=== PATIENT | female | born 1950 | race Caucasian/White ===

== ENCOUNTER → 2020-10-15 10:18 | Outpatient (BNVA) | payer MEDICARE, SELFPAY | PROVIDERS: PCP Physician Assistant Medical; Visit Provider Hospitalist | DX: Z23 Encounter for immunization (principal); J45.909 Unspecified asthma, uncomplicated; G47.33 Obstructive sleep apnea (adult) (pediatric); R01.1 Cardiac murmur, unspecified; J30.9 Allergic rhinitis, unspecified; Z99.89 Dependence on other enabling machines and devices | CPT/HCPCS: 90471; 90732 ==

== ENCOUNTER → 2022-10-23 13:07 | Outpatient (BNVA) | payer MEDICARE, SELFPAY | PROVIDERS: PCP Physician Assistant Medical; Visit Provider Hospitalist | DX: J45.909 Unspecified asthma, uncomplicated (principal); G47.33 Obstructive sleep apnea (adult) (pediatric); R01.1 Cardiac murmur, unspecified; Z99.89 Dependence on other enabling machines and devices | CPT/HCPCS: 99212 ==

== ENCOUNTER 2023-04-14 09:02 | Outpatient (REF) | payer MEDICARE, SELFPAY ==
--- NOTE | 2023-04-14 09:59 | PFT_ITS ---
INDICATION: Asthma. SPIROMETRY: FEV1 to FVC of 88% with an FEV1 of 1.94 L, which is 160% predicted and an FVC of 2.22 L, which is 90% predicted. No significant response to bronchodilators noted. Maximum voluntary ventilation 78% predicted. LUNG VOLUMES: Total lung capacity 95% predicted. DIFFUSION CAPACITY: DLCO 112% predicted. COMPARISON: None. INTERPRETATION: No restrictive ventilatory defects identified. No significant response to bronchodilator is noted. Does have mild decrease in the maximum voluntary ventilation which could be secondary to deconditioning. Lung volumes are normal except for decrease in the expiratory residual volume secondary to an elevated BMI. Diffusion capacity is within normal limits. If asthma is in the differential, a methacholine challenge may be helpful in assessing for hyperreactive airway disease. Otherwise, clinical correlation is warranted. MD HARVEY Calabrese/MODL / [id number]
== END 2023-04-14 09:03 | disposition home or self-care (01) ==
LOC: HO.RESP 09:02
PROVIDERS: PCP Physician Assistant Medical; Visit Provider Hospitalist
DX: J45.909 Unspecified asthma, uncomplicated (principal)
CPT/HCPCS: 94010; 94727; 94729

== ENCOUNTER → 2023-05-07 13:12 | Outpatient (BNVA) | payer MEDICARE, SELFPAY | PROVIDERS: PCP Physician Assistant Medical; Visit Provider Hospitalist | DX: J45.909 Unspecified asthma, uncomplicated (principal); R01.1 Cardiac murmur, unspecified; J30.9 Allergic rhinitis, unspecified; G47.33 Obstructive sleep apnea (adult) (pediatric); Z99.89 Dependence on other enabling machines and devices | CPT/HCPCS: 99212 ==

== ENCOUNTER 2023-12-20 11:24 | Outpatient (AMB) | payer MEDICARE, SELFPAY ==
--- NOTE | 2023-12-20 11:28 | HO.NEPHOV ---
HPI HPI Comments History of Present Illness Details 73 yr old woman with CKD and CHF Overall doing well PFSH Medical History (Updated 12/20/23 @ 11:52 by Daniele Reddy MD) Chronic allergic rhinitis Murmur LINETTE on CPAP Asthma Family History (Updated 12/20/23 @ 11:35 by Miranda Guzman MA) Mother Heart disease Father Heart disease Other Asthma Social History (Updated 12/20/23 @ 11:34 by Miranda Guzman MA) Alcohol intake: never Patient Tobacco Use Status: Never used Tobacco Vital Signs 12/20/23 11:29 12/20/23 11:42 Height 5 ft Weight 192 lb 6 oz BMI 37.6 BP 140/70 H 140/60 H Blood Pressure Location Lt brachial Rt brachial Position Sitting Sitting Pulse 77 Pulse Source Pulse Oximeter Pulse Oximetry (%) 96 Oxygen Delivery Method Room Air Physical Exam Vital Signs: Last Vital Signs Pulse 77 12/20/23 11:29 BP 140/60 H 12/20/23 11:42 Pulse Ox 96 12/20/23 11:29 Oxygen Delivery Method Room Air 12/20/23 11:29 BMI result Body Mass Index 37.6 Const General: comfortable Nutritional Appearance: well nourished Orientation/consciousness: patient oriented x3 HEENT Head: No normal to inspection Mouth: moist mucous membranes Neck Neck: Yes supple and Yes no JVD Resp Auscultation: clear to auscultation bilaterally, no rales and rub present Cardio Jugular venous distension: no JVD Palpation: no palpable S3 and no palpable S4 Heart sounds: no rubs GI Palpation (GI): Soft to palpation and nontender Percussion: No Fluid wave present General: Yes no CVA tenderness Back/Spine/Pelvis Back: no CVA tenderness Skin General skin exam: no rashes or lesions noted Neuro General: patient oriented x3 Extrem General: Yes no pedal edema and No clubbing Assessment & Plan Assessment & Plan (1) CKD (chronic kidney disease): Code(s): N18.9 - Chronic kidney disease, unspecified (2) LINETTE on CPAP: Code(s): G47.33 - Obstructive sleep apnea (adult) (pediatric); Z99.89 - Dependence on other enabling machines and devices (3) HTN (hypertension): Code(s): I10 - Essential (primary) hypertension Plan 73-year-old woman with CKD in a setting of congestive heart failure. Renal function is stable at this time. Goal is to slow the progression of renal disease. Volume status is acceptable. Continue with current diuretic regimen. Continue to stay on low-sodium diet. Avoid nephrotoxic agents including NSAIDs. All questions were answered. No changes were made to medications today. Orders: Orders Blood Urea Nitrogen 4 Months I10 - Essential (primary) hypertension, N18.9 - Chronic kidney disease, unspecified Creatinine 4 Months I10 - Essential (primary) hypertension, N18.9 - Chronic kidney disease, unspecified Calcium 4 Months I10 - Essential (primary) hypertension, N18.9 - Chronic kidney disease, unspecified Complete Blood Count no Diff 4 Months I10 - Essential (primary) hypertension, N18.9 - Chronic kidney disease, unspecified Electrolytes 4 Months I10 - Essential (primary) hypertension, N18.9 - Chronic kidney disease, unspecified Coding Level of Care Code Est Pt Level 4 (99483) Diagnoses CKD (chronic kidney disease) N18.9 LINETTE on CPAP G47.33; Z99.89 HTN (hypertension) I10 Results Reviewed Results Reviewed: 09/2023 Creatinine 1.4 Nephrology Results: No Data to Display
[2023-12-20 11:29] VITALS: BP 140/70; PULSE 77; O2SAT 96; BMI 37.6
[2023-12-20 11:42] VITALS: BP 140/60
== END 2023-12-20 11:45 | disposition home or self-care (01) ==
LOC: HO.HKAS 11:24
PROVIDERS: PCP Physician Assistant Medical; Visit Provider Internal Medicine Hypertension Specialist
DX: I13.0 Hypertensive heart and chronic kidney disease with heart failure and stage 1 through stage 4 chronic kidney disease, or unspecified chronic kidney disease (principal); N18.9 Chronic kidney disease, unspecified; I50.9 Heart failure, unspecified; G47.33 Obstructive sleep apnea (adult) (pediatric); Z99.89 Dependence on other enabling machines and devices
CPT/HCPCS: 99214

== ENCOUNTER → 2023-12-20 11:24 | Outpatient (BNVA) | payer MEDICARE, SELFPAY | PROVIDERS: PCP Physician Assistant Medical; Visit Provider Internal Medicine Hypertension Specialist | DX: I12.9 Hypertensive chronic kidney disease with stage 1 through stage 4 chronic kidney disease, or unspecified chronic kidney disease (principal); N18.9 Chronic kidney disease, unspecified; G47.33 Obstructive sleep apnea (adult) (pediatric); Z99.89 Dependence on other enabling machines and devices | CPT/HCPCS: 99212 ==

== ENCOUNTER 2024-02-15 10:22 | Outpatient (AMB) | payer MEDICARE, SELFPAY ==
[2024-02-15 10:31] VITALS: PULSE 84; O2SAT 95; BMI 35.9
--- NOTE | 2024-02-15 10:31 | A.OFFVIS_ITS ---
Intake Vital Signs 02/15/24 10:31 Height 5 ft Weight 184 lb BMI 35.9 Pulse 84 Pulse Source Pulse Oximeter Pulse Oximetry (%) 95 Oxygen Delivery Method Room Air Intake Visit Reasons: copd Transplanter Required: No Allergies bee pollen Allergy (Severe, Verified 02/15/24 10:32) Hives/Rash lisinopril Adverse Reaction (Severe, Verified 02/15/24 10:32) Cough Kvng Inibitors Allergy (Severe, Uncoded 02/15/24 10:32) Cough Penicillins Allergy (Severe, Uncoded 02/15/24 10:32) Rash Sulfa Drugs Allergy (Severe, Uncoded 02/15/24 10:32) Rash HPI HPI Comments History of Present Illness Details Patient is a 74-year-old woman with a known history of asthma in addition to obstructive sleep apnea on CPAP. Her asthma has been well controlled on her current respiratory medication. Back in the springtime she did have an exacerbation in did require prednisone. However since then she has been doing well. She does not use her rescue inhaler more than twice a week. She continues use her Advair regularly. She also uses her nasal sprays for her chronic rhinitis. In addition to that she has been using her CPAP. The CPAP therapy has been affecting beneficial. I did download the APAP machine which appears to be completely optimized. Her AHI is below 1. She uses it 100% of the time. Her average pressure very between 10-12 cm of water. No changes were made. She does have an issue with current mask. I did have a spare N 20 mask that fit her well. Therefore may be a good mask for to consider using moving for period she will try it for some time and that is now so we can order a mask for her. Otherwise patient is without any other complaints. She is due for a pneumonia shot today. She will call if any issues developed. 10/23/2022 the patient is here for a pulmonary follow-up visit. She is doing well with her CPAP. The CPAP therapy continues to be affecting beneficial. She does use it for more than 4 hours a night. She has been getting supplies regularly. Her major issues her breathing. She has been noticing increasing shortness of breath and chest tightness. Moderate severity. She has been on the Advair with only partial resolution of her symptoms. She has been using her rescue inhaler on a regular basis. She also has allergy medications including Singulair and has been using Nasonex for her nose. Will go ahead and optimize her therapy by adding a long-acting muscarinic antagonist. I did give her coupon of Trelegy. She is going to try that. If the medication is effective and financially reasonable she is going to continue it. Otherwise she will call the office if she is no better. We can consider also performing blood work and allergy testing and also should undergo pulmonary function studies in the future. 05/07/2023 the patient is here for pulmonary follow-up visit. The patient is doing very well. She has had significant weight loss. This has been intentional for her. The patient continues use her CPAP every night. The CPAP therapy continues to be affecting beneficial. She does use it more than 4 hours a night. The patient has been getting supplies readily from her [employer] company and she does like her mask. The patient also has been now in good response with the Trelegy inhaler. Although, very expensive. I will send her instead AirDuo to the pharmacy and she can use it good Rx card that we provided. Hopefully this will make it more reasonable for her. She did undergo pulmonary function studies and we did review them demonstrating normal lung mechanics. 02/15/2024 the patient is here for a pulmo nary follow-up visit. Overall she is doing fairly well. She is dealing with a new diagnosis of congestive heart failure. She did develop some cardiorenal syndrome. She is followed closely by Nephrology. In the meantime she continues uses CPAP. The CPAP therapy continues to be affecting beneficial. She does use the wisp mask which she likes a lot. The patient has been tolerating therapy for many years. And she will continue therapy at this time. As far as inhaler she had been on Trelegy. But was expensive. I did talk to her about AirDuo through a [employer] card. But it appears that Darianaxela will be covered nicely through her insurance will go ahead and prescribe her that and send her the medication to her pharmacy. She continues on her cardiac medications. The patient does have a murmur. 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 [facility] Medical History (Updated 12/20/23 @ 11:52 by Daniele Reddy MD) Chronic allergic rhinitis Murmur LINETTE on CPAP Asthma Family History (Updated 12/20/23 @ 11:35 by Miranda Guzman MA) Mother Heart disease Father Heart disease Other Asthma Social History (Updated 12/20/23 @ 11:34 by Miranda Guzman MA) Alcohol intake: never Patient Tobacco Use Status: Never used Tobacco Review of Systems Const Denies night sweats ENT Denies change in voice, Denies lip swelling, Denies mouth pain, Reports nasal congestion, Reports nasal discharge and Denies tongue swelling Card Denies chest pain and Reports dyspnea on exertion Resp Reports cough and Reports dyspnea on exertion GI Denies abdominal pain Musc Denies no additional complaints Neuro Denies Neuro-related abnormal movements Psych Denies no additional complaints Alhaji/Lymph Denies easy bleeding and Denies lymphadenopathy Aller/Immun Denies lip swelling and Denies tongue swelling Physical Exam Vital Signs: Last Vital Signs Pulse 84 02/15/24 10:31 Pulse Ox 95 02/15/24 10:31 Oxygen Delivery Method Room Air 02/15/24 10:31 BMI result Body Mass Index 35.9 Const General: alert HEENT General nose exam: Abnormal external nose present and Nasal discharge present Eyes Pupils: Equal, round and reactive pupils present Neck Neck: Yes normal visual inspection, Yes full ROM and Yes no lymphadenopathy Chest Chest palpation & inspection: normal inspection of the chest Resp Auscultation: diminished lung sounds Cardio Rate: regular rate Rhythm: regular rhythm Heart sounds: S1 normal heart sound present, S2 normal heart sound present and Murmur heart sound present systolic III/ and with radiation to the carotids GI Palpation (GI): Soft to palpation and nontender Auscultation: normal bowel sounds General: Yes no CVA tenderness Back/Spine/Pelvis Back: no CVA tenderness Skin General skin exam: rashes and/or lesions noted Neuro Cranial nerves: Yes Equal, round and reactive pupils present Assessment & Plan Assessment & Plan (1) Asthma: Code(s): J45.909 - Unspecified asthma, uncomplicated Qualifiers: Asthma complication type: uncomplicated Asthma persistence: unspecified Asthma severity: moderate Qualified Code(s): J45.909 - Unspecified asthma, uncomplicated Plan: Will try to decrease Advair to daily (2) LINETTE on CPAP: Code(s): G47.33 - Obstructive sleep apnea (adult) (pediatric); Z99.89 - Dependence on other enabling machines and devices Plan: Continue APAP therapy (3) Murmur: Code(s): R01.1 - Cardiac murmur, unspecified Plan: Follow up with PCP (4) Chronic allergic rhinitis: Code(s): J30.9 - Allergic rhinitis, unspecified Plan Start Wixela short-acting beta agonist as needed continue singular continue PAP therapy, WISP Requesting previous ECHO diuresis as tolerated F/U 1 year Medications: New fluticasone propion-salmeterol 250-50 mcg/dose (Wixela Inhub) 1 inh inhalation Q12H 90 days 3 ea 3RF Coding Level of Care Code Est Pt Level 4 (32086) Diagnoses Moderate asthma without complication, unspecified whether persistent J45.909 Asthma complication type: uncomplicated Asthma persistence: unspecified Asthma severity: moderate LINETTE on CPAP G47.33; Z99.89 Murmur R01.1 Chronic allergic rhinitis J30.9 Time Spent (min) 17
== END 2024-02-15 10:53 | disposition home or self-care (01) ==
PROVIDERS: PCP Physician Assistant Medical; Visit Provider Hospitalist
DX: J45.909 Unspecified asthma, uncomplicated (principal); G47.33 Obstructive sleep apnea (adult) (pediatric); Z99.89 Dependence on other enabling machines and devices; R01.1 Cardiac murmur, unspecified; J30.9 Allergic rhinitis, unspecified
CPT/HCPCS: 99214

== ENCOUNTER → 2024-02-15 10:22 | Outpatient (BNVA) | payer MEDICARE, SELFPAY | PROVIDERS: PCP Physician Assistant Medical; Visit Provider Hospitalist | DX: J45.909 Unspecified asthma, uncomplicated (principal); R01.1 Cardiac murmur, unspecified; G47.33 Obstructive sleep apnea (adult) (pediatric); Z99.89 Dependence on other enabling machines and devices | CPT/HCPCS: 99212 ==

== ENCOUNTER 2024-05-15 10:45 | Outpatient (AMB) | payer MEDICARE, SELFPAY ==
--- NOTE | 2024-05-15 10:45 | HO.NEPHOV_ITS ---
Vital Signs 05/15/24 10:46 Height 5 ft Weight 189 lb BMI 36.9 BP 142/72 H Blood Pressure Location Lt brachial Position Sitting Pulse 91 Pulse Source Pulse Oximeter Pulse Oximetry (%) 96 Oxygen Delivery Method Room Air Intake Visit Reasons: May follow up/ Conf Shredder Picker Required: No Accompanied by: Self / Same As Patient Allergies bee pollen Allergy (Severe, Verified 05/15/24 10:47) Hives/Rash lisinopril Adverse Reaction (Severe, Verified 05/15/24 10:47) Cough Kvng Inibitors Allergy (Severe, Uncoded 02/15/24 10:32) Cough Penicillins Allergy (Severe, Uncoded 02/15/24 10:32) Rash Sulfa Drugs Allergy (Severe, Uncoded 02/15/24 10:32) Rash Medication List - Last Reconciled 05/15/24 by Daniele Reddy MD ascorbic acid (vitamin C) 500 mg PO DAILY atorvastatin 20 mg PO DAILY bumetanide 1 mg PO DAILY diltiazem HCl CD 360 mg PO DAILY duloxetine 60 mg PO DAILY empagliflozin (Jardiance) 10 mg PO DAILY epinephrine IM fluticasone propion-salmeterol 250-50 mcg/dose (Wixela Inhub) 1 inh inhalation Q12H 90 days zdsgronxaug-gheunvcoz-sodjgxyn 100-62.5-25 mcg (Trelegy Ellipta) 1 ea inhalation DAILY levalbuterol tartrate 45 mcg/actuation 2 puffs inhalation Q6H PRN 90 days losartan 50 mg PO DAILY magnesium 200 mg PO DAILY mometasone 50 mcg/actuation (Nasonex) 2 sprays intranasal DAILY 90 days montelukast 10 mg PO DAILY 90 days omeprazole 40 mg PO DAILY semaglutide (Ozempic) mg subcut spironolactone 12.5 mg (1/2 x 25 mg) PO DAILY HPI Comments Details: 73 yr old woman with CKD and CHF and HTN Overall she is doing well. She has been monitoring her weight at home and takes additional dose of Bumex if needed. She is compliant with her medications. She has no specific issues today [facility] Medical History (Updated 12/20/23 @ 11:52 by Daniele Reddy MD) Chronic allergic rhinitis Murmur LINETTE on CPAP Asthma Family History Mother Heart disease Father Heart disease Other Asthma Social History Alcohol intake: never Patient Tobacco Use Status: Never used Tobacco Physical Exam Vital Signs: Last Vital Signs Pulse 91 05/15/24 10:46 BP 142/72 H 05/15/24 10:46 Pulse Ox 96 05/15/24 10:46 Oxygen Delivery Method Room Air 05/15/24 10:46 BMI result Body Mass Index 36.9 Results Reviewed Nephrology Results: No Data to Display Assessment & Plan Assessment & Plan (1) CKD (chronic kidney disease): Code(s): N18.9 - Chronic kidney disease, unspecified Category: Medical (2) LINETTE on CPAP: Code(s): G47.33 - Obstructive sleep apnea (adult) (pediatric); Z99.89 - Dependence on other enabling machines and devices Category: Medical (3) HTN (hypertension): Code(s): I10 - Essential (primary) hypertension Category: Medical Plan 73-year-old woman with CKD in a setting of congestive heart failure. Renal function is stable at this time. Baseline creatinine is around 1.2 mg/dL Goal is to slow the progression of renal disease. Agree with SGLT2 inhibitors for renal protection Volume status is acceptable. Continue with current diuretic regimen. Bumex 1 mg daily. Take additional dose of Bumex as needed based on daily weight Continue to stay on low-sodium diet. Avoid nephrotoxic agents including NSAIDs. All questions were answered. No changes were made to medications today. Orders: Orders Basic Metabolic Panel 5 Months N18.9 - Chronic kidney disease, unspecified Complete Blood Count Auto Diff 5 Months N18.9 - Chronic kidney disease, unspecified Coding Level of Care Code Est Pt Level 4 (17489) Diagnoses CKD (chronic kidney disease) N18.9 LINETTE on CPAP G47.33; Z99.89 HTN (hypertension) I10
[2024-05-15 10:46] VITALS: BP 142/72; PULSE 91; O2SAT 96; BMI 36.9
== END 2024-05-15 11:05 | disposition home or self-care (01) ==
PROVIDERS: PCP Physician Assistant Medical; Visit Provider Internal Medicine Hypertension Specialist
DX: I13.0 Hypertensive heart and chronic kidney disease with heart failure and stage 1 through stage 4 chronic kidney disease, or unspecified chronic kidney disease (principal); I50.9 Heart failure, unspecified; N18.9 Chronic kidney disease, unspecified; G47.33 Obstructive sleep apnea (adult) (pediatric); Z99.89 Dependence on other enabling machines and devices
CPT/HCPCS: 99214

== ENCOUNTER → 2024-05-15 10:45 | Outpatient (BNVA) | payer MEDICARE, SELFPAY | PROVIDERS: PCP Physician Assistant Medical; Visit Provider Internal Medicine Hypertension Specialist | DX: I13.0 Hypertensive heart and chronic kidney disease with heart failure and stage 1 through stage 4 chronic kidney disease, or unspecified chronic kidney disease (principal); I50.9 Heart failure, unspecified; N18.9 Chronic kidney disease, unspecified; G47.33 Obstructive sleep apnea (adult) (pediatric); Z99.89 Dependence on other enabling machines and devices; Z79.899 Other long term (current) drug therapy | CPT/HCPCS: 99212 ==

== ENCOUNTER 2024-09-11 11:41 | Outpatient (AMB) | payer MEDICARE, SELFPAY ==
[2024-09-11 11:43] VITALS: BP 154/78; PULSE 78; O2SAT 96; BMI 36.3
--- NOTE | 2024-09-11 11:43 | HO.NEPHOV_ITS ---
Vital Signs 09/11/24 11:43 09/11/24 11:54 Height 5 ft Weight 186 lb BMI 36.3 BP 154/78 H 140/70 H Blood Pressure Location Lt brachial Lt brachial Position Sitting Sitting Pulse 78 Pulse Source Pulse Oximeter Pulse Oximetry (%) 96 Oxygen Delivery Method Room Air Intake Visit Reasons: 5Month F/U/ conf Breaker Up Required: No Accompanied by: Self / Same As Patient Allergies bee pollen Allergy (Severe, Verified 09/11/24 11:44) Hives/Rash lisinopril Adverse Reaction (Severe, Verified 09/11/24 11:44) Cough Kvng Inibitors Allergy (Severe, Uncoded 02/15/24 10:32) Cough Penicillins Allergy (Severe, Uncoded 02/15/24 10:32) Rash Sulfa Drugs Allergy (Severe, Uncoded 02/15/24 10:32) Rash Medication List - Last Reconciled 09/11/24 by Daniele Reddy MD ascorbic acid (vitamin C) 500 mg PO DAILY atorvastatin 20 mg PO DAILY bumetanide 1 mg PO DAILY diltiazem HCl CD 360 mg PO DAILY duloxetine 60 mg PO DAILY duloxetine 30 mg PO DAILY empagliflozin (Jardiance) 10 mg PO DAILY epinephrine IM fluticasone propion-salmeterol 250-50 mcg/dose (Wixela Inhub) 1 inh inhalation Q12H 90 days cycqjwbcxqz-xtxfzrjih-yrhygnlj 100-62.5-25 mcg (Trelegy Ellipta) 1 ea inhalation DAILY levalbuterol tartrate 45 mcg/actuation 2 puffs inhalation Q6H PRN 90 days losartan 50 mg PO DAILY magnesium 200 mg PO DAILY mometasone 50 mcg/actuation (Nasonex) 2 sprays intranasal DAILY 90 days montelukast 10 mg PO DAILY 90 days omeprazole 40 mg PO DAILY semaglutide (Ozempic) mg subcut spironolactone 12.5 mg (1/2 x 25 mg) PO DAILY HPI Comments Details: 73 yr old woman with CKD and CHF and HTN Overall she is doing well. She has been monitoring her weight at home and takes additional dose of Bumex if needed. She is compliant with her medications. She has no specific issues today 09/11/24 Feels bloated Weight fluctuates [facility] Medical History (Updated 12/20/23 @ 11:52 by Daniele Reddy MD) Chronic allergic rhinitis Murmur LINETTE on CPAP Asthma Family History Mother Heart disease Father Heart disease Other Asthma Social History Alcohol intake: never Patient Tobacco Use Status: Never used Tobacco Physical Exam Vital Signs: Last Vital Signs Pulse 78 09/11/24 11:43 BP 154/78 H 09/11/24 11:43 Pulse Ox 96 09/11/24 11:43 Oxygen Delivery Method Room Air 09/11/24 11:43 BMI result Body Mass Index 36.3 Const General: comfortable; No acute distress Orientation/consciousness: patient oriented x3 Eyes General: appearance normal, both eyes and all related structures Visual Stringer: normal visual stringer by confrontation Neck Neck: Yes supple and Yes no JVD Resp Effort & Inspection: normal respiratory effort and respiratory effort not decreased Auscultation: rhonchi Cardio Palpation: no palpable S3 and no palpable S4 Heart sounds: no rubs GI Inspection: Yes normal to inspection Palpation (GI): Soft to palpation Percussion: Yes normal to percussion Auscultation: normal bowel sounds General: Yes no CVA tenderness Back/Spine/Pelvis Back: no CVA tenderness Skin General skin exam: no petechiae and no purpura Neuro General: patient oriented x3 and no focal motor deficits Extrem General: No clubbing and Yes edema Results Reviewed Results Reviewed: Cr upto 1.5 ( 08/16/24) baseline 1.2 to 1.3 Nephrology Results: No Data to Display Assessment & Plan Assessment & Plan (1) CKD (chronic kidney disease): Code(s): N18.9 - Chronic kidney disease, unspecified Category: Medical (2) LINETTE on CPAP: Code(s): G47.33 - Obstructive sleep apnea (adult) (pediatric); Z99.89 - Dependence on other enabling machines and devices Category: Medical (3) HTN (hypertension): Code(s): I10 - Essential (primary) hypertension Category: Medical Plan 73-year-old woman with CKD in a setting of congestive heart failure. Renal function is stable at this time. Baseline creatinine is around 1.2 mg/dL Mild bump to 1.5 Goal is to slow the progression of renal disease. Agree with SGLT2 inhibitors for renal protection Increase Bumex to 1 mg BID x 1 week and then back to 1 mg QD Check labs in 2 weeks Continue with current diuretic regimen. Needs follow up with cardiology LAst ECHO in January 2023- reportedly normal Continue to stay on low-sodium diet. Avoid nephrotoxic agents including NSAIDs. All questions were answered. No changes were made to medications today. Orders: Orders Basic Metabolic Panel 2 Weeks I10 - Essential (primary) hypertension, N18.9 - Chronic kidney disease, unspecified Basic Metabolic Panel 3 Months N18.9 - Chronic kidney disease, unspecified Coding Level of Care Code Est Pt Level 4 (35334) Diagnoses CKD (chronic kidney disease) N18.9 LINETTE on CPAP G47.33; Z99.89 HTN (hypertension) I10
[2024-09-11 11:54] VITALS: BP 140/70
== END 2024-09-11 12:01 | disposition home or self-care (01) ==
LOC: HO.HKA 11:41
PROVIDERS: PCP Physician Assistant Medical; Visit Provider Internal Medicine Hypertension Specialist
DX: I13.0 Hypertensive heart and chronic kidney disease with heart failure and stage 1 through stage 4 chronic kidney disease, or unspecified chronic kidney disease (principal); N18.9 Chronic kidney disease, unspecified; I50.9 Heart failure, unspecified; G47.33 Obstructive sleep apnea (adult) (pediatric); Z99.89 Dependence on other enabling machines and devices
CPT/HCPCS: 99214

== ENCOUNTER → 2024-09-11 11:41 | Outpatient (BNVA) | payer MEDICARE, SELFPAY | PROVIDERS: PCP Physician Assistant Medical; Visit Provider Internal Medicine Hypertension Specialist | DX: I12.9 Hypertensive chronic kidney disease with stage 1 through stage 4 chronic kidney disease, or unspecified chronic kidney disease (principal); N18.9 Chronic kidney disease, unspecified; G47.33 Obstructive sleep apnea (adult) (pediatric); Z99.89 Dependence on other enabling machines and devices | CPT/HCPCS: 99212 ==

== ENCOUNTER 2024-12-11 11:57 | Outpatient (AMB) | payer MEDICARE, SELFPAY ==
--- NOTE | 2024-12-11 11:58 | HO.NEPHOV ---
Vital Signs 12/11/24 11:59 Height 5 ft Weight 185 lb BMI 36.1 BP 120/70 Blood Pressure Location Lt brachial Position Sitting Pulse 71 Pulse Source Pulse Oximeter Pulse Oximetry (%) 95 Oxygen Delivery Method Room Air Intake Visit Reasons: CKD/ Conf Manufacturing Specialist Required: No Accompanied by: Self / Same As Patient Allergies bee pollen Allergy (Severe, Verified 12/11/24 12:00) Hives/Rash lisinopril Adverse Reaction (Severe, Verified 12/11/24 12:00) Cough Kvng Inibitors Allergy (Severe, Uncoded 02/15/24 10:32) Cough Penicillins Allergy (Severe, Uncoded 02/15/24 10:32) Rash Sulfa Drugs Allergy (Severe, Uncoded 02/15/24 10:32) Rash Medication List - Last Reconciled 12/11/24 by Daniele Reddy MD ascorbic acid (vitamin C) 500 mg PO DAILY aspirin 81 mg PO DAILY atorvastatin 20 mg PO DAILY bumetanide 1 mg PO DAILY carvedilol 6.25 mg PO BID diltiazem HCl CD mg PO DAILY duloxetine 60 mg PO DAILY empagliflozin (Jardiance) 10 mg PO DAILY epinephrine IM fluticasone propion-salmeterol 250-50 mcg/dose (Wixela Inhub) 1 inh inhalation Q12H 90 days ieljkrptbyc-xxxmgfpjx-ykmpbaly 100-62.5-25 mcg (Trelegy Ellipta) 1 ea inhalation DAILY levalbuterol tartrate 45 mcg/actuation 2 puffs inhalation Q6H PRN 90 days losartan 50 mg PO DAILY magnesium 200 mg PO DAILY mometasone 50 mcg/actuation (Nasonex) 2 sprays intranasal DAILY 90 days montelukast 10 mg PO DAILY 90 days omeprazole 40 mg PO DAILY semaglutide (Ozempic) mg subcut QWEEK spironolactone 12.5 mg (1/2 x 25 mg) PO DAILY HPI Comments Details: 73 yr old woman with CKD and CHF and HTN Overall she is doing well. She has been monitoring her weight at home and takes additional dose of Bumex if needed. She is compliant with her medications. She has no specific issues today 09/11/24 Feels bloated; Weight fluctuates 12/11/24 Recently had dizzy spell. Seen by cardiology Had CT scan and reportedly had a TIA? Still finding difficulty to find words Denies focal weakness Currently on Bumex 1 mg daily and occasional 2 mg as needed PFSH Medical History (Updated 12/11/24 @ 12:14 by Daniele Reddy MD) Chronic allergic rhinitis Murmur LINETTE on CPAP Asthma Family History Mother Heart disease Father Heart disease Other Asthma Social History Alcohol intake: never Patient Tobacco Use Status: Never used Tobacco Physical Exam Vital Signs: Last Vital Signs Pulse 71 12/11/24 11:59 BP 120/70 12/11/24 11:59 Pulse Ox 95 12/11/24 11:59 Oxygen Delivery Method Room Air 12/11/24 11:59 BMI result Body Mass Index 36.1 Results Reviewed Results Reviewed: 11/30/2024 Serum creatinine 1.3 Nephrology Results: No Data to Display Assessment & Plan Assessment & Plan (1) CKD (chronic kidney disease): Code(s): N18.9 - Chronic kidney disease, unspecified Category: Medical (2) LINETTE on CPAP: Code(s): G47.33 - Obstructive sleep apnea (adult) (pediatric); Z99.89 - Dependence on other enabling machines and devices Category: Medical (3) HTN (hypertension): Code(s): I10 - Essential (primary) hypertension Category: Medical (4) TIA (transient ischemic attack): Code(s): G45.9 - Transient cerebral ischemic attack, unspecified Category: Medical Plan 73-year-old woman with CKD in a setting of congestive heart failure. Renal function is stable at this time. Baseline creatinine is around 1.3 mg/dL Goal is to slow the progression of renal disease. Agree with SGLT2 inhibitors for renal protection Continue with current diuretic regimen. Needs follow up with cardiology Last ECHO in January 2023- reportedly normal Repeat is pending Continue to stay on low-sodium diet. Avoid nephrotoxic agents including NSAIDs. All questions were answered. Possible TIA Will add ASA REfer to Neurology Orders: Orders Basic Metabolic Panel 4 Months N18.9 - Chronic kidney disease, unspecified Complete Blood Count no Diff Today N18.9 - Chronic kidney disease, unspecified Referrals Neurology Referral G45.9 - Transient cerebral ischemic attack, unspecified Medications: New aspirin 81 mg PO DAILY 100 tabs 1RF Coding Level of Care Code Est Pt Level 4 (82507) Diagnoses CKD (chronic kidney disease) N18.9 LINETTE on CPAP G47.33; Z99.89 HTN (hypertension) I10 TIA (transient ischemic attack) G45.9
[2024-12-11 11:59] VITALS: BP 120/70; PULSE 71; O2SAT 95; BMI 36.1
--- OUTSIDE RECORDS SUMMARY | 2024-12-11 16:55 | XMS_ITS | Encounter Summary ---
Author Organization [facility] Address [address] [place] [address] Phone Care Team Providers Care Senior Policy Associate Name Role Phone Angela Ellington Primary Care Provider + [phone] Encounter Details Date Type Department Care Team (Late st Contact Info) Description 09/24/2022 Telephone [facility] [address] [place] [address] Daniele Reddy MD Social History Tobacco Use Types Packs/Day Years Used Date Smoking Tobacco: Never Smokeless Tobacco: Never Alcohol Use Standard Drinks/Week Comments No 0 (1 standard drink = 0.6 oz pur e alcohol) Comments Unknown Sex and Gender Information Value Date Recorded Sex Assigned at Not on file Legal Sex Female 5:10 PM EST Gender Identity Not on file Sexual Orientation Not on file documented as of this encounter Miscellaneous Notes * Telephone Encounter - Lori Lane - 09/24/2022 11:41 AM EST Please advise * Telephone Encounter - EdwardsCatie - 09/24/2022 11:26 AM EST This message was cortexed to Dr. Maureen Ta 1950 called her legs are very swollen and she gets short of breathe on exertion. She increased her bumex to 2 tabs daily by taking 1 in the morning and 1 midday, that has not helped. She would like to speak with you for guidance. Please call her back at [phone] Thank you documented in this encounter Plan of Treatment Not on file documented as of this encounter Procedures Procedure Name Priority Date/Time Associated Diagnosis Comments CBC AND DIFFERENTIAL Routine 11/25/2022 8:58 AM EST BASIC METABOLIC PANEL Routine 11/25/2022 8:58 AM EST PROTEIN / CREATININE RATIO, URINE Routine 11/25/2022 8:55 AM EST documented in this encounter Results * (ABNORMAL) Basic Metabolic Panel (11/25/2022 8:58 AM EST) Glucose 134(H) (70-99) MG/DL [facility] BUN 27(H) (8-23) MG/DL [facility] Creatinine 1.3(H) (0.5-1.0) MG/DL [facility] Sodium 141 (133-145) MMOL/L [facility] Potassium 4.7 (3.6-5.2) MMOL/L [facility] Chloride 105 (98-107) MMOL/L [facility] Bicarbonate (CO2) 30(H) (22-29) MMOL/L [facility] Anion Gap 6 (4-17) [facility] Calcium 10.7(H) (8.6-10.5) MG/DL [facility] Est GFR Non 43 ML/MIN/1.7 3 M2 [facility] Comment: Creatinine based estimated glomerular filtration (eGFR) in adults is calculated using the [employer] recommended 2020 CKD-EPI equation. Estimates GFR from serum creatinine, age and sex. Testing performed or reported by [facility], a Service of [facility], [address] [place] [id number] Noah Orta MD, Sole Leather Cutting Machine Operator [facility]# [id number] 11/25/2022 8:58 AM EST 11/25/2022 8:59 AM EST us Daniele Reddy MD LAB BLOOD ORDERABLES Final Res ult [facility] * (ABNORMAL) CBC and Differential (11/25/2022 8:58 AM EST) White Blood Cells 10.0 (4.0-11.0) K/MM3 [facility] RBC 4.44 (4.20-5.40 ) M/MM3 [facility] Hgb 12.0 (11.7-15.5 ) GM/DL [facility] Hematocrit 40.0 (35.7-45.8 ) % [facility] MCV 90.1 (80.0-100. 0) FL [facility] MCH 27.0 (27.0-34.0 ) PG [facility] MCHC 30.0(L) (33.0-37.0 ) g/dL [facility] Platelets 328 (150-460) K/MM3 [facility] RDW-SD 49.2(H) (<47.0) FL [facility] MPV 9.3(L) (9.4-12.4) FL [facility] nRBC Count 0.0 #/100 WBC'S [facility] NRBC Absolute 0.0 K/MM3 [facility] Neutrophils Abs Auto 6.6 (1.3-7.0) K/MM3 [facility] Lymphocytes Relative 2.2 (0.8-3.1) K/MM3 [facility] Monocytes 0.8 (0.4-0.9) K/MM3 [facility] Eosinophils Relative 0.3 (0.0-0.4) K/MM3 [facility] Basophil ABS 0.1 (0.0-0.1) K/MM3 [facility] Granulocytes Absolute 0.1 K/MM3 [facility] Neutrophils % Auto 65.5 (44-76) % [facility] Lymphs 21.8 (15-43) % [facility] Monocytes Absolute 8.3 (4.5-10.5) % [facility] Eosinophils 3.3 (0-6) % [facility] Basophils Relative 0.6 (0-2) % [facility] Immature Granulocytes 0.5 % [facility] Comment: Testing performed or reported by [facility], a Service of [facility], [address] [place] [id number] Noah Orta MD, Sole Leather Cutting Machine Operator [facility]# [id number] 11/25/2022 8:58 AM EST 11/25/2022 8:59 AM EST us Daniele Reddy MD LAB BLOOD ORDERABLES Final Res ult [facility] * Protein, Total, Random Urine w/Creatinine (Protein/Creat Ratio) (11/25/2022 8:55 AM EST) Protein/Creatin e Ratio 0.16 (0-0.2) [facility] Protein, Urine 5 MG/DL [facility] Creatinine, Urine 32.2 MG/DL [facility] Comment: Testing performed or reported by [facility], a Service of [facility], [address] [place] [address] Noah Orta MD, Sole Leather Cutting Machine Operator [facility]# [id number] 11/25/2022 8:55 AM EST 11/25/2022 8:58 AM EST Daniele Reddy MD LAB URINE ORDERABLES Final Res ult Performing Organization Address City/[facility] Co de Phone Number [facility] documented in this encounter Visit Diagnoses Not on filedocumented in this encounter Care Teams Senior Policy Associate Relationship Specialty Start Date End Date Angela Ellington [place] [address] PCP - General Physician Spa Director 12/02/22 documented as of this encounter
--- OUTSIDE RECORDS SUMMARY | 2024-12-11 16:55 | XMS_ITS ---
Author Organization [facility] Address [address] [place] [address] Care Team Providers Care Commercial Underwriter Name Role Phone Az Hickman Primary Care Provider [phone] Encounters Encounter Location Date Provider Diagnosis [place] [address] [place] [address] 09/18/2024 Az Hickman Plan Of Treatment No Information Progress Notes * МАРИЯ COLLINSOB:1950 (74 yo F)Acc No.[id number]:09/18/2024 Patient:?MILAGROS COLLINS :1950???Age:74 Y???Sex:Female Address:[address] [place], [address] * true * Date:? Generated for Printi ng/Famellyg/eTransmitting on:?12/11/2024 04:54 PM EST
--- OUTSIDE RECORDS SUMMARY | 2024-12-11 16:55 | XMS_ITS ---
[facility] Address [address] [place] [address] Care Team Providers Care Liberal Arts Dean Name Role Phone Roxanne Ellington PA-C Primary Care Provider UnaKwesi East Unavailable [phone] Allergies Allergen (clinical drug ingredient) Drug/Non Drug Allergy documented on EMR Reaction Allergy Type Onset Date Status Bee Sting Unknown Allergy Active lisinopril Lisinopril cough Drug Allergy Activ e Penicillin rash Drug Allergy Active Substance with sulfonamide structure and antibacterial mechanism of action (substance) Sulfa Antibiotics rash Drug Allergy Active REASON FOR VISIT At Risk Footcare, Skin problem(s) Medications Medication SIG (Take, Route, Frequency, Duration) Notes Start Date End Date Status Xopenex Active Extra Depth Orthopedic Shoes (1 Pair) with Customized Heat Molded Multidensity Innersoles (3 Pair) as directed Dx: NIDDM/Polyneuropathy (E11.42), Hammertoe Foot Deformity (M20.41,M20.42), Preulcerative Skin Lesion(s) (L85.1 01/17/2024 Active Vitamin C Active Vitamin D Active Omeprazole 40 MG 1 capsule 30 minutes before morning meal Orally Once a day for 30 day(s) Active Montelukast Sodium 10 MG 1 tablet Orally Once a day for 30 day(s) Active Nasonex Active Losartan Potassium 25 MG 1 tablet Orally Once a day for 30 day(s) Active Magnesium 400 MG as directed Orally Active DULoxetine HCl 60 MG 1 capsule Orally On ce a day for 30 day(s) Active dilTIAZem HCl ER Beads 360 MG 1 capsule Orally Once a day for 30 day(s) Active Atorvastatin Calcium 20 MG 1 tablet Orally Once a day for 30 day(s) Active Bumetanide 1 MG as directed Orally Active Spironolactone 25 MG 1 tablet Orally for 30 day(s) Active Advair Diskus 250-50 MCG/DOSE 1 puff Inhalation Twice a day Active Ozempic Active Janumet 50-1000 MG 1 tablet with meals Orally Twice a day for 30 day(s) Not-Taking Potassium 1 tab Oral for 14 days Not-Taking metFORMIN HCl Not-Ta janine Trulicity 3 MG/0.5ML as directed Subcutaneous Not-Taking Ammonium Lactate 12 % 1 application Externally to feet except for between the toes Twice a day for 30 days Active Social History Tobacco Use: Social History Observation Description Date Details (start date - stop date) Never Smoker NA - NA Tobacco Use/Smoking Question Answer Notes Are you a: nonsmoker Additional Findings: Tobacco Non-User Aggressive non-smoker Tobacco use other than smoking: Question Answer Notes Are you an other tobacco user? No Vital Signs Height 5ft in 10/19/2024 Weight 185 lbs 10/19/2024 BMI 36.13 kg/m2 10/19/2024 Blood pressure systolic 120 mm Hg 10/19/20 24 Blood pressure diastolic 84 mm Hg 024 Procedures Procedure Date Ordered Date Performed Result Body Sit e 61054-XOTUWLL NAIL, 6 OR MORE 10/19/2024 N/A 05267-HEWO SKIN LESIONS, OVER 4 10/19/2024 N/A Encounters Encounter Location Date Provider Diagnosis [facility] [address] [id number] 10/19/2024 Kwesi Cruz Type 2 diabetes mellitus with diabetic polyneuropathy E11.42 ; Tinea unguium B35.1 and Xerosis of skin L85.3 Assessments Encounter Date Diagnosis (ICD Code) Assessment Notes Treatment Notes Treatment Clinical Notes Section Notes 10/19/2024 Type 2 diabetes mellitus with diabetic polyneuropathy (ICD-10 - E11.42) 10/19/2024 Tinea unguium (ICD-10 - B35.1) 10/19/2024 Xerosis of skin (ICD-10 - L85.3) Plan Of Treatment Pending Test Test Name Order Date 53897-TIHDRNB NAIL, 6 OR MORE 10/19/2024 36282-CDPR SKIN LESIONS, OVER 4 10/19/20 24 Next Appt Details Follow Up: prn, Reason: Provider Name:Kwesi Cruz , 01/18/2025 11:30:00 AM, [address] [facility], [address], [place], [address], Procedure Notes * Category Sub-Category Detail Notes Debride Nail 6-10 Nail debridement Performance o f this nail treatment by a nonprofessional would put this patients foot and overall health at risk. Therefore, debridement to affected nail(s), as described in exam, was performed extensively to reduce/remove overall nail length, girth, thickness, subungual debris, and necrotic tissue, by manual and/or electrical means through the use of a nail nipper and/or dremel-type rubber roller grinder operator, to a more viable healthy nail plate or bed tissue 6-10 nails in total. Silver nitrate was used for any petechial bleeding as necessary. Definitive antifungal treatment options, both pharmaceutical and surgical, have been reviewed and discussed with the patient. The patient solely prefers the use of intermittent/as needed professional debridement services for their nail condition and understands the need for additional periodic treatments to maintain effectiveness in symptomatic relief - 73487 Keratoma Treatment Parring or Cutting o f Benign Hyperkeratotic Lesion(s) (-57) More than 4 Lesions - The Benign hyperkeratotic lesions, ( 7) in total, locations as stated and described in exam, were pared, and/or cut utilizing a sterile 15 blade, tissue nippers, and/or power dremel instrumentation - 97088 Progress Notes * Lorena COLLINSeDOB:1950 (74 yo F)Acc No.[id number]:10/19/2024 Progress Note Patient:?Barbara COLLINS Provider:?Kwesi Cruz DPM :1950???Age:74 Y???Sex:Female D ate:10/19/2024 Address:[address] [place], [place] [id number] Pcp:Roxanne Ellington PA-C Subjective: * Chief Complaints: * ???At Risk FootcareSkin prob mikael(s) * HPI: ???At Risk footcare:?Pt States Last PCP Visit:?Date?10/18/2024 ???Skin problems:?Treatments:?medication ( AM Lactin ), states adherence to recommended treatment application.? * ROS:?General/Constitutional:?Nausea?denies.?Vomiting?denies.?Hunger Thirst?denies.?Loss appetite?denies.?Chills?denies.?Fatigue?denies.?Fever?denies.?Night Sweats?denies.?Unexplained weight loss?denies.?Unexplained weight gain?denies.?HEENTM:?Dentures?denies.?Dizziness?denies.?Glasses/contacts?admits.?Retinopathy?de nies.?Blurred/double vision?denies.?TMJ?denies.?Discharge/drainage?denies.?Implants?denies.?Sore throat?denies.?Dental implants?denies.?Hard of hearing ?denies.?Difficulty chewing/swallowing/speaking?denies.?Nose bleeds?denies.?Sore mouth?denies.?Respiratory:?On Oxygen?denies.?Pneumonia/pleurisy?denies.?Bronchitis?denies.?Emphysema?denies.?C oughing?denies.?Cough blood?denies.?Shortness of breath?admits.?Wheezing?denies.?Cardiovascular:?Pacemaker?denies.?MVP?denies.?WPW?denies.?CHF?denies.?Heart attack?denies.?Septal defect?denies.?Rapid beat?denies.?Chest pain ?denies.?Atrial Fib.?denies.?Murmur/Palpitations?denies.?Gastrointestinal:?Hemorrhoids?denies.?Stomach/Abdominal pain?denies.?Dark blood stool?denies.?Irritable bowel ?denies.?Constipation?denies.?Diarrhea?denies.?Hematology:?Swelling?admits.?Clots?denies.?Varicose Veins?denies.?Bruising?denies.?Bleeding problem?denies.?Genitourinary:?Blood urine?denies.?Frequent/Painfu/urination/bladder control?denies.?Kidney stones?denies.?Infection (UTI)?denies.?Nephropathy?denies.?sex trans dis (STD)?denies.?Prostate?denies.?Musculoskeletal:?Hammertoes?admits.?Bunions?admits.?Back Pain?denies.?Muscle Cramps/ Resting?denies.?Muscle cramps / walking?denies.?Generalized aches and pains?denies.?Weakness?denies.?Integ.:?Lazo?denies.?Scars?denies.?Corns/calluses?admits.?Ingrown nails?admits.?Painful nails?denies.?Open Sores?denies.?Rashes?denies.?Neurologic:?Difficulty sleeping?denies.?Brain disorder?denies.?Numbness?admits.?Balance trouble?denies.?Confusion?denies.?Fainting/blackouts?denies.?Tingling?denies.?Tr emors?denies.? * Medical History:? * Surgical History:?bunion low er back thumb surgery 01/01/23umb surgery arpal tunnel 2023 * Hospitalization/Major Diagno stic Procedure:?[facility]- shoulder replacement left - shoulder replacement left 12/14/21 * Family History:?Mother: dece ased, stroke, diagnosed with Unspecified essential hypertension.?Father: alive, diagnosed with Unspecified essential hypertension.?Siblings: cancer.?Paternal Grand Father: diagnosed with Diabetic - NIDDM.?Paternal uncle: diagnosed with Family history of arthritis.? * Social History:?Tobacco Use:?Tobacco Use/Smoking?Are you a:?nonsmoker ?Additional Findings: Tobacco Non-User?Aggressive non-smoker ?Tobacco use other than smoking?Are you an other tobacco user??No * Medications:?TakingOzempic S pironolactone 25 MG Tablet 1 tablet Orally Advair Diskus 250-50 MCG/DOSE Aerosol Powder Breath Activated 1 puff Inhalation Twice a day Atorvastatin Calcium 20 MG Tablet 1 tablet Orally Once a day Bumetanide 1 MG Tablet as directed Orally dilTIAZem HCl ER Beads 360 MG Capsule Extended Release 24 Hour 1 capsule Orally Once a day DULoxetine HCl 60 MG Capsule Delayed Release Particles 1 capsule Orally Once a day Losartan Potassium 25 MG Tablet 1 tablet Orally Once a day Magnesium 400 MG Capsule as directed Orally Montelukast Sodium 10 MG Tablet 1 tablet Orally Once a day Nasonex Omeprazole 40 MG Capsule Delayed Release 1 capsule 30 minutes before morning meal Orally Once a day Vitamin C Vitamin D Xopenex Extra Depth Orthopedic Shoes (1 Pair) with Customized Heat Molded Multidensity Innersoles (3 Pair) as directed Dx: NIDDM/Polyneuropathy (E11.42), Hammertoe Foot Deformity (M20.41,M20.42), Preulcerative Skin Lesion(s) (L85.1 Ammonium Lactate 12 % Cream 1 application Externally to feet except for between the toes Twice a day Taking Ozempic Taking Spironolactone 25 MG Tablet 1 tablet Orally Taking Advair Diskus 250-50 MCG/DOSE Aerosol Powder Breath Activated 1 puff Inhalation Twice a day Taking Atorvastatin Calcium 20 MG Tablet 1 tablet Orally Once a day Taking Bumetanide 1 MG Tablet as directed Orally Taking dilTIAZem HCl ER Beads 360 MG Capsule Extended Release 24 Hour 1 capsule Orally Once a day Taking DULoxetine HCl 60 MG Capsule Delayed Release Particles 1 capsule Orally Once a day Taking Losartan Potassium 25 MG Tablet 1 tablet Orally Once a day Taking Magnesium 400 MG Capsule as directed Orally Taking Montelukast Sodium 10 MG Tablet 1 tablet Orally Once a day Taking Nasonex Taking Omeprazole 40 MG Capsule Delayed Release 1 capsule 30 minutes before morning meal Orally Once a day Taking Vitamin C Taking Vitamin D Taking Xopenex Taking Extra Depth Orthopedic Shoes (1 Pair) with Customized Heat Molded Multidensity Innersoles (3 Pair) as directed Dx: NIDDM/Polyneuropathy (E11.42), Hammertoe Foot Deformity (M20.41,M20.42), Preulcerative Skin Lesion(s) (L85.1 Taking Ammonium Lactate 12 % Cream 1 application Externally to feet except for between the toes Twice a day Not-Taking/PRNTrulicity 3 MG/0.5ML Solution Pen-injector as directed Subcutaneous Potassium 1 tab Oral metFORMIN HCl Janumet 50-1000 MG Tablet 1 tablet with meals Orally Twice a day Medication List reviewed and reconciled with the patientNot-Taking/PRN Trulicity 3 MG/0.5ML Solution Pen-injector as directed Subcutaneous Not-Taking/PRN Potassium 1 tab Oral Not-Taking/PRN metFORMIN HCl Not-Taking/PRN Janumet 50-1000 MG Tablet 1 tablet with meals Orally Twice a day Medication List reviewed and reconciled with the patient * Allergies:?Penicillin: rashS ulfa Antibiotics: rashLisinopril: coughBee Stingyes[Allergies Verified] Objective: * Vitals:?Ht: 5ft, Wt:185, BMI :36.13, Shoe size: 9, BP:120/84mm Hg, BS: 131, Ht- cm: 152.4 cm, Wt-k.91 kg. * ???Past Orders: ???Lab:HEMOGLOBIN A1C (GLYCO HEMOGLOBIN) (Order Date - 10/18/2024) (Collection Date & Time - 10/18/2024 11:23 AM) ? Value Reference Range ?TOTAL HEMOGLOBIN (HGBA1C) 6.8 * Examination: ???Neurological: ?SENSORY:? Neurological exam demonstrates, reduced light touch sensation, reduced sharp/dull pin prick discrimination , reduced vibration sensation, reduced proprioception sensation, plantar aspects, B/L, 5.07 monofilament test performed at plantar aspects of 5 varied sites per foot shows sensation, absent, B/L.?Nails: ?NAILS are:?Elongated, overgrown, dystrophic, lytic, greater than 3mm thick, discolored and friable with crumbly malodorous subungual debris, 1-5 B/L.?Dermatologic: ?SKIN FINDINGS:?Skin exam reveals Keratotic lesion(s) located at, Medial, IPJ, TA, Plantar, T3, Medial, T5, Plantar, T8, SUB MTH (s), 1, Right , Plantar, Heel(s), B/L , Skin shows approximately 70 percent LESS, sign(s) of, dryness, scaling, in a stocking fashion, no fissure(s) present, B/L.? Assessment: * Assessment: 1.?Type 2 diabetes mellitus with diabetic polyneuropathy - E11.42 (Primary)???2.?Tinea unguium - B35.1???3.?Xerosis of skin - L85.3???Specify :Acute problem, Stable Response to treatment - Improvement??? Plan: * Treatment: * Procedures:?Debride Nail 6-10:?Nail debridement?Performance of this nail treatment by a nonprofessional would put this patients foot and overall health at risk. Therefore, debridement to affected nail(s), as described in exam, was performed extensively to reduce/remove overall nail length, girth, thickness, subungual debris, and necrotic tissue, by manual and/or electrical means through the use of a nail nipper and/or dremel-type rubber roller grinder operator, to a more viable healthy nail plate or bed tissue 6-10 nails in total. Silver nitrate was used for any petechial bleeding as necessary. Definitive antifungal treatment options, both pharmaceutical and surgical, have been reviewed and discussed with the patient. The patient solely prefers the use of intermittent/as needed professional debridement services for their nail condition and understands the need for additional periodic treatments to maintain effectiveness in symptomatic relief - 82181.?Keratoma Treatment:?Parring or Cutting of Benign Hyperkeratotic Lesion(s)?(-57) More than 4 Lesions - The Benign hyperkeratotic lesions, ( 7) in total, locations as stated and described in exam, were pared, and/or cut utilizing a sterile 15 blade, tissue nippers, and/or power dremel instrumentation - 02159.? * Procedure Codes:?74463 DEBRI DE NAIL, 6 OR MORE, Modifiers: XS 42045 TRIM SKIN LESIONS, OVER 4, Modifiers: XS * Preventive Medicine:? ??Counseling:?Discussion:?-12: Office or other outpatient visit for the evaluation and management of an established patient, which required a medically appropriate history and/or examination and STRAIGHTFORWARD level of MEDICAL DECISION MAKING, 1 SELF-LIMITED OR MINOR PROBLEM, MINIMAL- NO AMOUNT/COMPLEXITY OF DATA TO BE REVIEWED/ANALYZED, AND MINIMAL RISK OF COMPLICATION/MORBIDITY. The visit on the day of the encounter encompassed interpreting the data and educating the patient as to the nature of their condition, treatment options available according to their individual PMH, meds, allergies, and overall health/living conditions, as well as any potential risks or complications that may occur from a failure to adhere to, and participate in, the recommended course of therapy. The discussion included a complete verbal, and/or written explanation of the examination results, any x-rays taken, the proposed diagnosis, and outline of the treatment plan. A schedule for future care needs was also explained. The patient verbalized an understanding of the instructions at this time and agreed to be an active participant in their treatment. If the patient should think of any questions or concerns after the visit, I have encouraged the patient to call the office.?Xerosis:?Given recent successful results to treatment, The patient is to cont the rx cream as directed.? * Follow Up:?prn * Images: * Sign off status: Completed true * Provider:?Kwesi Cruz DPM Date:?2023 Generated for Mary Jo quintanilla/Erum/Haley on:?12/11/2024 04:55 PM EST History and Physical Notes * HPI (History of Present Illness) Category Sub-Category Detail Notes Category Not es Skin problems Treatments: medication ( AM Lactin ), states adherence to recommended treatment application At Risk footcare Pt States Last PCP Visit: Date: 10/18/2024 Examination Category Sub-Category Detail Notes Category Not es Neurological SENSORY: Neurological exa m demonstrates, reduced light touch sensation, reduced sharp/dull pin prick discrimination , reduced vibration sensation, reduced proprioception sensation, plantar aspects, B/L, 5.07 monofilament test performed at plantar aspects of 5 varied sites per foot shows sensation, absent, B/L Dermatologic SKIN FINDINGS: Skin exam reveal s Keratotic lesion(s) located at, Medial, IPJ, TA, Plantar, T3, Medial, T5, Plantar, T8, SUB MTH (s), 1, Right , Plantar, Heel(s), B/L , Skin shows approximately 70 percent LESS, sign(s) of, dryness, scaling, in a stocking fashion, no fissure(s) present, B/L Nails NAILS are: Elongated, overg rown, dystrophic, lytic, greater than 3mm thick, discolored and friable with crumbly malodorous subungual debris, 1-5 B/L
--- OUTSIDE RECORDS SUMMARY | 2024-12-11 16:55 | XMS_ITS | Patient Health Record ---
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 Name Role Phone Az Hickman Primary Care Provider [phone] Jaqueline Ferguson Unavailable [phone] Frank Chowdary Unavailable [phone] Ashlee Miller Unavailable [phone] Mercedez Casas Unavailable [phone] Allergies Allergen (clinical drug ingredient) Drug/Non Drug Allergy documented on EMR Reaction Allergy Type Onset Date Status lisinopril Lisinopril Unknown Drug Allergy 03/29/2023 Acti ve angiotensin-converting enzyme inhibitor (FN) RADHA Inhibitors Unknown Drug Allergy 03/29/2023 Acti ve Bee Sting Unknown Allergy 03/29/2023 Active Substance with penicillin structure and antibacterial mechanism of action (substance) Penicillins Unknown Drug Allergy 03/29/2023 Active Substance with sulfonamide structure and antibacterial mechanism of action (substance) Sulfa Antibiotics Unknown Drug Allergy 03/29/2023 Active Results Component Value Reference Range Notes XR Shoulder 2 or more view L T Reviewed date:12/20/2023 03:56:02 PM Interpretation: Performing Lab: Notes/Report: XR Hand, 3 or more view LT Reviewed date:09/18/2024 02:35:42 PM Interpretation: Performing Lab: Notes/Report: XR Finger(s), 2 or more view LT Reviewed date:04/28/2024 08:39:44 AM Interpretation: Performing Lab: Notes/Report: XR Finger(s), 2 or more view LT Reviewed date:01/24/2024 03:00:43 PM Interpretation: Performing Lab: Notes/Report: Reason For Referral Reason RIGHT CARPAL TUNNEL RELEASE Diagnosis 1 Right carpal tunnel syndrome (G56.01) Referral Organization [facility] Referring Provider First Name Az Referring Provider Last Name Lai Referring Provider Speciality Orthopedic Surgery Referred Organization [facility] Referred Address [address] [place] [address] ,[place], [place],[id number] Referred Provider Specialty Orthopedic S urgery Procedure 1 CARPAL TUNNEL SURGER Y (46570) General Notes Mercedez Smyth 05/31/2024 11:45:13 AM >EXTRAS, ANTIBIOTICS Referral Priority Routine Referral Appointment Date 06/14/2024 Medications Medication SIG (Take, Route, Frequency, Duration) Notes Start Date End Date Status Ozempic (0.25 or 0.5 MG/DOSE) 2 MG/3ML Subcutaneous for 84 Days Active Spironolactone 25 MG Oral for 60 Days Active Atorvastatin Calcium 20 MG Oral for 90 Days Active Levalbuterol Tartrate 45 MCG/ACT Inhalation for 90 Days Active Jardiance 10 MG Oral for 90 Days Active HYDROcodone-Acetamino phen 5-325 MG 1 tablet as needed Orally every 4-6 hrs Partial Fill upon Patient Request 06/05/2024 Not-Taking Losartan Potassium 50 MG Oral for 90 Days Active Bumetanide 1 MG Oral for 90 Days Active DULoxetine HCl 30 MG Oral for 90 Days Active Social History Tobacco Use: Social History Observation Description Date Details (start date - stop date) Never Smoker NA - NA Tobacco Use/Smoking Question Answer Notes Tobacco use: nonsmoker Alcohol Screen (Audit-C) Question Answer Notes Did you have a drink containing alcohol in the p ast year? No Points 0 Interpretation Negative Problems Problem Type SNOMED Code ICD Code Onset Dates Problem Status W/U Status Risk Notes Problem Localized, primary osteoarthritis of the hand () Unilateral primary osteoarthritis of first carpometacarpal joint, left hand (M18.12) Active confirmed Problem Localized, primary osteoarthritis of the hand () Primary osteoarthritis, 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 Problem [id number] Right carpal tunnel syndrome (G56.01) Active confirmed Problem 892874613 Hand arthritis (M19.049) Active confirmed Problem Localized, primary osteoarthritis of the hand () Arthritis of carpometacarpal (CMC) joint of left thumb (M18.12) Active confirmed Vital Signs Height-cm 152.40 cm 09/18/2024 0 Weight-kg 84.37 kg 09/18/2024 0 Height 60.00 in 09/18/2024 0 Weight 186 lbs 09/18/2024 0 BMI 36.32 kg/m2 09/18/2024 0 Procedures Procedure Date Ordered Date Performed Result Body Sit e ASPIRATION [place] LARGE [place]- [id number] 12/22/2023 12/31/2023 N/A [id number] 06/05/2024 06/05/2024 N/A Encounters Encounter Location Date Provider Diagnosis [facility] [address] [place] [address] 12/20/2023 [place] [facility] 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 [facility] [address] [place] [address] 01/24/2024 Az Hickman Primary osteoarthrit is, left hand M19.042 and Right carpal tunnel syndrome G56.01 [facility] [address] [place] [address] 02/04/2024 [place] [facility] 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 [facility] [address] [place] [address] 02/18/2024 [place] [facility] 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 [facility] [address] [place] [address] 04/27/2024 Vinc[place] Miccoli Right carpal tunnel syndrome G56.01 and Arthritis of carpometacarpal (CMC) joint of left thumb M18.12 [facility] [address] [place] [address] 06/05/2024 Mercedez Casas Right carpal tunnel syndrome G56.01 [facility] [address] [place] [address] 06/23/2024 Ashlee Miller Right carpal tunnel syndrome G56.01 [facility] [address] [place] [address] 07/24/2024 Az Hickman Right carpal tunnel syndrome G56.01 [facility] [address] [place] [address] 09/18/2024 Az Hickman Unilateral primary osteoarthritis of first carpometacarpal joint, left hand M18.12 and Tenosynovitis M65.90 [facility] [address] [place] [address] 12/16/2023 Az Hickman [facility] [address] [place] [address] 01/18/2024 [place] [facility] [address] [facility] [place] [address] 01/26/2024 [place] [facility] [place] [address] [place] [address] 05/23/2024 Az Hickman [facility] [address] [facility] [place] [address] 09/18/2024 Az Hickman Assessments Encounter Date Diagnosis (ICD Code) Assessment Notes Treatment Notes Treatment Clinical Notes Section Notes 12/20/2023 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 I explained to the patient that an acute change in a well functioning arthroplasty requires evaluation for infection. Once this is ruled out then we can look for other possible sources. I would like to start with blood work and if this is questionable then I would move forward with an aspiration the shoulder and possibly a white blood cell scan. I will follow-up with her once the blood work is received. 01/24/2024 Primary osteoarthritis, left hand (ICD-10 - M19.042) I did review her nerve study showed moderate severe carpal tunnel syndrome. She has had injections in the past but it has been 2 years so I think it is worth trying 1 more injection if she responds well that is therapeutic as well as diagnostic and if it came back I would just do a right carpal tunnel release and she is okay with that she will watch for infection. I told her could take up to weeks to see how the injection works. She will call me if it comes back can potentially set up surgery. Her left thumb is doing excellent. I do not need to see her anymore unless she has a problem her fusion looks excellent. 01/24/2024 Right carpal tunnel syndrome (ICD-10 - G56.01) I did review her nerve study showed moderate severe carpal tunnel syndrome. She has had injections in the past but it has been 2 years so I think it is worth trying 1 more injection if she responds well that is therapeutic as well as diagnostic and if it came back I would just do a right carpal tunnel release and she is okay with that she will watch for infection. I told her could take up to weeks to see how the injection works. She will call me if it comes back can potentially set up surgery. Her left thumb is doing excellent. I do not need to see her anymore unless she has a problem her fusion looks excellent. 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 I call this patient and we discussed her lab results which showed no evidence of obvious infection with her shoulder. We spent time discussing her actual symptoms and it appears based on her symptoms that she may be developing some instability of the shoulder. We talked about having her return to the office so that we could do a physical exam based on this new information to determine whether not this truly is her issue and then whether not she would like to move forward with further treatment options. The patient's questions were all answered and this phone call lasted about 7 minutes. 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 We talked about definitive diagnosis being made by an examination under anesthesia with x-ray. We talked about the only treatment for this problem would be a revision arthroplasty either with a poly exchange or a component exchange to avoid impingement. I think it is unlikely that things will worsen. The concern would be poly wear. Right now she is comfortable with it the way it is and that we will plan to see each other again in 6 months for new x-ray but she will contact me sooner if she is having increasing symptoms of instability. 04/27/2024 Right carpal tunnel syndrome (ICD-10 - G56.01) The patient has recurrent carpal tunnel on the right which is moderate to severe on nerve study. I did recommend at this point a carpal tunnel release and she has had multiple injections now. She would like to see if we can do this under straight local as it will be difficult for her to get a ride from surgery which I will speak with Dr. Hickman. The other issue is with her left thumb of which I do not see any significant change from her previous x-rays. I believe some of the lack of abduction is likely from where the thumb metacarpal is sitting which does not appear to be grossly unchanged from her previous films but may have somewhat subsided. This is something we will keep an eye on. She can resume her activities with this side as she feels comfortable that we did not discuss some activity modification he is and trying to. Not grasp wider items. 04/27/2024 Arthritis of carpometacarpal (CMC) joint of left thumb (ICD-10 - M18.12) 06/05/2024 Right carpal tunnel syndrome (ICD-10 - G56.01) Orthopedic plan The natural history of the problem and treatment options were discussed at length. The potential risks, side effects, and alternatives involving the treatment modalities were discussed and the patient appeared to understand these. The proposed surgical procedure was discussed at length. Including the actual procedure. Expected length of hospital stay and recovery period were also discussed. The patient was given an opportunity to ask questions regarding the procedure, which were answered. The patient has elected to proceed at this time the proposed surgical procedure. Informed consent was obtained. postoperative pain medication will be sent to the patient's pharmacy. The patient was fitted for a sling and was instructed to bring with her on the day of surgery. 06/23/2024 Right carpal tunnel syndrome (ICD-10 - G56.01) PLAN:The patient and I reviewed the operative procedure and the expected recovery course. They understand that nerve healing is unpredictable and can take many months, but it is too soon to say how symptoms will be long-term. Sutures are removed today without issue and steri-strips are placed. Instructions are provided regarding care of the incision and the patient will allow these to fall off naturally with bathing, avoiding submerging the incisions until the incision is well healed. It is important to also avoid repetitive or direct pressure until the incision is completely healed without overlying scab. Range of motion of the hand and fingers was encouraged multiple times a day. The patient declined occupational therapy at this time. Follow-up will be as scheduled at the 6-week post op ashley with Dr. Hickman, but the patient will call with any issues or questions prior. ASSESSMENT: 74-year-old woman status post right carpal tunnel release on 06/14/24; currently doing well. 07/24/2024 Right carpal tunnel syndrome (ICD-10 - G56.01) I am going to get her into some therapy with Mini Miller OT [facility] in [facility] as that is where she lives she will call me if she is not getting better over the next month or so but otherwise no restrictions I told her should get better over time 09/18/2024 Unilateral primary osteoarthritis of first carpometacarpal joint, left hand (ICD-10 - M18.12) I am questioning whether the speed spiral may have broken down she is getting a secondary synovitis. I did see this 1 patient where they had a reaction and developed a synovitis and I did go in and take out the speed spiral and do a different technique. My PA did do an ultrasound today. It does look like that the speed spiral may be subluxing out there could be some weakening of the capsule. The only other option is to go in and if the capsule can just be imbricated I will otherwise I may take the speed spiral out and then do some type of sling mechanism and I would have to immobilize her for probably 3 or 4 weeks. She wants to think about and she is going to call me in a few weeks. She wants to do it after the holidays most likely any ways. 09/18/2024 Tenosynovitis (ICD-10 - M65.90) I am questioning whether the speed spiral may have broken down she is getting a secondary synovitis. I did see this 1 patient where they had a reaction and developed a synovitis and I did go in and take out the speed spiral and do a different technique. My PA did do an ultrasound today. It does look like that the speed spiral may be subluxing out there could be some weakening of the capsule. The only other option is to go in and if the capsule can just be imbricated I will otherwise I may take the speed spiral out and then do some type of sling mechanism and I would have to immobilize her for probably 3 or 4 weeks. She wants to think about and she is going to call me in a few weeks. She wants to do it after the holidays most likely any ways. Plan Of Treatment No Information Insurance Providers Payer Name Payer Address Payer Phone Subscriber Number Group Number Insured Name Patient Relationship to Insured Coverage Start Date Coverage End Date [place] ) [address] [place], [place] [id number] [phone] [id number] MILAGROS COLLINS Self - patient is the insured [place]) [address] [place], [place] [id number] MILAGROS COLLINS Self - patient is the insured NOR[employer]IAN A [address] [place] [address] [id number] MILAGROS COLLINS Self - patient is the insured Medications Administered Medication Instructions Date of Administration Dosage Notes Kenalog-[id number] 01/24/2024 1 mL Medical (General) History Medical History History ICD Code Problems: Degenerative joint disease of hand Osteoarthrosis of the carpometacarpal harjeet int of the thumb hypercholesterolemia hypertension asthma - moderate persistent type II diabetes DVT lower extremity chronic kidney disease, stage 3B left ventricular hypertrophy migraine headaches Surgical History Surgery Date(Month/Year) Carpal tunnel surgery Hand surgery Shoulder replacement Back surgery Ankle/foot surgery Cataract surgery left thumb
--- OUTSIDE RECORDS SUMMARY | 2024-12-11 16:55 | XMS_ITS | Patient Health Record ---
Author Organization [facility] Address [address] [place] [address] Care Team Providers Care Lace Tearing Supervisor Name Role Phone Roxanne Ellington PA-C Primary Care Provider Kwesi Crump Unavailable [phone] Allergies Allergen (clinical drug ingredient) Drug/Non Drug Allergy documented on EMR Reaction Allergy Type Onset Date Status Bee Sting Unknown Allergy Active lisinopril Lisinopril cough Drug Allergy Activ e Penicillin rash Drug Allergy Active Substance with sulfonamide structure and antibacterial mechanism of action (substance) Sulfa Antibiotics rash Drug Allergy Active Results Component Value Reference Range Notes HEMOGLOBIN A1C (GLYCOHEMOGLO BIN) Reviewed date:10/19/2024 11:24:35 AM Interpretation: Performing Lab: Notes/Report: TOTAL HEMOGLOBIN (HGBA1C) 6.8 HEMOGLOBIN A1C (GLYCOHEMOGLO BIN) Reviewed date:01/17/2024 08:37:31 AM Interpretation: Performing Lab: Notes/Report: HEMOGLOBIN A1C % (HH) 6.9 Reason For Referral No Information Medications Medication SIG (Take, Route, Frequency, Duration) Notes Start Date End Date Status Ozempic Active Montelukast Sodium 10 MG 1 tablet Orally Once a day for 30 day(s) Active Janumet 50-1000 MG 1 tablet with meals Orally Twice a day for 30 day(s) Not-Taking Nasonex Active Losartan Potassium 25 MG 1 tablet Orally Once a day for 30 day(s) Active Potassium 1 tab Oral for 14 days Not-Taking Magnesium 400 MG as directed Orally Active metFORMIN HCl Not-Ta janine dilTIAZem HCl ER Beads 360 MG 1 capsule Orally Once a day for 30 day(s) Active Ammonium Lactate 12 % 1 application Externally to feet except for between the toes Twice a day for 30 days Active DULoxetine HCl 60 MG 1 capsule Orally On ce a day for 30 day(s) Active Trulicity 3 MG/0.5ML as directed Subcutaneous Not-Taking Atorvastatin Calcium 20 MG 1 tablet Orally Once a day for 30 day(s) Active Xopenex Active Bumetanide 1 MG as directed Orally Active Extra Depth Orthopedic Shoes (1 Pair) with Customized Heat Molded Multidensity Innersoles (3 Pair) as directed Dx: NIDDM/Polyneuropathy (E11.42), Hammertoe Foot Deformity (M20.41,M20.42), Preulcerative Skin Lesion(s) (L85.1 01/17/2024 Active Spironolactone 25 MG 1 tablet Orally for 30 day(s) Active Vitamin C Active Advair Diskus 250-50 MCG/DOSE 1 puff Inhalation Twice a day Active Vitamin D Active Omeprazole 40 MG 1 capsule 30 minutes before morning meal Orally Once a day for 30 day(s) Active Immunizations Vaccine Route Administration Date Status Comme nts COVID-19 Moderna Vaccine Unknown 12/12/2020 Administere d #2 01/09/21 Influenza Unknown 08/23/2020 Administered Social History Tobacco Use: Social History Observation Description Date Details (start date - stop date) Never Smoker NA - NA Tobacco Use/Smoking Question Answer Notes Are you a: nonsmoker Additional Findings: Tobacco Non-User Aggressive non-smoker Alcohol Screen Question Answer Notes Did you have a drink containing alcohol in the p ast year? No Points 0 Interpretation Negative Tobacco use other than smoking: Question Answer Notes Are you an other tobacco user? No Problems Problem Type SNOMED Code ICD Code Onset Dates Problem Status W/U Status Risk Notes Problem Acquired hammer toe of right foot (8805305314070144 ) Other hammer toe(s) (acquired), right foot (M20.41) Active confirmed Response to treatment, Improvemen t Problem Acquired hammer toe of left foot (4118804283246216 ) Other hammer toe(s) (acquired), left foot (M20.42) Active confirmed Response to treatment, Improvemen t Problem Polyneuropathy due to type 2 diabetes mellitus (340896183) Type 2 diabetes mellitus with diabetic polyneuropathy (E11.42) Active confirmed Vital Signs Blood pressure diastolic 84 mm Hg 10/19/2024 Height 5ft in 10/19/2024 Blood pressure systolic 120 mm Hg 10/19/2024 Weight 185 lbs 10/19/2024 BMI 36.13 kg/m2 10/19/2024 Procedures Procedure Date Ordered Date Performed Result Body Sit e 60912-NMXTYAQ NAIL, 6 OR MORE 01/17/2024 N/A 70251-Ywiwgmqu Plate 01/17/2024 N/A 06485-XUKL SKIN LESIONS, OVER 4 01/17/2024 N/A 61174-NVDZOUP NAIL, 6 OR MORE 04/17/2024 N/A 27644-SPVF SKIN LESIONS, OVER 4 04/17/2024 N/A 72519-VBZLZBE NAIL, 6 OR MORE 07/19/2024 N/A 20916-AKPG SKIN LESIONS, OVER 4 07/19/2024 N/A 71837-KRFDAGZ NAIL, 6 OR MORE 10/19/2024 N/A 54591-ROUH SKIN LESIONS, OVER 4 10/19/2024 N/A Encounters Encounter Location Date Provider Diagnosis [address] [address] 01/17/2024 Kwesi Cruz Type 2 diabetes mellitus with diabetic polyneuropathy E11.42 ; Tinea unguium B35.1 ; Ingrown nail L60.0 ; Other hammer toe(s) (acquired), right foot M20.41 and Other hammer toe(s) (acquired), left foot M20.[address] [address] 04/17/2024 Kwesi Cruz Type 2 diabetes mellitus with diabetic polyneuropathy E11.42 ; Tinea unguium B35.1 ; Other hammer toe(s) (acquired), right foot M20.41 and Other hammer toe(s) (acquired), left foot M20.[address] [address] 07/19/2024 Kwesisamson Cruz Type 2 diabetes mellitus with diabetic polyneuropathy E11.42 ; Tinea unguium B35.1 and Xerosis of skin L85.[address] [address] 10/19/2024 Kwesi Cruz Type 2 diabetes mellitus with diabetic polyneuropathy E11.42 ; Tinea unguium B35.1 and Xerosis of skin L85.3 [facility] [address] [address] 07/24/2024 Kwesi Ortizunier Xerosis of skin L85. 3 Assessments Encounter Date Diagnosis (ICD Code) Assessment Notes Treatment Notes Treatment Clinical Notes Section Notes 01/17/2024 Type 2 diabetes mellitus with diabetic polyneuropathy (ICD-10 - E11.42) 01/17/2024 Tinea unguium (ICD-10 - B35.1) 04/17/2024 Type 2 diabetes mellitus with diabetic polyneuropathy (ICD-10 - E11.42) 04/17/2024 Tinea unguium (ICD-10 - B35.1) 07/19/2024 Type 2 diabetes mellitus with diabetic polyneuropathy (ICD-10 - E11.42) 07/19/2024 Tinea unguium (ICD-10 - B35.1) 07/24/2024 Xerosis of skin (ICD-10 - L85.3) 10/19/2024 Type 2 diabetes mellitus with diabetic polyneuropathy (ICD-10 - E11.42) 10/19/2024 Tinea unguium (ICD-10 - B35.1) 10/19/2024 Xerosis of skin (ICD-10 - L85.3) 01/17/2024 Ingrown nail (ICD-10 - L60.0) 04/17/2024 Other hammer toe(s) (acquired), right foot (ICD-10 - M20.41) Response to treatment,Impro vement 04/17/2024 Other hammer toe(s) (acquired), left foot (ICD-10 - M20.42) Response to treatment,Impro vement 07/19/2024 Xerosis of skin (ICD-10 - L85.3) 01/17/2024 Other hammer toe(s) (acquired), right foot (ICD-10 - M20.41) Patient Educated with: DIABETIC FOOT CARE INSTRUCTIONS. pdf (DIABETIC FOOT CARE INSTRUCTIONS. pdf) 01/17/2024 Other hammer toe(s) (acquired), left foot (ICD-10 - M20.42) Plan Of Treatment Pending Test Test Name Order Date 94269-OVIZTNQ NAIL, 6 OR MORE 10/17/2020 96773-FYFMYML NAIL, 6 OR MORE 02/10/2021 24475-NENVUNK NAIL, 6 OR MORE 05/12/2021 23313-VSMGEIV NAIL, 6 OR MORE 08/11/2021 57384-KMLUTRP NAIL, 6 OR MORE 11/17/2021 38887-ISQHPNX NAIL, 6 OR MORE 02/16/2022 70199-OVURQUA NAIL, 6 OR MORE 05/20/2022 13994-YQMZTQJ NAIL, 6 OR MORE 08/19/2022 75443-PJXTESP NAIL, 6 OR MORE 11/18/2022 49889-FCQBAOX NAIL, 6 OR MORE 02/17/2023 28654-WWYHWYW NAIL, 6 OR MORE 01/17/2024 70855-EBAQYXX NAIL, 6 OR MORE 04/17/2024 82450-ZQGTKHZ NAIL, 6 OR MORE 07/19/2024 90672-QUDRENY NAIL, 6 OR MORE 10/19/2024 70125-Dbowncsb Plate 08/19/2022 31948-Xawrujsp Plate 01/17/2024 50262-XCCQ SKIN LESIONS, OVER 4 01/17/20 24 92661-DTHK SKIN LESIONS, OVER 4 04/17/20 24 39065-VWJU SKIN LESIONS, OVER 4 02/18/20 23 60048-EIVS SKIN LESIONS, OVER 4 11/18/19 23 12970-JIGK SKIN LESIONS, OVER 4 10/19/20 24 66129-TNYA SKIN LESIONS, OVER 4 07/19/20 24 60371-IIMW SKIN LESIONS, OVER 4 08/19/20 22 68063-CMOF SKIN LESIONS, OVER 4 05/20/20 22 56119-UYCY SKIN LESIONS, OVER 4 02/17/20 22 10336-MXVF SKIN LESIONS, OVER 4 11/17/19 22 41774-UICD SKIN LESIONS, OVER 4 08/11/20 21 47442-QOWX SKIN LESIONS, OVER 4 05/12/20 21 27189-APPH SKIN LESIONS, OVER 4 02/11/20 21 79256-LVQD SKIN LESIONS, OVER 4 10/17/20 20 Next Appt Details Provider Name:Kwesi Perfecto Cruz , 01/18/2025 11:30:00 AM, [address] [facility], [address], [place], [address], Insurance Providers Payer Name Payer Address Payer Phone Subscriber Number Group Number Insured Name Patient Relationship to Insured Coverage Start Date Coverage End Date Medicare National [employer] [address] [place] [address] [id number] Barbara Romero Self - patient is the insured [employer] [address] [place] [address] [phone] [id number] Barbara Romero Self - patient is the insured Medical (General) History Medical History History ICD Code asthma Back,Hip,and Knee pain Diabetic High blood pressure Kidney disease Numbness Joint implants/screws Measles Mumps Chicken pox Reflux CAD Surgical History Surgery Date(Month/Year) bunion lower back thumb surgery 01/01/23 thumb surgery 09/2023 carpal tunnel 2023 Hospitalization History Reason Date(Month/Year) [facility]- shoulder replacement left 12/14/21 [facility]- shoulder replacement left 08/2021
--- OUTSIDE RECORDS SUMMARY | 2024-12-11 16:55 | XMS_ITS ---
Author Organization [facility] Address [address] [place] [address] Care Team Providers Care Material Scheduler Name Role Phone Az Hickman Primary Care Provider [phone] Allergies Allergen (clinical drug ingredient) Drug/Non Drug [...] Results Component Value Reference Range Notes XR Hand, 3 or more view LT Reviewed date:09/18/2024 02:35:42 PM Interpretation: Performing Lab: Notes/Report: REASON FOR VISIT f/u left thumb *loss of function Medications Medication SIG (Take, Route, Frequency, Duration) Notes Start Date End Date Status Ozempic (0.25 or 0.5 MG/DOSE) 2 MG/3ML Subcutaneous for 84 Days Active HYDROcodone-Acetamino phen 5-325 MG 1 tablet as needed Orally every 4-6 hrs Partial Fill upon Patient Request 06/05/2024 Not-Taking Losartan Potassium 50 MG Oral for 90 Days Active Bumetanide 1 MG Oral for 90 Days Active DULoxetine HCl 30 MG Oral for 90 Days Active Spironolactone 25 MG Oral for 60 Days Active Atorvastatin Calcium 20 MG Oral for 90 Days Active Levalbuterol Tartrate 45 MCG/ACT Inhalation for 90 Days Active Jardiance 10 MG Oral for 90 Days Active Social History Tobacco Use: Social History Observation Description Date Details (start date - stop date) Never Smoker NA - NA Tobacco Use/Smoking Question Answer Notes Tobacco use: nonsmoker Alcohol Screen (Audit-C) Question Answer Notes Did you have a drink containing alcohol in the p ast year? No Points 0 Interpretation Negative Vital Signs Height 60.00 in 09/18/2024 Weight 186 lbs 09/18/2024 BMI 36.32 kg/m2 09/18/2024 Height-cm 152.40 cm 09/18/2024 Weight-kg 84.37 kg 09/18/2024 0 Encounters Encounter Location Date Provider Diagnosis [place] [address] [address] 09/18/2024 Az Hickman Unilateral primary osteoarthritis of first carpometacarpal joint, left hand M18.12 and Tenosynovitis M65.90 Assessments Encounter Date Diagnosis (ICD Code) Assessment Notes Treatment Notes Treatment Clinical Notes Section Notes 09/18/2024 Unilateral primary osteoarthritis of first carpometacarpal [...] most likely any ways. Plan Of Treatment Next Appt Details Follow Up: the patient will call for follow-up visit., Reason: Progress Notes * JAY COLLINSEDOB:1950 (74 yo F)Acc No.[id number]:09/18/2024 Progress note Patient:?MILAGROS COLLINS Provider:?Az Hickman MD :1950???Age:74 Y???Sex:Female D ate:09/18/2024 Address:[address] [place] [address] , [place], [place]-[phone] Structured Data:Is today's v isit work related? : No Subjective: * Chief Complaints: * ???F/u left thumb *loss of f unction * HPI: ???HPI:?This is a 74 year old female who presents for a follow up for her left thumb. she is doing great but she noticed that she is going to use it as well she did in her hand therapist contacted me because there is a bump that they noticed.? No new trauma.? Note that her right carpal tunnel is doing excellent.? That was done back in . * Medical History:? * Surgical History:?Carpal cassidy asim surgery Hand surgery Shoulder replacement Back surgery Ankle/foot surgery Cataract surgery left thumb * Hospitalization/Major Diagno stic Procedure:?No Hospitalization History. * Family History:?Father: Arth ritis , Disorder of lung , Heart disease .?Mother: Disorder of lung , Heart disease .?Siblings: Sister: Disorder of lung .? * Social History:?Tobacco Use:?Tobacco Use/Smoking?Tobacco use:?nonsmoker ???Migrated Social History:?Migrated Social History: Tobacco Years: Never smoker 03/29/2023,. ???Drug/Alcohol:?Alcohol Screen (Audit-C)?Did you have a drink containing alcohol in the past year??No ?Points?0 ?Interpretation?Negative * Medications:?TakingJardiance 10 MG Tablet Oral Levalbuterol Tartrate 45 MCG/ACT Aerosol Inhalation Atorvastatin Calcium 20 MG Tablet Oral Spironolactone 25 MG Tablet Oral Ozempic (0.25 or 0.5 MG/DOSE) 2 MG/3ML Solution Pen-injector Subcutaneous DULoxetine HCl 30 MG Capsule Delayed Release Particles Oral Bumetanide 1 MG Tablet Oral Losartan Potassium 50 MG Tablet Oral Taking Jardiance 10 MG Tablet Oral Taking Levalbuterol Tartrate 45 MCG/ACT Aerosol Inhalation Taking Atorvastatin Calcium 20 MG Tablet Oral Taking Spironolactone 25 MG Tablet Oral Taking Ozempic (0.25 or 0.5 MG/DOSE) 2 MG/3ML Solution Pen-injector Subcutaneous Taking DULoxetine HCl 30 MG Capsule Delayed Release Particles Oral Taking Bumetanide 1 MG Tablet Oral Taking Losartan Potassium 50 MG Tablet Oral Age-RwkinkRQPOUuuxqzd-Jhicufqiykpkk 5-325 MG Tablet 1 tablet as needed Orally every 4-6 hrs , Notes to Pharmacist: Partial Fill upon Patient RequestMedication List reviewed and reconciled with the patientNot-Taking HYDROcodone-Acetaminophen 5-325 MG Tablet 1 tablet as needed Orally every 4-6 hrs , Notes to Pharmacist: Partial Fill upon Patient RequestMedication List reviewed and reconciled with the patient * Allergies:?Lisinopril: Aller gy - Onset Date 03/29/2023CE Inhibitors: Allergy - Onset Date 03/29/2023ee Sting: Allergy - Onset Date 03/29/2023enicillins: Allergy - Onset Date 03/29/2023Sulfa Antibiotics: Allergy - Onset Date 03/29/2023no[Allergies Verified] Objective: * Vitals:?Pain scale:01-10, Wt :186lbs, Wt-k.37 kg, Ht: 60.00 in, Ht-cm: 152.40 cm, BMI:36.32Index, Body Surface Area: 1.89. 0. * Examination: ???General Examination: ? I obtained an ultrasound today of the patient's left thumb CMC region.? I identified the CMC region.? There did appear to be a hyperechoic signal coming from the region just proximal to the thumb metacarpal likely consistent with the spacer.? It did appeared diminutive.? It looked like it was subluxing upon putting some traction and releasing the traction of the thumb metacarpal.? This appeared to be more so on the dorsal side at times.? I was able to visualize this on the volar side as well by the scaphoid.? The 1st dorsal compartment was visualized without any obvious hypoechoic signal surrounding the tendon and it moved dynamically.? No obvious soft tissue masses, cysts noted just below the level of the skin. ? Frank Chowdary PA-C. * Physical Examination:? Left upper extremity ?pinch 7 lb ?gear shaper 45 lb ?if I stress her CMC joint I could definitely feel some clicking and some irritation hitting her? 2nd?metacarpal region over the trapezoid.? She has some mild pain.? She also has some swelling dorsally over the EPL region and dorsal to the CMC joint.? The MP fusion site is stable without pain. ? Right upper extremity ?pinch 15 lb ?gear shaper 40 lb. Assessment: * Assessment: 1.?Unilateral primary osteoa rthritis of first carpometacarpal joint, left hand - M18.12 (Primary)???2.?Tenosynovitis - M65.90?I am questioning whether th e speed spiral may have broken down she is getting a secondary synovitis. I did see this 1 patient? ? where they had a reaction and developed a synovitis and I did go in and take out the speed spiral and do a different technique.? My PA did do an ultrasound today.? It does look like that the speed spiral may be subluxing out there could be some weakening of the capsule.? The only other option is to go in and if the capsule can just be imbricated I will otherwise I may take the speed spiral out and then do some type of sling mechanism and I would have to immobilize her for probably 3 or 4 weeks.? She wants to think about and she is going to call me in a few weeks.? She wants to do it after the holidays most likely any ways. Plan: * Treatment: * Imaging:? * ?Imaging: XR Hand, 3 or more view LT (Performed Date - 09/18/2024) * * Procedure Codes:?88113 X-RAY EXAM OF HAND * Follow Up:?the patient will call for follow-up visit. * Billing Information: * Visit Code:? 27754 Office Visit, Est Pt., Level 3. * Procedure Codes:? 65044 X-RAY EXAM OF HAND. * Sign off status: Completed true * Provider:?Az Hickman MD Date:?02/2024 Generated for Mary Jo quintanilla/Erum/Haley on:?12/11/2024 04:54 PM EST History and Physical Notes * HPI (History of Present Illness) Category Sub-Category Detail Notes Category Not es HPI This is a 74 ye ar old female who presents for a follow up for her left thumb. she is doing great but she noticed that she is going to use it as well she did in her hand therapist contacted me because there is a bump that they noticed. No new trauma. Note that her right carpal tunnel is doing excellent. That was done back in Ju Physical Examination Category Sub-Category Detail Notes Section Note s Left upper extremity pinch 7 lb gear shaper 45 lb if I stress her CMC joint I could definitely feel some clicking and some irritation hitting her 2nd metacarpal region over the trapezoid. She has some mild pain. She also has some swelling dorsally over the EPL region and dorsal to the CMC joint. The MP fusion site is stable without pain. Right upper extremity pinch 15 lb gear shaper 40 lb Examination Category Sub-Category Detail Notes Category Not es General Examination I obtained an ultrasound today of the patient's left thumb CMC region. I identified the CMC region. There did appear to be a hyperechoic signal coming from the region just proximal to the thumb metacarpal likely consistent with the spacer. It did appeared diminutive. It looked like it was subluxing upon putting some traction and releasing the traction of the thumb metacarpal. This appeared to be more so on the dorsal side at times. I was able to visualize this on the volar side as well by the scaphoid. The 1st dorsal compartment was visualized without any obvious hypoechoic signal surrounding the tendon and it moved dynamically. No obvious soft tissue masses, cysts noted just below the level of the skin. Frank Chowdary PA-C
--- OUTSIDE RECORDS SUMMARY | 2024-12-11 16:56 | XMS_ITS | Encounter Summary ---
Author Organization [facility] Address [address] [place] [address] Care Team Providers Care Manager Database Name Role Phone Roxanne Ellington Primary Care Provider [phone] Reason for Visit * Reason Onset Date Comments fluid retention 11/28/2024 off balance 11/28/2024 Hypertension 11/28/2024 Encounter Details Date Type Department Care Team (Late st Contact Info) Description 11/28/2024 Telephone [facility] [address] [facility] [address] [place] [address] Viviana Srivastava MD [address] [facility] [address] [place] [address] fluid retention; off balance; Hypertension Social History Tobacco Use Types Packs/Day Years Used Date Smoking Tobacco: Never Smokeless Tobacco: Never Alcohol Use Standard Drinks/Week Comments Not Currently 0 (1 standard drink = 0.6 oz pur e alcohol) Sex and Gender Information Value Date Recorded Sex Assigned at Not on file Gender Identity Not on file Sexual Orientation Not on file Job Start Date Occupation Industry Not on file Not on file Not on file documented as of this encounter Progress Notes * Nikita Bauman RN - 11/28/2024 2:59 PM EST Called pt back this PM. Made aware of Veronica Bowie response below. Is aware to f/u with her Certified Nuclear Medicine Technologist regarding fluid volume excess and if any worsening s/s to call 911. Is aware we will keep scheduled OV with Veronica Oates on 12/06/24. * STANISLAW Hills - 11/28/2024 2:37 PM EST Last office visit with Dr. Srivastava was September 2023 , has upcoming OV with LC on 12/06 - hesitant to change her meds suggest she call nephrology since it looks like they decreased her diuretic. For worsening symptoms she should go to ER. * Nikita Bauman RN - 11/28/2024 1:57 PM EST Called pt this PM. States for 4-5 weeks she has been having increasing SRINIVAS, ZHAO, intermittent wet cough, abd distention. Does not weight herself daily - last weight was 189 (3 months ago at Certified Nuclear Medicine Technologist - Dr. Figueroa's office). Denies PND, orthopnea, CP. Additionally 5 days ago she began to feel off - states she has more difficulty remembering thingsand having trouble gathering her thoughts. Denies UTI s/s and stroke s/s. She has been feeling off balance, lightheaded, has indigestion - lower abd area, has elevated BP that she checked this AM 160/84 HR WNL. BS 138 this AM. Denies recent illness, diarrhea, bleeding - including black tarry stools, hematuria, nose bleeds. LBM yesterday, normal. We went through med module and she is taking all meds as prescribed with no missed doses except shehad recently been changed from Trulicity to Ozempic 4-5 months ago. Is taking Bumex 1mg daily and will only take the 2nd dose (1mg) if she is not planning on going out in the PM. She takes Bumex 1mg BID maybe 1-2 times a week. Has no changes in u/o, states her output is good, no concentrated urine.Her next OV with her senior officer is in 2 weeks. Last labs 10/16/24, scanned into [facility] for review. Has been staying hydrated drinking 4 (20oz) containers of water, and 1-2 cups of coffee a day. Is refusing to be evaluated in ER - OK to keep current OV on 12/06/24? Is aware if she has any worsening s/s or any concerning s/s she would have to call 911 in the meantime. * Cecily Ivan - 11/28/2024 1:36 PM EST Patient calling, she states she's been retaining fluid, feeling off balance, has indigestion, with elevated blood pressure. She says this has been happening for about 5 days now. She says its been very consistent through the days. She has office visit on 12/06/24 documented in this encounter Plan of Treatment Upcoming Encounters Date Type Department Care Team (Late st Contact Info) Description 01/23/2025 1:40 PM EDT Office Visit [facility] [address] [facility] [address] [place] [phone] Jeanine Oates NP [address] [place] [address] 02/14/2025 2:30 PM EDT Ancillary Procedure [facility] [address] [place] [address] documented as of this encounter Visit Diagnoses Not on filedocumented in this encounter Care Teams Manager Database Relationship Specialty Start Date End Date Roxanne Ellington PA [address] [facility] [address] [place], [place] PCP - General 12/18/22 documented as of this encounter
--- OUTSIDE RECORDS SUMMARY | 2024-12-11 16:56 | XMS_ITS | Clinical Summary ---
Author Organization [address] [place] [address] [place] [phone] Phone Care Team Providers Care Grader Meat Name Role Phone Roxanne Darden Primary Care Provider [phone] Allergies Active Allergy Reactions Criticality Noted Date Comments Kvng Inhibitors Cough 12/10/2017 Bee Venom Protein (Honey Bee) Anaphylaxis High 01/29 Penicillins 07/30/2009 Sulfa (Sulfonamide Antibiotics) 07/16 Sulfa Drugs Medications Medication Sig Dispensed Refills Start Date End Date Status atorvastatin (LIPITOR) 20 mg tablet Take 20 mg by mouth daily Active bumetanide (BUMEX) 1 mg tablet Take 2 Tablets by mouth daily. Hospital Pharmacy Technician decreased to 1 qd. Active DULoxetine (CYMBALTA) [address] capsule Take 60 mg by mouth daily. Active levalbuterol (XOPENEX HFA) 45 mcg/actuation inhaler Inhale 1-2 Puffs into the lungs every 4 hours as needed for Wheezing or Shortness of Breath 05/02/2019 Active magnesium oxide (MAG-OX) 400 mg magnesium tablet Take 1 tablet by mouth 2 times daily. Active mometasone (NASONEX) 50 mcg/actuation nasal spray 2 Sprays by Each Nare route daily. Active montelukast (SINGULAIR) 10 mg tablet Take 10 mg by mouth at bedtime. Active omeprazole (PriLOSEC) [address] capsule Take 40 mg by mouth daily. Active spironolactone (ALDACTONE) 25 mg tablet Take 1 Tablet by mouth daily. Active VITAMIN C, ASCORBATE CALCIUM, ORAL Take by mouth Active losartan (COZAAR) 50 mg tablet TAKE 1 TABLET DAILY 90 tablet 1 11/07/2024 Active dilTIAZem CD (CARDIZEM CD) 180 mg 24 hr capsule Take 1 capsule (180 mg total) by mouth 1 (one) time each day. 30 each 12/06/2024 6 Active carvediloL (COREG) 6.25 mg tablet Take 1 tablet (6.25 mg total) by mouth 2 (two) times a day with meals. 60 each 2 12/06/2024 6 Active dilTIAZem CD (CARDIZEM CD) 360 mg 24 hr capsule TAKE 1 CAPSULE DAILY 05/31/2024 5 Discontinue d(Formulary change) dulaglutide (TRULICITY) 1.5 mg/0.5 mL pen injector injection Inject 3 mg into the skin once a week. 5 Discontinue d(Prescribe r Discontinue d) fluticasone propion-salmeter oL (ADVAIR HFA) 230-21 mcg/actuation inhaler Inhale 2 Puffs into the lungs 2 times daily. 05/01/2019 5 Discontinue d(Prescribe r Discontinue d) potassium chloride (MICRO-K) 10 mEq CR capsule Take 1 Cap by mouth daily. 01/27/2021 5 Discontinue d(Prescribe r Discontinue d) Active Problems Problem Noted Date Diagnosed Date GERD (gastroesophageal reflux disease) 4 HTN (hypertension) 12/18/2022 Assessment & Plan (12/10/2024 4:03 PM EST): Patient's blood pressure is well-controlled in the office today, but reportedly elevated last week. Her repairing calibrator that just adjusted her diuretic therapy. As above, will begin the transition from calcium channel donald to beta-donald in hopes of controlling both her blood pressure and minimizing her lower extremity edema. She may continue her Bumex as directed by her repairing calibrator that she does not appear to be centrally volume overloaded. Continue her losartan and Aldactone at current doses. Syncope 12/18/2022 Palpitations 05/28/2021 Assessment & Plan (12/10/2024 4:04 PM EST): The patient has brief and sporadic episodes of palpitations. She does not have sustained palpitations. We will transition her diltiazem to Coreg and see if that improves any perception of her palpitations. Allergic rhinitis 12/10/2017 Anxiety 12/10/2017 CAD (coronary artery disease) 12/10/2017 CHF (congestive heart failure) 12/10/2017 Overview (12/10/2024): -Clean coronary arteries in 2012 - Her most recent echocardiogram is from 01/2023 revealing normal LVEF 65 to 70%, no wall motion abnormalities, mild concentric LVH, normal biatrial size, without hemodynamically significant valve disease Assessment & Plan (12/10/2024 4:02 PM EST): The patient has some breathlessness and mild lower extremity edema. She does not appear grossly volume overloaded. Is possible that her lower extremity edema is due at least in part to her calcium channel donald use. As such, we will begin transitioning off of her diltiazem and onto carvedilol. Will start by reducing her diltiazem to 180 mg daily and starting 6.25 mg of Coreg. Despite reported underlying lung disease, she does not wheeze. I instructed her to call me immediately if she has any changes in her breathing and/or if she starts wheezing. The patient understands and agrees with this plan. Will update the patient's echocardiogram as it has been a number of years since her last. Depression 12/10/2017 Diabetes mellitus type 2, uncomplicated 12/10/19 18 DJD (degenerative joint disease) of knee 018 Hyperlipidemia 12/10/2017 Assessment & Plan (12/10/2024 4:05 PM EST): The patient's LDL is somewhat robust given her DM, though she had no CAD on her cath from over a decade ago. Ideally, LDL should be at least less than 100, closer to 70 if possible. If she has a more updated lipid panel from her PCPs office, we would appreciate if a copy could be sent to our office. Asthma 03/15/2017 Obstructive sleep apnea syndrome 03/15/2017 Encounters Date Type Department Care Team Description 12/07/2024 9:33 AM EST - 12/07/2024 11:59 PM EST Hospital Encounter [facility] CT Scan [address] [place] [address] Ataxia; Chronic diastolic congestive heart failure (CMS/HCC) Discharge Disposition: Home or Self Care 12/06/2024 1:10 PM EST Office Visit [facility] Cardiology [facility] - [address] [place] [phone] Jeanine Oates NP Chronic diastolic congestive heart failure (CMS/HCC) (Primary Dx); Palpitations; Ataxia; Primary hypertension; Pure hypercholesterolemia 12/06/2024 Telephone [facility] Cardiology [facility] - [address] [place] [address] Jeanine Oates NP Appointment (CT Head) 11/28/2024 Telephone [facility] - [address] [place] [address] Viviana Srivastava MD fluid retention; off balance; Hypertension from Last 3 Months Immunizations Name Administration Dates Next Due Influenza trivalent, MDCK, 0 .5mL, preservative free (Flucelvax) 6mo and older 09/23/2017 Pneumococcal conjugate 13 va lent (Prevnar 13, PCV13) 2mo and older 02/19/2017 Pneumococcal polysaccharide 23 valent (Pneumovax 23) 2yo and older 11/15/2012 Tdap Tetanus diptheria acell ular pertussis (Boostrix; Adacel) 7yo and older 01/03/2009 Surgical History Surgery Date Site/Laterality Comments CHOLECYSTECTOMY PROCEDURE: HISTORICAL CHOLECYSTECTOMY OOPHORECTOMY PROCEDURE: HISTORICAL OOPHORECTOMY FOOT SURGERY PROCEDURE: HISTORICAL FOOT SURGERY Medical History Medical History Date Comments Asthma 03/15/2017 DX:Asthma Obstructive sleep apnea syndrome 03/15/2017 DX:Obstructive sleep apnea syndrome Depression DX:Depression HTN (hypertension) DX:HTN (hyper tension) Diabetes mellitus type 2, uncomplicated ([facility]) 12/10/2017 DX:Diabetes mellitus type 2, uncomplicated ([facility]) Anxiety 12/10/2017 DX:Anxiety Allergic rhinitis 12/10/2017 DX:Allergic rh initis CAD (coronary artery disease) 12/10/2017 DX :CAD (coronary artery disease) CHF (congestive heart failur e) ([facility]) 12/10/2017 DX:CHF (congestive heart latoya lure) ([facility]) DJD (degenerative joint dise ase) of knee 12/10/2017 DX:DJD (degenerative joint d isease) of knee GERD (gastroesophageal reflux disease) DX:GERD (gastroesophageal reflux disease) Hyperlipidemia 12/10/2017 DX:Hyperlipidemi a Family History Medical History Relation Name Comments Coronary artery disease Father Heart attack Father Coronary artery disease Mother Relation Name Status Comments Father Mother Social History Tobacco Use Types Packs/Day Years [...] file Not on file Not on file Obstetrics History Last Filed Vital Signs Vital Sign Reading Time Taken Comments Blood Pressure 130/70 12/06/2024 1:24 PM EST Pulse 75 12/06/2024 1:24 PM EST Temperature - - Respiratory Rate - - Oxygen Saturation 96% 12/06/2024 1:24 PM EST Inhaled Oxygen Concentration - - Weight 84.8 kg (187 lb) 12/06/2024 1:24 PM EST Height 152.4 cm (5') 12/06/2024 1:24 PM EST Body Mass Index 36.52 12/06/2024 1:24 PM EST Plan of Treatment Upcoming Encounters Date Type Department Care Team (Late st Contact Info) Description 01/23/2025 1:40 PM EDT Office Visit [facility] Cardiology [facility] - [facility] [address] [facility] [address] [place] [address] Jeanine Oates NP 300 [facility] [address] [place] [address] 02/14/2025 2:30 PM EDT Ancillary Procedure [facility] Cardiology [facility] [address] [facility] [address] [place] [address] Health Maintenance Due Date Last Done Comments Diabetes: Annual Foot Exam 1961 Diabetes: Annual Retina Eye Exam 1961 Diabetes: Annual GFR (Glomerular Filtration Rate) 05/22/2006 05/22/2005 RSV Immunization Patients 60+ Years Old (1 - Risk 60-74 years 1-dose series) 2011 Cholesterol Screening (Lipid Panel) 10/24/2022 Depression Screening 10/24/2022 Falls Risk Assessment 10/24/2022 Hepatitis C Screening 10/24/2022 Osteoporosis Screening (Bone Density Screening) 10/24/2022 Social Influencers of Health Screening 10/24/2022 Breast Cancer Screening 12/25/2022 12/25/2020, 06/27 Medicare Annual Wellness Visit 10/06/2023 10/06/2022 COVID-19 Vaccine ( season) 2024 11/05/2022, 10/15/2021, 01/09/2021, Additional history exists Diabetes: Annual Urine Albumin-Creatinine Ratio (uACR) 10/11/2024 05/22/2005 Diabetes: Blood Sugar Control Test (HGBA1C) 10/11/2024 Hypertension/CHF/CAD Annual BMP Blood Test 10/11/2024 05/22/2005 Colorectal Cancer Screening: FIT-DNA (Cologuard) 10/15/2025 10/15/2022, 10/15/2022, 06/22/2018 DTaP,Tdap,and Td Vaccines (3 - Td or Tdap) 07/24/2029 07/24/2019, 01/03/2009 Pneumococcal Vaccine: 65+ Years Completed 10/15/2020, 06/17/2018, 02/19/2017, Additional history exists Zoster Vaccines Completed 03/22/2023, 06/16/2022 Influenza Vaccine Completed 08/15/2024, , 09/03/2022, Additional history exists HIB Vaccines Aged Out No longer eligi ble based on patient's age to complete this topic HPV Vaccines Aged Out No longer eligi ble based on patient's age to complete this topic Hepatitis A Vaccines Aged Out No long er eligible based on patient's age to complete this topic Hepatitis B Vaccines Aged Out No long er eligible based on patient's age to complete this topic IPV Vaccines Aged Out No longer eligi ble based on patient's age to complete this topic MMR Vaccines Aged Out No longer eligi ble based on patient's age to complete this topic Meningococcal ACWY Vaccine Aged Out N o longer eligible based on patient's age to complete this topic RSV Immunization Patients Under 20 months Aged Out No longer eligible based on patient's age to complete this topic Varicella Vaccines Aged Out No longer eligible based on patient's age to complete this topic Procedures Procedure Name Priority Date/Time Associated Diagnosis Comments CT HEAD WO CONTRAST STAT 12/07/2024 9 :46 AM EST Ataxia Chronic diastolic congestive heart failure (CMS/HCC) ECG 12-LEAD Routine 12/06/2024 1:32 PM EST Palpitations WILLIAM SCREENING DIGITAL Routine 12/25/2020 5:12 PM EST Encounter for screening mammogram for malignant neoplasm of breast URINE ALBUMIN CREATININE RATIO Routine 05/22/2005 ANNUAL BMP BLOOD TEST Routine 05/22/2005 from Last 3 Months or Most Recently Relevant to Health Maintenance Results * CT Head wo Contrast (12/07/2024 9:46 AM EST) Anatomical Region Laterality Modality Head and Neck Computed Tomogra phy 12/07/2024 10:1 1 AM EST Impressions 12/07/2024 10:[address] evidence of an acute large vessel infarct. ??No acute intracranial findings. -------- FINAL REPORT -------- Dictated By: Steven Troy Dictated Date: 12/07/2024 10:11 ET Assigned Physician: Steven Troy Reviewed and Electronically Signed By: Steven Troy Signed Date: 12/07/2024 10:18 ET Workstation ID: [id number] Transcribed By: Self Edit Transcribed Date: 12/07/2024 10:11 ET Narrative 12/07/2024 10:18 AM EST PROCEDURE: Noncontrast head CT. HISTORY: Neuro deficit, acute, stroke suspected. COMPARISON: None. TECHNIQUE: Noncontrast head CT with coronal and sagittal reformats. Dose length product: ??1070 mGy-cm. FINDINGS: Brain: No hemorrhage, edema, mass, or extra-axial fluid collection. ??No CT evidence of an acute large vessel infarct. ??Ventricles and sulci are age commensurate. ??Atherosclerotic calcifications of the carotid siphons and vertebral arteries small dystrophic calcifications of the globus pallidus bilaterally. Orbits: Lens implants. Sinuses/mastoids: Partially visible opacification of one of the mid right ethmoid air cells. ??Frontal sinuses are not pneumatized. Calvarium: Normal. Other: The skull base soft tissues are normal. Procedure Note Steven Troy MD - 12/07/2024 PROCEDURE: Noncontrast head CT. HISTORY: Neuro deficit, acute, stroke suspected. COMPARISON: None. TECHNIQUE: Noncontrast head CT with coronal and sagittal reformats. Dose length product: 1070 mGy-cm. FINDINGS: Brain: No hemorrhage, edema, mass, or extra-axial fluid collection. No CTevidence of an acute large vessel infarct. Ventricles and sulci are agecommensurate. Atherosclerotic calcifications of the carotid siphons andvertebral arteries small dystrophic calcifications of the globus pallidusbilaterally. Orbits: Lens implants. Sinuses/mastoids: Partially visible opacification of one of the mid rightethmoid air cells. Frontal sinuses are not pneumatized. Calvarium: Normal. Other: The skull base soft tissues are normal. IMPRESSION: No CT evidence of an acute large vessel infarct. No acute intracranialfindings. -------- FINAL REPORT -------- Dictated By: Steven Troy Dictated Date: 12/07/2024 10:11 ET Assigned Physician: Steven Troy Reviewed and Electronically Signed By: Steven Troy Signed Date: 12/07/2024 10:18 ET Workstation ID: [id number] Transcribed By: Self Edit Transcribed Date: 12/07/2024 10:11 ET Jeanine Oates NP IMG CT PROCEDURES * ECG 12 lead (12/06/2024 1:32 PM EST) Ventricular Rate ECG 75 BPM GEMUSE Atrial Rate 75 BPM GEMUSE P-R Interval 202 ms GEMUSE QRS Duration 90 ms GEMUSE Q-T Interval 392 ms GEMUSE QTc 437 ms GEMUSE P Wave [place] 55 degrees GEMUSE R [place] -20 degrees GEMUSE T [place] 89 degrees GEMUSE ECG Interpretation Normal sinus rhythm Normal ECG unchanged EKG 10/2023 Confirmed by Shante ZAMAN JAY ([id number]) on 12/07/2024 11:23:39 AM GEMUSE 12/06/2024 1:32 PM EST 12/07/2024 11:23 AM EST Jeanine Oates NP ECG ORDERABLES GEMUSE * WILLIAM SCREENING DIGITAL (12/25/2020 5:12 PM EST) Anatomical Region Laterality Modality Mammography 12/25/2020 2:51 PM EST Narrative 12/25/2020 5:12 PM EST [facility] Diagnostic Imaging Department [address] [place] [address] Patient: ??BARBARA ROMERO ?/Age/Sex: 1950 - 70 - F Unit#: ??[id number] ? Location/Status: ??SPDIMAM/REG CLI ? Mnemonic/Ordering Site: ??DIGSC/SPMAM Ordering Physician: ??ROXANNE DARDEN William Screening Digital - [id number] History: Bilateral breast cancer screening. Technique: Bilateral digital mammography. Conventional CC and MLO projections with tomosynthesis MLO views and computer aided detection. Findings: Comparison: [facility] digital mammography 06/27/2018 through 04/11/2004. Breast tissue is mostly fatty replaced (category a density) bilaterally (as calculated by [employer]a software). ??There are benign calcifications bilaterally. ?? There is no suspicious group of microcalcification, no suspicious mass, architectural distortion or suspicious asymmetry. Impression: ??No evidence of malignancy. BIRADS category 2, benign findings, 3342F 66231, [address]22 Note: Patient information entered ??into a reminder system with a target due date for the next mammogram; PQRI II 4856B Dictating Physician: ??TAN COLON MD Electronically Signed by: ??TAN COLON MD Dic Date/Time: ??12/25/201711 Sign date/Time: ??12/25/201711 Procedure Note Tan Colon MD - 11/03/2022 [facility] Diagnostic Imaging Department [address] [place] [address] Patient: BARBARA ROMEROO.B./Age/Sex: 1950 - 70 - F Unit#: [id number] Location/Status: SPDIMAM/REG CLI Mnemonic/Ordering Site: [facility] Ordering Physician: ROXANNE DARDEN William Screening Digital - 02/10/21 - 1537 History: Bilateral breast cancer screening. Technique: Bilateral digital mammography. Conventional CC and MLOprojections with tomosynthesis MLO views and computer aided detection. Findings: Comparison: [facility] digital mammography 06/27/2018 through 04/11/2004. Breast tissue is mostly fatty replaced (category a density) bilaterally(as calculated by [employer] software). There are benigncalcifications bilaterally. There is no suspicious group of microcalcification, nosuspicious mass, architectural distortion or suspicious asymmetry. Impression: No evidence of malignancy. BIRADS category 2, benign findings, 3342F 68531, 00584 Note: Patient information entered into a reminder system with a targetdue date for the next mammogram; PQRI II 7025F Dictating Physician: TAN COLON MD Electronically Signed by: TAN COLON MD Dic Date/Time: 12/25/201711 Sign date/Time: 12/25/201711 Roxanne DOVER IMG BI PROCEDURES * Urine Albumin Creatinine Ratio (05/22/2005) Urine Albumin Creatinine Ratio abstracted Historical Provider MD KRISTOFER Elena * Annual BMP Blood Test (05/22/2005) Pathologist [facility] Annual BMP Blood Test abstracted Historical Provider MD KRISTOFER Elena from Last 3 Months or Most Recently Relevant to Health Maintenance Care Teams Grader Meat Relationship Specialty Start Date End Date Roxanne Darden PA [address] [facility] [address] [place], [place] PCP - General 12/18/22
--- OUTSIDE RECORDS SUMMARY | 2024-12-11 16:56 | XMS_ITS | Encounter Summary ---
Author Organization [facility] Address [address] [place] [address] Care Team Providers Care Assembler Corncob Pipes Name Role Phone Roxanne Ellington Primary Care Provider [phone] Reason for Referral * Imaging (Emergency) - Authorized Specialty Diagnoses / Procedures Referred By Contac t Referred To Contact Radiology Diagnoses Ataxia Chronic diastolic congestive heart failure (CMS/HCC) Procedures CT Head wo Contrast Jeanine Oates NP [address] [address] [facility] Referral ID Status Reason Start Date Expiration Date V isits Requested Visits Authorized [id number] Authorized 12/06/2024 12/06/2025 1 1 Reason for Visit * Imaging (Emergency) - Authorized Specialty Diagnoses / Procedures Referred By Contac t Referred To Contact Radiology Diagnoses Ataxia Chronic diastolic congestive heart failure ([facility]/HCC) Procedures CT Head wo Contrast Jeanine Oates NP [address] [address] [facility] Referral ID Status Reason Start Date Expiration Date V isits Requested Visits Authorized [id number] Authorized 12/06/2024 12/06/2025 1 1 Encounter Details Date Type Department Care Team (Latest Contact Info) Description 12/07/2024 9:33 AM EST - 12/07/2024 11:59 PM EST Hospital Encounter [facility] CT Scan [address] [place] [address] Ataxia; Chronic diastolic congestive heart failure ([facility]) Discharge Disposition: Home or Self Care Social History Tobacco Use Types Packs/Day Years [...] on file documented as of this encounter Medications at Time of Discharge Medication Sig Dispensed Refills Start Date End Date atorvastatin (LIPITOR) 20 mg tablet Take 20 mg by mouth daily bumetanide (BUMEX) 1 mg tablet Take 2 Tablets by mouth daily. Auto Air Conditioning Mechanic decreased to 1 qd. carvediloL (COREG) 6.25 mg tablet Take 1 tablet (6.25 mg total) by mouth 2 (two) times a day with meals. 60 each 2 12/06/2024 12/06/2025 dilTIAZem CD (CARDIZEM CD) 180 mg 24 hr capsule Take 1 capsule (180 mg total) by mouth 1 (one) time each day. 30 each 12/06/2024 12/06/2025 DULoxetine (CYMBALTA) [address] capsule Take 60 mg by mouth daily. levalbuterol (XOPENEX HFA) 45 mcg/actuation inhaler Inhale 1-2 Puffs into the lungs every 4 hours as needed for Wheezing or Shortness of Breath 05/02/2019 losartan (COZAAR) 50 mg tablet TAKE 1 TABLET DAILY 90 tablet 1 11/07/2024 magnesium oxide (MAG-OX) 400 mg magnesium tablet Take 1 tablet by mouth 2 times daily. mometasone (NASONEX) 50 mcg/actuation nasal spray 2 Sprays by Each Nare route daily. montelukast (SINGULAIR) 10 mg tablet Take 10 mg by mouth at bedtime. omeprazole (PriLOSEC) [address] capsule Take 40 mg by mouth daily. spironolactone (ALDACTONE) 25 mg tablet Take 1 Tablet by mouth daily. VITAMIN C, ASCORBATE CALCIUM, ORAL Take by mouth documented as of this encounter Discharge Disposition Disposition Code Departure Means Destination Home or Self Care documented in this encounter Plan of Treatment Upcoming Encounters Date Type Department Care Team (Late st Contact Info) Description 01/23/2025 1:40 PM EDT Office Visit [facility] - [address] [place] [phone] Jeanine Oates NP [address] [place] [address] 02/14/2025 2:30 PM EDT Ancillary Procedure [facility] - [address] [place] [address] documented as of this encounter Procedures Procedure Name Priority Date/Time Associated Diagnosis Comments CT HEAD WO CONTRAST STAT 12/07/2024 9 :46 AM EST Ataxia Chronic diastolic congestive heart failure (CMS/HCC) documented in this encounter Results * CT Head wo Contrast (12/07/2024 [...] Signed Date: 12/07/2024 10:18 ET Workstation ID: [id number] Transcribed By: Self Edit Transcribed Date: 12/07/2024 [...] Signed Date: 12/07/2024 10:18 ET Workstation ID: [id number] Transcribed By: Self Edit Transcribed Date: 12/07/2024 10:11 ET Jeanine Oates NP IMG CT PROCEDURES documented in this encounter Visit Diagnoses Diagnosis Ataxia Lack of coordination Chronic diastolic congestive heart failure (CMS/HCC) documented in this encounter Care Teams Assembler Corncob Pipes Relationship Specialty Start Date End Date Roxanne Ellington PA [address] [facility] [address] [place], [place] PCP - General 12/18/22 documented as of this encounter
--- OUTSIDE RECORDS SUMMARY | 2024-12-11 16:56 | XMS_ITS ---
Author Organization [facility] Address [address] [place] [address] Care Team Providers Care Human Intelligence Name Role Phone Roxanne Ellington PA-C Primary Care Provider Kwesi Crump Unavailable [phone] REASON FOR VISIT RX Medications Medication SIG (Take, Route, Fr equency, Duration) Notes Start Date End Date Status Ammonium Lactate 12 % 1 application Exte rnally to feet except for between the toes Twice a day for 30 days Act samuel Encounters Encounter Location Date Provider Diagnosis [facility] [address] [place] [phone] 07/24/2024 Kwesi Cruz Xerosis of skin L85.3 Assessments Encounter Date Diagnosis (ICD Code) Assessment Notes Treatment Notes Treatment Clinical Notes Section Notes 07/24/2024 Xerosis of skin (ICD-10 - L85.3) Plan Of Treatment Medication Medication Name Sig Start Date Stop Date Notes Ammonium Lactate 12 % 1 application Exte rnally to feet except for between the toes Twice a day for 30 days Next Appt Details Provider Name:Kwesi Cruz , 01/18/2025 11:30:00 AM, [address] [address], [place], [address], Progress Notes * Anahi ROMEROOB:1950 (74 yo F)Acc No.[id number]:07/24/2024 Patient:?NickLorenae :1950???Age:74 Y???Sex:Female Address:[address] [place] [address], [address] * Refills? Refill Ammonium Lactate Cream, 12 %, Externally to feet except for between the toes, 60, 1 application, Twice a day, 30 days, Refills=2 * true * Date:? Generated for Mary Jo quintanilla/Erum/Evgenyitting on:?12/11/2024 04:56 PM EST
--- OUTSIDE RECORDS SUMMARY | 2024-12-11 16:56 | XMS_ITS | Encounter Summary ---
Author Organization [facility] Address [address] [place] [address] Care Team Providers Care Assembler Adjuster Name Role Phone Roxanne Ellington Primary Care Provider [phone] Reason for Referral * Imaging (Emergency) - Authorized Specialty Diagnoses / Procedures Referred By Contac t Referred To Contact Radiology Diagnoses Ataxia Chronic diastolic congestive heart failure (CMS/HCC) Procedures CT Head wo Contrast Jeanine Oates NP [address] [address] [facility] Referral ID Status Reason Start Date Expiration Date V isits Requested Visits Authorized [id number] Authorized 12/06/2024 12/06/2025 1 1 * Imaging (Routine) - Authorized Specialty Diagnoses / Procedures Referred By Contac t Referred To Contact Cardiology Diagnoses Palpitations Ataxia Chronic diastolic congestive heart failure (CMS/HCC) Primary hypertension Pure hypercholesterolemia Procedures Transthoracic echocardiogram (TTE) complete with PRN contrast, bubble, strain, and 3D order panel UT TTE W 2D IMAGE COMPLETE W DOPPLER ECHO & COLOR FLOW DOPPLER ECHO UT WIN 2D COMPLETE W/CONTRAST OR W & WO CONTRAST WITH DOPPLER Jeanine Oates NP [address] [facility] [address] [place] [address] [facility] Referral ID Status Reason Start Date Expiration Date V isits Requested Visits Authorized [id number] Authorized 12/06/2024 12/06/2025 1 1 Reason for Visit * Reason Comments Follow-up Encounter Details Date Type Department Care Team (Latest Contact Info) Description 12/06/2024 1:10 PM EST Office Visit [facility] [address] [facility] [address] [place] [phone] Jeanine Oates NP [address] [place], [place] [id number] Chronic diastolic congestive heart failure (CMS/HCC) (Primary Dx); Palpitations; Ataxia; Primary hypertension; Pure hypercholesterolemia Social History Tobacco Use Types Packs/Day Years [...] on file documented as of this encounter Last Filed Vital Signs Vital Sign Reading [...] Mass Index 36.52 12/06/2024 1:24 PM EST documented in this encounter Ordered Prescriptions Prescription Sig Dispensed Refills Start Date End Da te carvediloL (COREG) 6.25 mg tablet Take 1 tablet (6.25 mg total) by mouth 2 (two) times a day with meals. 60 each 2 12/06/2024 12/06/2025 dilTIAZem CD (CARDIZEM CD) 180 mg 24 hr capsule Take 1 capsule (180 mg total) by mouth 1 (one) time each day. 30 each 12/06/2024 12/06/2025 documented in this encounter Progress Notes * Jeanine Oates NP - 12/10/2024 4:05 PM ESTAssociated Problem(s): Hyperlipidemia The patient's LDL is somewhat robust given her DM, though she had no CAD on her cath from over a decade ago. Ideally, LDL should be at least less than 100, closer to 70 if possible. If she has a moreupdated lipid panel from her PCPs office, we would appreciate if a copy could be sent to our office. * Jeanine Oates NP - 12/10/2024 4:04 PM ESTAssociated Problem(s): Palpitations The patient has brief and sporadic episodes of palpitations. She does not have sustained palpitations. We will transition her diltiazem to Coreg and see if that improves any perception of her palpitations. * Jeanine Oates NP - 12/10/2024 4:03 PM ESTAssociated Problem(s): HTN (hypertension) Patient's blood pressure is well-controlled in the office today, but reportedly elevated last week.Her special projects manager that just adjusted her diuretic therapy. As above, will begin the transition from calcium channel donald to beta-donald in hopes of controlling both her blood pressure and minimizing her lower extremity edema. She may continue her Bumex as directed by her special projects manager that she does not appear to be centrally volume overloaded. Continue her losartan and Aldactone at current doses. * Jeanine Oates NP - 12/10/2024 4:02 PM ESTAssociated Problem(s): CHF (congestive heart failure) ([facility]) The patient has some breathlessness and mild [...] starting 6.25 mg of Coreg. Despite reported un derlying lung disease, she does not wheeze. I instructed her to call me immediately if she has any changes in her breathing and/or if she starts wheezing. The patient understands and agrees with thisplan. Will update the patient's echocardiogram as it has been a number of years since her last. * Jeanine Oates NP - 12/06/2024 1:10 PM EST Please call with questions or concerns. Jeanine Oates DNP, TAX COMPLIANCE MANAGER [phone] Please call or go to the ER with any chest discomfort (pain or pressure), trouble breathing, prolonged palpitations, or any changes in your current condition or concerning symptoms. Follow up in [address] head ordered We are going to wean you off the diltiazem for your gums and your swelling. We will try instead coreg to control your palpitations and blood pressure - take diltiazem CD 180mg daily - start coreg 6.25mg twice a day Call me on Wednesday 12/13 and let me know how you are feeling * Jeanine Oates NP - 12/06/2024 1:10 PM EST Primary Heater Installer Dr. Atif Chilel Nick is a 74 y.o. old female here for cardiac follow up of: 1) HFpEF 2) hypertension 3) hyperlipidemia She had an episode of syncope over 2 years ago, without clear etiology. Medical history also significant for asthma, DM and CKD. She called the office about a week ago planned regarding fluid retention and an off-balance sensation. Her diuretic adjustment adjusted by her special projects manager, and recommendation was made to call nephrology for further advice. Today, however, the pt further clarifies her symptoms prompting call last week. Her BP was elevatedand she was off balance. She had some word finding difficulty, which was not made clear in her telephone message. Though she was advised to call her special projects manager for her BP, she did not. She is vague in her description despite repeat questioning. She says that her breathing is a challenge at times. This has been going on for a couple of months. Her special projects manager recommended increased bumex when she is at home. She is unsure if it helps her symptoms or not. She does have LE edema, especially at the end of the day. Her LE edema improves with elevation overnight. She has rare palpitations, occurring once a month or so, lasting a couple of minutes, and described as a pounding/skipping sensation. She has a recumbent cough that has been more pronounced in the last 3 months. The patient denies chest pain with rest or exertion, syncope/presyncope, and sleeps on 1 pillows a night. Even though she has asthma, she last had wheezing over a year ago. ACTIVE MEDICATIONS: Outpatient Medications Marked as Taking for the 12/06/24 encounter (Office Visit) with Jeanine Oates NP Medication Sig Dispense Refill atorvastatin (LIPITOR) 20 mg tablet Take 20 mg by mouth daily bumetanide (BUMEX) 1 mg tablet Take 2 Tablets by mouth daily. Application Defense Manager decreased to 1 qd. DULoxetine (CYMBALTA) [address] capsule Take 60 mg by mouth daily. levalbuterol (XOPENEX HFA) 45 mcg/actuation inhaler Inhale 1-2 Puffs into the lungs every 4 hours as needed for Wheezing or Shortness of Breath losartan (COZAAR) 50 mg tablet TAKE 1 TABLET DAILY 90 tablet 1 magnesium oxide (MAG-OX) 400 mg magnesium tablet [...] C, ASCORBATE CALCIUM, ORAL Take by mouth [DISCONTINUED] dilTIAZem CD (CARDIZEM CD) 360 mg 24 hr capsule TAKE 1 CAPSULE DAILY PAST MEDICAL HISTORY: Patient Active Problem List Diagnosis Date Noted Date Diagnosed GERD (gastroesophageal reflux disease) 10/10/2024 HTN (hypertension) 12/18/2022 Syncope 12/18/2022 Palpitations 05/28/2021 Allergic rhinitis 12/10/2017 Anxiety 12/10/2017 CAD (coronary artery disease) 12/10/2017 CHF (congestive heart failure) ([facility]) 12/10/2017 -Clean coronary arteries in 2012 - Her most recent echocardiogram is from 01/2023 revealing normal LVEF 65 to 70%, no wall motion abnormalities, mild concentric LVH, normal biatrial size, without hemodynamically significant valve disease Depression 12/10/2017 Diabetes mellitus type 2, uncomplicated ([facility]) 12/10/2017 DJD (degenerative joint disease) of knee 12/10/2017 Hyperlipidemia 12/10/2017 Asthma 03/15/2017 Obstructive sleep apnea syndrome 03/15/2017 Resolved Problems No resolved problems to display. ALLERGIES: Allergies Allergen Reactions Bee Venom Protein (Honey Bee) Anaphylaxis Kvng Inhibitors Cough Penicillins Sulfa (Sulfonamide Antibiotics) Sulfa Drugs SOCIAL HISTORY: Social History Tobacco Use Smoking status: Never Smokeless tobacco: Never Substance Use Topics Alcohol use: Not Currently PHYSICAL EXAM: Vitals: 12/06/24 1324 BP: 130/70 BP Location: Left arm Patient Position: Sitting BP Cuff Size: Adult Pulse: 75 SpO2: 96% Weight: 84.8 kg (187 lb) Height: 1.524 m (60 ) GENERAL: WDWN 74 y.o. female resting comfortably on the exam chair in no acute distress HEENT: NCAT, negative JVD, carotid pulses +2 bilaterally, without bruit RESPIRATORY: Lungs clear, No wheezes/rales/rhonchi CARDIAC: S1S2, RRR no Murmur/heaves/rubs/gallops, no S3S4 EXTREMITIES: +2 bilateral ankle edema PULSES: Radial and Pedal +2 bilaterally NEURO: A&Ox3 MS: Moving all extremities without focal findings. EKG: Encounter Date: 12/06/24 ECG 12 lead Result Value Ventricular Rate ECG 75 Atrial Rate 75 P-R Interval 202 QRS Duration 90 Q-T Interval 392 QTc 437 P Wave [place] 55 R [place] -20 T [place] 89 ECG Interpretation Normal sinus rhythm Normal ECG unchanged EKG 10/2023 Confirmed by Shante ZAMAN, THAO ([id number]) on 12/07/2024 11:23:39 AM *Note: Due to a large number of results and/or encounters for the requested time period, some results have not been displayed. A complete set of results can be found in Results Review. TESTING: Last BMP 10/16/2024 NA 145 K 4.8 CL 105 CO2 23 BUN 24 Creat 1.22 Last CBC 10/16/2024 WBC 10.8 Hgb 12.9 Hct 40.2 Plt 412 Last lipid 10/01/2023 TC 174 TG 82 HDL 50 LDL 108 As per AHA guidelines and previously established plan of care by Dr. Srivastava, we discussed the following today: ASSESSMENT/PLAN: Problem List Items Addressed This Visit CHF (congestive heart failure) ([facility]) - Primary The patient has some breathlessness and mild [...] starting 6.25 mg of Coreg. Despite reported un derlying lung disease, she does not wheeze. I instructed her to call me immediately if she has any changes in her breathing and/or if she starts wheezing. The patient understands and agrees with thisplan. Will update the patient's echocardiogram as it has been a number of years since her last. Relevant Medications dilTIAZem CD (CARDIZEM CD) 180 mg 24 hr capsule carvediloL (COREG) 6.25 mg tablet Other Relevant Orders Transthoracic echocardiogram (TTE) complete with PRN contrast, bubble, strain, and 3D order panel CT Head wo Contrast (Completed) HTN (hypertension) Patient's blood pressure is well-controlled in the office today, but reportedly elevated last week.Her special projects manager that just adjusted her diuretic therapy. As above, will begin the transition from calcium channel donald to beta-donald in hopes of controlling both her blood pressure and minimizing her lower extremity edema. She may continue her Bumex as directed by her special projects manager that she does not appear to be centrally volume overloaded. Continue her losartan and Aldactone at current doses. Relevant Medications dilTIAZem CD (CARDIZEM CD) 180 mg 24 hr capsule carvediloL (COREG) 6.25 mg tablet Other Relevant Orders Transthoracic echocardiogram (TTE) complete with PRN contrast, bubble, strain, and 3D order panel Hyperlipidemia The patient's LDL is somewhat robust given her DM, though she had no CAD on her cath from over a decade ago. Ideally, LDL should be at least less than 100, closer to 70 if possible. If she has a moreupdated lipid panel from her PCPs office, we would appreciate if a copy could be sent to our office. Relevant Orders Transthoracic echocardiogram (TTE) complete with PRN contrast, bubble, strain, and 3D order panel Palpitations The patient has brief and sporadic episodes of palpitations. She does not have sustained palpitations. We will transition her diltiazem to Coreg and see if that improves any perception of her palpitations. Relevant Orders ECG 12 lead (Completed) Transthoracic echocardiogram (TTE) complete with PRN contrast, bubble, strain, and 3D order panel Other Visit Diagnoses Ataxia Today, the patient reports a more concerning symptomatology picture than reported to the nursing team last week. Her ataxia and particularly her word finding issues are concerning through our conversation today. As such, I have ordered a stat head CT. She has no other focal neurologic defects in the office, and she appears to be answering questions in an appropriate and timely fashion. Since the time of our office visit, her CT head returns without any acute findings. PCP to continueworkup if clinically relevant. Relevant Orders Transthoracic echocardiogram (TTE) complete with PRN contrast, bubble, strain, and 3D order panel CT Head wo Contrast (Completed) Orders Placed This Encounter Procedures CT Head wo Contrast ECG 12 lead Transthoracic echocardiogram (TTE) complete with PRN contrast, bubble, strain, and 3D order panel Thank you for allowing us to participate in the care of this patient. The patient will follow up in6 weeks, sooner PRN. This note is completed with voice recognition software. Please pardon any grammatical or syntax errors. I personally spent a total of 30 minutes, including both uvod-zx-juix and leh-dpec-wx-face time on the date of the encounter, addressing the above diagnoses. Activities performed in this time includechart review, obtaining / reviewing history, performing a medically necessary evaluation, documentation and counseling including medical decision making of 1. Chronic diastolic congestive heart failure (CMS/HCC) 2. Palpitations 3. Ataxia 4. Primary hypertension 5. Pure hypercholesterolemia . documented in this encounter Plan of Treatment Upcoming Encounters Date Type Department Care Team (Henrique Contact Info) Description 01/23/2025 1:40 PM EDT Office Visit [facility] [address] [place] [phone] Jeanine Oates NP [address] [place] [address] 02/14/2025 2:30 PM EDT Ancillary Procedure [facility] [address] [place] [address] Scheduled Orders Name Type Priority Associated Diagnoses Orde r Schedule Transthoracic echocardiogram (TTE) complete with PRN contrast, bubble, strain, and 3D order panel Echocardiography Routine Palpitations Ataxia Chronic diastolic congestive heart failure (CMS/HCC) Primary hypertension Pure hypercholesterolemia 1 Occurrences starting 12/06/2024 until 12/06/2025 documented as of this encounter Procedures Procedure Name Priority Date/Time Associated Diagnosis Comments ECG 12-LEAD Routine 12/06/2024 1:32 PM EST Palpitations documented in this encounter Results * CT [...] Signed Date: 12/07/2024 10:18 ET Workstation ID: [id number] Transcribed By: Self Edit Transcribed Date: 12/07/2024 [...] Signed Date: 12/07/2024 10:18 ET Workstation ID: [id number] Transcribed By: Self Edit Transcribed Date: 12/07/2024 10:11 ET Jeanine Oates NP IMG CT PROCEDURES * ECG 12 lead (12/06/2024 1:32 PM EST) Ventricular Rate ECG 75 BPM GEMUSE Atrial Rate 75 BPM GEMUSE P-R Interval 202 ms GEMUSE QRS Duration 90 ms GEMUSE Q-T Interval 392 ms GEMUSE QTc 437 ms GEMUSE P Wave [place] 55 degrees GEMUSE R [place] -20 degrees GEMUSE T [place] 89 degrees GEMUSE ECG Interpretation Normal sinus rhythm Normal ECG unchanged EKG 10/2023 Confirmed by Shante ZAMAN JAY ([id number]) on 12/07/2024 11:23:39 AM GEMUSE 12/06/2024 1:32 PM EST 12/07/2024 11:23 AM EST Jeanine aOtes NP ECG ORDERABLES GEMUSE documented in this encounter Visit Diagnoses Diagnosis Chronic diastolic congestive heart failure (CMS/HCC)- Primary Palpitations Ataxia Lack of coordination Primary hypertension Unspecified essential hypertension Pure hypercholesterolemia Ataxia Lack of coordination Chronic diastolic congestive heart failure (CMS/HCC) documented in this encounter Discontinued Medications Medication Sig Discontinue Reason Start Date End Da te dulaglutide (TRULICITY) 1.5 mg/0.5 mL pen injector injection Inject 3 mg into the skin once a week. Prescriber Discontinued 12/06/2024 fluticasone propion-salmeteroL (ADVAIR HFA) 230-21 mcg/actuation inhaler Inhale 2 Puffs into the lungs 2 times daily. Prescriber Discontinued 05/01/2019 12/06/2024 potassium chloride (MICRO-K) 10 mEq CR capsule Take 1 Cap by mouth daily. Prescriber Discontinued 01/27/2021 12/06/2024 dilTIAZem CD (CARDIZEM CD) 360 mg 24 hr capsule TAKE 1 CAPSULE DAILY Formulary change 05/31/2024 12/06/2024 documented as of this encounter Care Teams Assembler Adjuster Relationship Specialty Start Date End Date Roxanne Ellington PA [address] [facility] [address] [place], [place] PCP - General 12/18/22 documented as of this encounter
--- OUTSIDE RECORDS SUMMARY | 2024-12-11 16:56 | XMS_ITS ---
Author Organization [facility] Address [facility] [address] Care Team Providers Care Data Control Clerk Name Role Phone Az Hickman Primary Care Provider [phone] Allergies Allergen (clinical drug ingredient) Drug/Non Drug [...] Sulfa Antibiotics Unknown Drug Allergy 03/29/2023 Active REASON FOR VISIT 6w p/op - dcw - right carpal tunnel release - [facility] Medications Medication SIG (Take, Route, Frequency, Duration) Notes Start Date End Date Status HYDROcodone-Acetamino phen 5-325 MG 1 tablet as needed Orally every 4-6 hrs Partial Fill upon Patient Request 06/05/2024 Not-Taking Bumetanide 1 MG Oral for 90 Days Active Losartan Potassium 50 MG Oral for 90 Days Active Ozempic (0.25 or 0.5 MG/DOSE) 2 MG/3ML Subcutaneous for 84 Days Active DULoxetine HCl 30 MG Oral for 90 Days Active Atorvastatin Calcium 20 MG Oral for 90 Days Active Spironolactone 25 MG Oral for 60 Days Active Jardiance 10 MG Oral for 90 Days Active Levalbuterol Tartrate 45 MCG/ACT Inhalation for 90 Days Active Vital Signs Height 60.00 in 07/24/2024 Weight 186 lbs 07/24/2024 BMI 36.32 kg/m2 07/24/2024 Height-cm 152.40 cm 07/24/2024 Weight-kg 84.37 kg 07/24/2024 Encounters Encounter Location Date Provider Diagnosis [facility] [place] [address] 07/24/2024 Az Hickman Right carpal tunnel syndrome G56.01 Assessments Encounter Date Diagnosis (ICD Code) Assessment Notes Treatment Notes Treatment Clinical Notes Section Notes 07/24/2024 Right carpal tunnel syndrome (ICD-10 - G56.01) I am going to get her into some therapy with Mini Miller OT CHT in [facility] as that is where she lives she will call me if she is not getting better over the next month or so but otherwise no restrictions I told her should get better over time Plan Of Treatment Next Appt Details Follow Up: prn, Reason: Progress Notes * KARINA GEMINISUSYOB:1950 (74 yo F)Acc No.[id number]:07/24/2024 Patient:?AARONCHARITOGEMINIMILAGROS Provider:?Az Hickman MD :1950???Age:74 Y???Sex:Female D ate:07/24/2024 Address:[address] [place] [address] , [id number] Structured Data:Is today's v isit work related? : No Subjective: * Chief Complaints: * ???6w p/op - dcw - right car pal tunnel release - 06/[address] [facility] * HPI: ???HPI:?74 y/o female presents today for her post-operative visit she is s/p right CTR done 06/14/24.Six weeks from surgery she has no numbness or tingling but she would definitely has pain in the palm.? She has not done any therapy. * Medical History:? * Surgical History:?Carpal cassidy asim surgery Hand surgery Shoulder replacement Back surgery Ankle/foot surgery Cataract surgery left thumb * Hospitalization/Major Diagno stic Procedure:?Denies Past Hospitalization * Family History:?Father: Arth ritis , Disorder of lung , Heart disease .?Mother: Disorder of lung , Heart disease .?Siblings: Sister: Disorder of lung .?Non-Contributory.? * Social History:?Migrated Social History:?Migrated Social History: Tobacco Years: Never smoker 03/29/2023,. * Medications:?TakingJardiance 10 MG Tablet Oral Levalbuterol [...] Taking Losartan Potassium 50 MG Tablet Oral Xvw-ZndwluYZFICwogros-Gejxfkdzboehg 5-325 MG Tablet 1 tablet as needed [...] Onset Date 03/29/2023no[Allergies Verified] Objective: * Vitals:?Pain scale:31-10, Wt :186lbs, Wt-k.37 kg, Ht: 60.00 in, Ht-cm: 152.40 cm, BMI:36.32Index, Body Surface Area: 1.89. * Examination: ???General Examination: ? Right upper extremity ?pinch 15 lb ?building mover 45 lb ?negative Tinel's, Phalen's compression carpal tunnel she has positive pillar pain. ? Left upper extremity ?pinch 10 lb ?building mover 40 lb. Assessment: * Assessment: 1.?Right carpal tunnel syndr ome - G56.01 (Primary)?I am going to get her into some therapy with Mini Miller , OT CHT? in [facility] as that is where she lives she will call me if she is not getting better over the next month or so but otherwise no restrictions I told her should get? better over time Plan: * Treatment: * Procedure Codes:? * Follow Up:?prn * Billing Information: * Visit Code:? 60061 Postop visit. * Procedure Codes:? * Sign off status: Completed true * Provider:?Az Hickman MD Date:?07/2024 Generated for Mary Jo quintanilla/Erum/eTransmitting on:?12/11/2024 04:56 PM EST History and Physical Notes * HPI (History of Present Illness) Category Sub-Category Detail Notes Category Not es HPI 74 y/o female p resents today for her post-operative visit she is s/p right CTR done 06/14/24.Six weeks from surgery she has no numbness or tingling but she would definitely has pain in the palm. She has not done any therapy. Examination Category Sub-Category Detail Notes Category Not es General Examination Right upper extremity pinch 15 lb building mover 45 lb negative Tinel's, Phalen's compression carpal tunnel she has positive pillar pain. Left upper extremity pinch 10 lb building mover 40 lb
--- OUTSIDE RECORDS SUMMARY | 2024-12-11 16:56 | XMS_ITS | Clinical Summary ---
Author Organization [facility] Address [address] [place] [address] Care Team Providers Care Utilization Manager Name Role Phone Unavailable Primary Care Provider Unavailabl e Allergies Active Allergy Reactions Criticality Noted Date Comments Penicillins Urticarial Rash Medium 10/03/2007 Sulfa Antibiotics Urticarial Rash Medium 10/03/2007 Medications COZAAR 50 MG OR TABSIndications :Thumb pain BID Active LASIX 20 MG OR TABSIndications :Thumb pain twice a day Active SIMVASTATIN 10 MG OR TABSIndications :Thumb pain BID Active SINGULAIR 10 MG OR TABSIndications :Thumb pain 1 TABLET EVERY EVENING Active NEXIUM 40 MG OR CPDRIndications :Thumb pain 1 CAPSULE DAILY Active LEXAPRO 20 MG OR TABSIndications :Thumb pain 1 TABLET DAILY Active VICODIN 5-500 MG OR TABS 1 TABLET EVERY 4 TO 6 HOURS NEEDED 28 0 12/09/2007 Active CYMBALTA 30 MG OR CPEP 1 CAPSULE DAILY Active FLOVENT 110 MCG/ACT IN AERO None Entered A ctive ALBUTEROL 90 MCG/ACT IN AERS None Entered A ctive Social History Tobacco Use Types Packs/Day Years Used Date Smoking Tobacco: Never Alcohol Use Standard Drinks/Week Comments Not Asked 0 (1 standard drink = 0.6 oz pur e alcohol) Comments No Sex and Gender Information Value Date Recorded Sex Assigned at Not on file Legal Sex Female 10:32 PM EDT Gender Identity Not on file Sexual Orientation Not on file Last Filed Vital Signs Vital Sign Reading Time Taken Comments Blood Pressure 132/68 07/09/2008 9:58 AM EDT Pulse 66 07/09/2008 9:58 AM EDT Temperature 37.2 ??C (98.9 ??F) 07/09/2008 9:58 AM ED T Respiratory Rate 14 07/09/2008 9:58 AM EDT Oxygen Saturation - - Inhaled Oxygen Concentration - - Weight 89.4 kg (197 lb) 07/09/2008 9:58 AM EDT Height 157.5 cm (5' 2 ) 07/09/2008 9:58 AM EDT Body Mass Index 36.03 07/09/2008 9:58 AM EDT Plan of Treatment Health Maintenance Due Date Last Done Comments Hepatitis C Screening 1950 DTaP/Tdap/Td (1 - Tdap) 1969 Mammogram/Breast Imaging 1991 Pneumococcal 50+ years (1 of 1 - PCV) 2001 Zoster (Shingrix) (1 of 2) 2001 Bone Density 02/03/2016 COVID-19 Vaccine ( - 2023-2 5 season) 2024 Influenza (#1) 2024 RSV (1 - 1-dose 75+ series) 2026 HPV Vaccine Aged Out No longer eligi ble based on patient's age to complete this topic Hep A Aged Out No longer eligi ble based on patient's age to complete this topic Hep B Aged Out No longer eligi ble based on patient's age to complete this topic Hib Aged Out No longer eligi ble based on patient's age to complete this topic Meningococcal ACWY Aged Out No longer eligible based on patient's age to complete this topic Pap Smear Discontinued Zoster (Zostavax) Discontinued Insurance [employer]ENS[employer]
--- OUTSIDE RECORDS SUMMARY | 2024-12-11 16:56 | XMS_ITS ---
Author Organization [facility] Address [address] [place] [address] Care Team Providers Care Route Process Administrator Name Role Phone Roxanne Ellington PA-C Primary Care Provider UnaKwesi East Unavailable [phone] Allergies Allergen (clinical drug ingredient) Drug/Non Drug [...] Duration) Notes Start Date End Date Status metFORMIN HCl Not-Ta janine Potassium 1 tab Oral for 14 days Not-Taking Extra Depth Orthopedic Shoes (1 Pair) with Customized Heat Molded Multidensity Innersoles (3 Pair) as directed Dx: NIDDM/Polyneuropathy (E11.42), Hammertoe Foot Deformity (M20.41,M20.42), Preulcerative Skin Lesion(s) (L85.1 01/17/2024 Active Xopenex Active Janumet 50-1000 MG 1 tablet with meals Orally Twice a day for 30 day(s) Not-Taking Vitamin D Active Vitamin C Active Trulicity 3 MG/0.5ML as directed Subcutaneous Not-Taking Omeprazole 40 MG 1 capsule 30 minutes before morning meal Orally Once a day for 30 day(s) Active Nasonex Active Magnesium 400 MG as directed Orally Active Losartan Potassium 25 MG 1 tablet Orally Once a day for 30 day(s) Active DULoxetine HCl 60 MG 1 capsule [...] Twice a day for 30 days Active Bumetanide 1 MG as directed Orally Active Atorvastatin Calcium 20 MG 1 tablet Orally Once a day for 30 day(s) Active Advair Diskus 250-50 MCG/DOSE 1 puff Inhalation Twice a day Active Spironolactone 25 MG 1 tablet Orally for 30 day(s) Active Ozempic Active Social History Tobacco Use: Social History [...] user? No Vital Signs Height 5ft in 07/19/2024 Weight 183 lbs 07/19/2024 BMI 35.74 kg/m2 07/19/2024 Procedures Procedure Date Ordered Date Performed Result Body Sit e 80880-GVNBVBQ NAIL, 6 OR MORE 07/19/2024 N/A 27460-RFCP SKIN LESIONS, OVER 4 07/19/2024 N/A Encounters Encounter Location Date Provider Diagnosis [facility] [address] [address] 07/19/2024 Kwesi Cruz Type 2 diabetes mellitus with diabetic polyneuropathy E11.42 ; Tinea unguium B35.1 and Xerosis of skin L85.3 Assessments Encounter Date Diagnosis (ICD Code) Assessment Notes Treatment Notes Treatment Clinical Notes Section Notes 07/19/2024 Type 2 diabetes mellitus with diabetic polyneuropathy (ICD-10 - E11.42) 07/19/2024 Tinea unguium (ICD-10 - B35.1) 07/19/2024 Xerosis of skin (ICD-10 - L85.3) Plan Of Treatment Medication Medication Name Sig Start Date Stop Date Notes Ammonium Lactate 12 % 1 application Exte rnally to feet except for between the toes Twice a day for 30 days Pending Test Test Name Order Date [id number]-VGGIRXM NAIL, 6 OR MORE 07/19/2024 [id number]-[id number] SKIN LESIONS, OVER 4 07/19/20 24 Next Appt Details Follow Up: prn, Reason: Provider Name:Kwesi Grove Anthony , 01/18/2025 11:30:00 AM, [address] , [address], [place], [address], Procedure Notes * Category Sub-Category Detail Notes Debride Nail 6-10 Nail debridement Performance o f this nail treatment by a nonprofessional would put this patients foot and overall health at risk. Therefore, nail debridement was performed extensively to reduce/remove overall nail length, girth, thickness, subungual debris, and necrotic tissue, by manual and/or electrical means through the use of a nail nipper and/or dremel-type crankshaft grinder, to a more viable healthy nail plate or bed tissue 6-10. Silver nitrate used for any petechial bleeding as necessary. Definitive antifungal treatment options have been reviewed and discussed with the patient. The patient chooses, no pharmaceutical tx - 05025 Keratoma Treatment Parring or Cutting o f Benign Hyperkeratotic Lesion(s) 20985 ( More than 4 Lesions ) - The Benign hyperkeratotic lesions, as described above were pared, and/or cut utilizing a sterile 15 blade, tissue nippers, and/or dremel Progress Notes * Anahi ROMEROOB:1950 (74 yo F)Acc No.[id number]:07/19/2024 Progress Note Patient:?Barbara Romero Provider:?Kwesi Cruz DPM :1950???Age:74 Y???Sex:Female D ate:07/19/2024 Address:[address] [place], [place] [address] Pcp:Roxanne Ellington PA-C Subjective: * Chief Complaints: * ???At Risk FootcareSkin prob mikael(s) * HPI: ???At Risk footcare:?Pt States Last PCP Visit:?Date?02/18/2024 ???Skin problems:?Nature:?dryness , scaling.?Location:?B/L .?Duration:?several days.?Course:?worse.? * ROS:?General/Constitutional:?Nausea?denies.?Vomiting?denies.?Hunger Thirst?denies.?Loss appetite?denies.?Chills?denies.?Fatigue?denies.?Fever?denies.?Night Sweats?denies.?Unexplained weight loss?denies.?Unexplained [...] arpal tunnel 2023 * Hospitalization/Major Diagno stic Procedure:[place] [place] - shoulder replacement left 12/14/21 * Family History:?Mother: dece ased, stroke, diagnosed with Unspecified essential hypertension.?Father: alive, diagnosed with Unspecified essential hypertension.?Siblings: cancer.?Paternal Grand Father: diagnosed with Diabetic - NIDDM.?Paternal uncle: diagnosed with Family history of arthritis.? * Social History:?Tobacco Use:?Tobacco Use/Smoking?Are you a:?nonsmoker ?Additional Findings: Tobacco Non-User?Aggressive non-smoker ?Tobacco use other than smoking?Are you an other tobacco user??No ???Drugs/Alcohol:?Drugs?Have you used drugs other than those for medical reasons in the past 12 months??No ?Alcohol Screen?Did you have a drink containing alcohol in the past year??No ?Points?0 ?Interpretation?Negative ???Miscellaneous:?Caffeine: yes, frequency:. ?Children: yes, 2. ?Exercise: yes, yard work, housework. ?Marital status: . ?Occupation: Retired. * Medications:?TakingOzempic S pironolactone 25 MG Tablet 1 tablet Orally Advair Diskus 250-50 MCG/DOSE Aerosol Powder Breath Activated 1 puff Inhalation Twice a dayAtorvastatin Calcium 20 MG Tablet 1 tablet Orally Once a dayBumetanide 1 MG Tablet as directed Orally dilTIAZem HCl ER Beads 360 MG Capsule Extended Release 24 Hour 1 capsule Orally Once a dayDULoxetine HCl 60 MG Capsule Delayed Release Particles 1 capsule Orally Once a dayLosartan Potassium 25 MG Tablet 1 tablet Orally Once a dayMagnesium 400 MG Capsule as directed Orally Montelukast Sodium 10 MG Tablet 1 tablet Orally Once a dayNasonex Omeprazole 40 MG Capsule Delayed Release 1 capsule 30 minutes before morning meal Orally Once a dayVitamin C Vitamin D Xopenex Extra Depth Orthopedic Shoes (1 Pair) with Customized Heat Molded Multidensity Innersoles (3 Pair) as directed Dx: NIDDM/Polyneuropathy (E11.42), Hammertoe Foot Deformity (M20.41,M20.42), Preulcerative Skin Lesion(s) (L85.1Taking Ozempic Taking Spironolactone 25 MG Tablet 1 tablet Orally Taking Advair Diskus 250-50 MCG/DOSE Aerosol Powder Breath Activated 1 puff Inhalation Twice a dayTaking Atorvastatin Calcium 20 MG Tablet 1 tablet Orally Once a dayTaking Bumetanide 1 MG Tablet as directed Orally Taking dilTIAZem HCl ER Beads 360 MG Capsule Extended Release 24 Hour 1 capsule Orally Once a dayTaking DULoxetine HCl 60 MG Capsule Delayed Release Particles 1 capsule Orally Once a dayTaking Losartan Potassium 25 MG Tablet 1 tablet Orally Once a dayTaking Magnesium 400 MG Capsule as directed Orally Taking Montelukast Sodium 10 MG Tablet 1 tablet Orally Once a dayTaking Nasonex Taking Omeprazole 40 MG Capsule Delayed Release 1 capsule 30 minutes before morning meal Orally Once a dayTaking Vitamin C Taking Vitamin D Taking Xopenex Taking Extra Depth Orthopedic Shoes (1 Pair) with Customized Heat Molded Multidensity Innersoles (3 Pair) as directed Dx: NIDDM/Polyneuropathy (E11.42), Hammertoe Foot Deformity (M20.41,M20.42), Preulcerative Skin Lesion(s) (L85.1Not-Taking/PRNTrulicity 3 MG/0.5ML Solution Pen-injector as directed Subcutaneous Potassium 1 tab Oral metFORMIN HCl Janumet 50-1000 MG Tablet 1 tablet with meals Orally Twice a dayMedication List reviewed and reconciled with the patientNot-Taking/PRN Trulicity 3 MG/0.5ML Solution Pen-injector as directed Subcutaneous Not-Taking/PRN Potassium 1 tab Oral Not-Taking/PRN metFORMIN HCl Not-Taking/PRN Janumet 50-1000 MG Tablet 1 tablet with meals Orally Twice a dayMedication List reviewed and reconciled with the patient * Allergies:?Penicillin: rashS ulfa Antibiotics: rashLisinopril: coughBee Stingyes[Allergies Verified] Objective: * Vitals:?Ht: 5ft, Wt:183, BMI :35.74, Shoe size: 9, BS: did not test, Ht-cm: 152.4 cm, Wt-k.01 kg. * ???Past Orders: ???Lab:HEMOGLOBIN A1C (GLYCO HEMOGLOBIN) (Order Date - 12/29/2023) (Collection Date - 12/29/2023) ? Value Reference Range ?HEMOGLOBIN A1C % (HH) 6.9 * Examination: ???Neurological: ?SENSORY:? Neurological exam demonstrates, [...] T8, SUB MTH (s), 1, Right , Heel(s), B/L , Skin shows sign(s) of, dryness, scaling, in a stocking fashion, no fissure(s) present, B/L.? Assessment: * Assessment: 1.?Type 2 diabetes mellitus with diabetic polyneuropathy - E11.42 (Primary)?2.?Tinea unguium - B35.1?3.?Xerosis of skin - L85.3, Acute problem, Uncomplicated (3),Rx Management (4)? Plan: * Treatment: 2.?Xerosis of skin? Start Ammonium Lactate Cream, 12 %, 1 application, Externally to feet except for between the toes, Twice a day, 30 days, 60, Refills 2.?? * Procedures:?Debride Nail 6-10:?Nail debridement?Performance of this nail treatment by a nonprofessional would put this patients foot and overall health at risk. Therefore, nail debridement was performed extensively to reduce/remove overall nail length, girth, thickness, subungual debris, and necrotic tissue, by manual and/or electrical means through the use of a nail nipper and/or dremel-type crankshaft grinder, to a more viable healthy nail plate or bed tissue 6-10. Silver nitrate used for any petechial bleeding as necessary. Definitive antifungal treatment options have been reviewed and discussed with the patient. The patient chooses, no pharmaceutical tx - 49776.?Keratoma Treatment:?Parring or Cutting of Benign Hyperkeratotic Lesion(s)?06878 ( More than 4 Lesions ) - The Benign hyperkeratotic lesions, as described above were pared, and/or cut utilizing a sterile 15 blade, tissue nippers, and/or dremel.? * Procedure Codes:?91233 DEBRI DE NAIL, 6 OR MORE, Modifiers: XS 13391 TRIM SKIN LESIONS, OVER 4, Modifiers: XS * Preventive Medicine:? ??Counseling:?Discussion:?-13: Office or other outpatient visit for the evaluation and management of an established patient, which required a medically appropriate history and/or examination and LOW level of DECISION MAKING for: 1 STABLE ACUTE UNCOMPLICATED PROBLEM, 2 OR MORE MINOR PROBLEMS, OR 1 STABLE CHRONIC PROBLEM, THAT POSE(S) A LOW RISK FOR MORBIDITY/MORTALITY. The visit on the day of the [...] have encouraged the patient to call the office.?Xerosis:?The patient was counseled on the diagnosis, potential etiologies, and treatment options for their skin condition. We discussed the risks and benefits of each option from performing no treatment, to utilizing OTC topical skin creams/ointments, to utilizing prescription topical creams/ointments, to utilizing customized compounded topical medications and use of nocturnal occlusion with any/all previously detailed therapies. We discussed the advantages and disadvantages of each possible treatment and importance for adherence to all the recommended therapies for optimum success and avoid potential complications such as open sore/infection/possible hospitalization. We discussed the potential effectiveness of each topical preparation as well as each ones possible side effects and/or patient medication interactions. Patient questions re: use, dosage, successful outcomes, and application consistency were reviewed and the patient verbalized that all answers were clearly understood. The patient has decided to apply Rx skin creams to their feet save the interspaces while paying special attention to the heels. Such was sent to their pharmacy at the time of visit.? * Follow Up:?prn * Images: * Sign off status: Completed true * Provider:?Kwesi Cruz DPM Date:?2023 Generated for Mary Jo quintanilla/Erum/Haley on:?12/11/2024 04:55 PM EST History and Physical Notes * HPI (History of Present Illness) Category Sub-Category Detail Notes Category Not es Skin problems Nature: dryness , scaling Location: B/L Duration: several days Course: worse At Risk footcare Pt States Last PCP Visit: Date: 4 Examination Category Sub-Category Detail Notes Category Not [...] T8, SUB MTH (s), 1, Right , Heel(s), B/L , Skin shows sign(s) of, dryness, scaling, in a stocking fashion, no fissure(s) present, B/L Nails NAILS are: Elongated, overg rown, dystrophic, lytic, greater than 3mm thick, discolored and friable with crumbly malodorous subungual debris, 1-5 B/L
--- OUTSIDE RECORDS SUMMARY | 2024-12-11 16:56 | XMS_ITS | Clinical Summary ---
Author Organization [facility] Address [address] [facility] [address] [place] [address] Phone Care Team Providers Care Taxi Cab Driver Name Role Phone Angela Ellington Primary Care Provider [phone] Allergies Active Allergy Reactions Criticality Noted Date Comments Kvng Inhibitors Other (see comments) 11/15/2011 Honey Bee Venom Anaphylaxis High 01/29/2021 Penicillins 01/29/2021 Sulfa Antibiotics Other (see comments) 01/30/20 21 Medications fluticasone-catrina meterol (ADVAIR DISKUS) 250-50 MCG/DOSE diskus inhaler Advair Diskus 250 mcg-50 mcg/dose powder for inhalation Active atorvastatin (LIPITOR) 20 MG tablet Take 20 mg by mouth 1 (one) time each day Active DULoxetine (CYMBALTA) [address] capsule Take 60 mg by mouth 1 (one) time each day Active omeprazole (PriLOSEC) [address] capsule Take 40 mg by mouth 1 (one) time each day Active albuterol HFA (PROVENTIL HFA;VENTOLIN HFA) 108 (90 Base) MCG/ACT inhaler 2 puffs by Other route every 4 (four) hours Active Dulaglutide (Trulicity) 0.75 MG/0.5ML solution pen-injector Inject 1.5 mg under the skin Active montelukast (SINGULAIR) 10 MG tablet Take 1 tablet by mouth 1 (one) time each day 1 Active Ascorbic Acid (vitamin C) 1000 MG tablet Take 1,000 mg by mouth 1 (one) time each day Active dilTIAZem CD (CARDIZEM CD) 360 MG 24 hr capsule 2 Active losartan (COZAAR) 50 MG tablet 2 Active EPINEPHrine (EPIPEN) 0.3 MG/0.3ML injection syringe 2 Active magnesium oxide (MAG-OX) 400 MG tablet Take 1 tablet by mouth in the morning and 1 tablet in the evening. Active spironolactone (ALDACTONE) 25 MG tablet TAKE 1/2 TABLET ONCE DAILY 45 tablet 3 3 Active bumetanide (BUMEX) 2 MG tablet Take 1 tablet (2 mg total) by mouth 1 (one) time each day 90 tablet 3 3 Active Active Problems Problem Noted Date Diagnosed Date Superficial thrombophlebitis 11/04/2022 Localized swelling of left lower leg 11/04/2022 Deep venous thrombosis of lower extremity 2021 Migraine 10/06/2022 Microalbuminuria 10/06/2022 Headache 07/06/2022 Syncope 05/12/2022 Injury of head 05/12/2022 Severe obesity 05/15/2021 Degenerative joint disease of shoulder region Hypertensive heart disease without heart failure 01/29/2021 Chronic kidney disease stage 3B 12/24/2020 Hypomagnesemia 06/16/2019 Hypertensive renal disease 06/28/2017 Immunizations Name Administration Dates Next Due Influenza (IM) Preservative Free 09/28/2014 Influenza Split High Dose Pr eservative Free IM 08/07/2021,08/20/2016 Influenza TIV (IM) 09/15/2012,11/19/2009, 008 Influenza Vaccine, Quadrival ent, Adjuvanted 09/14/2022 Influenza, Quadrivalent, Pre servative Free 08/20/2015 Influenza, Quadrivalent, Wit h Preservative 09/15/2018,09/23/2017 Influenza, Trivalent, Adjuvanted 08/16/2019,1111/2017 Influenza, Unspecified 09/03/2022,2020,08/16/2020,09/23 Moderna SARS-COV-2 10/15/2021,01/09/2021, 021 Pfizer SARS-COV-2 10/15/2021,12/12/2020 Pneumococcal Conjugate 13-Valent 02/19/2017 Pneumococcal Polysaccharide 10/15/2020, 8,11/15/2012 Shingrix 06/16/2022 Tdap 07/24/2019,01/03/2009 Family History Medical History Relation Comments Heart disease Father Hypertension Father Heart disease Mother Hypertension Mother Hypertension Sibling 1 Kidney disease Sibling 2 Relation Status Comments Father Alive Mother Sibling 1 Sibling 2 Social History Tobacco Use Types Packs/Day Years Used Date Smoking Tobacco: Never Smokeless Tobacco: Never Tobacco Cessation:Counseling Given: Not Answered Alcohol Use Standard Drinks/Week Comments No 0 (1 standard drink = 0.6 oz pur e alcohol) Comments Unknown Sex and Gender Information Value Date Recorded Sex Assigned at Not on file Legal Sex Female 5:10 PM EST Gender Identity Not on file Sexual Orientation Not on file Last Filed Vital Signs Vital Sign Reading Time Taken Comments Blood Pressure 138/65 06/23/2023 4:23 PM EDT Pulse 78 06/23/2023 4:23 PM EDT Temperature - - Respiratory Rate - - Oxygen Saturation 95% 06/23/2023 4:23 PM EDT Inhaled Oxygen Concentration - - Weight 84.6 kg (186 lb 6.4 oz) 06/23/2023 4:23 P M EDT Height 152.4 cm (5') 01/24/2020 12:00 PM EDT Body Mass Index 36.4 01/24/2020 12:00 PM EDT Plan of Treatment Health Maintenance Due Date Last Done Comments Breast Cancer Screening 1950 Colorectal Cancer Screening: Annual FOBT 02/03/2000 Colorectal Cancer Screening: Colonoscopy 02/03/2000 Colorectal Cancer Screening: Sigmoidoscopy 02/03/2000 Diabetes: Hemoglobin A1C 01/29/2021 Diabetes: Ophthalmology Exam 01/29/2021 Diabetes: Pedal Pulse Checked 01/29/2021 Diabetes: Sensory Foot Exam 01/29/2021 Diabetes: Visual Foot Exam 01/29/2021 Influenza Vaccine (#1) 2024 2, 09/03/2022, 08/07/2021, Additional history exists Pneumococcal Vaccine: 65+ Years Completed 10/15/2020, 06/17/2018, 02/19/2017, Additional history exists Hepatitis B Vaccine Aged Out No longe r eligible based on patient's age to complete this topic Insurance [facility] MEDICARE [facility] MEDIC[facility] Care Teams Taxi Cab Driver Relationship Specialty Start Date End Date Angela Ellington PA [address] PCP - General Physician [employer] Consultant 12/02/22
--- OUTSIDE RECORDS SUMMARY | 2024-12-11 16:56 | XMS_ITS | Encounter Summary ---
Author Organization [facility] Address [address] [place] [address] Care Team Providers Care Hat Measurer Name Role Phone Roxanne Ellington Primary Care Provider Reason for Visit * Reason Onset Date Comments Appointment 12/06/2024 CT Head Encounter Details Date Type Department Care Team (Late st Contact Info) Description 12/06/2024 Telephone [facility] [address] [facility] [address] [place] [phone] Jeanine Oates NP [address] [place] [address] Appointment (CT Head) Social History Tobacco Use Types Packs/Day Years [...] as of this encounter Progress Notes * Jeanine Oates NP - 12/06/2024 3:57 PM EST Thank you * Lula Francisco - 12/06/2024 2:50 PM EST Pt returned my call and is able to accept this appointment. * Lula Francisco - 12/06/2024 2:31 PM EST Pt is scheduled for a CT Head scan on 12/07/24, at 9:45am, @ [facility]. Order and ov note faxed. Pt was called and message left with appt info. I have asked that she call me back to let me know if she is able to accept this appointment. documented in this encounter Plan of Treatment Upcoming Encounters Date Type Department Care Team (Late st Contact Info) Description 01/23/2025 1:40 PM EDT Office Visit [facility] [address] [facility] [address] [place] [address] Jeanine Oates NP [address] [place] [address] 02/14/2025 2:30 PM EDT Ancillary Procedure [facility] - [facility] [address] [place] [address] documented as of this encounter Visit Diagnoses Not on filedocumented in this encounter Care Teams Hat Measurer Relationship Specialty Start Date End Date Roxanne Ellington PA [address] [facility] [address] [place], [place] PCP - General 12/18/22 documented as of this encounter
== END 2024-12-11 12:16 | disposition home or self-care (01) ==
PROVIDERS: PCP Physician Assistant Medical; Visit Provider Internal Medicine Hypertension Specialist
DX: I12.9 Hypertensive chronic kidney disease with stage 1 through stage 4 chronic kidney disease, or unspecified chronic kidney disease (principal); N18.9 Chronic kidney disease, unspecified; G47.33 Obstructive sleep apnea (adult) (pediatric); Z99.89 Dependence on other enabling machines and devices; G45.9 Transient cerebral ischemic attack, unspecified
CPT/HCPCS: 99214

== ENCOUNTER → 2024-12-11 11:57 | Outpatient (BNVA) | payer MEDICARE, SELFPAY | PROVIDERS: PCP Physician Assistant Medical; Visit Provider Internal Medicine Hypertension Specialist | DX: I12.9 Hypertensive chronic kidney disease with stage 1 through stage 4 chronic kidney disease, or unspecified chronic kidney disease (principal); N18.9 Chronic kidney disease, unspecified; G45.9 Transient cerebral ischemic attack, unspecified; G47.33 Obstructive sleep apnea (adult) (pediatric); Z99.89 Dependence on other enabling machines and devices | CPT/HCPCS: 99212 ==

== ENCOUNTER 2025-02-16 10:04 | Outpatient (AMB) | payer MEDICARE, SELFPAY ==
[2025-02-16 10:06] VITALS: BP 110/68; PULSE 88; O2SAT 98; BMI 35.9
--- NOTE | 2025-02-16 10:06 | MHC.OFFVIS ---
Vital Signs 02/16/25 10:06 Height 5 ft Weight 184 lb 1.376 oz BMI 35.9 BP 110/68 Blood Pressure Location Rt brachial Position Sitting Pulse 88 Pulse Source Pulse Oximeter Pulse Oximetry (%) 98 Oxygen Delivery Method Room Air Intake Visit Reasons: COPD Allergies bee pollen Allergy (Severe, Verified 02/16/25 10:10) Hives/Rash lisinopril Adverse Reaction (Severe, Verified 02/16/25 10:10) Cough Kvng Inibitors Allergy (Severe, Uncoded 02/16/25 10:10) Cough Penicillins Allergy (Severe, Uncoded 02/16/25 10:10) Rash Sulfa Drugs Allergy (Severe, Uncoded 02/16/25 10:10) Rash HPI Comments Details: Patient is a 75-year-old woman with a known history of asthma in addition to obstructive sleep apnea on CPAP. Her asthma has been well controlled on her current respiratory medication. Back in the springtime she did have an exacerbation in did require prednisone. However since then she has been doing well. She does not use her rescue inhaler more than twice a week. She continues use her Advair regularly. She also uses her nasal sprays for her chronic rhinitis. In addition to that she has been using her CPAP. The CPAP therapy has been affecting beneficial. I did download the APAP machine which appears to be completely optimized. Her AHI is below 1. She uses it 100% of the time. Her average pressure very between 10-12 cm of water. No changes were made. She does have an issue with current mask. I did have a spare N 20 mask that fit her well. Therefore may be a good mask for to consider using moving for period she will try it for some time and that is now so we can order a mask for her. Otherwise patient is without any other complaints. She is due for a pneumonia shot today. She will call if any issues developed. 10/23/2022 the patient is here for a pulmonary follow-up visit. She is doing well with her CPAP. The CPAP therapy continues to be affecting beneficial. She does use it for more than 4 hours a night. She has been getting supplies regularly. Her major issues her breathing. She has been noticing increasing shortness of breath and chest tightness. Moderate severity. She has been on the Advair with only partial resolution of her symptoms. She has been using her rescue inhaler on a regular basis. She also has allergy medications including Singulair and has been using Nasonex for her nose. Will go ahead and optimize her therapy by adding a long-acting muscarinic antagonist. I did give her coupon of Trelegy. She is going to try that. If the medication is effective and financially reasonable she is going to continue it. Otherwise she will call the office if she is no better. We can consider also performing blood work and allergy testing and also should undergo pulmonary function studies in the future. 05/07/2023 the patient is here for pulmonary follow-up visit. The patient is doing very well. She has had significant weight loss. This has been intentional for her. The patient continues use her CPAP every night. The CPAP therapy continues to be affecting beneficial. She does use it more than 4 hours a night. The patient has been getting supplies readily from her [employer] and she does like her mask. The patient also has been now in good response with the Trelegy inhaler. Although, very expensive. I will send her instead AirDuo to the pharmacy and she can use it good Rx card that we provided. Hopefully this will make it more reasonable for her. She did undergo pulmonary function studies and we did review them demonstrating normal lung mechanics. 02/15/2024 the patient is here for a pulmonary follow-up visit. Overall she is doing fairly well. She is dealing with a new diagnosis of congestive heart failure. She did develop some cardiorenal syndrome. She is followed closely by Nephrology. In the meantime she continues uses CPAP. The CPAP therapy continues to be affecting beneficial. She does use the wisp mask which she likes a lot. The patient has been tolerating therapy for many years. And she will continue therapy at this time. As far as inhaler she had been on Trelegy. But was expensive. I did talk to her about AirDuo through a [employer] card. But it appears that Darianaxela will be covered nicely through her insurance will go ahead and prescribe her that and send her the medication to her pharmacy. She continues on her cardiac medications. The patient does have a murmur. 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 02/16/2025 the patient is here for pulmonary follow-up visit. Overall she is doing well from a respiratory status. Has not had any recent imaging studies or laboratory to review. She did have a TIA. She was not seen at the hospital. She did follow-up with Cardiology and she was started on Coreg. Since being on Coreg she has a mild cough. She is going to keep an eye on it. If it worsens she will let me know and will get an x-ray. Her respiratory exam is reassuring. She continues on the Wixela. Since be affecting beneficial. She has not had to use her rescue inhaler. The patient continues use her CPAP. CPAP therapy has been affecting beneficial. She does use a nasal mask. She does use it for more than 4 hours a night. She does use [facility] for supplies. Will send a script for additional supplies this time. She will follow-up in a year's time if she has not issues prior to that she will call for an earlier assessment. [facility] Medical History (Updated 12/11/24 @ 12:14 by Daniele Reddy MD) Chronic allergic rhinitis Murmur LINETTE on CPAP Asthma Family History Mother Heart disease Father Heart disease Other Asthma Social History Alcohol intake: never Patient Tobacco Use Status: Never used Tobacco Review of Systems Const Denies night sweats ENT Denies change in voice, Denies lip swelling, Denies mouth pain, Reports nasal congestion, Reports nasal discharge and Denies tongue swelling Card Denies chest pain and Reports dyspnea on exertion Resp Reports cough and Reports dyspnea on exertion GI Denies abdominal pain Musc Denies no additional complaints Neuro Denies Neuro-related abnormal movements Psych Denies no additional complaints Alhaji/Lymph Denies easy bleeding and Denies lymphadenopathy Aller/Immun Denies lip swelling and Denies tongue swelling Physical Exam Vital Signs: Last Vital Signs Pulse 88 02/16/25 10:06 BP 110/68 02/16/25 10:06 Pulse Ox 98 02/16/25 10:06 Oxygen Delivery Method Room Air 02/16/25 10:06 BMI result Body Mass Index 35.9 Const General: alert HEENT General nose exam: Abnormal external nose present and Nasal discharge present Eyes Pupils: Equal, round and reactive pupils present Neck Neck: Yes normal visual inspection, Yes full ROM and Yes no lymphadenopathy Chest Chest palpation & inspection: normal inspection of the chest Resp Auscultation: diminished lung sounds Cardio Rate: regular rate Rhythm: regular rhythm Heart sounds: S1 normal heart sound present, S2 normal heart sound present and Murmur heart sound present systolic III/ and with radiation to the carotids GI Palpation (GI): Soft to palpation and nontender Auscultation: normal bowel sounds General: Yes no CVA tenderness Back/Spine/Pelvis Back: no CVA tenderness Skin General skin exam: rashes and/or lesions noted Neuro Cranial nerves: Yes Equal, round and reactive pupils present Assessment & Plan Assessment & Plan (1) Asthma: Code(s): J45.909 - Unspecified asthma, uncomplicated Category: Medical Qualifiers: Asthma complication type: uncomplicated Asthma persistence: unspecified Asthma severity: moderate Qualified Code(s): J45.909 - Unspecified asthma, uncomplicated Plan: Will try to decrease Advair to daily (2) LINETTE on CPAP: Code(s): G47.33 - Obstructive sleep apnea (adult) (pediatric); Z99.89 - Dependence on other enabling machines and devices Category: Medical Plan: Continue APAP therapy (3) Chronic allergic rhinitis: Code(s): J30.9 - Allergic rhinitis, unspecified Category: Medical Plan continue Wixela short-acting beta agonist as needed continue singular continue PAP therapy, WISP diuresis as tolerated F/U 1 year Coding Level of Care Code Est Pt Level 4 (66753) Diagnoses Moderate asthma without complication, unspecified whether persistent J45.909 Asthma complication type: uncomplicated Asthma persistence: unspecified Asthma severity: moderate LINETTE on CPAP G47.33; Z99.89 Chronic allergic rhinitis J30.9 Time Spent (min) 16
--- OUTSIDE RECORDS SUMMARY | 2025-02-16 11:24 | XMS_ITS | Patient Health Record ---
Author Organization [facility] Address [address] [place] [address] Care Team Providers Care Strap Buckler Machine Name Role Phone Roxanne Ellington PA-C Primary Care Provider Kwesi Crump Unavailable [phone] Allergies Allergen (clinical drug ingredient) Drug/Non Drug [...] Performing Lab: Notes/Report: TOTAL HEMOGLOBIN (HGBA1C) 6.8 Reason For Referral No Information Medications Medication [...] Problem Acquired hammer toe of right foot (0151294211985895 ) Other hammer toe(s) (acquired), right foot (M20.41) Active confirmed Response to treatment, Improvemen t Problem Acquired hammer toe of left foot (6352622519808811 ) Other hammer toe(s) (acquired), left foot (M20.42) Active confirmed Response to treatment, Improvemen t Problem Polyneuropathy due to type 2 diabetes mellitus (425309710) Type 2 diabetes mellitus with diabetic polyneuropathy (E11.42) Active confirmed Vital Signs Blood pressure diastolic 84 mm Hg 10/19/2024 Height 5ft in 10/19/2024 Blood pressure systolic 120 mm Hg 10/19/2024 Weight 185 lbs 10/19/2024 BMI 36.13 kg/m2 10/19/2024 Procedures Procedure Date Ordered Date Performed Result Body Sit e 49494-OBWJKJK NAIL, 6 OR MORE 04/17/2024 N/A 61514-ZZMS SKIN LESIONS, OVER 4 04/17/2024 N/A 67517-YEKYKNP NAIL, 6 OR MORE 07/19/2024 N/A 56406-AQYN SKIN LESIONS, OVER 4 07/19/2024 N/A 57673-CLJDCHZ NAIL, 6 OR MORE 10/19/2024 N/A 92035-NSQY SKIN LESIONS, OVER 4 10/19/2024 N/A Encounters Encounter Location Date [facility] [address] 04/17/2024 Kwesi Cruz Type 2 diabetes mellitus with diabetic polyneuropathy E11.42 ; Tinea unguium B35.1 ; Other hammer toe(s) (acquired), right foot M20.41 and Other hammer toe(s) (acquired), left foot M20.[address] [address] 07/19/2024 Kwesi Cruz Type 2 diabetes mellitus with diabetic polyneuropathy E11.42 ; Tinea unguium B35.1 and Xerosis of skin L85.[address] [address] 10/19/2024 Kwesi Cruz Type 2 diabetes mellitus with diabetic polyneuropathy E11.42 ; Tinea unguium B35.1 and Xerosis of skin L85.[address] [address] 07/24/2024 Kwesi Cruz Xerosis of skin L85. 3 [facility] [address] [place] [address] 01/18/2025 Kwesi Cruz Assessments Encounter Date Diagnosis (ICD Code) Assessment Notes Treatment Notes Treatment Clinical Notes Section Notes 04/17/2024 Type 2 diabetes mellitus with diabetic [...] 10/19/2024 Xerosis of skin (ICD-10 - L85.3) 04/17/2024 Other hammer toe(s) (acquired), right foot (ICD-10 - M20.41) Response to treatment,Impro vement 04/17/2024 Other hammer toe(s) (acquired), left foot (ICD-10 - M20.42) Response to treatment,Impro vement 07/19/2024 Xerosis of skin (ICD-10 - L85.3) Plan Of Treatment Pending Test Test Name Order Date 90453-NVGEXLJ NAIL, 6 OR MORE 10/17/2020 31223-BFEJKOU NAIL, 6 OR MORE 02/10/2021 09483-FGKFNFJ NAIL, 6 OR MORE 05/12/2021 25539-TVXHEEZ NAIL, 6 OR MORE 08/11/2021 99389-JRBIYRY NAIL, 6 OR MORE 11/17/2021 42905-ZQGXMWF NAIL, 6 OR MORE 02/16/2022 74091-GNXMZBF NAIL, 6 OR MORE 05/20/2022 23639-ITKIQOD NAIL, 6 OR MORE 08/19/2022 75216-KDPGGUN NAIL, 6 OR MORE 11/18/2022 68827-UKJPQBR NAIL, 6 OR MORE 02/17/2023 83512-GMJMMNM NAIL, 6 OR MORE 01/17/2024 75270-LHALEAG NAIL, 6 OR MORE 04/17/2024 38519-MCIWXMQ NAIL, 6 OR MORE 07/19/2024 78087-PFBHTVE NAIL, 6 OR MORE 10/19/2024 52713-Hjxlgqom Plate 08/19/2022 89143-Lwtrsben Plate 01/17/2024 20922-EBUK SKIN LESIONS, OVER 4 01/17/20 24 43525-UXNZ SKIN LESIONS, OVER 4 04/17/20 24 22298-NSKN SKIN LESIONS, OVER 4 02/18/20 23 68668-HJUG SKIN LESIONS, OVER 4 11/18/19 23 57052-TNTX SKIN LESIONS, OVER 4 10/19/20 24 95889-KPUV SKIN LESIONS, OVER 4 07/19/20 24 97229-OSFF SKIN LESIONS, OVER 4 08/19/20 22 41233-HZSQ SKIN LESIONS, OVER 4 05/20/20 22 81226-XIDF SKIN LESIONS, OVER 4 02/17/20 22 41790-XUAF SKIN LESIONS, OVER 4 11/17/19 22 61026-JQBC SKIN LESIONS, OVER 4 08/11/20 21 96892-TZZJ SKIN LESIONS, OVER 4 05/12/20 21 65651-IULO SKIN LESIONS, OVER 4 02/11/20 21 09841-YEOL SKIN LESIONS, OVER 4 10/17/20 Next Appt Details Provider Name:Kwesi Cruz , 04/16/2025 03:45:00 PM, [address] [facility], [facility] [address], [place], [address], Insurance Providers Payer Name Payer Address Payer Phone Subscriber Number Group Number Insured Name Patient Relationship to Insured Coverage Start Date Coverage End Date Medicare National [employer] [address] [place] [address] [id number] Barbara Romero Self - patient is the insured [employer] [facility] [address] [place] [address] [id number] Barbara Romero Self - patient is the [...]
--- OUTSIDE RECORDS SUMMARY | 2025-02-16 11:24 | XMS_ITS | Clinical Summary ---
Author Organization [facility] Address [address] [facility] [address] [place] [address] Phone Care Team Providers Care Bench Shear Operator Name Role Phone Angela Ellington Primary Care Provider Allergies Active Allergy Reactions Criticality Noted Date [...] patient's age to complete this topic Insurance [facility] MEDICARE [facility] MEDICARE Care Teams Bench Shear Operator Relationship Specialty Start Date End Date Angela Ellington PA [address] PCP - General Physician Log Chipper Operator 12/02/22
--- OUTSIDE RECORDS SUMMARY | 2025-02-16 11:24 | XMS_ITS ---
Author Organization [facility] Address [facility] [place] [address] Care Team Providers Care Machine Hoop Maker Helper Name Role Phone Az Hickman Primary Care Provider Allergies Allergen (clinical drug ingredient) Drug/Non Drug [...] - right carpal tunnel release - 06/14 [facility] - Medications Medication SIG (Take, Route, Frequency, [...] 07/24/2024 Encounters Encounter Location Date Provider Diagnosis [facility] [place] [address] 07/24/2024 Az Hickman Right carpal tunnel syndrome G56.01 Assessments Encounter Date Diagnosis (ICD Code) Assessment Notes Treatment Notes Treatment Clinical Notes Section Notes 07/24/2024 Right carpal tunnel syndrome (ICD-10 - G56.01) I am going to get her into some therapy with Mini Miller OT CHT in [facility] as that is where she lives she will call me if she is not getting better over the next month or so but otherwise no restrictions I told her should get better over time Plan Of Treatment Next Appt Details Follow Up: prn, Reason: Progress Notes * KARINA GEMINISUSYOB:1950 (74 yo F)Acc No.[id number]:07/24/2024 Patient:?AARONCHARITOGEMINIMILAGROS Provider:?Az Hickman MD :1950???Age:74 Y???Sex:Female D ate:07/24/2024 Address:[address] [place] [address] , [facility] Structured Data:Is today's v isit work related? : No Subjective: * Chief Complaints: * ???6w p/op - dcw - right car pal tunnel release - 06/14 [facility] * HPI: ???HPI:?74 y/o female presents today [...] Taking Losartan Potassium 50 MG Tablet Oral Qnq-OfuapvRHKMLnkfmlx-Zzldmovoerqhu 5-325 MG Tablet 1 tablet as needed [...] ? Right upper extremity ?pinch 15 lb ?computer help desk representative 45 lb ?negative Tinel's, Phalen's compression carpal tunnel she has positive pillar pain. ? Left upper extremity ?pinch 10 lb ?computer help desk representative 40 lb. Assessment: * Assessment: 1.?Right carpal tunnel syndr ome - G56.01 (Primary)?I am going to get her into some therapy with Mini Miller , OT CHT? in [facility] as that is where she lives she will call me if she is not getting better over the next month or so but otherwise no restrictions I told her should get? better over time Plan: * Treatment: * Procedure Codes:? * Follow Up:?prn * Billing Information: * Visit Code:? 41236 Postop visit. * Procedure Codes:? * Sign off status: Completed true * Provider:?Az Hickman MD Date:?07/2024 Generated for Mary Jo quintanilla/Erum/eTransmitting on:?02/16/2025 11:24 AM EDT History and Physical Notes * HPI (History [...] Examination Right upper extremity pinch 15 lb computer help desk representative 45 lb negative Tinel's, Phalen's compression carpal tunnel she has positive pillar pain. Left upper extremity pinch 10 lb computer help desk representative 40 lb
--- OUTSIDE RECORDS SUMMARY | 2025-02-16 11:24 | XMS_ITS | Clinical Summary ---
Author Organization [facility] Address [address] [place] [address] Care Team Providers Care Print Production Coordinator Name Role Phone Unavailable Primary Care Provider [...]
--- OUTSIDE RECORDS SUMMARY | 2025-02-16 11:24 | XMS_ITS | Patient Health Record ---
Author Organization [facility] [place] [place] Address [address] [place] [address] Care Team Providers Care Blunger Loader Name Role Phone Az Hickman Primary Care Provider Jaqueline Ferguson Unavailable [phone] Frank Chowdary Unavailable [phone] Ashlee Miller Unavailable [phone] Mercedez Casas Unavailable [phone] Allergies Allergen (clinical drug ingredient) Drug/Non Drug [...] date:04/28/2024 08:39:44 AM Interpretation: Performing Lab: Notes/Report: Reason For Referral Reason RIGHT CARPAL TUNNEL RELEASE Diagnosis 1 Right carpal tunnel syndrome (G56.01) Referral Organization [facility] [place] Referring Provider First Name Az Referring Provider Last Name Lai Referring Provider Speciality Orthopedic Surgery Referred Organization [facility] Referred Address [address], [place],[id number] Referred Provider Specialty Orthopedic S urgery Procedure 1 CARPAL TUNNEL SURGER Y (28851) General Notes HajaAnastasiyaMercedez 05/31/2024 11:45:13 AM >EXTRAS, ANTIBIOTICS Referral Priority [...] osteoarthritis, 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 Problem [id number] Right carpal tunnel syndrome (G56.01) Active confirmed Problem 521770468 Hand arthritis (M19.049) Active confirmed Problem Localized, primary osteoarthritis of the hand () Arthritis of carpometacarpal (CMC) joint of left thumb (M18.12) Active confirmed Vital Signs Height-cm 152.40 cm 09/18/2024 0 Weight-kg 84.37 kg 09/18/2024 0 Height 60.00 in 09/18/2024 0 Weight 186 lbs 09/18/2024 0 BMI 36.32 kg/m2 09/18/2024 0 Procedures Procedure Date Ordered Date Performed Result Body Sit e R2523-sjjjp 06/05/2024 06/05/2024 N/A Encounters Encounter Location Date Provider Diagnosis [address] [address] 02/18/2024 Jaqueline Ferguson 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 [address] 04/27/2024 Frank Chowdary Right carpal tunnel syndrome G56.01 and Arthritis of carpometacarpal (CMC) joint of left thumb M18.[address] [address] 06/05/2024 Mercedez Casas Right carpal tunnel syndrome G56.[address] [address] 06/23/2024 Ashlee Miller Right carpal tunnel syndrome G56.[address] [address] 07/24/2024 Az Hickman Right carpal tunnel syndrome G56.[address] [address] 09/18/2024 Az Hickman Unilateral primary osteoarthritis of first carpometacarpal joint, left hand M18.12 and Tenosynovitis M65.[address] [address] 05/23/2024 Az Hickman [address] [address] 09/18/2024 Az Hickman Assessments Encounter Date Diagnosis (ICD Code) Assessment Notes Treatment Notes Treatment Clinical Notes Section Notes 02/18/2024 Status post reverse total replacement of [...] therapy with Mini Miller OT CHT in [facility] as that is where she lives she [...] ) [address] [place], [place] [id number] [id number] MILAGROS COLLINS Self - patient is the insured [employer]Medicare Supplemen t) [address] [place], [place] [id number] MILAGROS COLLINS Self - patient is the insured NOR[employer] A [address] [place] [address] [id number] MILAGROS COLLINS Self - patient is the [...]
--- OUTSIDE RECORDS SUMMARY | 2025-02-16 11:24 | XMS_ITS ---
Author Organization [facility] Address [address] [place] [address] Care Team Providers Care Band Cutting Machine Operator Name Role Phone Az Hickman Primary Care [...] 0 Encounters Encounter Location Date Provider Diagnosis [place] [address] [place] [address] 09/18/2024 Az Hickman Unilateral primary osteoarthritis of [...] Notes * JAY COLLINSEDOB:1950 (74 yo F)Acc No.[id number]:09/18/2024 Progress note Patient:?MILAGROS COLLINS Provider:?Az Hickman MD :1950???Age:74 Y???Sex:Female D ate:09/18/2024 Address:[address] [place] [address] , [facility] Subjective: * Chief Complaints: * ???1. F/u left thumb *loss o f function. * HPI: ???HPI:?This is a 74 year [...] was done back in . * Medical History:?Problems: D egenerative joint disease of hand, Osteoarthrosis of the carpometacarpal joint of the thumb, Hypercholesterolemia, Hypertension, Asthma - moderate persistent, type II diabetes, DVT lower extremity, chronic kidney disease, stage 3B, Left ventricular hypertrophy, Migraine headaches. * Surgical History:?Carpal cassidy asim surgery , Hand surgery , Shoulder replacement , Back surgery , Ankle/foot surgery , Cataract surgery , left thumb . * Family History:?Father: Arth ritis , Disorder of lung , Heart disease .?Mother: Disorder of lung , Heart disease .?Siblings: Sister: Disorder of lung .? * Social History:?Tobacco Use:?Tobacco Use/Smoking?Tobacco use:?nonsmoker ???Migrated Social History:?Migrated Social History: Tobacco Years: Never smoker 03/29/2023,. ???Drug/Alcohol:?Alcohol Screen (Audit-C)?Did you have a drink containing alcohol in the past year??No ?Points?0 ?Interpretation?Negative * Medications:?Taking Jardianc e 10 MG Tablet Oral , Taking Levalbuterol Tartrate 45 MCG/ACT Aerosol Inhalation , Taking Atorvastatin Calcium 20 MG Tablet Oral , Taking Spironolactone 25 MG Tablet Oral , Taking Ozempic (0.25 or 0.5 MG/DOSE) 2 MG/3ML Solution Pen-injector Subcutaneous , Taking DULoxetine HCl 30 MG Capsule Delayed Release Particles Oral , Taking Bumetanide 1 MG Tablet Oral , Taking Losartan Potassium 50 MG Tablet Oral , Not-Taking HYDROcodone-Acetaminophen 5-325 MG Tablet 1 tablet as needed Orally every 4-6 hrs , Notes to Pharmacist: Partial Fill upon Patient Request, Medication List reviewed and reconciled with the patient * Allergies:?Lisinopril: Aller gy - Onset Date 03/29/2023, RADHA Inhibitors: Allergy - Onset Date 03/29/2023, Bee Sting: Allergy - Onset Date 03/29/2023, Penicillins: Allergy - Onset Date 03/29/2023, Sulfa Antibiotics: Allergy - Onset Date 03/29/2023. Objective: * Vitals:?Pain scale:01-10, Wt :186lbs, Wt-k.37 [...] Examination:? Left upper extremity ?pinch 7 lb ?coat repair inspector 45 lb ?if I stress her CMC joint I could definitely feel some clicking and some irritation hitting her? 2nd?metacarpal region over the trapezoid.? She has some mild pain.? She also has some swelling dorsally over the EPL region and dorsal to the CMC joint.? The MP fusion site is stable without pain. ? Right upper extremity ?pinch 15 lb ?coat repair inspector 40 lb. Assessment: * Assessment: 1.?Unilateral primary [...] (Performed Date - 09/18/2024) * * Procedure Codes:?06711 X-RAY EXAM OF HAND * Preventive Medicine:? ??Screenings:?Fall risk screening?Fall Risk Assessment:?No falls in the past year * Follow Up:?the patient will call for follow-up visit. * Billing Information: * Visit Code:? 08940 Office Visit- Est Pt.- Level 3. * Procedure Codes:? 64927 X-RAY EXAM OF HAND. * Sign off status: Completed true * Provider:?Az Hickman MD Date:?02/2024 Generated for Mary Jo quintanilla/Erum/eTransmitting on:?02/16/2025 11:23 AM EDT History and Physical Notes * [...] s Left upper extremity pinch 7 lb coat repair inspector 45 lb if I stress her CMC joint I could definitely feel some clicking and some irritation hitting her 2nd metacarpal region over the trapezoid. She has some mild pain. She also has some swelling dorsally over the EPL region and dorsal to the CMC joint. The MP fusion site is stable without pain. Right upper extremity pinch 15 lb coat repair inspector 40 lb Examination Category Sub-Category Detail Notes [...]
--- OUTSIDE RECORDS SUMMARY | 2025-02-16 11:24 | XMS_ITS | Encounter Summary ---
Author Organization [facility] Address [address] [place] [address] Care Team Providers Care Steel Erecting Pusher Name Role Phone Roxanne Ellington Primary Care Provider Reason for Visit * Imaging (Routine) - Authorized Specialty Diagnoses / Procedures Referred By Contac t Referred To Contact Cardiology Diagnoses Palpitations Ataxia Chronic diastolic congestive heart failure (CMS/HCC) Primary hypertension Pure hypercholesterolemia Procedures Transthoracic echocardiogram (TTE) complete with PRN contrast, bubble, strain, and 3D order panel MA TTE W 2D IMAGE COMPLETE W DOPPLER ECHO & COLOR FLOW DOPPLER ECHO MA WIN 2D COMPLETE W/CONTRAST OR W & WO CONTRAST WITH DOPPLER Jeanine Oates NP [address] [place] [address] Phone: tel: fax: [facility] Referral ID Status Reason Start Date Expiration Date V isits Requested Visits Authorized [id number] Authorized 12/06/2024 12/06/2025 1 1 Encounter Details Date Type Department Care Team (Latest Contact Info) Description 02/14/2025 2:30 PM EDT Ancillary Procedure [facility] [address] [place] [id number] Palpitations; Ataxia; Chronic diastolic congestive heart failure (CMS/HCC); Primary hypertension; Pure hypercholesterolemia Social History Tobacco Use Types Packs/Day Years Used Date Smoking Tobacco: Never Smokeless Tobacco: Never Alcohol Use Standard Drinks/Week Comments Not Currently 0 (1 standard drink = 0.6 oz pur e alcohol) Sex and Gender Information Value Date Recorded Sex Assigned at Male 01/25/2025 12:28 PM EDT Legal Sex Female 9:34 AM EST Gender Identity Male 01/25/2025 12:28 PM EDT Sexual Orientation Choose not to disclose 2024 12:28 PM EDT documented as of this encounter Last Filed Vital Signs Vital Sign Reading Time Taken Comments Blood Pressure 120/60 02/14/2025 3:41 PM EDT Pulse - - Temperature - - Respiratory Rate - - Oxygen Saturation - - Inhaled Oxygen Concentration - - Weight 83.5 kg (184 lb) 02/14/2025 3:41 PM EDT Height 152.4 cm (5') 02/14/2025 3:41 PM EDT Body Mass Index 35.94 02/14/2025 3:41 PM EDT documented in this encounter Plan of Treatment Upcoming Encounters Date Type Department Care Team (Late st Contact Info) Description 04/27/2025 9:10 AM EDT Office Visit [facility] [address] [place] [address] Jeanine Oates NP [address] [place] [address] Pending Results Name Type Priority Associated Diagnoses Date /Time Transthoracic echocardiogram (TTE) complete with PRN contrast, bubble, strain, and 3D order panel Echocardiography Routine Palpitations Ataxia Chronic diastolic congestive heart failure (CMS/HCC) Primary hypertension Pure hypercholesterolemia 02/14/2025 3:25 PM EDT documented as of this encounter Visit Diagnoses Diagnosis Palpitations Ataxia Lack of coordination Chronic diastolic congestive heart failure (CMS/HCC) Primary hypertension Unspecified essential hypertension Pure hypercholesterolemia documented in this encounter Administered Medications Inactive Administered Medications - up to 3 most recent administrations Medication Order MAR Action Action Date Dose Rate Site perflutren lipid microsphere (DEFINITY) 1.3 mL in sodium chloride 0.9% 8.7 mL injection 10 mL, intravenous, Administer over 10 Minutes, Once in imaging, Starting on Wed02/14/25 at 1542, For 1 dose Given 02/14/2025 3:43 PM EDT 2 mL documented in this encounter Orders Medications Ordered That Marcus ht Not Have Been Administered Count Last Ordered Date First Ordered Date perflutren lipid microsphere (DEFINITY) 1.3 mL in sodium chloride 0.9% 8.7 mL injection 1 02/14/2025 documented in this encounter Care Teams Steel Erecting Pusher Relationship Specialty Start Date End Date Roxanne Ellington PA [address] [facility] [place] [address] [place], [place] PCP - General 12/18/22 documented as of this encounter
--- OUTSIDE RECORDS SUMMARY | 2025-02-16 11:24 | XMS_ITS | Encounter Summary ---
Author Organization [facility] Address [address] [place] [address] Phone Care Team Providers Care Triple Air Valve Tester Name Role Phone Angela Ellington Primary Care Provider [phone] Encounter Details Date Type Department Care Team (Late st Contact Info) Description 09/24/2022 Telephone [facility] [address] [place] [address] Daniele Reddy MD Social History [...] for guidance. Please call her back at [phone] Thank you documented in this encounter Plan [...] 8:58 AM EST) Glucose 134(H) (70-99) MG/DL [facility] BUN 27(H) (8-23) MG/DL [facility] Creatinine 1.3(H) (0.5-1.0) MG/DL [facility] Sodium 141 (133-145) MMOL/L [facility] Potassium 4.7 (3.6-5.2) MMOL/L [facility] Chloride 105 (98-107) MMOL/L [facility] Bicarbonate (CO2) 30(H) (22-29) MMOL/L [facility] Anion Gap 6 (4-17) [facility] Calcium 10.7(H) (8.6-10.5) MG/DL [facility] Est GFR Non 43 ML/MIN/1.7 3 M2 [facility] Comment: Creatinine based estimated glomerular filtration (eGFR) in adults is calculated using the National Kidney [employer] recommended 2020 CKD-EPI equation. Estimates GFR from serum creatinine, age and sex. Testing performed or reported by [facility], a Service of [facility], [address] [place] [address] Noah Orta MD, Freelance Displayer [facility]# [id number] 11/25/2022 8:58 AM EST 11/25/2022 8:59 AM EST us Daniele Reddy MD LAB BLOOD ORDERABLES Final Res ult [facility] * (ABNORMAL) CBC and Differential (11/25/2022 8:58 AM EST) White Blood Cells 10.0 (4.0-11.0) K/MM3 [facility] RBC 4.44 (4.20-5.40 ) M/MM3 [facility] Hgb 12.0 (11.7-15.5 ) GM/DL [facility] Hematocrit 40.0 (35.7-45.8 ) % [facility] MCV 90.1 (80.0-100. 0) FL [facility] MCH 27.0 (27.0-34.0 ) PG [facility] MCHC 30.0(L) (33.0-37.0 ) g/dL [facility] Platelets 328 (150-460) K/MM3 [facility] RDW-SD 49.2(H) (<47.0) FL [facility] MPV 9.3(L) (9.4-12.4) FL [facility] nRBC Count 0.0 #/100 WBC'S [facility] NRBC Absolute 0.0 K/MM3 [facility] Neutrophils Abs Auto 6.6 (1.3-7.0) K/MM3 [facility] Lymphocytes Relative 2.2 (0.8-3.1) K/MM3 [facility] Monocytes 0.8 (0.4-0.9) K/MM3 [facility] Eosinophils Relative 0.3 (0.0-0.4) K/MM3 [facility] Basophil ABS 0.1 (0.0-0.1) K/MM3 [facility] Granulocytes Absolute 0.1 K/MM3 [facility] Neutrophils % Auto 65.5 (44-76) % [facility] Lymphs 21.8 (15-43) % [facility] Monocytes Absolute 8.3 (4.5-10.5) % [facility] Eosinophils 3.3 (0-6) % [facility] Basophils Relative 0.6 (0-2) % [facility] Immature Granulocytes 0.5 % [facility] Comment: Testing performed or reported by [facility], a Service of [facility], [address] [place] [address] Noah Orta MD, Freelance Displayer [facility]# [id number] 11/25/2022 8:58 AM EST 11/25/2022 8:59 AM EST us Daniele Reddy MD LAB BLOOD ORDERABLES Final Res ult [facility] * Protein, Total, Random Urine w/Creatinine (Protein/Creat Ratio) (11/25/2022 8:55 AM EST) Protein/Creatin e Ratio 0.16 (0-0.2) [facility] Protein, Urine 5 MG/DL [facility] Creatinine, Urine 32.2 MG/DL [facility] Comment: Testing performed or reported by [facility], a Service of [facility], [address] [place] [address] Noah Orta MD, Freelance Displayer [facility]# [id number] 11/25/2022 8:55 AM EST 11/25/2022 8:58 AM EST Daniele Reddy MD LAB URINE ORDERABLES Final Res ult Performing Organization Address City/[facility] Co de Phone Number [facility] documented in this encounter Visit Diagnoses Not on filedocumented in this encounter Care Teams Triple Air Valve Tester Relationship Specialty Start Date End Date Angela Ellington PA [address] PCP - General Physician Application Designer 12/02/22 documented as of this encounter
--- OUTSIDE RECORDS SUMMARY | 2025-02-16 11:24 | XMS_ITS ---
Author Organization [facility] Address [address] [place] [address] Care Team Providers Care Cq Developer Name Role Phone Roxanne Ellington PA-C Primary Care Provider UnaKwesi [place] Unavailable [phone] Allergies Allergen (clinical drug ingredient) Drug/Non Drug [...] Ordered Date Performed Result Body Sit e 48181-OCSZSMS NAIL, 6 OR MORE 10/19/2024 N/A 56330-ELZT SKIN LESIONS, OVER 4 10/19/2024 N/A Encounters Encounter Location Date Provider Diagnosis [facility] [address] [address] 10/19/2024 Kwesi Cruz Type 2 diabetes mellitus [...] Treatment Pending Test Test Name Order Date 73326-[id number] NAIL, 6 OR MORE 10/19/2024 48958-UZOK SKIN LESIONS, OVER 4 10/19/20 24 Next Appt Details Follow Up: prn, Reason: Provider Name:Kwesi Cruz , 04/16/2025 03:45:00 PM, [address] [facility], [address], [place], [address], Procedure Notes * Category Sub-Category [...] use of a nail nipper and/or dremel-type perlite grinder, to a more viable healthy nail [...] to maintain effectiveness in symptomatic relief - 75562 Keratoma Treatment Parring or Cutting o f Benign Hyperkeratotic Lesion(s) (-57) More than 4 Lesions - The Benign hyperkeratotic lesions, ( 7) in total, locations as stated and described in exam, were pared, and/or cut utilizing a sterile 15 blade, tissue nippers, and/or power dremel instrumentation - 83674 Progress Notes * Lorena COLLINSeDOB:1950 (74 yo F)Acc No.[id number]:10/19/2024 Progress Note Patient:?Barbara COLLINS Provider:?Kwesi Cruz DPM :1950???Age:74 Y???Sex:Female D ate:10/19/2024 Address:[address] [place], [place] [address] Pcp:Roxanne Ellington PA-C Subjective: * Chief Complaints: [...] use of a nail nipper and/or dremel-type perlite grinder, to a more viable healthy nail [...] to maintain effectiveness in symptomatic relief - 68345.?Keratoma Treatment:?Parring or Cutting of Benign Hyperkeratotic Lesion(s)?(-57) More than 4 Lesions - The Benign hyperkeratotic lesions, ( 7) in total, locations as stated and described in exam, were pared, and/or cut utilizing a sterile 15 blade, tissue nippers, and/or power dremel instrumentation - 82808.? * Procedure Codes:?21918 DEBRI DE NAIL, 6 OR MORE, Modifiers: XS 32288 TRIM SKIN LESIONS, OVER 4, Modifiers: XS [...] DPM Date:?2023 Generated for Mary Jo quintanilla/Erum/Haley on:?02/16/2025 11:24 AM EDT History and Physical [...]
--- OUTSIDE RECORDS SUMMARY | 2025-02-16 11:24 | XMS_ITS ---
Author Organization [facility] Address [address] [place] [address] Care Team Providers Care Scrubber Operator Name Role Phone Az Hickman Primary Care Provider Encounters Encounter Location Date Provider Diagnosis [place] [address] [place] [address] 09/18/2024 Az Hickman Plan Of Treatment No Information Progress Notes * МАРИЯ COLLINSOB:1950 (74 yo F)Acc No.[id number]:09/18/2024 Patient:?MILAGROS COLLINS :1950???Age:74 Y???Sex:Female Address:[address] [place], [address] * true * Date:? Generated for Printi ng/Faxing/eTransmitting on:?02/16/2025 11:23 AM EDT
--- OUTSIDE RECORDS SUMMARY | 2025-02-16 11:24 | XMS_ITS ---
Author Organization [facility] Address [address] [place] [address] Care Team Providers Care Client Support Consultant Name Role Phone Chandana AVINA, Roxanne Primary Care Provider Unav ailable Kwesi Cruz Unavailable [phone] Encounters Encounter Location Date Provider Diagnosis [facility] [address] [place] [address] 01/18/2025 Kwesi Cruz Plan Of Treatment Next Appt Details Provider Name:Kwesi Cruz , 04/16/2025 03:45:00 PM, [address] [address], [place], [address], Progress Notes * Lorena ROMEROTinaOB:1950 (75 yo F)Acc No.[id number]:01/18/2025 Progress Note Patient:?Barbara ROMERO Provider:?Kwesi Cruz DPM :1950???Age:74 Y???Sex:Female D ate:01/18/2025 Address:[address] [place], [place] [id number] Pcp:Roxanne Ellington PA-C Subjective: * Chief Complaints: * ??? * Medical History:? Objective: * Vitals:? Assessment: Plan: * Treatment: * Images: * The named appointment provid er may or may not be the originator of this progress note, and it is not deemed complete until electronically signed by the appointment provider. Sign off status: Pending * Provider:?Kwesi Cruz DPM Date:?2024 Generated for Mary Jo quintanilla/Erum/Haley on:?02/16/2025 11:24 AM EDT
--- OUTSIDE RECORDS SUMMARY | 2025-02-16 11:25 | XMS_ITS ---
Author Organization [facility] Address [address] [place] [address] Care Team Providers Care Admission Liaison Name Role Phone Roxanne Ellington PA-C Primary Care Provider Unav ailable Kwesi Cruz Unavailable [phone] REASON FOR VISIT rs from 01/18/25 Encounters Encounter Location Date Provider Diagnosis [facility] [address] [place] [address] 01/18/2025 Kwesi Cruz Plan Of Treatment Next Appt Details Provider Name:Kwesi Cruz , 04/16/2025 03:45:00 PM, [address] [facility], [place] [address], [place], [address], Progress Notes * Lorena ROMEROeDOB:1950 (74 yo F)Acc No.[id number]:01/18/2025 Patient:?Barbara ROMERO :1950???Age:74 Y???Sex:Female Address:[address] [place] [address], [address] * true * Date:? Generated for Printi socorro/Erum/eTransmitting on:?02/16/2025 11:24 AM EDT
--- OUTSIDE RECORDS SUMMARY | 2025-02-16 11:26 | XMS_ITS | Clinical Summary ---
Author Organization [address] [place] [address] [place] [phone] Phone Care Team Providers Care Breastfeeding Educator Name Role Phone Roxanne Darden Primary Care Provider Allergies Active Allergy Reactions Criticality Noted Date Comments Kvng Inhibitors Cough 12/10/2017 Bee Venom Protein (Honey Bee) Anaphylaxis High 01/29 Penicillins 07/30/2009 Sulfa (Sulfonamide Antibiotics) 07/16 Sulfa Drugs Medications atorvastatin (LIPITOR) 20 mg tablet Take 20 mg by mouth daily Active bumetanide (BUMEX) 1 mg tablet Take 2 Tablets by mouth daily. 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 Active DULoxetine (CYMBALTA) [address] capsule Take 60 mg by mouth daily. Active levalbuterol (XOPENEX HFA) 45 mcg/actuation inhaler Inhale 1-2 Puffs into the lungs every 4 hours as needed for Wheezing or Shortness of Breath 9 Active magnesium oxide (MAG-OX) 400 mg magnesium [...] C, ASCORBATE CALCIUM, ORAL Take by mouth Ac tive losartan (COZAAR) 50 mg tablet TAKE 1 TABLET DAILY 90 tablet 1 4 Active dilTIAZem CD (CARDIZEM CD) 180 mg 24 hr capsule Take 1 capsule (180 mg total) by mouth 1 (one) time each day. 30 each 5 12/06/19 Active carvediloL (COREG) 6.25 mg tablet Take 1 tablet (6.25 mg total) by mouth 2 (two) times a day with meals. 60 each 2 5 12/06/19 Active Hospital, Clinic, or Other Facility Administered Medication Ordered Dose Route Frequency Start Date End Date Status perflutren lipid microsphere (DEFINITY) 1.3 mL in sodium chloride 0.9% 8.7 mL injection 10 mL IV Once in imaging 02/14/2025 02/14/2025 End ed Active Problems Problem Noted Date Diagnosed Date GERD (gastroesophageal reflux disease) 4 HTN (hypertension) 12/18/2022 Assessment & Plan (12/10/2024 4:03 PM EST): Patient's blood pressure is well-controlled in the office today, but reportedly elevated last week. Her digital forensic examiner that just adjusted her diuretic therapy. As above, will begin the transition from calcium channel donald to beta-donald in hopes of controlling both her blood pressure and minimizing her lower extremity edema. She may continue her Bumex as directed by her digital forensic examiner that she does not appear to be [...] Encounters Date Type Department Care Team Description 02/14/2025 2:30 PM EDT Ancillary Procedure [facility] - [address] [place] [phone] Palpitations; Ataxia; Chronic diastolic congestive heart failure (CMS/HCC); Primary hypertension; Pure hypercholesterolemia 02/06/2025 10:26 AM EDT - 02/06/2025 11:59 PM EDT Hospital Encounter [facility] Ultrasound [address] [place] [phone] Transient cerebral ischemic attack, unspecified Discharge Disposition: Home or Self Care 12/07/2024 9:33 AM EST - 12/07/2024 11:59 PM EST Hospital Encounter [facility] CT Scan [address] [place] [address] Ataxia; Chronic diastolic congestive heart failure (CMS/HCC) Discharge Disposition: Home or Self Care 12/06/2024 1:10 PM EST Office Visit [facility] - [address] [place] [phone] Jeanine Oates NP Chronic diastolic congestive heart failure (CMS/HCC) (Primary Dx); Palpitations; Ataxia; Primary hypertension; Pure hypercholesterolemia 12/06/2024 Telephone [facility] - [address] [place] [phone] Jeanine Oates NP Appointment (CT Head) 11/28/2024 Telephone [facility] - [address] [facility] [address] [place] [phone] Viviana Srivastava MD fluid retention; off balance; [...] (hyper tension) Diabetes mellitus type 2, uncomplicated 12/10/2017 DX:Diabetes mellitus type 2, uncomplicated (HCC) Anxiety 12/10/2017 DX:Anxiety Allergic rhinitis 12/10/2017 DX:Allergic rh initis CAD (coronary artery disease) 12/10/2017 DX :CAD (coronary artery disease) CHF (congestive heart failur e) ([facility]) 12/10/2017 DX:CHF (congestive heart latoya lure) ([facility]) DJD (degenerative joint dise ase) of knee [...] not to disclose 2024 12:28 PM EDT Obstetrics History Last Filed Vital Signs Vital Sign Reading Time Taken Comments Blood Pressure 120/60 02/14/2025 3:41 PM EDT Pulse 75 12/06/2024 1:24 PM EST Temperature - - Respiratory Rate - - Oxygen Saturation 96% 12/06/2024 1:24 PM EST Inhaled Oxygen Concentration - - Weight 83.5 kg (184 lb) 02/14/2025 3:41 PM EDT Height 152.4 cm (5') 02/14/2025 3:41 PM EDT Body Mass Index 35.94 02/14/2025 3:41 PM EDT Plan of Treatment Upcoming Encounters Date Type Department Care Team (Late st Contact Info) Description 04/27/2025 9:10 AM EDT Office Visit [facility] - [facility] [address] [facility] [address] [place] [phone] Jeanine Oates NP [address] [place] [address] Health Maintenance Due Date Last Done Comments Diabetes: Annual Foot Exam 1961 Diabetes: Annual Retina Eye Exam 1961 Diabetes: Annual GFR (Glomerular Filtration Rate) 05/22/2006 05/22/2005 RSV Immunization Adult Patients (1 - Risk 60-74 years 1-dose series) 2011 Cholesterol Screening (Lipid Panel) 10/24/2022 Depression Screening 10/24/2022 Falls Risk Assessment 10/24/2022 Hepatitis C Screening 10/24/2022 Social Influencers of Health Screening 10/24/2022 Medicare Annual Wellness Visit 10/06/2023 10/06/2022 COVID-19 Vaccine ( season) 2024 11/05/2022, 10/15/2021, 01/09/2021, Additional history exists Diabetes: Annual Urine Albumin-Creatinine Ratio (uACR) 10/11/2024 05/22/2005 Diabetes: Blood Sugar Control Test (HGBA1C) 10/11/2024 Hypertension/CHF/CAD Annual BMP Blood Test 10/11/2024 05/22/2005 Colorectal Cancer Screening: FIT-DNA (Cologuard) 10/15/2025 10/15/2022, 10/15/2022, 06/22/2018 Osteoporosis Screening (Bone Density Screening) 06/15/2028 06/15/2018 DTaP,Tdap,and Td Vaccines (3 - Td or Tdap) 07/24/2029 07/24/2019, 01/03/2009 Pneumococcal Vaccine: 50+ Years Completed 10/15/2020, 06/17/2018, 02/19/2017, Additional history exists Breast Cancer Screening Discontinued 12/25/19, 12/25/2020, 06/27/2018 Zoster Vaccines Completed 03/22/2023, 06/16/2022 Influenza Vaccine [...] patient's age to complete this topic Meningococcal B Vacine Aged Out No lo nger eligible based on patient's age to complete this topic RSV Immunization Patients Under 20 months Aged Out No longer eligible based on patient's age to complete this topic Varicella Vaccines Aged Out No longer eligible based on patient's age to complete this topic Procedures Procedure Name Priority Date/Time Associated Diagnosis Comments VAS US DUPLEX CAROTID BILATERAL Routine 02/06/2025 11:03 AM EDT Transient cerebral ischemic attack, unspecified CT HEAD WO CONTRAST STAT 12/07/2024 9 :46 AM EST Ataxia Chronic diastolic congestive heart failure (CMS/HCC) ECG 12-LEAD Routine 12/06/2024 1:32 PM EST Palpitations [facility] SCREENING DIGITAL Routine 12/25/2020 5:12 PM EST Encounter for screening mammogram for malignant neoplasm of breast URINE ALBUMIN CREATININE RATIO Routine 05/22/2005 ANNUAL BMP BLOOD TEST Routine 05/22/2005 from Last 3 Months or Most Recently Relevant to Health Maintenance Results * Vascular US duplex carotid bilateral (02/06/2025 11:03 AM EDT) Anatomical Region Laterality Modality Vascular, Abdomen Ultrasound 02/10/2025 11:0 7 AM EDT Impressions 02/10/2025 11:08 AM EDT No evidence of hemodynamically significant stenosis. -------- FINAL REPORT -------- Dictated By: Brenda Bradshaw Dictated Date: 02/10/2025 11:07 ET Assigned Physician: Brenda Bradshaw Reviewed and Electronically Signed By: Brenda Bradshaw Signed Date: 02/10/2025 11:08 ET Workstation ID: [id number] Transcribed By: Self Edit Transcribed Date: 02/10/2025 11:07 ET Narrative 02/10/2025 11:08 AM EDT INDICATION: TIA, hypertension, diabetes, heart disease FINDINGS: Duplex and color images are obtained of the extracranial carotid arterial systems bilaterally. No prior studies are available for comparison. No significant atherosclerotic plaque. Normal velocities and waveforms noted bilaterally. There are normal end diastolic velocities bilaterally with antegrade flow in both vertebral arteries. Procedure Note Brenda Bradshaw MD - 02/10/2025 INDICATION: TIA, hypertension, diabetes, heart disease FINDINGS: Duplex and color images are obtained of the extracranial carotidarterial systems bilaterally. No prior studies are available forcomparison. No significant atherosclerotic plaque. Normal velocities and waveformsnoted bilaterally. There are normal end diastolic velocities bilaterally with antegrade flowin both vertebral arteries. IMPRESSION: No evidence of hemodynamically significant stenosis. -------- FINAL REPORT -------- Dictated By: Brenda Bradshaw Dictated Date: 02/10/2025 11:07 ET Assigned Physician: Brenda Bradshaw Reviewed and Electronically Signed By: Brenda Bradshaw Signed Date: 02/10/2025 11:08 ET Workstation ID: [id number] Transcribed By: Self Edit Transcribed Date: 02/10/2025 11:07 ET Roxanne DOVER CV VASCULAR PROCEDURES Final Result * CT Head wo Contrast (12/07/2024 9:46 [...] Signed Date: 12/07/2024 10:18 ET Workstation ID: [id number] Transcribed By: Self Edit Transcribed Date: 12/07/2024 [...] Signed Date: 12/07/2024 10:18 ET Workstation ID: [id number] Transcribed By: Self Edit Transcribed Date: 12/07/2024 10:11 ET Jeanine Oates NP IMG CT PROCEDURES Final Result * ECG 12 lead (12/06/2024 1:32 PM EST) Ventricular Rate ECG 75 BPM GEMUSE Atrial Rate 75 BPM GEMUSE P-R Interval 202 ms GEMUSE QRS Duration 90 ms GEMUSE Q-T Interval 392 ms GEMUSE QTc 437 ms GEMUSE P Wave Dennard 55 degrees GEMUSE R Dennard -20 degrees GEMUSE T Dennard 89 degrees GEMUSE ECG Interpretation Normal sinus rhythm Normal ECG unchanged EKG 10/2023 Confirmed by Shante ZAMAN JAY ([id number]) on 12/07/2024 11:23:39 AM GEMUSE 12/06/2024 1:32 PM EST 12/07/2024 11:23 AM EST us Jeanine Oates NP ECG ORDERABLES Final Result GEMUSE * WILLIAM SCREENING DIGITAL (12/25/2020 5:12 PM EST) Anatomical Region Laterality Modality Mammography 12/25/2020 2:51 PM EST Narrative 12/25/2020 5:12 PM EST [facility] Diagnostic Imaging Department [address] [place], [place] [phone] Patient: ??BARBARA ROMERO ?/Age/Sex: 1950 - 70 - F Unit#: ??[id number] ? Location/Status: ??SPDIMAM/REG CLI ? Mnemonic/Ordering Site: ??DIGSC/SPMAM Ordering Physician: ??ROXANNE DARDEN William Screening Digital - 12/25/201536 History: Bilateral breast cancer screening. Technique: Bilateral digital mammography. Conventional CC and MLO projections with tomosynthesis MLO views and computer aided detection. Findings: Comparison: [facility] digital mammography 06/27/2018 through 04/11/2004. Breast tissue is mostly fatty replaced (category a density) bilaterally (as calculated by [employer] software). ??There are benign calcifications bilaterally. ?? There is no suspicious group of microcalcification, no suspicious mass, architectural distortion or suspicious asymmetry. Impression: ??No evidence of malignancy. BIRADS category 2, benign findings, 3342F [address], [id number] Note: Patient information entered ??into a reminder system with a target due date for the next mammogram; PQRI II 3167N Dictating Physician: ??TAN COLON MD Electronically Signed by: ??TAN COLON MD Dic Date/Time: ??12/25/201711 Sign date/Time: ??12/25/201711 Procedure Note Tan Colon MD - 11/03/2022 [facility] Diagnostic Imaging Department [address] [place] [id number] Patient: AARONCHARITOBARBARA D.O.B./Age/Sex: 1950 - 70 - F Unit#: [id number] Location/Status: SPDIMAM/REG CLI Mnemonic/Ordering Site: [facility] Ordering Physician: ROXANNE DARDEN William Screening Digital - 12/25/20 - 153 History: Bilateral breast cancer screening. Technique: Bilateral digital mammography. Conventional CC and MLOprojections with tomosynthesis MLO views and computer aided detection. Findings: Comparison: [facility] digital mammography 06/27/2018 through 04/11/2004. Breast tissue is mostly fatty replaced (category a density) bilaterally(as calculated by [employer] software). There are benigncalcifications bilaterally. There is no suspicious group of microcalcification, nosuspicious mass, architectural distortion or suspicious asymmetry. Impression: No evidence of malignancy. BIRADS category 2, benign findings, 3342F [address], [id number] Note: Patient information entered into a reminder system with a targetdue date for the next mammogram; PQRI II 7013F Dictating Physician: TAN COLON MD Electronically Signed by: TAN COLON MD Dic Date/Time: 12/25/201711 Sign date/Time: 12/25/201711 Roxanne DOVER IMG BI PROCEDURES Final Resul t * Urine Albumin Creatinine Ratio (05/22/2005) Pathologist Critical [facility] hospital Urine Albumin Creatinine Ratio abstracted Humberto Smith MD HEALTH MAINTENANCE Final Result * Annual BMP Blood Test (05/22/2005) [facility] Annual BMP Blood Test abstracted Historical Luis ELLISON HEALTH MAINTENANCE Final Result from Last 3 Months or Most Recently Relevant to Health [place] [phone] MEDICARE [facility] Care Teams Breastfeeding Educator Relationship Specialty Start Date End Date Roxanne Darden PA [address] [facility] [address] [place], [place] PCP - General 12/18/22
--- OUTSIDE RECORDS SUMMARY | 2025-02-16 11:26 | XMS_ITS | Data Portability ---
Author Organization [facility], Main Office Address [address] [place] [address] Care Team Providers Care Product Test Specialist Name Role Phone AZALIA RIVERA Security Strategist GLORY MELTON Orthopedic Surgeon JOHN HAYWARD Insert Operator SUSI LAND Neurosurgeon STANLEY DE LA GARZA Career Services Coordinator KEVIN DARDEN Primary Care Provider [phone] CHRISTIAN HOLT Orthopedic Surgeon [phone] Assessment Encounter Date Assessment Date Assessment LastModified by Organization Details LastModified Time 02/07/2024 02/07/2024 This service was provided using telemedicine. Patient consented to video & audio visit Patient was located in the [facility]. Provider was located in the office. No other persons participated in the telemedicine visit except for the patient unless otherwise indicated here. {{}} Total time of visit was 24 minutes. Not available 02/07/2024 09:11:25 02/15/2024 02/15/2024 This service was provided using telemedicine. Patient consented to video & audio visit Patient was located in the [facility]. Provider was located in the office. No other persons participated in the telemedicine visit except for the patient unless otherwise indicated here. {{}} Total time of visit was 7 minutes. pmadden Not available 02/15/2024 13:34:51 Plan of Treatment Reminders Order Date Submit Date Provider Last Modified By Organization Details Last Modified Time Details Appointments Follow Up DM 30 2024 10:00A Getachew Darden PA-C Not available Not available Not available Lab hemoglobi n A1C, fingersti ck 2024 025 In-Office Order, Internal Use Only DO Not Attach Compendium DO Not Attach Compendium, Do Not Delete/merge, [id number] 01/24/2025 10:25:21 TSH, ultra-sen sitive, serum 2024 025 [facility] (Centralized Electronic Ordering - All Locations), Patient Can Go To The Location Of Their Choice, 01/24/2025 10:25:21 hemoglobi n A1C, fingersti ck 2023 024 In-Office Order, Internal Use Only DO Not Attach Compendium DO Not Attach Compendium, Do Not Delete/merge, 10/18/2024 11:52:35 magnesium , serum or plasma 2023 024 ANA [facility] (Centralized Electronic Ordering - All Locations), Patient Can Go To The Location Of Their Choice, [id number] 08/17/2024 20:06:47 lipid panel, serum 2023 024 ANA [facility] (Centralized Electronic Ordering - All Locations), Patient Can Go To The Location Of Their Choice, 08/17/2024 20:06:45 HbA1c (hemoglob in A1c), blood 2023 024 ANA [facility] (Centralized Electronic Ordering - All Locations), Patient Can Go To The Location Of Their Choice, [id number] 08/17/2024 20:06:46 CMP, serum or plasma 2023 024 ANA [facility] (Centralized Electronic Ordering - All Locations), Patient Can Go To The Location Of Their Choice, 08/17/2024 20:06:44 albumin/c reatinine , mass ratio, urine 2023 024 ANA [facility] (Centralized Electronic Ordering - All Locations), Patient Can Go To The Location Of Their Choice, [id number] 08/17/2024 20:06:45 CBC w/ auto diff 2023 024 ANA [facility] (Centralized Electronic Ordering - All Locations), Patient Can Go To The Location Of Their Choice, [id number] 08/17/2024 20:06:42 Referral None recorded. Procedures None recorded. Surgeries None recorded. Imaging US, duplex, carotid artery - TIA. 2024 025 [email or web address] [facility] (Ultrasound), [address] [place], [address], 02/13/2025 13:41:34 MAMMO, screening , bilateral 2023 024 [email or web address] [facility] (Ultrasound), [address] [place], [address], 08/30/2024 09:16:28 Medication Orders clobetaso l 0.05 % topical cream 2024 025 [facility], [facility], [place], [address], 01/24/2025 10:25:42 doxycycli ne hyclate 100 mg tablet 2023 024 [facility] #[id number], [address], [place], [address], 08/15/2024 14:39:51 Patient TargetsNo targets recorded. Patient Instructions Encounter Date Encounter Id Patient Instructions Last Modified By Organization Details Last Modified Time 02/07/2024 [id number] depression treatment: care instructions Not available 02/07/2024 09:11:54 02/15/2024 [id number] Acute Sinusitis: Care Instructions pmadden Not available 02/15/2024 13:33:06 saline nasal washes: care instructions pmadden Not available 02/15/2024 13:33:07 eustachian tube problems: care instructions pmadden Not available 02/15/2024 13:33:06 Follow up if no improvement or if symptoms worsen. pmadden Not available 02/15/2024 13:25:44 08/15/2024 [id number] advance care planning: care instructions Not available 08/15/2024 15:17:05 depression treatment: care instructions Not available 08/15/2024 15:17:05 gastroesophageal reflux disease (GERD): care instructions Not available 08/15/2024 15:17:05 high cholesterol : care instructions Not available 08/15/2024 15:17:05 preventing falls : care instructions Not available 08/15/2024 15:17:06 well visit, over 65: care instructions Not available 08/15/2024 15:17:05 albumin-creatini ne ratio: about this test Not available 08/15/2024 15:17:05 learning about breast cancer screening Not available 08/15/2024 15:58:54 10/18/2024 [id number] Medications (OTC , herbal therapies, supplements) reviewed and reconciled with patient and or caregiver, including potential side effects, drug interactions, instructions, and the consequences of not taking medication. Reviewed potential barriers to medication adherence, such as side effects from medication or cost of medication. [email or web address] Not available 10/18/2024 09:00:47 01/24/2025 [id number] transient ischem ic attack: care instructions Not available 01/24/2025 10:25:40 Medications (OTC , herbal therapies, supplements) reviewed and reconciled with patient and or caregiver, including potential side effects, drug interactions, instructions, and the consequences of not taking medication. Reviewed potential barriers to medication adherence, such as side effects from medication or cost of medication. [email or web address] Not available 01/24/2025 09:43:07 Reason for Referral None Reported. Results Created Date Observation Date Name Description Value Unit Range Abnormal Flag Note LastModifiedBy Organization Detail LastModifiedTime 08/16/20 24 08/16/2024 CBC WITH DIFFE RENTI AL/PL ATELE T WBC 12.1 x10e3 /uL 3.4-10 .8 above high normal Not Available [facility] ([facility]) [address], [place], [address], 08/17/2024 20:06:42 08/16/20 24 08/16/2024 CBC WITH DIFFE RENTI AL/PL ATELE T RBC 4.73 x10e6 /uL 3.77-5 .28 normal Not Available [facility] ([facility]) [address] [place], [address], 08/17/2024 20:06:42 08/16/20 24 08/16/2024 CBC WITH DIFFE RENTI AL/PL ATELE T hemoglobin 13.0 g/dL 11.1-1 5.9 normal Not Available [facility] ([facility]) [address] [place], [address], 08/17/2024 20:06:42 08/16/2008/16/2024 CBC WITH DIFFE RENTI AL/PL ATELE T hematocrit 41.3 % 34.0-4 6.6 normal Not Available [facility] ([facility]) [address] [place], [address], 08/17/2024 20:06:42 08/16/20 24 08/16/2024 CBC WITH DIFFE RENTI AL/PL ATELE T MCV 87 fL 79-97 normal Not Available [facility] ([facility]) [address] [place], [address], 08/17/2024 20:06:42 08/16/20 24 08/16/2024 CBC WITH DIFFE RENTI AL/PL ATELE T MCH 27.5 pg 26.6-3 3.0 normal Not Available [facility] ([facility]) [address] [place], [address], 08/17/2024 20:06:42 08/16/20 24 08/16/2024 CBC WITH DIFFE RENTI AL/PL ATELE T MCHC 31.5 g/dL 31.5-3 5.7 normal Not Available [facility] ([facility]) [address] [place], [address], 08/17/2024 20:06:42 08/16/20 24 08/16/2024 CBC WITH DIFFE RENTI AL/PL ATELE T RDW 14.4 % 11.7-1 5.4 Not Available [facility] ([facility]) [address], [place], [address], 08/17/2024 20:06:42 08/16/20 24 08/16/2024 CBC WITH DIFFE RENTI AL/PL ATELE T platelets 376 x10e3 /uL 150-45 0 normal Not Available [facility] ([facility]) [address], [place], [address], 08/17/2024 20:06:42 08/16/20 24 08/16/2024 CBC WITH DIFFE RENTI AL/PL ATELE T neutrophils 66 % not estab. normal Not Available [facility] ([facility]) [address], [place], [address], 08/17/2024 20:06:42 08/16/20 24 08/16/2024 CBC WITH DIFFE RENTI AL/PL ATELE T lymphs 19 % not estab. normal Not Available [facility] ([facility]) [address], [place], [address], 08/17/2024 20:06:42 08/16/20 24 08/16/2024 CBC WITH DIFFE RENTI AL/PL ATELE T monocytes 10 % not estab. normal Not Available [facility] ([facility]) [address], [place], [address], 08/17/2024 20:06:42 08/16/20 24 08/16/2024 CBC WITH DIFFE RENTI AL/PL ATELE T eos 3 % not estab. normal Not Available [facility] ([facility]) [address], [place], [address], 08/17/2024 20:06:42 08/16/20 24 08/16/2024 CBC WITH DIFFE RENTI AL/PL ATELE T basos 1 % not estab. normal Not Available [facility] ([facility]) [address], [place], [address], 08/17/2024 20:06:42 08/16/20 24 08/16/2024 CBC WITH DIFFE RENTI AL/PL ATELE T immature cells INSPECTOR RAW QUARTZ Not Available [facility] ([facility]) [address], [place], [address], 08/17/2024 20:06:42 08/16/20 24 08/16/2024 CBC WITH DIFFE RENTI AL/PL ATELE T neutrophils (absolute) 8.1 x10e3 /uL 1.4-7. 0 above high normal Not Available [facility] ([facility]) [address], [place], [address], 08/17/2024 20:06:42 08/16/20 24 08/16/2024 CBC WITH DIFFE RENTI AL/PL ATELE T lymphs (absolute) 2.3 x10e3 /uL 0.7-3. 1 normal Not Available [facility] ([facility]) [address] [place], [address], 08/17/2024 20:06:42 08/16/20 24 08/16/2024 CBC WITH DIFFE RENTI AL/PL ATELE T monocytes(ab solute) 1.2 x10e3 /uL 0.1-0. 9 above high normal Not Available [facility] ([facility]) [address] [place], [address], 08/17/2024 20:06:42 08/16/20 24 08/16/2024 CBC WITH DIFFE RENTI AL/PL ATELE T eos (absolute) 0.3 x10e3 /uL 0.0-0. 4 normal Not Available [facility] ([facility]) [address], [place], [address], 08/17/2024 20:06:42 08/16/20 24 08/16/2024 CBC WITH DIFFE RENTI AL/PL ATELE T baso (absolute) 0.1 x10e3 /uL 0.0-0. 2 normal Not Available [facility] ([facility]) [address], [place], [address], 08/17/2024 20:06:42 08/16/20 24 08/16/2024 CBC WITH DIFFE RENTI AL/PL ATELE T immature granulocytes 1 % not estab. Not Available [facility] ([facility]) [address], [place], [address], 08/17/2024 20:06:42 08/16/20 24 08/16/2024 CBC WITH DIFFE RENTI AL/PL ATELE T immature grans (abs) 0.1 x10e3 /uL 0.0-0. 1 Not Available [facility] ([facility]) [address], [place], [address], 08/17/2024 20:06:42 08/16/20 24 08/16/2024 CBC WITH DIFFE RENTI AL/PL ATELE T NRBC INSPECTOR RAW QUARTZ Not Available [facility] ([facility]) [address], [place], [address], 08/17/2024 20:06:42 08/16/20 24 08/16/2024 CBC WITH DIFFE RENTI AL/PL ATELE T hematology comments: INSPECTOR RAW QUARTZ Not Available [facility] ([facility]) [address], [place], [address], 08/17/2024 20:06:42 08/16/20 24 08/16/2024 COMP. METAB OLIC PANEL (14) glucose 127 mg/dL 70-99 above high normal Not Available [facility] ([facility]) [address], [place], [address], 08/17/2024 20:06:44 08/16/20 24 08/16/2024 COMP. METAB OLIC PANEL (14) BUN 30 mg/dL 8-27 above high normal Not Available [facility] ([facility]) [address] [place], [address], 08/17/2024 20:06:44 08/16/20 24 08/16/2024 COMP. METAB OLIC PANEL (14) creatinine 1.50 mg/dL 0.57-1 .00 above high normal Not Available [facility] ([facility]) [address] [place], [address], 08/17/2024 20:06:44 08/16/20 24 08/16/2024 COMP. METAB OLIC PANEL (14) eGFR 37 mL/mi n/1.7 3 >59 below low normal Not Available [facility] ([facility]) [address] [place], [address], 08/17/2024 20:06:44 08/16/20 24 08/16/2024 COMP. METAB OLIC PANEL (14) BUN/creatini ne ratio 20 12-28 normal Not Available [facility] ([facility]) [address] [place], [address], 08/17/2024 20:06:44 08/16/20 24 08/16/2024 COMP. METAB OLIC PANEL (14) sodium 139 mmol/ L 134-14 4 normal Not Available [facility] ([facility]) [address] [place], [address], 08/17/2024 20:06:44 08/16/20 24 08/16/2024 COMP. METAB OLIC PANEL (14) potassium 4.5 mmol/ L 3.5-5. 2 normal Not Available [facility] ([facility]) [address] [place], [address], 08/17/2024 20:06:44 08/16/20 24 08/16/2024 COMP. METAB OLIC PANEL (14) chloride 102 mmol/ L 96-106 normal Not Available [facility] ([facility]) [address] [place], [address], 08/17/2024 20:06:44 08/16/20 24 08/16/2024 COMP. METAB OLIC PANEL (14) carbon dioxide, total 22 mmol/ L 20-29 normal Not Available [facility] ([facility]) [address] [place], [address], 08/17/2024 20:06:44 08/16/20 24 08/16/2024 COMP. METAB OLIC PANEL (14) calcium 10.1 mg/dL 8.7-10 .3 normal Not Available [facility] ([facility]) [address] [place], [address], 08/17/2024 20:06:44 08/16/20 24 08/16/2024 COMP. METAB OLIC PANEL (14) protein, total 6.6 g/dL 6.0-8. 5 normal Not Available [facility] ([facility]) [address] [place], [address], 08/17/2024 20:06:44 08/16/20 24 08/16/2024 COMP. METAB OLIC PANEL (14) albumin 4.1 g/dL 3.8-4. 8 normal Not Available [facility] ([facility]) [address] [place], [address], 08/17/2024 20:06:44 08/16/20 24 08/16/2024 COMP. METAB OLIC PANEL (14) globulin, total 2.5 g/dL 1.5-4. 5 Not Available [facility] ([facility] [address] [place], [address], 08/17/2024 20:06:44 08/16/20 24 08/16/2024 COMP. METAB OLIC PANEL (14) bilirubin, total 0.3 mg/dL 0.0-1. 2 normal Not Available [facility] ([facility]) [address] [place], [address], 08/17/2024 20:06:44 08/16/20 24 08/16/2024 COMP. METAB OLIC PANEL (14) alkaline phosphatase 159 IU/L 44-121 above high normal Not Available [facility] ([facility]) [address] [place], [address], 08/17/2024 20:06:44 08/16/20 24 08/16/2024 COMP. METAB OLIC PANEL (14) AST (SGOT) 15 IU/L 0-40 normal Not Available [facility] ([facility]) [address] [place], [address], 08/17/2024 20:06:44 08/16/20 24 08/16/2024 COMP. METAB OLIC PANEL (14) ALT (SGPT) 13 IU/L 0-32 normal Not Available [facility] ([facility]) [address] [place], [address], 08/17/2024 20:06:44 08/16/20 24 08/16/2024 LIPID PANEL cholesterol, total 153 mg/dL 100-19 9 normal Not Available [facility] ([facility]) [address] [place], [address], 08/17/2024 20:06:45 08/16/20 24 08/16/2024 LIPID PANEL triglyceride s 76 mg/dL 0-149 normal Not Available [facility] ([facility]) [address] [place], [address], 08/17/2024 20:06:45 08/16/20 24 08/16/2024 LIPID PANEL HDL cholesterol 56 mg/dL >39 normal Not Available [facility] ([facility]) [address] [place], [address], 08/17/2024 20:06:45 08/16/20 24 08/16/2024 LIPID PANEL VLDL cholesterol alvarado 15 mg/dL 5-40 Not Available [facility] ([facility]) [address], [place], [address], 08/17/2024 20:06:45 08/16/20 24 08/16/2024 LIPID PANEL LDL chol calc ([facility]) 82 mg/dL 0-99 Not Available [facility] [address], [place], [address], 08/17/2024 20:06:45 08/16/20 24 08/16/2024 LIPID PANEL LDL calc comment: INSPECTOR RAW QUARTZ Not Available [facility] ([facility]) [address], [place], [address], 08/17/2024 20:06:45 08/16/20 24 08/17/2024 ALBUM IN/CR EATIN INE RATIO ,URIN E creatinine, urine 56.9 mg/dL not estab. normal Not Available [facility] ([facility]) [address], [place], [address], 08/17/2024 20:06:45 08/16/20 24 08/17/2024 ALBUM IN/CR EATIN INE RATIO ,URIN E albumin, urine 13.1 ug/mL not estab. Not Available [facility] ([facility]) [address], [place], [address], 08/17/2024 20:06:45 08/16/20 24 08/17/2024 ALBUM IN/CR EATIN INE RATIO ,URIN E alb/creat ratio 23 mg/g_ creat 0-29 Kelly l: 0 - 29 Moder ately incre ased: 30 - 300 Sever marvel incre ased: >300 Not Available [facility] ([facility]) [address], [place], [address], 08/17/2024 20:06:45 08/16/20 24 08/17/2024 HEMOG LOBIN A1C hemoglobin A1C 7.0 % 4.8-5. 6 above high normal Predi abete s: 5.7 - 6.4 Diabe chantel: >6.4 Glyce ezra contr ol for adult s with diabe chantel: <7.0 Not Available [facility] ([facility]) [address], [place], [address], 08/17/2024 20:06:46 08/16/20 24 08/17/2024 MAGNE SIUM magnesium 2.2 mg/dL 1.6-2. 3 normal Not Available [facility] ([facility]) [address], [place], [address], 08/17/2024 20:06:46 10/16/20 24 10/16/2024 CBC WITH DIFFE RENTI AL/PL ATELE T WBC 10.8 x10e3 /uL 3.4-10 .8 normal Eff ectiv e Decem haris 2023 [place] [address] 5 WBC will be made* * non-o rdera ble as a stand -javy e order code. Not Available [facility] ([facility]) [address], [place], [address], 10/17/2024 08:08:45 10/16/20 24 10/16/2024 CBC WITH DIFFE RENTI AL/PL ATELE T RBC 4.69 x10e6 /uL 3.77-5 .28 normal Not Available [facility] ([facility]) [address] [place], [address], 10/17/2024 08:08:45 10/16/20 24 10/16/2024 CBC WITH DIFFE RENTI AL/PL ATELE T hemoglobin 12.9 g/dL 11.1-1 5.9 normal Not Available [facility] ([facility]) [address] [place], [address], 10/17/2024 08:08:45 10/16/20 24 10/16/2024 CBC WITH DIFFE RENTI AL/PL ATELE T hematocrit 40.2 % 34.0-4 6.6 normal Not Available [facility] ([facility]) [address], [place], [address], 10/17/2024 08:08:45 10/16/20 24 10/16/2024 CBC WITH DIFFE RENTI AL/PL ATELE T MCV 86 fL 79-97 normal Not Available [facility] ([facility]) [address], [place], [address], 10/17/2024 08:08:45 10/16/20 24 10/16/2024 CBC WITH DIFFE RENTI AL/PL ATELE T MCH 27.5 pg 26.6-3 3.0 normal Not Available [facility] ([facility]) [address], [place], [address], 10/17/2024 08:08:45 10/16/20 24 10/16/2024 CBC WITH DIFFE RENTI AL/PL ATELE T MCHC 32.1 g/dL 31.5-3 5.7 normal Not Available [facility] ([facility]) [address], [place], [address], 10/17/2024 08:08:45 10/16/20 24 10/16/2024 CBC WITH DIFFE RENTI AL/PL ATELE T RDW 13.6 % 11.7-1 5.4 Not Available [facility] ([facility]) [address] [place], [address], 10/17/2024 08:08:45 10/16/20 24 10/16/2024 CBC WITH DIFFE RENTI AL/PL ATELE T platelets 412 x10e3 /uL 150-45 0 normal Not Available [facility] ([facility]) [address] [place], [address], 10/17/2024 08:08:45 10/16/20 24 10/16/2024 CBC WITH DIFFE RENTI AL/PL ATELE T neutrophils 64 % not estab. normal Not Available [facility] ([facility]) [address] [place], [address], 10/17/2024 08:08:45 10/16/20 24 10/16/2024 CBC WITH DIFFE RENTI AL/PL ATELE T lymphs 21 % not estab. normal Not Available [facility] ([facility]) [address] [facility], [place], [address], 10/17/2024 08:08:45 10/16/20 24 10/16/2024 CBC WITH DIFFE RENTI AL/PL ATELE T monocytes 9 % not estab. normal Not Available [facility] ([facility]) [address] [facility], [place], [address], 10/17/2024 08:08:45 10/16/20 24 10/16/2024 CBC WITH DIFFE RENTI AL/PL ATELE T eos 4 % not estab. normal Not Available [facility] ([facility]) [address] [facility], [place], [address], 10/17/2024 08:08:45 10/16/20 24 10/16/2024 CBC WITH DIFFE RENTI AL/PL ATELE T basos 1 % not estab. normal Not Available [facility] ([facility]) [address] [facility], [place], [address], 10/17/2024 08:08:45 10/16/20 24 10/16/2024 CBC WITH DIFFE RENTI AL/PL ATELE T immature cells INSPECTOR RAW QUARTZ Not Available [facility] ([facility]) [address] [facility], [place], [address], 10/17/2024 08:08:45 10/16/20 24 10/16/2024 CBC WITH DIFFE RENTI AL/PL ATELE T neutrophils (absolute) 7.0 x10e3 /uL 1.4-7. 0 normal Not Available [facility] ([facility]) [address] [facility], [place], [address], 10/17/2024 08:08:45 10/16/20 24 10/16/2024 CBC WITH DIFFE RENTI AL/PL ATELE T lymphs (absolute) 2.2 x10e3 /uL 0.7-3. 1 normal Not Available [facility] ([facility]) [address], [place], [address], 10/17/2024 08:08:45 10/16/20 24 10/16/2024 CBC WITH DIFFE RENTI AL/PL ATELE T monocytes(ab solute) 0.9 x10e3 /uL 0.1-0. 9 normal Not Available [facility] ([facility]) [address] [facility], [place], [address], 10/17/2024 08:08:45 10/16/20 24 10/16/2024 CBC WITH DIFFE RENTI AL/PL ATELE T eos (absolute) 0.5 x10e3 /uL 0.0-0. 4 above high normal Not Available [facility] ([facility]) [address] [facility], [place], [address], 10/17/2024 08:08:45 10/16/20 24 10/16/2024 CBC WITH DIFFE RENTI AL/PL ATELE T baso (absolute) 0.1 x10e3 /uL 0.0-0. 2 normal Not Available [facility] ([facility]) [address] [facility], [place], [address], 10/17/2024 08:08:45 10/16/20 24 10/16/2024 CBC WITH DIFFE RENTI AL/PL ATELE T immature granulocytes 1 % not estab. Not Available [facility] ([facility]) [address] [place], [address], 10/17/2024 08:08:45 10/16/20 24 10/16/2024 CBC WITH DIFFE RENTI AL/PL ATELE T immature grans (abs) 0.1 x10e3 /uL 0.0-0. 1 Not Available [facility] ([facility]) [address] [facility], [place], [address], 10/17/2024 08:08:45 10/16/20 24 10/16/2024 CBC WITH DIFFE RENTI AL/PL ATELE T NRBC INSPECTOR RAW QUARTZ Not Available [facility] ([facility]) [address] [facility], [place], [address], 10/17/2024 08:08:45 10/16/20 24 10/16/2024 CBC WITH DIFFE RENTI AL/PL ATELE T hematology comments: INSPECTOR RAW QUARTZ Not Available [facility] ([facility]) [address] [facility], [place], [address], 10/17/2024 08:08:45 10/16/20 24 10/17/2024 IRON AND TIBC iron bind.cap.(TI BC) 367 ug/dL 250-45 0 normal Not Available [facility] ([facility]) [address] [facility], [place], [address], 10/17/2024 08:08:46 10/16/20 24 10/17/2024 IRON AND TIBC UIBC 316 ug/dL 118-36 9 normal Not Available [facility] ([facility]) [address], [place], [place], [address], 10/17/2024 08:08:46 10/16/20 24 10/17/2024 IRON AND TIBC iron 51 ug/dL 27-139 normal Not Available [facility] ([facility]) [address], [place], [address], 10/17/2024 08:08:46 10/16/20 24 10/17/2024 IRON AND TIBC iron saturation 14 % 15-55 below low normal Not Available [facility] ([facility]) [address], [place], [address], 10/17/2024 08:08:46 10/18/20 24 10/18/2024 hemog lobin A1C, finge rstic k A1C 6.8 % 4-6 abnormal Not Available In-Office Order Internal Use Only DO Not Attach Compendium DO Not Attach Compendium, Do Not Delete/merge, [id number] 10/18/2024 09:01:42 01/25/20 25 01/24/2025 hemog lobin A1C, lukas obrien A1C 6.4 % 4-6 abnormal Not Available In-Office Order Internal Use Only DO Not Attach Compendium DO Not Attach Compendium, Do Not Delete/merge, [id number] 01/24/2025 09:43:20 12/07/19 25 12/07/2024 CT, head, w/o contr ast See Note [facility] , a [facility] Name: JAY COLLINS Date of : 1949 Reason for Exam: Neuro defici t, acute, stroke suspec eileen Exam Date: 2024 [id number] EST Report Status : Final Orderi ng Provid er: CK GEORGE PCP: BEVERLEY DARDEN PROCED URE: Noncon trast head CT. HISTOR Y: Neuro defici t, acute, stroke suspec eileen. COMPAR TIAN: None. TECHNI QUE: Noncon trast head CT with ojeda l and sagitt al reform ats. Dose length produc t: 1070 mGy-cm . FINDIN GS: Brain: No hemorr parveen, edema, mass, or extra- axial fluid collec tion. No CT eviden ce of an acute large vessel infarc t. Ventri cles and sulci are age commen surate . Athero sclero tic calcif icatio ns of the caroti d siphon s and verteb ral arteri es small dystro phic calcif icatio ns of the globus pallid us bilate rally. Orbits : Lens implan ts. Sinuse s/mast oids: Partia lly visibl e opacif icatio n of one of the mid right ethmoi d air cells. Fronta l sinuse s are not pneuma tized. Calvar ium: Normal . Other: The skull base soft tissue s are normal . IMPRES DM: No CT eviden ce of an acute large vessel infarc t. No acute intrac ranial findin gs. ------ -- FINAL REPORT ------ -- Dictat ed By: Steven Miller Dictat ed Date: 2024 10:11 ET Assign ed Physic gwyn: Steven Miller Review ed and Electr onical ly Signed By: Steven Miller Signed Date: 2024 10:18 ET Workst ation ID: [id number] Transc ribed By: Self Edit Transc ribed Date: 2024 10:[address], [address], 12/13/2024 10:03:21 12/07/19 25 ECG 12-le ad No observ ation record ed. [address], [address], 12/08/2024 15:47:58 02/11/20 25 02/06/2025 vas US duple x carot id bilat eral See Note [facility] , a member of [employer] Name: JAY COLLINS Date of : 1949 Reason for Exam: TIA Exam Date: 2024 [id number] EST Report Status : Final Orderi ng Provid er: BEVERLEY DARDEN PCP: BEVERLEY DARDEN INDICA TION: TIA, hypert ension , diabet es, heart diseas e FINDIN GS: Duplex and color images are obtain ed of the extrac ranial caroti d arteri al system s bilate rally. No prior studie s are availa ble for compar tian. No signif icant athero sclero tic plaque . Normal veloci ties and wavefo brenda noted bilate rally. There are normal end diasto lic veloci ties bilate rally with antegr lemuel flow in both verteb ral arteri es. IMPRES DM: No eviden ce of hemody namica lly signif icant stenos is. ------ -- FINAL REPORT ------ -- Dictat ed By: Earnestine Bradshaw nt Dictat ed Date: 2024 11:07 ET Assign ed Physic gwyn: Earnestine Bradshaw Review ed and Electr onical ly Signed By: Earnestine Bradshaw Signed Date: 2024 11:08 ET Workst ation ID: [id number] Transc ribed By: Self Edit Transc ribed Date: 2024 11:07 ET [facility]NA [facility] [address] [facility], [place], [address], 02/13/2025 13:44:05 Result Notes None recorded. Problems Name Problem SNOMED Code Status Onset Date Resolution Date Notes Provider Name and Address Organization Details Recorded Time Glucose level outside referenc e range 548948317 Completed 200906/21/2014 RECORDED 02/25/20 10 9:48AM BY JYOTI TRACY ON/DARELL ugalde [facility] 6 09:55:54 Acute bronchit is 58560621 Completed 200906/21/2014 IMPRESSI ON: THICK SPUTUM, PRODUCTI VE COUGH, TREAT WITH LEVAQUIN ; RECORDED 02/25/20 10 9:47AM BY JYOTI TRACY ON/DARELL ugalde [facility] 6 09:55:54 Congesti ve heart failure 33152729 Completed 201206/21/2014 RECORDED 12/27/19 13 1:36PM BY STANLEY DUNLAP MD, MAGDYATI ON/DARELL Darden PA-C [address] [facility] [address], [place], [address] , [facility] 8 15:41:50 Patient status finding 123615925 Completed 201306/21/2014 RECORDED 11/21/19 14 10:37AM BY NIC BIRCH MA, MAGDYATI ON/ADDEN ANYA ugalde [facility] 7 10:10:41 Intrinsi c asthma 095727981 Completed 200906/21/2014 RECORDED 02/25/20 10 9:48AM BY MAGDY TRACYATI ON/ADDEN DUM Stanley HugoAledawn ro null, [facility] 6 09:55:54 Screenin g for malignan t neoplasm of breast Completed 201206/21/2014 RECORDED 11/24/19 13 1:03PM BY NIC BIRCH MA, ANNOTATI ON/ADDEN DUM Stanley HugoAlessand ro null, [facility] 6 09:55:55 Screenin g for malignan t neoplasm of cervix Completed 201106/21/2014 RECORDED 05/26/20 12 2:35PM BY MORELIA TERRY MA, MAGDYATI ON/ADDEN DUM Stanley HugoAlessand ro null, [facility] 6 09:55:55 Depressi ve disorder 22377266 Completed 200906/21/2014 RECORDED 02/25/20 10 9:50AM BY MAGDY TRACYATI ON/ADDEN DUM Stanley Villar'Aletimothyand ro null, [facility] 6 09:55:54 Type 2 diabetes mellitus without complica tion 703860538 Completed 05/23/2018 Kevin Darden PA-C [address] [address], [place], [address] , [facility] 8 15:25:37 Respirat ory finding 186870039 Completed 201206/21/2014 IMPRESSI ON: HER DYSPNEA IS MULTIFAC TORIAL. LIKELY FROM ASTHMA, DIASTOLI C HEART FAILURE, AND DEPRESSI ON/ANXIE TY.; RECORDED 04/27/20 13 10:14AM BY MORELIA TERRY MA, JYOTI ON/ADDEN DUM Stanley Villar'Alessand ro null, [facility] 6 09:55:55 Enthesop athy of hip region 95878163 Completed 200906/21/2014 RECORDED 02/25/20 10 9:50AM BY JYOTI TRACY ON/ADDEN DUM Stanley Villar'Aletimothyand ro null, [facility] 6 09:55:54 Follow-u p encounte r Completed 201206/21/2014 RECORDED 10/27/20 13 9:02AM BY MORELIA TERRY MA, MAGDYATI ON/ADDEN DUM Stanley Villar'Alessand ro null, [facility] 6 09:55:54 Influenz a vaccine needed [id number] 06 Completed 200906/21/2014 RECORDED 11/19/19 10 10:29AM BY GARTH HAGER I, HISTORIC AL SUMMARY Stanley Villar'Anneliese ro null, [facility] 6 09:55:54 Adult health examinat ion Completed 201206/21/2014 RECORDED 10/27/20 13 9:02AM BY MORELIA TERRY MA, MAGDYATI ON/ADDEN DUM Stanley Villar'Alessand ro null, [facility] 6 09:55:54 General examinat ion of patient Completed 200906/21/2014 RECORDED 02/25/20 10 9:49AM BY MAGDY TRACYATI ON/ADDEN DUM Stanley Villar'Alessand ro null, [facility] 6 09:55:55 Spinal stenosis of lumbar region 90321458 Completed 201006/21/2014 DATE: 01/22/20 11; STORY: SPOKE TO PT SHE IS DOING WELL AT HOME, PER PT SHE WAS INSTRUCT ED BY SURGEON TO HOLD HER LASIX AND COZAAR DUE TO HER BLOOD PRESSURE BEING TOO LOW WHILE ON PAIN MEDS. I INSTRUCT ED PT TO MAKE SURE SHE INFORM THIS OFFICE OF ANY FURTHER CHANGES. PT HAS FOLLOW UP WITH SURGEON SCHEDULE D; RECORDED 11/17/19 13 8:52AM BY NIC BIRCH MA, JYOTI ON/ADDEN DUM Stanley Villar'Alessand ro null, [facility] 6 09:55:54 Knee pain Completed 201206/21/2014 RECORDED 10/27/20 13 9:02AM BY MORELIA TERRY MA, ANNOTATI ON/ADDEN DUM Stanley Jian'Alessand ro null, [facility] 6 09:55:54 Lateral epicondy litis 075624799 Completed 200906/21/2014 RECORDED 02/25/20 10 9:50AM BY OMERO NUÑEZ, ANNOTATI ON/ADDEN DUM Stanley Jian'Alessand ro null, [facility] 6 09:55:54 Joint pain in ankle and foot Completed 201106/21/2014 RECORDED 05/26/20 12 2:35PM BY MORELIA TERRY MA, ANNOTATI ON/ADDEN DUM Stanley Villar'Alessand ro null, [facility] 6 09:55:54 Disorder of sacrum 69990568 Completed 201106/21/2014 RECORDED 07/25/20 12 9:41AM BY MALENA ANDREWS, MAGDYATI ON/ADDEN DUM Stanley Villar'Alessand ro null, [facility] 6 09:55:54 Dyspnea 313255811 Completed 201206/21/2014 STORY: ETIOLOGY UNCLEAR. CANNOT WORK AT THIS TIME.; RECORDED 04/27/20 13 10:14AM BY MORELIA TERRY MA, ANNOTATI ON/ADDEN DUM Stanley Villar'Alessand ro null, [facility] 6 09:55:54 Chronic sinusiti s 73963745 Completed 201106/21/2014 RECORDED 05/26/20 12 2:34PM BY MORELIA TERRY MA, ANNOTATI ON/ADDEN DUM Stanley Villar'Alessand ro null, [facility] 6 09:55:54 Acute sinusiti s 48609758 Completed 201106/21/2014 RECORDED 05/26/20 12 2:35PM BY MORELIA TERRY MA, ANNOTATI ON/ADDEN DUM Luly Henley MA null, [facility] 7 10:10:44 Screenin g for malignan t neoplasm of colon Completed 201106/21/2014 RECORDED 05/31/20 12 1:32PM BY RIYA GONZALES, LYNIC AL SUMMARY Stanley taylor null, [facility] 6 09:55:55 Disorder of trunk 022016350 Completed 200906/21/2014 RECORDED 02/25/20 10 9:50AM BY JYOTI TRACY ON/ADDMAGUI taylor null, [facility] 6 09:55:55 Immuniza tion refused Completed 200906/21/2014 IMPRESSI ON: TDAP; RECORDED 02/25/20 10 9:49AM BY JYOTI TRACY ON/ADDMAGUI taylor null, [facility] 6 09:55:54 Function al visual loss 159804097 Active MALENA Nails, [facility] 3 14:27:29 Glucose level outside referenc e range 651884298 Completed 200906/22/2014 RECORDED 02/25/20 10 9:48AM BY JYOTI TRACY ON/DARELL taylor null, [facility] 6 09:55:54 Acute bronchit is 01350079 Completed 200906/22/2014 IMPRESSI ON: THICK SPUTUM, PRODUCTI VE COUGH, TREAT WITH LEVAQUIN ; RECORDED 02/25/20 10 9:47AM BY JYOTI TRACY ON/ADDMAGUI Pearl ro null, [facility] 6 09:55:54 Intrinsi c asthma 655390965 Completed 200906/22/2014 RECORDED 02/25/20 10 9:48AM BY JYOTI TRACY ON/ADDMAGUI Pearl ro null, [facility] 6 09:55:54 Screenin g for malignan t neoplasm of breast Completed 201206/22/2014 RECORDED 11/24/19 13 1:03PM BY NIC BIRCH MA, MAGDYATI ON/ADDEN DUM Stanley Pearl ro null, [facility] 6 09:55:55 Screenin g for malignan t neoplasm of cervix Completed 201106/22/2014 RECORDED 05/26/20 12 2:35PM BY MORELIA TERRY MA, ANNOTATI ON/ADDEN DUM Stanley HugoAledawn ro null, [facility] 6 09:55:55 Depressi ve disorder 24558672 Completed 200906/22/2014 RECORDED 02/25/20 10 9:50AM BY JYOTI TRACY ON/ADDEN DUM Stanley HugoAlessand ro null, [facility] 6 09:55:54 Respirat ory finding 213158420 Completed 201206/22/2014 IMPRESSI ON: HER DYSPNEA IS MULTIFAC TORIAL. LIKELY FROM ASTHMA, DIASTOLI C HEART FAILURE, AND DEPRESSI ON/ANXIE TY.; RECORDED 04/27/20 13 10:14AM BY MORELIA TERRY MA, JYOTI ON/ADDEN DUM Stanley HugoAlesssidra ro null, [facility] 6 09:55:55 Enthesop athy of hip region 10032318 Completed 200906/22/2014 RECORDED 02/25/20 10 9:50AM BY JYOTI TRACY ON/ADDEN DUM Stanley HugoAledawn ro null, [facility] 6 09:55:54 Follow-u p encounte r Completed 201206/22/2014 RECORDED 10/27/20 13 9:02AM BY MORELIA TERRY MA, JYOTI ON/ADDEN DUM Stanley HugoAlessand ro null, [facility] 6 09:55:54 Influenz a vaccine needed 86603286666 06 Completed 200906/22/2014 RECORDED 11/19/19 10 10:29AM BY GARTH HAGER I, HISTORIC AL SUMMARY Stanley Villar'Anneliese ro null, [facility] 6 09:55:54 Adult health examinat ion Completed 201206/22/2014 RECORDED 10/27/20 13 9:02AM BY MORELIA TERRY MA, MAGDYATI ON/ADDEN DUM Stanley HugoAletimothyand ro null, [facility] 6 09:55:54 General examinat ion of patient Completed 200906/22/2014 RECORDED 02/25/20 10 9:49AM BY MAGDY TRACYATI ON/ADDEN DUM Stanley Pearl ro null, [facility] 6 09:55:55 Spinal stenosis of lumbar region 58645431 Completed 201006/22/2014 DATE: 01/22/20 11; STORY: SPOKE TO PT SHE IS DOING WELL AT HOME, PER PT SHE WAS INSTRUCT ED BY SURGEON TO HOLD HER LASIX AND COZAAR DUE TO HER BLOOD PRESSURE BEING TOO LOW WHILE ON PAIN MEDS. I INSTRUCT ED PT TO MAKE SURE SHE INFORM THIS OFFICE OF ANY FURTHER CHANGES. PT HAS FOLLOW UP WITH SURGEON SCHEDULE D; RECORDED 11/17/19 13 8:52AM BY NIC BIRCH MA, MAGDYATI ON/ADDEN DUM Stanley Pearl ro null, [facility] 6 09:55:54 Knee pain Completed 201206/22/2014 RECORDED 10/27/20 13 9:02AM BY MORELIA TERRY MA, MAGDYATI ON/ADDEN DUM Stanley Pearl ro null, [facility] 6 09:55:54 Lateral epicondy litis 956441216 Completed 200906/22/2014 RECORDED 02/25/20 10 9:50AM BY JYOTI TRACY ON/ADDEN DUM Stanley HugoAledawn ro null, [facility] 6 09:55:54 Joint pain in ankle and foot Completed 201106/22/2014 RECORDED 05/26/20 12 2:35PM BY MORELIA TERRY MA, MAGDYATI ON/ADDEN DUM Stanley taylor null, [facility] 6 09:55:54 Disorder of sacrum 47706853 Completed 201106/22/2014 RECORDED 07/25/20 12 9:41AM BY JYOTI PLATT ON/ADDEN DUM Stanley taylor null, [facility] 6 09:55:54 Dyspnea 187147681 Completed 201206/22/2014 STORY: ETIOLOGY UNCLEAR. CANNOT WORK AT THIS TIME.; RECORDED 04/27/20 13 10:14AM BY MORELIA TERRY MA, JYOTI ON/ADDEN DUM Stanley taylor null, [facility] 6 09:55:54 Chronic sinusiti s 07932958 Completed 201106/22/2014 RECORDED 05/26/20 12 2:34PM BY MORELIA TERRY MA, MAGDYATI ON/ADDEN DUM Stanley taylor null, [facility] 6 09:55:54 Acute sinusiti s 89976007 Completed 201106/22/2014 RECORDED 05/26/20 12 2:35PM BY MORELIA TERRY MA, ANNOTATI ON/ADDEN DUM Luly Henley MA null, [facility] 7 10:10:44 Screenin g for malignan t neoplasm of colon Completed 201106/22/2014 RECORDED 05/31/20 12 1:32PM BY RIYA GONZALES, HISTORIC AL SUMMARY Stanley taylor null, [facility] 6 09:55:55 Disorder of trunk 251492010 Completed 200906/22/2014 RECORDED 02/25/20 10 9:50AM BY JYOTI TRACY ON/ADDEN DUM Stanley Pearl ro null, [facility] 6 09:55:55 Immuniza tion refused Completed 200906/22/2014 IMPRESSI ON: TDAP; RECORDED 02/25/20 10 9:49AM BY JYOTI TRACY ON/DARELL ugalde, [facility] 6 09:55:54 Hand pain 15182737 Completed 01/13/2017 Luly ugalde, [facility] 7 10:11:25 Diabetes mellitus 51254535 Completed 02/18/2017 Luly ugalde, [facility] 7 15:17:00 Acute sinusiti s 57311059 Completed 01/13/2017 Lulybrissa ugalde, [facility] 7 10:10:44 Allergic rhinitis 91998857 Completed 01/13/2017 Luly ugalde, [facility] 7 10:11:30 Glucose level outside referenc e range 169910390 Completed 200905/29/2014 RECORDED 02/25/20 10 9:48AM BY JYOTI TRACY ON/DARELL ugalde, [facility] 6 09:55:54 Acute bronchit is 69390617 Completed 200905/29/2014 IMPRESSI ON: THICK SPUTUM, PRODUCTI VE COUGH, TREAT WITH LEVAQUIN ; RECORDED 02/25/20 10 9:47AM BY JYOTI TRACY ON/DARELL taylor null, [facility] 6 09:55:54 Congesti ve heart failure 97532273 Completed 201205/29/2014 RECORDED 12/27/19 13 1:36PM BY STANLEY DUNLAP MD, JYOTI ON/DARELL Darden PA-C [address] [address], [place], [address] , [facility] 8 15:41:50 Anxiety state 753396894 Completed 05/23/2018 Kevin Darden PA-C [address], [place], [address] , [facility] 8 15:24:12 Coronary atherosc lerosis 168010527 Completed 05/23/2018 Kevin Darden PA-C [address], [place], [address] , [facility] 8 15:42:54 Patient status finding [id number] Completed 201305/29/2014 RECORDED 11/21/19 14 10:37AM BY NIC BIRCH MA, MAGDYATI ON/ADDEN ANYA ugalde, [facility] 7 10:10:41 Asthma 326826777 Completed 05/23/2018 Kevin Darden PA-C [address] [facility] [address], [place], [address] , [facility] 8 15:23:37 Intrinsi c asthma 615564968 Completed 200905/29/2014 RECORDED 02/25/20 10 9:48AM BY [facility]Y ON[facility] 6 09:55:54 Asthma 193417327 Completed 201105/29/2014 IMPRESSI ON: STABLE, NEEDS SCRIPT FOR MAIL ORDER; RECORDED 07/25/20 12 9:41AM BY JYOTI PLATT ON/ADDEN ANYA Darden PA-C [address], [place], [address] , [facility] 8 15:23:37 Acute asthma 128831790 Completed 06/28/2017 MALENA Tan, [facility] 7 10:43:19 Screenin g for malignan t neoplasm of breast Completed 201205/29/2014 RECORDED 11/24/19 13 1:03PM BY NIC BIRCH MA, MAGDYATI ON/ADDMAGUI taylor null, [facility] 6 09:55:55 Screenin g for malignan t neoplasm of cervix Completed 201105/29/2014 RECORDED 05/26/20 12 2:35PM BY MORELIA TERRY MA, MAGDYATI ON/ADDMAGUI taylor null, [facility] 6 09:55:55 Congesti ve heart failure 22281548 Completed 05/23/2018 Kevin Darden PA-C [address] [facility] [address], [place], [address] , [facility] 8 15:41:50 Canceled operativ e procedur e 66348948 Completed 01/13/2017 Luly ugalde, [facility] 7 10:10:58 Cough 01989450 Completed 01/13/2017 Luly ugalde, [facility] 7 10:11:16 Cough 97647355 Completed 201205/29/2014 IMPRESSI ON: FINISH 10D COURSE OF LEVAQUIN ; RECORDED 12/13/19 13 9:34AM BY JYOTI THOMPSON ON/ADD ANYA Lulybrissa ugalde, [facility] 7 10:11:16 Depressi ve disorder 60513848 Completed 200905/29/2014 RECORDED 02/25/20 10 9:50AM BY JYOTI TRACY ON/[facility] Stanley ugalde, [facility] 6 09:55:54 Respirat ory finding 761480005 Completed 201205/29/2014 IMPRESSI ON: HER DYSPNEA IS MULTIFAC TORIAL. LIKELY FROM ASTHMA, DIASTOLI C HEART FAILURE, AND DEPRESSI ON/ANXIE TY.; RECORDED 04/27/20 13 10:14AM BY MORELIA TERRY MA, JYOTI ON/ADDMAGUI ugalde, [facility] 6 09:55:55 Enthesop athy of hip region 00645198 Completed 200905/29/2014 RECORDED 02/25/20 10 9:50AM BY JYOTI TRACY ON/ADDEN DUM Stanley ugalde, [facility] 6 09:55:54 Follow-u p encounte r Completed 201205/29/2014 RECORDED 10/27/20 13 9:02AM BY MORELIA TERRY MA, ANNOTATI ON/ADDEN DUM Stanlye taylor null, [facility] 6 09:55:54 Essentia l hyperten dm 16501186 Completed 06/28/2017 Removal Reason: not specific Susi ugalde, [facility] 7 12:47:17 Essentia l hyperten dm 77960355 Completed 201205/29/2014 RECORDED 03/06/20 13 9:22AM BY JYOTI TAN ON/ADDEN DUM Susi Hughes aftab, [facility] 7 12:47:17 Influenz a vaccine needed 94333855635 06 Completed 200905/29/2014 RECORDED 11/19/19 10 10:29AM BY GARTH HAGER I, HISTORIC AL SUMMARY Stanley ugalde, [facility] 6 09:55:54 Gastroes ophageal reflux disease 827459418 Active MALENA Nails, [facility] 3 14:27:29 Adult health examinat ion Completed 201205/29/2014 RECORDED 10/27/20 13 9:02AM BY MORELIA TERRY MA, ANNOTATI ON/ADDMAGUI DUM Stanley ugalde, [facility] 6 09:55:54 General examinat ion of patient Completed 200905/29/2014 RECORDED 02/25/20 10 9:49AM BY JYOTI TRACY ON/ADDEN ANYA ugalde [facility] 6 09:55:54 Chronic diastoli c heart failure 760225074 Active MALENA Nails, [facility] 3 14:27:29 Hyperlip idemia 82726589 Active MALENA Nails, [facility] 3 14:27:29 Impaired fasting glycemia 602046635 Completed 01/13/2017 Luly ugalde, [facility] 7 10:11:09 Spinal stenosis of lumbar region 45425124 Completed 201005/29/2014 DATE: 01/22/20 11; STORY: SPOKE TO PT SHE IS DOING WELL AT HOME, PER PT SHE WAS INSTRUCT ED BY SURGEON TO HOLD HER LASIX AND COZAAR DUE TO HER BLOOD PRESSURE BEING TOO LOW WHILE ON PAIN MEDS. I INSTRUCT ED PT TO MAKE SURE SHE INFORM THIS OFFICE OF ANY FURTHER CHANGES. PT HAS FOLLOW UP WITH SURGEON SCHEDULE D; RECORDED 11/17/19 13 8:52AM BY NIC BIRCH MA, ANNOTATI ON/[facility] Stanley ugalde [facility] 6 09:55:54 Insomnia 443375630 Completed 05/23/2018 Kevin Darden PA-C [address] [address], [place], [address] , [facility] 8 15:23:44 Osteoart hritis of knee 409698532 Active MALENA Nails, [facility] 3 14:27:29 Knee pain Completed 201205/29/2014 RECORDED 10/27/20 13 9:02AM BY MORELIA TERRY MA, JYOTI ON/[facility] Stanley ugalde [facility] 6 09:55:54 Laborato ry procedur e performe d 421960973 Completed 01/13/2017 Luly ugalde, [facility] 7 10:10:49 Laborato ry procedur e performe d 148839403 Completed 201205/29/2014 RECORDED 04/27/20 13 10:14AM BY MORELIA TERRY MA, ANNOTATI ON/ADDEN DUM Luly ugalde, [facility] 7 10:10:49 Lateral epicondy litis 823341784 Completed 200905/29/2014 RECORDED 02/25/20 10 9:50AM BY MAGDY TRACYATI ON/ADDEN DUM Stanley Villar'Alessand ro null, [facility] 6 09:55:54 Patient status finding [id number] Completed 01/13/2017 Luly ugalde, [facility] 7 10:10:41 Joint pain in ankle and foot Completed 201105/29/2014 RECORDED 05/26/20 12 2:35PM BY MORELIA TERRY MA, ANNOTATI ON/ADDEN DUM Stanley Villar'Alessand ro null, [facility] 6 09:55:54 Disorder of sacrum 31521194 Completed 201105/29/2014 RECORDED 07/25/20 12 9:41AM BY MAGDY PLATTATI ON/ADDEN DUM Stanley Villar'Alessand ro null, [facility] 6 09:55:54 Dyspnea 834660779 Completed 201205/29/2014 STORY: ETIOLOGY UNCLEAR. CANNOT WORK AT THIS TIME.; RECORDED 04/27/20 13 10:14AM BY MORELIA TERRY MA, MAGDYATI ON/ADDEN DUM Stanley Villar'Alessand ro null, [facility] 6 09:55:54 Chronic sinusiti s 60274159 Completed 201105/29/2014 RECORDED 05/26/20 12 2:34PM BY MORELIA TERRY MA, MAGDYATI ON/ADDEN DUM Stanley Villar'Alessand ro null, [facility] 6 09:55:54 Acute sinusiti s 60247871 Completed 201105/29/2014 RECORDED 05/26/20 12 2:35PM BY MORELIA TERRY MA, ANNOTATI ON/ADDEN DUM Lulybrissa ugalde [facility] 7 10:10:44 Screenin g for malignan t neoplasm of colon Completed 201105/29/2014 RECORDED 05/31/20 12 1:32PM BY RIYA GONZALES, HISTORIC AL SUMMARY Stanley ugalde, [facility] 6 09:55:55 Disorder of trunk 503380009 Completed 200905/29/2014 RECORDED 02/25/20 10 9:50AM BY JYOTI TRACY ON/ADDEN DUM Stanley ugalde [facility] 6 09:55:55 Immuniza tion refused Completed 200905/29/2014 IMPRESSI ON: TDAP; RECORDED 02/25/20 10 9:49AM BY JYOTI TRACY ON/ADDEN DUM Stanley ugalde [facility] 6 09:55:54 Sinusiti s [id number] Completed 01/13/2017 Luly ugalde [facility] 7 10:11:04 Vaginiti s [id number] Completed 01/13/2017 Luly ugalde [facility] 7 10:11:00 Gastroen teritis [id number] Completed 07/24/2019 Rolanda ugalde [facility] 9 16:18:05 Joint pain [id number] Completed 01/13/2017 Luly ugalde [facility] 7 10:11:22 Low back pain [id number] Completed 01/13/2017 Luly ugalde [facility] 7 10:10:53 Chronic kidney disease stage 1 [id number] Completed 201605/23/2018 Kevin Darden PA-C [address], [place], [address] , [facility] 8 15:42:00 Renal disorder due to type 2 diabetes mellitus [id number] Active 2016 MALENA Nails, [facility] 3 14:27:29 Uncompli cated mild persiste nt asthma [id number] Active 2017 MALENA Nails, [facility] 3 14:27:29 Generali zed anxiety disorder [id number] Active 2017 MALENA Nails, [facility] 3 14:27:29 Uncontro lled type 2 diabetes mellitus [id number] Completed 201705/23/2018 Kevin Darden PA-C [address], [place], [address] , [facility] 8 15:43:36 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 [id number] 1 Completed 201703/17/2019 Kevin Darden PA-C [address], [place], [address] , [facility] 9 10:30:39 Type 2 diabetes mellitus [id number] Completed 201711/22/2019 Kevin Darden PA-C [address], [place], [address] , [facility] 0 10:22:32 Hypokale howard [id number] Completed 201807/24/2019 Rolanda ugalde, [facility] 9 16:17:43 Hyperten sive nephrosc lerosis 165754972 Active 2018 MALENA Nails, [facility] 3 14:27:29 Left ventricu lar hypertro phy [id number] Active 2018 Echo 2018 CristinaMALENA Dubois, [facility] 3 14:27:29 Hypomagn esemia 081324365 Active 2018 Miranda ugalde [facility] 1 15:19:52 Bee sting-in duced anaphyla xis 252905914 Active 2018 CristinaMALENA Dubois, [facility] 3 14:27:29 Osteoart hritis of hip 717975882 Active 2019 Cristina MALNEA Rosado, [facility] 3 14:27:29 Constipa tion [id number] [facility] 2019 [facility] 3 14:27:28 Diabetic peripher al neuropat hy 264644542 Active 2019 CristinaMALENA Dubois, [facility] 3 14:27:29 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 47572091 Active 2020 MALENA Nails, [facility] 3 14:27:29 Chronic kidney disease stage 3B [id number] Active 2020 Miranda ugalde [facility] 1 15:19:52 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 89912087 Active 2020 MALENA Tan, [facility] 2 09:10:44 Severe obesity [id number] 104 Active 2020 MALENA Tan, [facility] 2 09:10:44 Hyperten sive heart disease without congesti ve heart failure [id number] Completed 202001/29/2021 MALENA Nails, [facility] 3 14:27:29 Syncope [id number] Completed 202108/15/2024 Kevin Darden PA-C [address], [place], [address] , [facility] 4 11:30:29 Injury of head 33113886 Active 2021 MALENA Monk, [facility] 2 15:21:56 Microalb uminuria 437840486 Active 2021 Kevin Darden PA-C [address] [facility], [place], [address] , [facility] 2 10:49:53 Migraine [id number] Active 2021 Kevin Darden PA-C [address] [facility], [place], [address] , [facility] 2 10:58:35 Localize d swelling of left lower leg [id number] 377221 Completed 202108/15/2024 Kevin Darden PA-C [address] [facility], [place], [address] , [facility] 4 11:30:37 Superfic ial thrombop hlebitis [id number] Completed 202108/15/2024 Kevin Darden PA-C [address] [facility], [place], [address] , [facility] 4 11:30:19 Hyperten sive renal disease 43189220 Active 2016 MALENA Nails, [facility] 3 14:27:29 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 Procedures Surgical History Date Name Laterality Status Provider Name and Address Organization Details Recorded Time 08/15/20 24 Advanced Care Planning completed Mee Ayers LPN [facility] 08/15/2024 14:32:37 07/11/20 24 diabetic retinopathy screening completed Puja Pedroza [facility] 07/12/2024 09:01:57 12/15/19 22 revision of shoulder arthroplasty completed Alicia Contreras [facility] 12/18/2021 09:37:16 09/10/20 21 Shoulder joint surgery completed Luci Mendoza MA [facility] 09/30/2021 09:38:12 09/10/20 21 Joint Replacement completed Roseanne Hernandez MA [facility] 05/12/2022 13:23:34 12/25/19 21 Most Recent Mammogram completed Miranda Gonzales [facility] 12/26/2020 13:17:43 12/25/19 21 Mammogram screening completed Miranda Gonzales [facility] 12/26/2020 13:17:19 08/23/20 20 Diabetic Foot Exam (Monofilament) completed Kevin COBURNC [address], [place], [address], [facility] 08/23/2020 17:38:23 08/23/20 20 Six-Item Cognitive Test completed Monique Andrews MA [facility] 08/23/2020 14:52:07 07/24/20 19 Mini-Cog Test completed Eri Lal [facility] 07/24/2019 15:48:46 07/24/20 19 Diabetic Foot Exam (Monofilament) completed Eri Lal [facility] 07/24/2019 15:48:08 06/15/20 18 Most Recent Bone Density completed Nic daniel MA [facility] 06/17/2018 15:04:47 06/15/20 18 Dxa bone density edd vrt fx completed Nic daniel MA [facility] 06/17/2018 15:04:42 05/31/20 18 Echo transthoracic completed Eugene Hanson MD [address], [address], [facility] 06/10/2018 08:16:49 05/23/20 18 Mini-Cog Test completed Pilar Burkett [facility] 05/23/2018 14:50:09 05/11/20 18 injection completed Migdalia Brantley [facility] 03/27/2019 12:45:26 07/14/20 17 injection completed Migdalia Brantley [facility] 03/27/2019 12:52:47 01/15/20 17 Corrgabbie charless w/o implt completed Nic daniel MA [facility] 06/17/2018 15:06:50 11/15/19 10 Back Surgery completed Roseanne Hernandez MA [facility] 05/12/2022 13:23:34 Arthroscopic Surgery completed Farhana Zhong [facility] 03/25/2021 09:39:56 Cholecystectomy completed Leticia Leone [facility] 02/05/2015 10:22:39 Hernia Repair completed Leticia Leone [facility] 02/05/2015 10:22:39 Tonsillectomy completed Leticia Leone [facility] 02/05/2015 10:22:39 Colonoscopy completed Nic daniel MA [facility] 06/17/2016 14:22:22 Eye Surgery completed uLci Mendoza MA [facility] 10/06/2022 10:01:24 Imaging Results Imaging Date Name Status LastModified by Organiz ation Details LastModified Time 12/07/2024 CT, head, w/o contrast completed [address], [address], 12/13/2024 10:03:21 12/07/2024 ECG 12-lead completed [address], [address], 12/08/2024 15:47:58 02/06/2025 vas US duplex carotid bilateral completed [facility] [address], [address], 02/13/2025 13:44:05 Procedure Notes None recorded. Medical Equipment None Reported. Allergies Allergen ID Allergen Name Allergen Category Reaction Reaction Severity Criticality Documentation Date Start Date Code Code System Note Provider Name and Address Organization Details Recorded Time 1180 Product containin g angiotens in-conver ting enzyme inhibitor (product) medicatio n cough Not available Not available 05/29/2014 69693 009 SNOMED Nic turcios MA null, [facility] 8 15:10:22 1181 Product containin g penicilli n (product) medicatio n Not available Not available Not available 05/29/2014 57101 8001 SNOMED CHRISTIANE Galeana [address] [facility] [address], [facility] [place], [address], [facility] 5 10:10:32 30427 Substance with sulfonami de structure and antibacte rial mechanism of action (substanc e) medicatio n Not available Not available Not available 12/28/2014 88154 8003 SNOMED CHRISTIANE Galeana [address] [facility] [address], [place], [address], [facility] 5 10:10:32 05806 lisinopri l medicatio n cough Not available Not available 06/17/20182011 66789 RxNorm Nic Yonas turcios MA null, [facility] 8 15:10:31 71920 honey bee venom medicatio n anaphylax is Not available Not available 07/10/2019 35296 7 RxNorm Kevin Darden FABRICE [address] [facility] [address], [place], [address], [facility] 9 11:55:34 Medications Name Sig Start Date Stop Date Status Note LastModified by Organization Details LastModified Time Prescript ion - Clarifica tion 03/25 completed Not Available Not Available Not Available Prescript ion - Prior Authoriza tion Request 06/28 completed Not Available Not Available Not Available OneTouch Ultra Blue Test Strips BID use 05/12 completed Not Available Not Available Not Available losartan 50 mg tablet TAKE 1 TABLET DAILY active Not Available Not Available No t Available cyclobenz aprine 10 mg tablet Take 1 tablet every day by oral route for 6 days. 08/23 completed Not Available Not Available Not Available metformin 500 mg tablet active Not Available Not Available Not Available Qvar 80 mcg/actua tion Metered Aerosol oral inhaler inhale 3 puffs by mouth twice a day 11/16 completed Not Available Not Available Not Available ascorbic acid (vitamin C) 1,000 mg tablet Take 1 tablet every day by oral route. active Not Available Not Available No t Available potassium chloride ER 10 mEq capsule,e xtended release 09/30 completed Not Available Not Available Not Available carvedilo l 6.25 mg tablet TAKE 1 TABLET BY MOUTH TWICE A DAY WITH MEALS active Not Available Not Available No t Available prednison e 10 mg tablet 5 daily for 2 days, then 4 daily for 2 days, then 3 daily for 2 days, the 2 daily for 2 days, the 1 daily for 2 days. 06/19 completed Not Available Not Available Not Available doxycycli ne hyclate 100 mg capsule Take 1 capsule twice a day by oral route for 10 days. active Not Available Not Available No t Available atorvasta tin 20 mg tablet TAKE 1 TABLET EVERY EVENING active Not Available Not Available No t Available ipratropi um 0.5 mg-albute rol 3 mg (2.5 mg base)/3 mL nebulizat ion soln INHALE CONTENTS OF 1 VIAL 4 TIMES A DAY BY NEBULIZA TION ROUTE FOR 30 DAYS 07/24 completed Not Available Not Available Not Available bumetanid e 2 mg tablet Take 1 tablet every day by oral route. 10/18 completed per patient keep both strength s on Not Available Not Available Not Available clindamyc in HCl 300 mg capsule 12/08 completed Not Available Not Available Not Available albuterol sulfate 2.5 mg/3 mL (0.083 %) solution for nebulizat ion Inhale 3 mL every 4 hours by nebuliza tion route as needed for 7 days. 02/12 completed Not Available Not Available Not Available ibuprofen 800 mg tablet 11/16 completed Not Available Not Available Not Available diltiazem CD 180 mg capsule,e xtended release 24 hr TAKE 1 CAPSULE BY MOUTH 1 TIME EACH DAY. 01/24 completed Not Available Not Available Not Available metoprolo l tartrate 100 mg tablet DAILY 2012 active RECORDED 03/12/20 14 8:27AM BY LUCI MENDOZA, OFFICE VISIT;ZH ANG Not Available Not Available Not Available fluconazo le 150 mg tablet TAKE 1 TABLET BY MOUTH EVERY DAY FOR 2 DAYS 07/30 completed Not Available Not Available Not Available clarithro mycin 500 mg tablet BID 10/25 completed RECORDED 11/03/20 11 9:49AM BY STANLEY DUNLAP MD, MEDICATI ON AUTO-CLAUDIA CTIVATIO N; Not Available Not Available Not Available albuterol sulfate 1.25 mg/3 mL solution for nebulizat ion Q 4HRS PRN WHEEZING 02/27 completed RECORDED 02/28/20 13 11:58AM BY MICHELLE STEPHENS RN, TRANSITI ON OF CARE; Not Available Not Available Not Available hydrocodo ne 5 mg-acetam inophen 325 mg tablet TAKE 1 TABLET BY MOUTH EVERY 4 TO 6 HOURS NEEDED 08/15 completed Not Available Not Available Not Available meloxicam 15 mg tablet Take 1 tablet every day by oral route for 30 days. 06/05 completed Not Available Not Available Not Available prednison e 20 mg tablet TAKE 2 TABLETS BY MOUTH DAILY FOR 3 DAYS 07/30 completed Not Available Not Available Not Available metoprolo l succinate ER 100 mg tablet,ex tended release 24 hr 150 mg by oral route. 01/29 completed Not Available Not Available Not Available sertralin e 100 mg tablet QD 03/26 completed RECORDED 03/26/20 08 11:40AM BY STANLEY DUNLAP MD, ANNOTATI ON/ADDEN DUM; Not Available Not Available Not Available clobetaso l 0.05 % topical cream APPLY A THIN LAYER TO THE AFFECTED AREA(S) TOPICALL Y TWO TIMES A DAY active Not Available Not Available No t Available clindamyc in HCl 150 mg capsule TAKE 2 CAPSULES 1 HOUR PRIOR TO DENTAL APPOINTM ENT THEN 1 CAPSULE EVERY 6 HOURS AFTER APPOINTM ENT 08/15 completed Not Available Not Available Not Available Wellbutri n SR 150 mg tablet, 12 hr sustained -release TWO TIMES DAILY 05/31 completed RECORDED 05/31/20 08 10:38AM BY STANLEY DUNLAP MD, ANNOTATI ON/ADDEN DUM; Not Available Not Available Not Available Nexium 40 mg capsule,d elayed release Take 1 capsule every day by oral route for 90 days. 2013 active Not Available Not Available Not Avai lable topiramat e 25 mg tablet Take 1 tablet every day by oral route for 30 days. 08/15 completed Not Available Not Available Not Available diltiazem ER 360 mg capsule,2 4 hr,extend ed release Take 360 mg by oral route. 12/08 completed Not Available Not Available Not Available diltiazem CD 360 mg capsule,e xtended release 24 hr TAKE 1 CAPSULE DAILY 01/24 completed Not Available Not Available Not Available potassium chloride ER 10 mEq tablet,ex tended release Take 1 {tbl} by oral route. 05/12 completed Not Available Not Available Not Available ciproflox acin 500 mg tablet TAKE 1 TAB EVERY 12 HOURS DAY OF INJECTIO N (AM AND PM). 06/25 completed Not Available Not Available Not Available omeprazol e 40 mg capsule,d elayed release TAKE 1 CAPSULE DAILY active Not Available Not Available No t Available aspirin 81 mg tablet,de layed release Take 1 tablet every day by oral route. active Not Available Not Available No t Available tramadol 50 mg tablet 04/15 completed Not Available Not Available Not Available spironola ctone 25 mg tablet TAKE 1/2 TABLET DAILY active Not Available Not Available No t Available butalbita l-acetami nophen-ca ffeine 50 mg-325 mg-40 mg tablet TAKE 1 TABLET EVERY DAY NEEDED FOR HEADACHE *NOT COVERED 12/29 completed Not Available Not Available Not Available simvastat in 40 mg tablet Take by oral route for 90 days. 2013 active Not Available Not Available Not Avai lable ketorolac 0.5 % eye drops 08/20 completed Not Available Not Available Not Available prednison e 10 mg tablets in a dose pack 06/19 completed Not Available Not Available Not Available Xopenex 0.63 mg/3 mL solution for nebulizat ion Inhale 3 mL twice a day by nebuliza tion route as needed. active Not Available Not Available No t Available meloxicam 7.5 mg tablet active Not Available Not Available Not Available oxycodone -acetamin ophen 5 mg-325 mg tablet Take 1 tablet every 4-6 hours by oral route as needed for 5 days. 06/28 completed Not Available Not Available Not Available prednisol one acetate 1 % eye drops,sam pension 11/24 completed Not Available Not Available Not Available magnesium oxide 400 mg (241.3 mg magnesium ) tablet Take 1 tablet every day by oral route for 30 days. active Not Available Not Available No t Available aspirin 325 mg tablet,de layed release 02/19 completed Not Available Not Available Not Available ciproflox acin 0.3 % eye drops INSTILL 1 DROP INTO AFFECTED EYE(S) BY OPHTHALM IC ROUTE EVERY 2 HOURSWHI LE AWAKE FOR 2 DAYS THEN 1 DROP EVERY 4 HRS WHILE AWAKE FOR 5 DAYS 06/19 completed Not Available Not Available Not Available flunisoli de 25 mcg (0.025 %) nasal spray spray into each nare daily 05/12 completed Not Available Not Available Not Available cephalexi n 500 mg capsule TAKE 1 CAPSULE BY MOUTH EVERY 6 HOURS FOR 7 DAYS 03/31 completed Not Available Not Available Not Available simvastat in 20 mg tablet QD 2007 active RECORDED 08/23/20 09 8:21AM BY NIC BIRCH MA, OFFICE VISIT; Not Available Not Available Not Available fluconazo le 50 mg tablet TAKE 3 (150 MG) BY MOUTH EVERY DAY FOR 3 DAYS 06/28 completed Not Available Not Available Not Available metformin 1,000 mg tablet Take 1000 mg by oral route. 12/08 completed Not Available Not Available Not Available losartan 25 mg tablet 25 mg by oral route. active Not Available Not Available No t Available Flovent 110 mcg/actua tion aerosol inhaler TWO TIMES DAILY 02/24 completed RECORDED 02/25/20 10 9:54AM BY OMERO NUÑEZ, ANNOTATI ON/DARELL JOYNER;THIS ORDER DISCONTI NUED PER MEDI-SPA N. Not Available Not Available Not Available Advair Diskus 500 mcg-50 mcg/dose powder for inhalatio n USE TWO TIMES A DAY x 90 days 01/13 completed Not Available Not Available Not Available gabapenti n 300 mg capsule Take 1 capsule as needed by oral route. 06/19 completed Not Available Not Available Not Available bumetanid e 1 mg tablet TAKE 2 TABLETS (2 MG TOTAL) BY MOUTH 1 (ONE) TIME EACH DAY active Not Available Not Available No t Available monteluka st 10 mg tablet TAKE 1 TABLET DAILY active Not Available Not Available No t Available ammonium lactate 12 % topical cream 1 APPLICAT ION EXTERNAL LY TO FEET EXCEPT FOR BETWEEN THE TOES TWICE A DAY 30 DAYS active Not Available Not Available No t Available Cartia XT 240 mg capsule,e xtended release 06/19 completed Not Available Not Available Not Available Nasal Saline 0.65 % spray aerosol [id number] 09/19 completed RECORDED 12/02/19 08 7:17PM BY STANLEY DUNLAP MD, MEDICATI ON AUTO-CLAUDIA CTIVATIO N; Not Available Not Available Not Available furosemid e 20 mg tablet DAILY 03/18 completed RECORDED 03/19/20 14 1:46PM BY ADOLFO TAN ON AUTO-CLAUDIA CTIVATIO N; Not Available Not Available Not Available gabapenti n 100 mg capsule 12/23 completed takes 400 mg daily as per pain manageme nt. Not Available Not Available Not Available irbesarta n 150 mg tablet DAILY 11/16 completed RECORDED 11/16/19 13 9:57AM BY BROCK KELSEY ANNOTYENIFER ON/DARELL JOYNER; Not Available Not Available Not Available lorazepam 1 mg tablet AT BEDTIME 03/08 completed RECORDED 03/08/20 14 11:19AM BY LETICIA LEONE MA, OFFICE VISIT; Not Available Not Available Not Available epinephri ne 0.3 mg/0.3 mL injection , auto-inje ctor INJECT 0.3 MG INTRAMUS CULARLY ONCE NEEDED FOR SEVERE ALLERGIC REACTION DIRECTED active Not Available Not Available No t Available Nasonex 50 mcg/actua tion [place] 1 spray every day by nasal route. 2021 active Not Available Not Available Not Avai lable levofloxa marsha 500 mg tablet Take 1 tablet every 24 hours by oral route as directed for 7 days. 11/23 completed Not Available Not Available Not Available zolpidem 10 mg tablet Take 1 tablet every day by oral route at bedtime for 30 days. active Not Available Not Available No t Available lisinopri l 40 mg tablet DAILY 02/27 completed RECORDED 02/28/20 13 12:02PM BY MICHELLE STEPHENS RN, TRANSITI ON OF CARE; Not Available Not Available Not Available cefdinir 300 mg capsule Take 1 capsule every 12 hours by oral route for 10 days. 09/08 completed Not Available Not Available Not Available albuterol sulfate concentra te 5 mg/mL(0.5 %) solution for nebulizat ion Q 4HRS PRN ASTHMA 02/27 completed RECORDED 02/28/20 13 11:58AM BY MICHELLE STEPHENS RN, TRANSITI ON OF CARE; Not Available Not Available Not Available fluticaso ne propionat e 50 mcg/actua tion nasal spray,sam pension 2 sprays each nares every morning active Not Available Not Available No t Available metformin ER 500 mg tablet,ex tended release 24 hr TAKE 4 TABLETS DAILY 09/19 completed Not Available Not Available Not Available clotrimaz ole 1 % topical cream APPLY TO THE AFFECTED AND SURROUND ING AREAS OF SKIN BY TOPICAL ROUTE 2 TIMES PER DAY IN THE MORNING AND EVENING 11/16 completed Not Available Not Available Not Available doxycycli ne hyclate 100 mg tablet TAKE 1 TABLET BY MOUTH TWICE A DAY FOR 7 DAYS 08/15 completed Not Available Not Available Not Available ipratropi um bromide 21 mcg (0.03 %) nasal spray [place] 1 spray every day by nasal route. 12/08 completed Not Available Not Available Not Available irbesarta n 300 mg tablet 1 daily 2013 active Not Available Not Available Not Avai lable naproxen 500 mg tablet Take 1 tablet every day by oral route for 15 days. 05/12 completed very sparingl y Not Available Not Available Not Available oxycodone 5 mg tablet TAKE 1 TABLET BY MOUTH EVERY 4 HOURS NEEDED FOR PAIN DIRECTED (DO NOT DRIVE WHILE ON THIS MEDICATI ON) 03/31 completed Not Available Not Available Not Available One Touch test strips Take 1 strip twice a day by miscell. route. 05/12 completed Not Available Not Available Not Available albuterol (refill) 90 mcg/actua tion aerosol inhaler FOUR TIMES DAILY, NEEDED 02/27 completed RECORDED 02/28/20 13 11:58AM BY MICHELLE STEPHENS RN, TRANSITI ON OF CARE; Not Available Not Available Not Available nebulizer s kit DAILY 05/05 completed RECORDED 05/26/20 12 9:05AM BY STANLEY DUNLAP MD, MEDICATI ON AUTO-CLAUDIA CTIVATIO N;DIAGNO SIS: ASTHMA Not Available Not Available Not Available escitalop fausto 20 mg tablet QD 03/26 completed RECORDED 03/26/20 08 11:39AM BY STANLEY DUNLAP MD, ANNOTATI ON/ADDEN DUM; Not Available Not Available Not Available Vitamin D3 25 mcg (1,000 unit) capsule Take 1 capsule every day by oral route. 08/15 completed Not Available Not Available Not Available diltiazem ER 240 mg tablet,ex tended release 24 hr Take 1 tablet every day by oral route. 11/22 completed Not Available Not Available Not Available Klor-Con M10 mEq tablet,ex tended release Take 10 milliequ ivalents by oral route. 10/06 completed Not Available Not Available Not Available metformin ER 1,000 mg tablet,ex tended release 24hr (osmotic) 05/23 completed 1 po bid Not Available Not Available Not Available duloxetin e 30 mg capsule,d elayed release TAKE 1 CAPSULE DAILY WITH 60MG FOR A TOTAL DOSE OF 90MG DAILY active Not Available Not Available No t Available duloxetin e 60 mg capsule,d elayed release TAKE 1 CAPSULE DAILY WITH 30MG FOR TOTAL DOSE OF 90MGDAIL Y active Not Available Not Available No t Available gabapenti n 300 mg tablet TWO TIMES DAILY 08/23 completed RECORDED 08/23/20 09 8:21AM BY NIC BIRCH MA, OFFICE VISIT; Not Available Not Available Not Available Albuterol Sulfate HFA 90 mcg/Actua tion aerosol inhaler 01/18 completed Not Available Not Available Not Available eszopiclo ne 2 mg tablet QHS PRN 01/12 completed RECORDED 01/12/20 11 11:18AM BY STANLEY DUNLAP MD, JYOTI ON/ADD DUM; Not Available Not Available Not Available Flovent HFA 220 mcg/actua tion aerosol inhaler Inhale 1 puff twice a day by inhalati on route for 90 days. 06/05 completed Not Available Not Available Not Available levalbute rol HFA 45 mcg/actua tion aerosol inhaler 2 puffs daily active as needed Not Available Not Available Not Available pregabali n 75 mg capsule TWO TIMES DAILY 11/19 completed RECORDED 11/19/19 10 9:58AM BY NIC BIRCH MA, OFFICE VISIT; Not Available Not Available Not Available pregabali n 150 mg capsule TWO TIMES DAILY 01/12 completed RECORDED 01/12/20 11 11:17AM BY STANLEY DUNLAP MD, ANNOTATI ON/ADDEN DUM; Not Available Not Available Not Available chlorhexi dine gluconate 0.12 % mouthwash RINSE MOUTH WITH 15ML (1 CAPFUL) FOR 30 SECONDS IN MORNING AND EVENING AFTER BRUSHING , THEN SPIT 08/15 completed Not Available Not Available Not Available acetamino phen 975 mg , 3 tablet by mouth every 6 hours 05/12 completed Not Available Not Available Not Available potassium chloride 12/08 completed Not Available Not Available Not Available bumetanid e 2mg in PM, 1 mg in AM daily 08/23 completed Not Available Not Available Not Available peak flow meter USE DAILY. DIAGNOSI S: ASTHMA (493.90) 05/25 completed RECORDED 06/18/20 11 4:06PM BY CRISTINA TEE PA-C, MEDICATI ON AUTO-CLAUDIA CTIVATIO N; Not Available Not Available Not Available hydrocodo ne 5 mg-acetam inophen 300 mg tablet active Not Available Not Available Not Available ProAir HFA 90 mcg/actua tion aerosol inhaler Inhale 2 {puff}s by inhalati on route. 05/12 completed Not Available Not Available Not Available metformin ER 500 mg 24 hr tablet,ex tended release (gastric retention ) TAKE 2 TABLET EVERY DAY WITH EVENING MEAL 2013 active Not Available Not Available Not Avai lable Advair HFA 230 mcg-21 mcg/actua tion aerosol inhaler Inhale 1 puff twice a day by inhalati on route. 08/23 completed Not Available Not Available Not Available cholecalc iferol (vitamin D3) 25 mcg (1,000 unit) tablet Take 1 tablet every day by oral route. 07/28 completed Not Available Not Available Not Available Januvia 100 mg tablet Take 1 tablet every day by oral route for 90 days. 09/19 completed Not Available Not Available Not Available Janumet 50 mg-1,000 mg tablet 1 {tbl} by oral route. 01/29 completed Not Available Not Available Not Available oxycodone 10 mg tablet Take 2 tablets every 6 hours by oral route as directed . 05/12 completed Not Available Not Available Not Available naproxen- irritants counter irritants combo #2 500 mg kit 02/25 completed Not Available Not Available Not Available Flovent Diskus 250 mcg/actua tion powder for inhalatio n Inhale 1 puff twice a day by inhalati on route for 90 days. 01/13 completed Not Available Not Available Not Available OneTouch Delica Lancets 33 gauge Take 1 each every day by miscell. route for 90 days. active Not Available Not Available No t Available gatifloxa marsha 0.5 % eye drops 08/20 completed Not Available Not Available Not Available OneTouch Verio test strips USE 1 STRIP EVERY DAY 2022 active Not Available Not Available Not Avai lable Combivent Respimat 20 mcg-100 mcg/actua tion solution for inhalatio n 08/20 completed Not Available Not Available Not Available Jardiance 10 mg tablet TAKE 1 TABLET BY MOUTH EVERY DAY active Not Available Not Available No t Available Trulicity 1.5 mg/0.5 mL subcutane ous pen injector INJECT 0.5ML SUBCUTAN EOUSLY EVERY WEEK 11/26 completed Not Available Not Available Not Available Trulicity 0.75 mg/0.5 mL subcutane ous pen injector 05/12 completed Not Available Not Available Not Available OneTouch Verio Meter active Not Available Not Available Not Available albuterol sulfate 90 mcg/actua tion breath activated powder inhaler Inhale 2 puffs every 4 hours by inhalati on route. 06/24 completed Not Available Not Available Not Available Fluzone High-Dose 9381-1771 (PF) 180 mcg/0.5 mL intramusc ular syringe 11/19 completed Not Available Not Available Not Available Trelegy Ellipta 100 mcg-62.5 mcg-25 mcg powder for inhalatio n Inhale 1 puff every day by inhalati on route for 30 days. 10/18 completed Not Available Not Available Not Available OneTouch Ultra Blue Test Strip USE TWICE A DAY active Not Available Not Available No t Available Fluad 2017- 65yr up(PF)45 mcg(15 mcgx3)/0. 5 mL intramusc ular syringe 11/16 completed Not Available Not Available Not Available Wixela Inhub 250 mcg-50 mcg/dose powder for inhalatio n USE 1 INHALATI ON ORALLY EVERY 12 HOURS active Not Available Not Available No t Available Fluzone High-Dose Quad (PF) 240 mcg/0.7 mL IM syringe PHARMACY ADMINIST EREJian 08/23 completed Not Available Not Available Not Available Trulicity 3 mg/0.5 mL subcutane ous pen injector Inject 3 mg every week by subcutan eous route for 90 days. 03/31 completed Not Available Not Available Not Available BinaxNOW COVID-19 Ag Self Test kit TEST DIRECTED TODAY 03/31 completed Not Available Not Available Not Available Paxlovid 150 mg-100 mg tablets in a dose pack (Renal Dose) TAKE 2 TABLETS BY MOUTH TWICE A DAY FOR 5 DAYS DIRECTED 12/29 completed Not Available Not Available Not Available Ozempic 0.25 mg or 0.5 mg (2 mg/3 mL) subcutane ous pen injector INJECT 0.5MG SUBCUTAN EOUSLYEV TANVIR WEEK active Not Available Not Available No t Available FreeStyle Kevan [address] [place] active Not Available Not Available Not Available Vitals Date Recorded Body height Provider Name an d Address Organization Details Last Updated DateTime 02/07/2024 152.4 cm Luci Mendoza MA [facility] 02/07/2024 08:27:59 Date Recorded Body height Provider Name an d Address Organization Details Last Updated DateTime 02/15/2024 152.4 cm Tamie James MA [facility] 02/15/2024 13:02:22 Date Recorded Body height Body mass index (BMI) Body weight Heart rate Oxygen saturation Oxygen saturation in Arterial blood by Pulse oximetry Body temperature Systolic blood pressure Diastolic blood pressure Provider Name and Address Organization Details Last Updated DateTime 152.4 cm 35.8 kg/m2 50938.1 g 83 /min 97 % 97 % 98.2 [degF] 143 mm[Hg] 72 mm[Hg] Mee Ayers LPN [facility] 14:38:00 Date Recorded Body height Body mass index (BMI) Body weight Heart rate Oxygen saturation Oxygen saturation in Arterial blood by Pulse oximetry Body temperature Systolic blood pressure Diastolic blood pressure Provider Name and Address Organization Details Last Updated DateTime 4 152.4 cm 36.5 kg/m2 35168.7 7 g 81 /min 99 % 99 % 97.8 [degF] 130 mm[Hg] 76 mm[Hg] Cristina Sanchez [facility] 4 11:20:25 Date Recorded Body height Body mass index (BMI) Body weight Heart rate Oxygen saturation Oxygen saturation in Arterial blood by Pulse oximetry Body temperature Systolic blood pressure Diastolic blood pressure Provider Name and Address Organization Details Last Updated DateTime 5 152.4 cm 35.9 kg/m2 21782 g 90 /min 96 % 96 % 97.4 [degF] 123 mm[Hg] 77 mm[Hg] [facility] 5 09:49:40 Social History Question Answer Notes LastModified by Organizat ion Details LastModified Time Tobacco Smoking Status Never Smoker Leticia ugalde [facility] 07/19/2014 09:23:58 Do You Have An Advance Directive? Yes HCP At Hospital [email or web address] Information not available 10/06/2022 What Is Your Level Of Alcohol Consumption? None Information not available 07/16/2015 Is Blood Transfusion Acceptable In An Emergency? Yes Information not available 07/16/2015 What Is Your Level Of Caffeine Consumption? Moderate Coffee And Diet Soda Information not available 07/16/2015 How Much Tobacco Do You Chew? None Information not available 07/16/2015 In The 14 Days Before Symptom Onset, Have You Had Close Contact With A Laboratory-confi rmed COVID-19 While That Case Was Ill? No [email or web address] Information not available 10/06/2022 In The 14 Days Before Symptom Onset, Have You Had Close Contact With A Person Who Is Under Investigation For COVID-19 While That Person Was Ill? No [email or web address] Information not available 10/06/2022 Have You Been To An Area Known To Be High Risk For COVID-19? No [email or web address] Information not available 10/06/2022 Are You Currently Employed? No Retired Information not available 06/17/2018 What Type Of Diet Are You Following? DIABETIC Information not available 07/16/2015 Which Illicit Or Recreational Drugs Have You Used? N/A Information not available 07/16/2015 Do You Or Have You Ever Used E-cigarettes Or Vape? 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 Alone [email or web address] Information not available 10/06/2022 Do You Take Precautions To Prevent Distracted Driving? Yes Information not available 07/16/2015 How Often Do You Need To Have Someone Help You When You Read Instructions, Pamphlets, Or Other Written Material From Your Doctor Or Pharmacy? Never Information not available 05/12/2022 Have You Served In The ? No [email or web address] Information not available 02/19/2017 Have You Or Anyone In Your Household Had Any Of The Following Symptoms In The Last 14 Days: Sore Throat, Cough, Chills, Body Aches For Unknown Reasons, Shortness Of Breath For Unknown Reasons, Loss Of Smell, Loss Of Taste, Fever At Or Greater Than 100 Degrees Fahrenheit? No Information not available 06/05/2020 Are You Or Anyone In Your Household A Health Care Provider Or Emergency Responder? No Information not available 06/05/2020 To The Best Of Your Knowledge Have You Been In Close Proximity To Any Individual Who Tested Positive For COVID-19? No Information not available 06/05/2020 *AWV ONLY* Are You Presently Prescribed Opioid Medication By PCP Or Specialist? If YES -Provider Assess The Benefit For Other, Non-opioid Pain Therapies Instead, Even If The Patient Does Not Have OUD But Is Possibly At Risk. No [email or web address] Information not available 09/30/2021 Have You Recently Traveled To A COVID-19 High Risk Area Or Gathering In The Last 10 Days? No Information not available 12/24/2020 What Was The Date Of Your Most Recent Tobacco Screening? 10/06/2022 [email or web address] Information not available 10/06/2022 How Many Children Do You Have? 2 Augusto [email or web address] Information not available 06/17/2018 Do You Use Your Seat Belt Or Car Seat Routinely? Yes Information not available 05/12/2022 Seat Belts Used Routinely Yes [email or web address] Information not available 10/06/2022 Are You Sexually Active? No Information not available 07/16/2015 Smoke Alarm In Home Yes [email or web address] Information not available 10/06/2022 Do You Have Smoke And Carbon Monoxide Detectors In Your Home? Yes Information not available 05/12/2022 At What Age Did You Start Smoking Tobacco? 1 [email or web address] Information not available 06/25/2021 Are You Passively Exposed To Smoke? No Information not available 07/16/2015 Do You Or Have You Ever Used Smokeless Tobacco? Never Used Smokeless Tobacco Information not available 06/05/2020 How Much Tobacco Do You Smoke? No Information not available 07/16/2015 Do You Use Any Illicit Or Recreational Drugs? No [email or web address] Information not available 10/06/2022 Do You Use Sunscreen Routinely? Yes [email or web address] Information not available 10/06/2022 How Many Years Have You Smoked Tobacco? 0 Information not available 06/25/2021 Do You Or Have You Ever Used Any Other Forms Of Tobacco Or Nicotine? No [email or web address] Information not available 10/06/2022 Sex: Unknown Functional Status Question Answer Note LastModified by Organizat ion Details LastModified Time Are you able to walk? YESWOREST [email or web address] Information not available 10/06/2022 Are you able to care for yourself? Yes Information not available 07/16/2015 What is your exercise level? Occasional walking, gardening Information not available 07/16/2015 Mental Status None recorded. Family History Relationship Description Onset Age of this Age Resolved Age Notes LastModified by Organization Details LastModified Time Mother Heart disease [email or web address] Not available 2015 14:06:48 Mother Essential hypertension [email or web address] Not available 09:59:28 Mother Coronary arterioscler osis 75 [email or web address] Not available 2021 09:59:28 Father Heart disease abolcun Not available 2015 14:06:48 Father Essential hypertension [email or web address] Not available 09:59:28 Brother Neoplasm of brain [email or web address] Not available 2021 09:59:28 Medical History Condition Response Headaches/Migraines Y Obesity Y Head Injury/Concussion Y High Cholesterol Y Kidney Disease Y Diabetes Y Congestive Heart Failure (CHF) Y Allergies Y Asthma Y Reflux/GERD Y Heart Disease Y Hypertension Y Gynecological History Statement/Question Response Date of Last Pap Smear Date of Last Colonoscopy Most Recent Mammogram 12/25/2020 Most Recent Bone Density 06/15/2018 Obstetrics History GPAL:G 0 P 0 0 0 0 Immunizations Vaccine Type Date Status Note Provider Nam e and Address Organization Details Recorded Time pneumococcal polysaccharide PPV23 3 completed MALENA Moseley [facility] 07/30/2023 09:43:09 Influenza, split virus, trivalent, PF 4 completed Miranda ugalde [facility] 09/04/2021 15:19:53 Influenza, split virus, quadrivalent, preservative 8 completed Not Available [facility] 12/29/2023 11:25:32 Influenza, adjuvanted, trivalent, PF 9 completed MALENA Moseley [facility] 07/30/2023 09:43:09 Tdap 9 completed MALENA Moseley [facility] 07/30/2023 09:43:09 Influenza, split virus, trivalent, preservative 8 completed Miranda ugalde [facility] 09/04/2021 15:19:53 Influenza, split virus, trivalent, preservative 0 completed Miranda ugalde [facility] 09/04/2021 15:19:53 Influenza, split virus, trivalent, preservative 2 completed Miranda ugalde [facility] 09/04/2021 15:19:53 Pneumococcal conjugate PCV 13 7 completed MALENA Moseley [facility] 07/30/2023 09:43:09 Influenza, split virus, quadrivalent, PF 5 completed MALENA Moseley, [facility] 07/30/2023 09:43:09 Influenza, high-dose, trivalent, PF 6 completed Austinayla MancillaMALENA, [facility] 07/30/2023 09:43:09 pneumococcal polysaccharide PPV23 8 [facility] 09:43:09 influenza, unspecified formulation 0 completed Not Available [facility] 12/29/2023 11:25:32 Tdap 9 completed [facility]2023 09:43:09 COVID-19, mRNA, LNP-S, PF, 100 mcg/0.5mL dose or 50 mcg/0.25mL dose 1 completed Austinaxelrosie Mancilla [facility] 09:43:09 COVID-19, mRNA, LNP-S, PF, 30 mcg/0.3 mL dose 1 completed [facility]axelrosie [facility]2023 09:43:09 pneumococcal polysaccharide PPV23 0 completed Ar Mancilla [facility]23 09:43:09 Influenza, adjuvanted, trivalent, PF 8 completed Ar Mancilla [facility]/2023 09:43:09 Influenza, high-dose, quadrivalent, PF 0 completed [facility] 03/31/2023 14:27:12 zoster recombinant 2 completed [facility]/31/2023 14:27:12 COVID-19, mRNA, LNP-S, PF, 100 mcg/0.5mL dose or 50 mcg/0.25mL dose 1 completed MALENA Moseley, [facility] 07/30/2023 09:43:09 COVID-19, mRNA, LNP-S, PF, 30 mcg/0.3 mL dose 1 completed [facility] 08/03/2022 15:22:29 Influenza, adjuvanted, quadrivalent, PF 2 completed [facility]23 09:43:09 zoster recombinant 3 completed MALENA Moseley, [facility] 07/30/2023 09:43:09 Influenza, high-dose, quadrivalent, PF 1 completed MALENA Moseley, [facility] 07/30/2023 09:43:09 Influenza, high-dose, quadrivalent, PF 2 completed [facility]23 09:43:09 COVID-19, mRNA, LNP-S, PF, 100 mcg/0.5mL dose or 50 mcg/0.25mL dose 1 completed MALENA Moseley, [facility] 07/30/2023 09:43:09 COVID-19, mRNA, LNP-S, bivalent, PF, 50 mcg/0.5 mL or 25mcg/0.25 mL dose 2 completed MALENA Moseley, [facility] 07/30/2023 09:43:09 Influenza, split virus, trivalent, preservative 7 completed MALENA Moseley, [facility] 07/30/2023 09:43:09 Influenza, high-dose, trivalent, PF 4 completed Kevin Darden PA-C [address], [address], [facility] [place] 08/15/2024 15:58:48 Past Encounters Encounter ID Performer Location Encounter Start Date Encounter Closed Date Diagnosis/Indication Diagnosis SNOMED-CT Code Diagnosis ICD10 Code Diagnosis Note auto[facility]Comm erce [address] [place] [address] 09/09/2007 00:00:00 autoEComm erce [address] [facility] [place] [address] 11/16/2006 00:00:00 [id number] autoEComm erce [address] [facility] [place] [address] 01/13/2008 00:00:00 [id number] autoEComm erce [address] [facility] [place] [address] 01/31/2008 00:00:00 [id number] autoEComm erce [address] [facility] [place] [address] 02/03/2008 00:00:00 [id number] auto[facility]Comm erce [address] [facility] [place] [address] 02/10/2008 00:00:00 [id number] auto[facility]Comm erce [address] [facility] [place] [address] 03/26/2008 00:00:00 [id number] autoEComm erce [address] [facility] [place] [address] 05/31/2008 00:00:00 [id number] autoEComm erce [address] [facility] [place] [address] 06/29/2008 00:00:00 [id number] autoEComm erce [address] [facility] [place] [address] 01/03/2009 00:00:00 [id number] autoEComm erce [address] [facility] [place] [address] 04/18/2009 00:00:00 [id number] [address] [address] [place] [address] 08/23/2009 00:00:00 [id number] autoEComm erce [address] [facility] [address] [place] [address] 11/19/2009 00:00:00 [id number] autoEComm erce [address] [facility] [place] [address] 01/11/2010 00:00:00 [id number] autoEComm erce [address] [place] [address] 02/24/2010 00:00:00 [id number] autoEComm erce [address] [facility] [place] [address] 05/30/2010 00:00:00 [id number] autoEComm erce [address] [facility] [place] [address] 07/01/2010 00:00:00 [id number] autoEComm erce [address] [facility] [place] [address] 10/27/2010 00:00:00 [id number] autoEComm erce [address] [facility] [place] [address] 01/12/2011 00:00:00 [id number] autoEComm erce [address] [facility] [place] [address] 03/20/2011 00:00:00 [id number] autoEComm erce [address] [facility] [place] [address] 10/15/2011 00:00:00 [id number] autoEComm erce [address] [facility] [place] [address] 12/25/2011 00:00:00 [id number] autoEComm erce [address] [facility] [place] [address] 02/16/2012 00:00:00 [id number] autoEComm erce [address] [facility] [place] [address] 05/26/2012 00:00:00 [id number] autoEComm erce [address] [facility] [place] [address] 07/25/2012 00:00:00 [id number] autoEComm erce [address] [facility] [place] [address] 11/17/2012 00:00:00 [id number] autoEComm erce [address] [facility] [place] [address] 11/24/2012 00:00:00 [id number] autoEComm erce [address] [facility] [place] [address] 12/13/2012 00:00:00 [id number] autoEComm erce [address] [facility] [place] [address] 12/27/2012 00:00:00 [id number] autoEComm erce [address] [facility] [place] [address] 03/06/2013 00:00:00 [id number] autoEComm erce [address] [facility] [place] [address] 04/27/2013 00:00:00 [id number] autoEComm erce [address] [facility] [place] [address] 10/27/2013 00:00:00 [id number] autoEComm erce [address] [facility] [place] [address] 03/08/2014 00:00:00 [id number] autoEComm erce [address] [facility] [place] [address] 03/12/2014 00:00:00 [id number] autoEComm erce [address] [facility] [place] [address] 04/06/2014 00:00:[id number] Main Office [address] [place] [address] 07/19/2014 09:05:39 07/19/2014 09:47:29 Hand pain [id number] Diabetes mellitus 24011227 PT tolerating metformin and Hbg A1C down to 7.1 from 9.5. Continue current management . [id number] Luly Henley MA Main Office [address] [address] [place] [address] 08/29/2014 12:59:02 08/29/2014 13:54:06 Acute pharyngitis 199239510 Acute asthma 278627110 s he tends to need high doses prednisone per pt. she states that usually starts with 60-80 mg and tapers. we did discuss this will increase her sugars but that she is already on max dose advair Gastroesop hageal reflux disease 327050538 Acute otitis media [id number] [facility] Main Office [address] [address] [place] [address] 09/12/2014 08:06:18 09/12/2014 08:35:55 Acute sinusitis 44175296 Suspect she has under treated sinus infection, will tx with full course of levaquin Asthma [id number] complet ed prednsone, lungs are clear today [id number] Main Office [address] [address] [place] [address] 10/25/2014 10:10:19 10/25/2014 10:54:51 Type 2 diabetes mellitus without complication 479182107 Hgb A1C 7.4, will increase metformin to 1000mg daily, FU 3 months with labs beforehand [id number] Stanley taylor Main Office [address] [address] [place] [address] 02/05/2015 10:50:31 02/05/2015 11:52:07 Type 2 diabetes mellitus without complication 264370111 Gastroesop hageal reflux disease 162938549 Hyperlipidemia 46816599 Asthma 401461608 Allergic rhinitis [id number] [facility] Main Office [address] [address] [place] [address] 02/14/2015 13:04:31 02/14/2015 13:36:34 Acute sinusitis 17827837 HX asthma, CHF, DM, she is trying to avoid having to use prednisone as her sugars are not well controlled . Levaquin x 10 days, symptomati c treatment- continue nasonex, lots of fluids, rest, tea with honey, OTC cough drops/ cough med as needed, humidifier , nasal sinus rinses. Asthma [id number] request s refill on advair. Congestive heart failure 36348195 Allergic rhinitis 18855850 Diabetes mellitus 79789972 Continue current meds, f/u with labs prior in 3 mos as scheduled. [id number] Leticia Fariast Main Office [address] [address] [place] [address] 04/15/2015 10:53:46 04/15/2015 11:33:01 Acute asthma 061855495 there is no clear trigger to her current exacerbati on but is possibly related to a URI. No role for antibiotic s since only with symptoms for 2 days and probably viral. [id number] Nic valderrama MA Main Office [address] [address] [place] [address] 07/16/2015 09:10:42 07/16/2015 10:06:01 Essential hypertension 72416308 Type 2 carmel betes mellitus without complication 305763618 Adult heal th examination 869302830 Congestive heart failure 47112263 Sinusitis 54261236 Insomnia 710911734 Single amaya or depressive episode 266088380 pt on meds/ stable w/ plan/ I spoke w/ Ina Odell her therapist who feels pt is doing well volodymyr off of etoh [id number] Mihir Lassiter Main Office [address] [address] [place] [address] 08/20/2015 11:09:24 08/20/2015 12:12:48 Asthma 461268647 J45.41 Needs infl uenza immunization 073611539 Z23 [id number] Stanley taylor Main Office [address] [address] [place] [address] 02/13/2016 09:22:24 02/13/2016 10:28:36 Type 2 diabetes mellitus without complication 028717414 E11.9 Chronic di astolic heart failure 118964644 I50.32 Single amaya or depressive episode 060436428 F33.41 pt on meds/ stable w/ plan/ I spoke w/ Ina Odell her therapist who feels pt is doing well volodymyr off of etoh Gastroesop hageal reflux disease 790315416 K21.9 Asthma 095635471 J45.90 9 Allergic rhinitis 960765 04 J30.9 Vaginitis 32026604 N76.0 [id number] Stanley taylor Main Office [address] [address] [place] [address] 03/12/2016 13:54:55 03/12/2016 15:11:25 Gastroenteritis 28288882 K52.9 better, but pt concerned about pinworm/le ech that possibly came out of her Joint pain 70691341 M25. 50 [id number] Stanley taylor Main Office [address] [address] [place] [address] 03/31/2016 12:55:34 03/31/2016 14:44:33 Low back pain 425548704 M54.5 25 minute office visit with greater than 50% of the visit face-to-fa ce with the patient and/or family providing counseling and/or coordinati on of care. [id number] Alexander Conteh MD Main Office [address] [address] [place] [address] 06/10/2016 14:43:34 06/10/2016 16:11:15 Pre-surgery evaluation 031257529 Z01.818 Chronic di astolic heart failure 000116356 I50.32 Asthma 848778115 J45.90 9 Degenerati on of intervertebral disc 47559315 M51.9 Essential hypertension 58485685 I10 Type 2 carmel betes mellitus without complication 875601257 E11.9 [id number] Susi Hughes Main Office [address] [address] [place] [address] 08/20/2016 13:40:21 08/20/2016 14:41:33 Pre-surgery evaluation 985371113 Z01.818 Bunion 952306014 M20.10 Essential hypertension 84149848 I10 Administra tion of pneumococcal vaccine 11688495 Z23 Renal diso rder due to type 2 diabetes mellitus 093583318 E11.22 Influenza vaccine needed 4437236954 106 Z23 [id number] Stanley taylor Main Office [address] [address] [place] [address] 11/24/2016 13:38:23 11/24/2016 14:19:27 Cough 72033990 R05 prob d/t postnasal drip but check cxr to r/o pna - lungs sound okay but recently used nebs Asthma 232203891 J45.31 was on advair up until a few weeks ago - couldn't afford refill - pt stated wasn't covered - looked it up - tier 2 - hopefully be less $ c [facility] since [facility] c - pt cannot go to as per ins. co. Obstructiv e sleep apnea syndrome 48679909 G47.33 see above re: pulm eval Sinusitis 73253917 J32.9 [id number] Alexander Conteh MD Main Office [address] [facility] [address] [place] [address] 01/13/2017 10:06:31 01/13/2017 10:58:52 Pre-surgery evaluation 798666401 Z01.818 no problems c anesthesia for prior procedure 08/30 EKG similar to 08.30 - no sig. change Chronic di astolic heart failure 903586826 I50.32 last seen by card last yr - stable Asthma 820294606 J45.30 pending see pulm. uses proair a few times daily. since cannot afford advair - will give trial of ICS and hopefully not need her proair as often Degenerati on of intervertebral disc 24083998 M51.9 Essential hypertension 76284600 I10 stable, cont meds as dir Type 2 carmel betes mellitus without complication 327164464 E11.9 cont meds as dir Body mass index 30+ - obesity 888193611 Z68.36 [id number] Susi Hughes Main Office [address] [facility] [address] [place] [address] 02/19/2017 09:43:24 02/19/2017 10:29:53 Adult health examination 037438172 Z00.00 Asthma 201409482 J45.90 9 Renal diso rder due to type 2 diabetes mellitus 407302806 E11.22 Diastolic heart failure 529430004 I50.30 pt will continue meds Essential hypertension 25188779 I10 Body mass index 30+ - obesity 007461003 E66.9 Z68.35 Administra tion of pneumococcal vaccine 00198414 Z23 [id number] Susi Hughes Main Office [address] [facility] [address] [place] [address] 06/28/2017 10:39:15 06/28/2017 11:32:02 Congestive heart failure 27264320 I50.9 Hyperlipidemia 52140904 E78.5 Renal diso rder due to type 2 diabetes mellitus 512068129 E11.22 Single amaya or depressive episode 426470011 F33.41 pt on meds/ stable w/ plan/ I spoke w/ Ina Odell her therapist who feels pt is doing well volodymyr off of etoh Chronic ki dney disease stage 1 640466520 N18.1 Hypertensi ve renal disease 73379980 I12.9 [id number] Susi Hughes Main Office [address] [facility] [address] [facility] [place] [address] 11/19/2017 11:17:09 11/19/2017 12:02:55 Type 2 diabetes mellitus without complication 355719356 E11.9 Hyperlipidemia 98512816 E78.5 Hypertensi ve renal disease 58860381 I12.9 Obstructiv e sleep apnea syndrome 52032822 G47.33 Acute vaginitis 03066535 N76.0 Chronic ki dney disease stage 1 991706574 N18.1 [id number] Stanley taylor Main Office [address] [facility] [place] [address] 05/23/2018 14:35:56 05/23/2018 15:58:41 Adult health examination 697516583 Z00.00 Uncomplica eileen mild persistent asthma 320620770 J45.30 Continue current meds and see Dr. Mcguire as scheduled once per year. Pt. will have pulmonary meds prescribed by him. Single amaya or depressive episode 618906502 F32.9 Continue current meds and counseling . Generalize d anxiety disorder 22224384 F41.1 Diastolic heart failure 251992011 I50.[address] as scheduled every 6 m. She will take over cardiology meds( Toprol XL, Bumetanide and Potassium supplement s). Uncontroll ed type 2 diabetes mellitus 086754571 E11.49 E11.65 Continue current meds. Start monitoring glucose daily and return for diabetic review in 4-6 weeks. Hypertensi ve renal disease 32974772 I12.9 repeat testing in 3 m. Consider renal referral. Decrease in height 43066 005 R29.890 Patient en counter status 434199042 Z12.31 Screening for malignant neoplasm of colon 477236910 Z12.11 Z12.12 refuses colonoscop y procedure. Never had one done. Agreed to have stool testing done. Cancer cer vix screening status 429811642 Z12.4 Varicella vaccination 68 633226 Z23 Chronic ki dney disease stage 2 due to type 2 diabetes mellitus 9437162429 01 E11.22 N18.2 Repeat testing in 3 m. Hyperlipidemia 08930287 E78.01 Labs reviewed and stable. Continue current meds. Body mass index 30+ - obesity 541012922 E66.9 Z68.35 Z68.38 Fatigue 38088284 R53.83 Postmenopausal state 764 41536 Z78.0 [id number] Alexander Conteh MD Main Office [address] [place] [address] 06/17/2018 14:46:56 06/17/2018 15:51:07 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 4106508340 E11.22 N18.2 A1c is not at goal with metfromin max dose. Will add Januvia at 100 mg daily . Continue testing daily 1-2 times . Increase exercise activity and lower total calories and carbs. Pt. will be referred to the nutritioni . F/u 3 m. Administra tion of pneumococcal vaccine 00054373 Z23 Screening for malignant neoplasm of breast 599490617 Z12.39 Body mass index 30+ - obesity 119548398 E66.9 Z68.37 [id number] Matty Hewitt MD Main Office [address] [address] 09/19/2018 09:49:02 09/19/2018 11:29:23 Type 2 diabetes mellitus without complication 680875131 E11.9 stable; cont. management regimen and testing. F/u 3 m. Body mass index 30+ - obesity 088562719 E66.9 Z68.35 pt lost weight sine the last visit w/ better diet and new DM regimen, cont. weight loss plan [id number] Eugene Hanson MD Main Office [address] [place] [address] 11/16/2018 11:07:18 11/16/2018 12:13:38 Uncomplicated mild persistent asthma 998216719 J45.30 Continue Advair daily, rescue inhaler and nebulizer as needed. Pneumonitis 834402614 J9 5.967 Patient presents with asthma exacerbati on caused by respirator y infection, with a question of pneumonia. Patient instructed to begin taking levofloxac in as directed below, and also to continue prednisone taper, staying with 40mg QD for the next three days and then tapering down to 30mg QD ONLY if feeling better. She is instructed to present to the ED if she doesn't begin to feel better within the next three days or if she begins to feel worse or becomes short of breath during rest. Orders for CXR have been placed, and the patient states she will go directly from this office and have the CXR done. She is advised to stay home, rest, drink plenty of fluids, and use her nebulizer every 4-6 hrs. She is also advised to avoid visiting her foster child in the NICU until she is recovered. ADvair to use BID and if uses rescue HFA , use through the spacer. F/u otherwise in 5-6 days. Exacerbati on of intermittent asthma 989681530 J45.21 Patient advised to continue taking Advair, and discontinu e flovent. Nebulizer solution replaced with ipratropiu m-albutero l solution, patient advised to use as directed below. Chronic ki dney disease stage 2 due to type 2 diabetes mellitus 0911677343 E11.22 N18.2 Pt. was advised to continue glucose monitoring . Take Janumet on full stomack only. If nausea, hold for few days and continue testing glucose. [id number] Kevin Darden PA-C Main Office [address] [facility] [address] [place] [address] 11/23/2018 11:26:53 11/23/2018 12:10:12 Uncomplicated mild persistent asthma 073739620 J45.30 Continue Advair daily, rescue inhaler and nebulizer as needed. Prednisone was extended by pulmonary by few more days. [id number] Kevin Darden PA-C Main Office [address] [facility] [address] [place] [address] 01/18/2019 09:57:34 01/18/2019 11:03:08 Body mass index 30+ - obesity 303060255 E66.9 Z68.35 continue weight loss program Chronic ki dney disease stage 2 due to type 2 diabetes mellitus 6856738976 E11.22 N18.2 Stable diabetic control . Continue current meds, diabetic diet . Increase exercise activity. Test glucose daily. F/u 3-4 m Repeat labs and microalbum in. Diastolic heart failure 492888900 I50.30 See cardiologi as scheduled Rx will be taken over by cardiology in the future as discussed. [id number] Kevin Darden PA-C Main Office [address] [address] [place] [address] 03/24/2019 14:22:55 03/24/2019 16:05:09 Acute pharyngitis 867996051 J02.9 Continue with plenty of fluids and eat soft foods. Return if symptoms do not improve in 2 - 4 days or symptoms worsen. Impacted cerumen 4495915 6 H61.20 left ear canal was impacted with wax. It was cleared and fluid was visible behind your tympanic membrane. There was no sign of infection at this time. Please return if your symptoms worsen or do not improve in 2 - 4 days.Albino nue Mucinex for decongesti on. Acute conjunctivitis 537 72608 H10.32 Continue with warm compresses to help with drainage. If symptoms do not improve in 2 days you can start prescripti on eye drops. [id number] Matty Hewitt MD Main Office [address] [address] [place] [address] 05/04/2019 11:08:50 05/04/2019 12:04:59 Acute asthma 388235054 J45.901 Probably set off by allergies. No role for antibiotic s at this point but will call next week if her sinus symptoms worsen. [id number] Luly Henley MA Main Office [address] [address] [place] [address] 06/19/2019 08:31:00 06/19/2019 09:47:55 Hearing loss 85610001 H91.92 unilateral hearing loss and dizziness. Refer to ENT for the evaluation and r/o acoustic neuroma. Hypomagnesemia 820091704 E83.42 Renal diso rder due to type 2 diabetes mellitus 300163112 E11.22 Hyperlipidemia 76290629 E78.01 Labs reviewed and stable. Continue current meds. Chronic ki dney disease stage 3 884914918 N18.3 [id number] Kevin Darden PA-C Main Office [address] [facility] [address] [place], [place] [address] 07/24/2019 15:31:28 07/24/2019 16:45:17 Adult health examination 094970276 Z00.00 update Td Hypomagnesemia 404750561 E83.42 Mildly low as of 08/03 - 1.6. On 100mg daily of magnesium -will increase to 200 mg and repeat in 1 month. Hypercalcemia 30221875 E 83.52 Mildly elevated as of 08/03 - 10.8. Repeat labs. Generalize d anxiety disorder 57136399 F41.1 Stable. No recent episodes. Gastroesop hageal reflux disease 352762212 K21.9 Stable. Continue current regimen. Osteoarthr itis of knee 766842544 M17.9 Uses CBD oil BID. Stable. Chronic ki dney disease stage 3 183859376 N18.3 f/u with nephrology as scheduled Renal diso rder due to type 2 diabetes mellitus 731481323 E11.22 Stable diabetes , continue with current medic. followed by nephrology , last seen 06/20/19 - stopped Losartan, now taking Bumex daily. Cr 1.51, GFR 34 as of 07/20/19. f/u with nephrology as scheduled - next appt is in Sep. continue on janumet Hyperlipidemia 11396049 E78.01 Stable as of 08/03. Continue current meds. Diastolic heart failure 327203341 I50.30 Followed by cardiology - next appt is tomorrow 07/25/19. Hearing loss 98335392 H9 1.92 followed by aimee villar ENT, seen 06/19/19. Unilateral (L) hearing loss. ENT rec MRI, patient is going to consider it. Requires a tetanus booster 159527991 Z28.3 last had Tdap 2 Uncomplica eileen mild persistent asthma 172898537 J45.30 Stable. Continue Advair daily, rescue inhaler and nebulizer as needed. Followed by pulmonolog y, f/u as needed. Left ventr icular hypertrophy 92626352 I51.7 Followed by cardiology . Hypertensi ve renal disease 09457757 I12.9 Followed by nephrology . Degenerati on of intervertebral disc 25458139 M51.9 Stable. Occasional flair ups. Taking no medication . Body mass index 30+ - obesity 686638502 E66.9 Z68.35 discussed diet and exercise goals [id number] Main Office [address] [address] [place] [address] 11/22/2019 10:04:09 11/22/2019 10:49:29 Renal disorder due to type 2 diabetes mellitus 221895541 E11.22 WEll controlled diabetes . At this point creatinine is 1.5 . WE will lower renally cleared medication s Janumet to 1 tablet daily. Continue testing. See renal as scheduled. Chronic ki dney disease stage 3 139107190 N18.3 f/u with nephrology as scheduled Hypertensi ve renal disease 95528505 I12.9 Followed by nephrology . Hypercalcemia 57981958 E 83.52 Reer to endo. [id number] Kevin Darden PA-C [facility] [address] [place] [address] 04/05/2020 09:09:03 04/05/2020 12:41:44 Trochanteric bursitis of right hip 2355209459 25786 M70.61 start meloxicam 15 mg daily for 2-3 weeks . Pt. was advised to take Tylenol ES at HS as well and use heating pad at least once daily 15 minutes. If still in pain in 2 weeks, will be referred for cortisone injection. Renal diso rder due to type 2 diabetes mellitus 780428028 E11.22 continue current meds. Repeat labs in 1-2 weeks. Chronic ki dney disease stage 3 825487601 N18.3 f/u with nephrology as scheduled Pure hypercholesterolemia 859687354 E78.00 repeat fasting labs [id number] [facility] [address] [place] [address] 06/05/2020 11:59:06 06/06/2020 15:07:19 Hip pain 80524092 M25.551 M25.552 Bilateral hip pain. R side is worse. ? arthropath y vs bursitis. We will destiny xray first and decide for referral based on that. If xray is normal, we will need cortisone likely for the bursitis. If mild to moderate arthropath y, will refer to rheumatolo gist. [id number] Kevin Darden PA-C [facility] [address] [place] [address] 07/29/2020 08:27:40 07/29/2020 14:52:51 Chronic low back pain 746664515 M54.5 Osteoarthritis of hip 23 1423453 M16.9 consider trial of meloxicam after she is done with Naprosyn. Degenerati on of lumbar intervertebral disc 48317814 M51.36 ? postsurgic al facet arthropath y affecting also R. SI area. Pt. is on NSAIDs and muscle relaxant at this time. WE will obtain LS spine films and refer to physiatry/ PT. [id number] Kevin Darden PA-C Main Office [address] [place] [address] 08/23/2020 14:34:17 08/23/2020 16:03:02 Adult health examination 227174909 Z00.00 Recom to receive shingrix vaccine. Other vaccines are up to date. Hyperlipidemia 64151818 E78.01 Stable control on current meds. Renal diso rder due to type 2 diabetes mellitus 502127467 E11.22 continue current meds.SChed ule f/u with renal. Chronic ki dney disease stage 4 473599251 N18.4 worsened renal function. ? due to NSAIDs taken for low back pain. Pt. is due for renal f/u. PPt. is advised not to take NSAIDs.Inc rease hydration. Screening for malignant neoplasm of breast 791944596 Z12.39 Screening for malignant neoplasm of cervix 519634790 Z12.4 Uncomplica eileen mild persistent asthma 473575570 J45.30 Stable. Continue Advair daily, rescue inhaler and nebulizer as needed. Followed by pulmonolog y, f/u as needed. Diabetic p eripheral neuropathy 072120431 E11.40 refer to the podiatry. Screening for malignant neoplasm of colon 733734393 Z12.11 Z12.12 refuses colonoscop y procedure. Never had one done. Agreed to have stool testing done. Constipation 35360312 K5 9.00 continue Miralax powder and add colace at 100 mg daily. Increase dietary fiber and fluids consider GI work up. WE will try to do cologuard first. Osteoarthr itis of knee 866251808 M17.9 Uses CBD oil BID. Stable. Osteoarthritis of hip 23 9516781 M16.9 consider trial of meloxicam after she is done with Naprosyn. Left ventr icular hypertrophy 66574797 I51.7 Followed by cardiology . Bumetanide is being decreased to 2 mg in the am. Echo is scheduled for next week. Body mass index 30+ - obesity 768357201 E66.9 Z68.36 discussed diet and exercise goals [id number] Susi Hughes Main Office [address] [facility] [address] [facility] [place] [address] 12/24/2020 09:03:54 12/24/2020 10:25:55 Renal disorder due to type 2 diabetes mellitus 023370212 E11.22 Complete Janumet and d/c . Start metformin 1000 mg daily and add Trulicity 0.75 mg weekly. Possible side effects discussed. Retest A1c in 3 m. Hypertensi ve renal disease 24643642 I12.9 Followed by nephrology . Chronic ki dney disease stage 3 879483771 N18.30 F/u with renal as scheduled. Diabetic p eripheral neuropathy 910186343 E11.40 Rx for diabetic foot wear will be forwarded to Dr. Conteh for sig. Uncomplica eileen mild persistent asthma 250173409 J45.30 Stable. Continue Advair daily, rescue inhaler and nebulizer as needed. Followed by pulmonolog y, f/u as needed. 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 Start tramadol 50 mg PRN use at HS only ( pt. has h/o opioid addiction) . [id number] Kevin Darden PA-C Main Office [address] [facility] [address] [facility] [place] [address] 03/25/2021 09:39:09 03/25/2021 11:19:53 Renal disorder due to type 2 diabetes mellitus 641747185 E11.22 A1C has increased due to patient's poor diet and stress levels hypoglycem ia was very occasional Pt understand s how to manage hypoglycem ia episodes adequately Will continue current regimen as directed. F/u 3 m. Degenerati on of intervertebral disc 41444361 M51.9 Constant back pain 6/10 at night, during the day 5/10 Takes tylenol with minimal relief, we will try tramadol at 50-100 mg at least at HS and call [facility] for f/u. Pt. is due for another steroid injection series in April. Takes marijuana gummies more regularly at night. Diabetic p eripheral neuropathy 400347757 E11.40 F/u with the social studies teacher . Chronic ki dney disease stage 3B 141168359 N18.32 F/u with renal Hyperlipidemia 95955116 E78.01 Continue current meds. repeat fasting lipids. Hypertensi ve renal disease 35972467 I12.9 Followed by nephrology . [id number] Kevin Darden PA-C Main Office [address] [facility] [address] [place] [address] 06/25/2021 09:22:27 06/25/2021 10:22:23 Renal disorder due to type 2 diabetes mellitus 915007857 E11.22 Stable type II DM with renal and neurologic manifestat ions. Plan to increase Trulicity to 1.5 mg weekly and discontinu e metformin by next visit. F/u 3 m. Chronic ki dney disease stage 3B 626539356 N18.32 F/u with renal Hypomagnesemia 167385521 E83.42 repeat magnesium level Pure hypercholesterolemia 087724909 E78.00 repeat fasting labs Diabetic p eripheral neuropathy 485998258 E11.40 F/u with the social studies teacher as scheduled. Hypertensi ve renal disease 42151056 I12.9 Followed by nephrology . Hyperlipidemia 55667211 E78.01 Continue current meds. repeat fasting lipids. [id number] Lauren Diego MD Main Office [address] [facility] [address] [place] [address] 08/27/2021 10:33:15 08/27/2021 13:49:07 Diastolic heart failure 524645736 I50.30 Follows cardiology at [facility].To see [facility] cardiology Ralph Archer for cardiac clearance. Chronic ki dney disease stage 3B 714539039 N18.[address] Daniele Reddy Renal diso rder due to type 2 diabetes mellitus 747241083 E11.22 Continue quarterly follow-up of serum creatinine , blood pressure, glycemic control. Referral to renal as indicated. Pre-surger y evaluation 710156907 Z01.818 1. Pre-Surgic al Evaluation /Surgical Clearance left shoulder arthroplas ty scheduled for September 10, 2021 under general anesthesia .-- Clinical cardiac predictor( s): diastolic heart failure with preserved ejection fraction, CKD stage IIIb, hyperlipid emia, hypertensi ve renal disease, type 2 diabetes, and asthma, obesity-- Surgical risk level: Low/Modera te-- Functional Status: Poor-- Revised Cardiac Risk Index (RCRI) for Pre-Operat samuel Risk: 2, 10.1%-- SMITH Score: 0.7 % Risk of myocardial infarction or cardiac arrest, intraopera tively or up to 30 days post-op-- Vitals and previous labs reviewed-- Imaging: Not indicated- - EKG: To be done at cardiology -- Labs preformed by renal reviewed.- - Informed patient NPO at midnight-- Advised to avoid aspirin and NSAIDS-- Medication plan of care discussed with patient.-- Medical clearance: Stable to proceed for procedure once cleared by cardiology and if URI symptoms have completely resolved without any asthma exacerbati on (currently without exacerbati on on exam) with negative covid test. Patient is getting covid tested in a week but given recent symptoms will also test her sooner. Patient is at intermedia te risk for cardiopulm onary complicati ons with planned procedure based on comorbidit ies, poor exertional tolerance and overall procedure risk, she is aware of the intermedia te risk given her chronic health condition. Exposure t o viral disease 8949828782 38241 Z03.818 Hypertensi ve renal disease 02900481 I12.9 BP elevated likely 2/2 to URI sx, notes bp at home within range. MILL DRESSER to f/u home BP readings is elevated would consider increasein g losartan.A symptomati c regarding htn stand point.Adde ndum: 09/04/2021 , recently saw renal 08/27/21 after she saw me, bp was within JNC range (127/72) and she is due to see cardiology 09/05/21.B P can be followed at next office visit given acceptable bp range and nephrology visit. Upper resp iratory infection 63747546 J06.9 Advised symptomati c tx hydration enforced, saline sprays, and rest.No sign of respirator y distress or asthma exacerbati on that would require abx and or steroid.If abx or po steroid needed patient would not be cleared for procedure. Covid testing ordered.Ce ntor score 0Addendum 09/04/2021 , office has been following URI sx: Patient notes daily improvemen t in sx, if covid test prior to surgery is negative and her URI sx is resolved without asthma exacerbati on she can proceed with the risk and parameters discussed above. [id number] Clara Gauthier RN Main Office [address] [place] [address] [place] [address] 09/15/2021 11:59:12 10/13/2021 09:52:46 [id number] Kevin Darden PA-C Main Office [address] [facility] [address] [place] [address] 09/30/2021 09:23:00 09/30/2021 10:21:19 Adult health examination 814878575 Z00.00 Recom to receive shingrix vaccine. Other vaccines are up to date. Diabetic p eripheral neuropathy 459622847 E11.40 F/u with the social studies teacher every 3 m. Renal diso rder due to type 2 diabetes mellitus 817619121 E11.22 stable type II DM with CKD stg 3b followed by renal. Continue all current treatments and f/u with renal as recommende d. Chronic ki dney disease stage 3B 974727577 N18.32 F/u with renal Varicella vaccination 68 118419 Z23 Chronic di astolic heart failure 741813610 I50.32 Stable on bumex and diltiazem. f/u with cardiologi st as scheduled. Degenerati on of intervertebral disc 89243117 M51.9 Pt just had shoulder replacemen t, but will return to pain management for steroid injection. Takes otc pain meds. Gastroesop hageal reflux disease 472591621 K21.9 Stable. Continue current regimen. Generalize d anxiety disorder 54642806 F41.1 Stable. No recent episodes.C ontinue duloxetine . Hyperlipidemia 68017531 E78.01 Continue current meds. repeat fasting lipids. Hypomagnesemia 124263568 E83.42 continue mag oxide. Repeat levels at next visit. Bee sting- induced anaphylaxis 768013739 T63.441A EpiPen. [id number] Pilar Vigil Main Office [address] [facility] [address] [place] [address] 12/08/2021 09:06:23 12/08/2021 09:59:15 Pre-surgery evaluation 188105175 Z01.818 Patient is at low to moderate risk for cardiopulm onary complicati ons with planned procedure based on comorbidit ies, exertional tolerance and overall procedure risk. Patient advised to avoid aspirin and NSAIDS for 7 days prior. Take inhalers, blood pressure meds am of surgery. Smith 0.3% Pt may proceed to surgery, do fasting labs. She states she has been cleared by cardiology separately Chronic ki dney disease stage 3B 137795301 N18.32 check renal function and lytes today, pt followed by renal and had preop eval in Fall 2020 Chronic di astolic heart failure 092186308 I50.32 Followed at [facility], Dr Hayward is cardiologi , had preop clearance recently, no problems with surgery last Fall. Renal diso rder due to type 2 diabetes mellitus 144109893 E11.22 Pt has diabetes, uses trulicity only, please monitor BS perioperat ively. Uncomplica eileen mild persistent asthma 460961362 J45.30 controlled on meds, some SOB with exertion, take baseline inhalers am of surgery [id number] Kevin Darden PA-C Main Office [address] [address] [place] [address] 12/18/2021 09:05:09 12/19/2021 12:38:57 [id number] Kevin Darden PA-C Main Office [address] [place] [address] 05/12/2022 13:09:07 05/12/2022 14:06:59 Renal disorder due to type 2 diabetes mellitus 591627150 E11.22 stable type II DM with CKD stg 3b followed by renal. Continue all current treatments and f/u with renal as recommende d. Chronic ki dney disease stage 3B 440875820 N18.32 F/u with renal Syncope 456766888 R55 unclear if related to CHF , does not look like seizure, labs stable. Injury of head 05619276 S09.90XA daily headache after injuring head 2-[address] is recommende d due to syncope and head injury. postconcus dm is possible [id number] Susinaomi Hughes Main Office [address] [facility] [address] [place] [address] 07/28/2022 07:48:33 07/28/2022 11:57:27 Postconcussion syndrome 60276630 F07.81 Pt. will see neurology for her postconcus dm headaches in 1 week. Continue Tylenol ES for now. Headache 47605338 R51.9 Uncomplica eileen mild persistent asthma 362452274 J45.30 Stable. Continue Advair daily, rescue inhaler and nebulizer as needed. Followed by pulmonolog y, f/u as needed. Bee sting- induced anaphylaxis 604757422 T63.441A EpiPen. [id number] Kevin Darden PA-C Main Office [address] [facility] [address] [place] [address] 10/06/2022 09:59:02 10/06/2022 11:16:22 Adult health examination 537692442 Z00.00 Vaccines are up to date. Recommend new COVID booster. Chronic di astolic heart failure 255858106 I50.32 Pt. is still symptomati c of CHF. Seeing pulmonary in October and cardiologi st in November for f/u. Continue all prescribed meds/diure tics. Chronic ki dney disease stage 3B 742359963 N18.32 F/u with renal . I recommend pt to be started on SGLT-2 Jardiance 10 mg for renal protection , CHF and diabetes. She will run it by Alex Reddy and get back to me. Renal diso rder due to type 2 diabetes mellitus 181778048 E11.22 A1c is above target . Recommend to increase Trulicity to 3 mg dose and add SGLT-2. F/u 3 m or sooner. Goal A1c is under 7%. Hyperlipidemia 76947152 E78.01 Continue current meds. repeat fasting lipids. Diabetic p eripheral neuropathy 183465323 E11.40 F/u with the social studies teacher every 3 m. Gastroesop hageal reflux disease 490267457 K21.9 Stable. Continue current regimen.Co ntinue PPI. Generalize d anxiety disorder 97306350 F41.1 Stable. No recent episodes.C ontinue duloxetine . Screening for malignant neoplasm of cervix 243434752 Z12.4 Screening for malignant neoplasm of breast 437378246 Z12.39 Vitamin D deficiency 347 29511 E55.9 bone density scan normal in 2018. Screening for malignant neoplasm of colon 084403650 Z12.11 Z12.12 refuses colonoscop y procedure. Never had one done. Agreed to have stool testing done. Has constipati on. 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 Bumetanide is being decreased to 2 mg in the am. Echo is scheduled for next week. Uncomplica eileen mild persistent asthma 310623035 J45.30 Stable. Continue Advair daily, rescue inhaler and nebulizer as needed. Followed by pulmonolog y, f/u as needed. Migraine 36439718 G43.90 9 F/u with neurology. PT. was started on Topiramate and given Fioricet as well by Dr. Medellin. Body mass index 30+ - obesity 410567962 E66.9 Z68.35 discussed diet and exercise goals Bee sting- induced anaphylaxis 267712354 T63.441A EpiPen. Diastolic heart failure 858112721 I50.30 Followed by cardiology , f/u in November. Continue current meds. PT. was recommende d to see nutritioni st due to complicate d combined diets , Dash, diabetic diet, GERD and low fat. Referral was provided. Osteoarthritis of hip 23 7796063 M16.9 F/u with ortho Osteoarthr itis of knee 765603221 M17.9 Uses CBD oil BID. Stable. [id number] Kevin Darden PA-C Main Office [address] [facility] [address] [facility] [place] [address] 03/31/2023 13:51:51 03/31/2023 14:49:42 Renal disorder due to type 2 diabetes mellitus 137367355 E11.22 Diabetes well controlled . Lower Trulicity to 1.5 mg weekly. Add Jardiance at 10 mg daily for CHF and CKD stg 3B. Continue seeing nutritioni st and continue diet and activity. F/u 3 m. Chronic ki dney disease stage 3B 964716244 N18.32 F/u with renal . Begin Jardiance at 10 mg daily and repeat bmp in 4 weeks. Hypertensi ve renal disease 82511741 I12.9 Followed by nephrology .repeat magnesium. Candidiasis of vagina 72 480494 B37.31 [id number] Kevin Darden PA-C Main Office [address] [facility] [address] [place] [address] 07/30/2023 09:33:33 07/30/2023 10:06:30 Renal disorder due to type 2 diabetes mellitus 659603352 E11.22 Diabetes well controlled . Repeat A1c and BMP in 4 weeks after start of jardiance 10 mg. Continue trulicity 1.5 mg weekly. Pt. was encouraged to restart her low alvarado diet and exercise. F/u 3 m. Chronic ki dney disease stage 3B 532298244 N18.32 F/u with renal . Begin Jardiance at 10 mg daily and repeat bmp in 4 weeks. Hypertensi ve nephrosclerosis 584876550 N18.32 f/u with renal. Microalbuminuria 2393647 06 R80.9 microalbum in normal in June. [id number] Kevin Darden PA-C Main Office [address] [facility] [address] [place] [address] 10/20/2023 15:33:23 10/20/2023 16:36:12 COVID-19 253303151 U07.1 Begin renally adjusted dose of Paxlovid. Current GFR is 41. Increase hydration as discussed. Mucinex for cough, nasal saline or saline rinse. Pt. has asthma. recommend to use rescue inhaler every 4-6 hrs and continue trelegy Ellipta. Current O2 is 96% at home. Pt. is advised to test O2 every few hrs. If drops to 91% or under and severe respirator y symptoms, we discussed having to go to the ER. Pt. understand s. Renal diso rder due to type 2 diabetes mellitus 453676550 E11.22 Diabetes well controlled . recommend to test glucose several time per day during this illness to make sure medication s do not need to be temporaril y increased. Chronic ki dney disease stage 3B 483430417 N18.32 use renal dose Paxlovid and hydrate. Uncomplica eileen mild persistent asthma 293711473 J45.30 recommend to check in with Dr. Nagel on need to use oral steroids during COVID infection. PT. will place call in to him. [id number] Kevin Darden PA-C Main Office [address] [place] [address] 12/29/2023 11:23:10 12/29/2023 12:14:40 Generalized anxiety disorder 68187626 F41.1 see above. Moderate m ajor depression, single episode 05693097 F32.1 Personal stress worsening depression and anxiety. Recommend weekly therapy for now. Increase duloxetine to 90 mg daily . f/u in 4 weeks. Consider adding bupropion addition as an adjunct therapy. [id number] [facility] [address] [place] [address] 02/07/2024 08:18:34 02/07/2024 09:17:43 Moderate major depression, single episode 80131678 F32.1 Personal stress worsening depression and anxiety. Recommend weekly therapy for now. Continue duloxetine at 90 mg daily . f/u in 8 weeks. [id number] [facility] [address] [address] 02/15/2024 12:44:39 02/15/2024 13:42:31 Acute sinusitis 83046356 J01.90 recommend probiotics while on abx [id number] Kevin Darden PA-C Main Office [address] [place] [address] 08/15/2024 14:25:26 08/15/2024 15:39:16 Adult health examination 166353715 Z00.00 Vaccines are up to date. Recommend new COVID booster. Renal diso rder due to type 2 diabetes mellitus 858343635 E11.22 repeat A1c and all other overdue labs. Pt. is having ? false hypoglycem ia but reports symptoms which is uncommon with Jardiance and Ozempic. For now we will hol ozempic and continue jardiance ? electrolyt e imbalance. Pt. is on bumex. F/u for DM in 6 weeks. Consider CGM use. Chronic ki dney disease stage 3B 960300351 N18.32 use renal dose Paxlovid and hydrate. Chronic di astolic heart failure 552322016 I50.32 Overdue for cardiology . Will set up f/u. Diabetic p eripheral neuropathy 455830707 E11.40 F/u with the social studies teacher every 3 m. Generalize d anxiety disorder 70376017 F41.1 stable. Hyperlipidemia 21569741 E78.01 Continue current meds. repeat fasting lipids. Hypertensi ve renal disease 29028639 I12.9 Followed by nephrology . repeat magnesium. Microalbuminuria 8615477 06 R80.9 repeat microalbum in. Migraine 11017552 G43.90 9 headaches secondary to concussion resolved. Moderate m ajor depression, single episode 77007185 F32.1 stable on duloxetine . Uncomplica eileen mild persistent asthma 291916288 J45.30 F/u with pulmonary. Pt. is currently stable. Gastroesop hageal reflux disease 037634326 K21.9 Stable. Continue PPI. Advance di rective discussed with patient 696150676 Z71.89 discussed. PT. will fill out at home and mail. Influenza vaccine needed 4307220413 106 Z23 65 YEARS AND OLDER Administra tion of pneumococcal vaccine 40482185 Z23 [facility] for [facility] 752773837 Z91.81 Fall risk assessment scale is positive for increased risk for fall PT. has OA and obesity. Not interested in PT referral. Screening for malignant neoplasm of breast 247919214 Z12.39 [id number] Kevin Darden PA-C Main Office [address] [facility] [address] [facility] [place] [address] 10/18/2024 10:58:58 10/18/2024 11:37:40 Renal disorder due to type 2 diabetes mellitus 093157026 E11.22 Stable A1c on Ozempic and jardiance. Continue low calorie diet . F/u in 3 m. Chronic ki dney disease stage 3B 553997733 N18.32 F/u with Dr. Reddy. continue jardiance 10 mg. [id number] Kevin Darden PA-C Main Office [address] [facility] [address] [facility] [place] [place] [address] 01/24/2025 09:31:11 01/24/2025 10:32:07 Hypertensive renal disease 44116111 I12.9 Followed by nephrology every 4 months. Will recheck labs before next annual visit. Renal diso rder due to type 2 diabetes mellitus 388682963 E11.22 Stable A1c at 6.4% on Ozempic and jardiance. Continue low calorie diet. Repeat TSH. F/u in 3 months. Chronic ki dney disease stage 3B 141652635 N18.32 F/u with Dr. Reddy. Continue jardiance 10 mg. Transient cerebral ischemia 809252457 G45.9 Episode back in November. CT head performed without any acute findings. Pt was started on ASA by nephrology . Following up with neurology 05.09. We will plan to do ultrasound of carotids. Eczema 11232051 L30.9 Health Concerns Section Related Observation LastModified by Organization Detai ls LastModified Time None Recorded Concern Status LastModified by Organization Details LastModified Time None Recorded Advance Directives Directive Y: HCP at hospital Payers Encounter Date Sequence Insurance Name Policy Number Policy Paige Covered Member ID Paige Member ID Guarantor Name 02/07/2024 1 [place] Barbara Getachew Nick [id number] Barbara Collins 02/07/2024 2 [place] [id number] Barbara Chilel Nick [id number] Barbara Chilel Nick 02/15/2024 1 [place] [employer] [place] Barbara Getachew Nick [id number] Barbara Collins 02/15/2024 2 [place] [id number] Barbara M Nick [id number] Barbara Chilel Nick 08/15/2024 1 [place] [employer] Barbara Collins [id number] Barbara Collins 08/15/2024 2 [place] [id number] Barbara Collins [id number] Barbara Collins 10/18/2024 1 [place] [employer] Barbara Collins [id number] Barbara Collins 10/18/2024 2 [place] [id number] Barbara Collins [id number] Barbara Collins 01/24/2025 1 [place] [facility] G[facility]MENT SERVICES Barbara Collins [id number] Barbara Collins 01/24/2025 2 [place] [id number] Barbara Collins [id number] Barbara Collins Notes Date Note Type Note Provider Name and Address Organization Details Recorded Time 02/07/2024 text/html 74 year old fema le for f/u on moderate major depression. Pt. is on duloxetine and dose was increased on last visit 6 weeks ago. Pt. is on 90 mg dose. PHQ today is 1, CLARITZA is 3. PT. reports doing much better emotionally and sleeping better. Tolerates medication well. Kevin Darden PA-C [address], [address], [facility] 02/07/2024 09:12:55 02/15/2024 text/html Phone visit-PT i s having daily headaches and facial pain under my eyes. possible sinus infection *see PT case* as per recent portal message:Kevin,? I have been having daily headaches and facial pain under my eyes. I believe I have another sinus infection. Would you please send a script to [facility]. ?Thank youBarbara + facial, jaw, tooth painno pur nasal dc - 'is stuck'+ rare coughno sob, f/c, wheezingno sig help c otc meds Morgan Darden PA-C [address] [address], [place], [address], [facility] 02/15/2024 13:35:21 08/15/2024 text/html Diabetes F/UReported bypatient.Context:n ormal range of home blood sugars (in the low 100s); seeing eye doctor regularly; checking feet regularly; not missing doses of medications; no side effects from medications;not taking aspirin daily Associated Symptoms:no dizziness; no sweats; no headaches; no confusion; no increased thirst; no increased appetite; no increased urination; no blurred vision; no numbness of feet; no calluses on feet;weight loss (24 lbs)Notes:A1c last done in September. Pt. reports she is having hypoglycemia reaction, although only on Jardiance and small dose of Ozempic. Feels shaky, disoriented , weak. NO chest pain reported. Reports glucose meter reads readings in 50s. PT. is overdue for labs.Hypertension F/UReported bypatient.Associate d Symptoms:no dizziness; no lightheadedness; no chest pain; no shortness of breath; no palpitations; no calf pain with exertion;edema Lifestyle:limiting/ avoiding salt;not exercising regularly Medications:taking medications as directed; no side effects from medication; checks blood pressure at home, range:Notes:blood pressure is stable. hypertensive renal disease CKD stg 3B followed by renal every 6 m. Pt. just saw specialist in June and had labs repeated. creat 1.6, GFR 44. Pt. did not start taking Jardiance 10 mg due to cost previously , but is now interested.Medicare Annual Wellness VisitReported bypatient.Diet and Nutrition:healthy diet Fracture Risk:no history of fractures Physical Activity:does not exercise on a regular basis Depression Risk:history of depression Concentration and Memory:forgetting words Speech/Motor difficulties:no speech difficulties Hearing:no loss of hearing Vision:no vision problems Activities of Daily Living:able to bathe with limited or no assistance Instrumental Activities of Daily Living:able to do house work with limited or no assistance; able to manage medications with limited or no assistance; able to manage money with limited or no assistance; able to prepare meals with limited or no assistance Home Safety:use of seatbelts;fire arms 74 year old diabetic female for annual Medicare wellness visit.Vaccines: up to date . Last pneumonia vac 4 years ago , pneumovax 23. No prevnar 13 or 20.Colon screening: last cologuard neg in August of 2022.Mammogram is overdue.Last bone density test was normal in 2018.DM. HGA1c last in September at 6.9%.BMI is 35.8. CKD stg 3B followed by renal. Last renal panel with creat 1.4. Pt. is seeing renal more than once per year.Diastolic heart failure. Last cardiology notes date back to September of last year. Pt. is on bumex 1 mg ,spironolactone and diltiazem. HTN is well controlled.Mild persistent is asthma , on montelukast. Pt. sees pulmonary.OA in the hip and knee are stable lately . Pt. sees orthopedics for shoulder and hands.. Takes tylenol for pain. Goes for cortisone regularly.Migraine are infrequent. It was post concussive and resolved. PT. is off topiramate. Pt. does not see neuro any longer. Kevin Darden PA-C [address] [facility] [address], [place], [address], [facility] 08/15/2024 16:06:28 10/18/2024 text/html Diabetes F/UReported bypatient.Context:n ormal range of home blood sugars (in the low 100s); seeing eye doctor regularly; checking feet regularly; not missing doses of medications; no side effects from medications;not taking aspirin daily Associated Symptoms:no dizziness; no sweats; no headaches; no confusion; no increased thirst; no increased appetite; no increased urination; no blurred vision; no numbness of feet; no calluses on feet;weight loss ( lbs)Notes:A1c is 6.8 % today. Meds: Ozempic 0.5 mg weekly and Jardiance 10 mg. losartan 50 and atorvastatin taken daily.CKD stg 3B followed by renal.Neuropathy is stable. PT. sees social studies teacher regularly.Hypertens ion F/UReported bypatient.Associate d Symptoms:no dizziness; no lightheadedness; no chest pain; no shortness of breath; no palpitations; no calf pain with exertion;edema Lifestyle:limiting/ avoiding salt;not exercising regularly Medications:taking medications as directed; no side effects from medication; checks blood pressure at home, range:Notes:blood pressure is stable. hypertensive renal disease CKD stg 3B followed by renal every 6 m. baseline creat is 1.4-1.6, last eGFR 37 three months ago. Pt. is on Jardiance 10 mg. 7 Kevin Darden PA-C [address] [facility] [address], [place], [address], [facility] 10/18/2024 11:57:10 01/24/2025 text/html Diabetes F/UReported bypatient.Review finger sticks:Feels fatigued, brain fog, and lethargic; happens about once per week and takes sugar tab. She notes that she sometimes has sugars in the 40s. Usually around noon, typically after eating a smaller breakfast. Eating three meals per day, hydrating well. Context:normal range of home blood sugars (in the low 100s); seeing eye doctor regularly; checking feet regularly; taking aspirin daily; not missing doses of medications; no side effects from medications Associated Symptoms:no dizziness; no sweats; no headaches; no increased thirst; no increased appetite; no increased urination; no blurred vision; no numbness of feet; no calluses on feet;weight loss ( lbs);confusion(word finding difficulty); some difficulty with word finding, dizziness upon standing. Neuropathy is stable, followed by podiatry.Notes:12.2 4 - A1c is 6.4% today. Meds: Ozempic 0.5 mg weekly and Jardiance 10 mg. losartan 50 and atorvastatin taken daily. CKD stg 3B followed by renal. She was last seen by nephrology in 12.09, sees every 4 months. Neuropathy is stable. Pt sees social studies teacher regularly. No evidence of diabetic retinopathy. Labs last done in 09.07, will repeat for next annual exam. Nephrology started pt on ASA 81 mg every day.Hypertension F/UReported bypatient.Associate d Symptoms:no dizziness; no lightheadedness; no chest pain; no shortness of breath; no palpitations; no calf pain with exertion;edema; SOB on exertion, hx CHF Lifestyle:limiting/ avoiding salt;not exercising regularly Medications:taking medications as directed; no side effects from medication; checks blood pressure at home, range:Notes:Blood pressure is stable in office. CKD stg 3B followed every 4 month by renal. Usual creat is 1.3-1.4. No microalbuminuria. 74 year old female for f/u.Recent h/o TIA due to blood pressure spike. CT was unremarkable. Pt. did not go to the ER and was seen by her wharf operator. Has pushpa with the neurologist , but not until April. Started on ASA by wharf operator. NO prior carotid duplex ordered. Pt. has echo scheduled. Kevin Darden PA-C [address] [facility] [address] [facility], [place], [address], [facility] 01/24/2025 10:56:57 OBGyn Episode No OBEpisode recorded.
== END 2025-02-16 10:25 | disposition home or self-care (01) ==
LOC: HO.HPS 10:04
PROVIDERS: PCP Physician Assistant Medical; Visit Provider Hospitalist
DX: J45.909 Unspecified asthma, uncomplicated (principal); G47.33 Obstructive sleep apnea (adult) (pediatric); Z99.89 Dependence on other enabling machines and devices; J30.9 Allergic rhinitis, unspecified
CPT/HCPCS: 99214

== ENCOUNTER → 2025-02-16 10:04 | Outpatient (BNVA) | payer MEDICARE, SELFPAY | PROVIDERS: PCP Physician Assistant Medical; Visit Provider Hospitalist | DX: J45.909 Unspecified asthma, uncomplicated (principal); G47.33 Obstructive sleep apnea (adult) (pediatric); Z99.89 Dependence on other enabling machines and devices; Z86.73 Personal history of transient ischemic attack (TIA), and cerebral infarction without residual deficits | CPT/HCPCS: 99212 ==

== ENCOUNTER 2025-03-27 11:34 | Outpatient (AMB) | payer MEDICARE, SELFPAY ==
--- NOTE | 2025-03-27 11:31 | HO.NEPHOV ---
Vital Signs 03/27/25 11:32 Height 5 ft Weight 181 lb BMI 35.3 BP 108/68 Blood Pressure Location Lt brachial Position Sitting Pulse 80 Pulse Source Pulse Oximeter Pulse Oximetry (%) 94 Oxygen Delivery Method Room Air Intake Visit Reasons: 4 Month Follow Up/ Conf Chief Operator Lock Tender Required: No Accompanied by: Self / Same As Patient Allergies bee pollen Allergy (Severe, Verified 03/27/25 11:34) Hives/Rash lisinopril Adverse Reaction (Severe, Verified 03/27/25 11:34) Cough Kvng Inibitors Allergy (Severe, Uncoded 02/16/25 10:10) Cough Penicillins Allergy (Severe, Uncoded 02/16/25 10:10) Rash Sulfa Drugs Allergy (Severe, Uncoded 02/16/25 10:10) Rash Medication List - Last Reconciled 03/27/25 by Daniele Reddy MD ascorbic acid (vitamin C) 500 mg PO DAILY aspirin 81 mg PO DAILY atorvastatin 20 mg PO DAILY bumetanide 1 mg PO DAILY carvedilol 6.25 mg PO BID duloxetine 60 mg PO DAILY empagliflozin (Jardiance) 10 mg PO DAILY epinephrine IM fluticasone propion-salmeterol 250-50 mcg/dose (Wixela Inhub) 1 inh inhalation Q12H 90 days adqiyvlrjur-iufbniygv-xrveqnri 100-62.5-25 mcg (Trelegy Ellipta) 1 ea inhalation DAILY levalbuterol tartrate 45 mcg/actuation 2 puffs inhalation Q6H PRN 90 days losartan 50 mg PO DAILY magnesium 200 mg PO DAILY mometasone 50 mcg/actuation (Nasonex) 2 sprays intranasal DAILY 90 days montelukast 10 mg PO DAILY 90 days omeprazole 40 mg PO DAILY semaglutide (Ozempic) mg subcut spironolactone 12.5 mg (1/2 x 25 mg) PO DAILY HPI Comments Details: 73 yr old woman with CKD and CHF and HTN Overall she is doing well. She has been monitoring her weight at home and takes additional dose of Bumex if needed. She is compliant with her medications. She has no specific issues today 09/11/24 Feels bloated; Weight fluctuates 12/11/24 Recently had dizzy spell. Seen by cardiology Had CT scan and reportedly had a TIA? Still finding difficulty to find words Denies focal weakness Currently on Bumex 1 mg daily and occasional 2 mg as needed 03/27/25 75-year-old female presenting with chronic kidney disease management. Her renal function demonstrates improvement with a creatinine level of 1.27 mg/dL. Her diabetes mellitus is well-managed, with a stable HbA1c level previously recorded at 6. The patient is on a regimen that includes Bumetanide, Losartan, and Empagliflozin, with no recent adjustments. She reports persistent exertional dyspnea related to her history of congestive heart failure but denies any acute exacerbations. Weight management appears stable, supported by a low-sodium diet. Follow-up evaluations with her narcotics detective and continued medication adherence are part of her ongoing management plan. [facility] Medical History (Updated 12/11/24 @ 12:14 by Daniele Reddy MD) Chronic allergic rhinitis Murmur LINETTE on CPAP Asthma Family History Mother Heart disease Father Heart disease Other Asthma Social History Alcohol intake: never Patient Tobacco Use Status: Never used Tobacco Physical Exam Vital Signs: Last Vital Signs Pulse 80 03/27/25 11:32 BP 108/68 03/27/25 11:32 Pulse Ox 94 03/27/25 11:32 Oxygen Delivery Method Room Air 03/27/25 11:32 BMI result Body Mass Index 35.3 Const General: comfortable; No acute distress Orientation/consciousness: patient oriented x3 Eyes General: appearance normal, both eyes and all related structures Visual Stringer: normal visual stringer by confrontation Neck Neck: Yes supple and Yes no JVD Resp Effort & Inspection: normal respiratory effort and respiratory effort not decreased Auscultation: rhonchi Cardio Palpation: no palpable S3 and no palpable S4 Heart sounds: no rubs GI Inspection: Yes normal to inspection Palpation (GI): Soft to palpation Percussion: Yes normal to percussion Auscultation: normal bowel sounds General: Yes no CVA tenderness Back/Spine/Pelvis Back: no CVA tenderness Skin General skin exam: no petechiae and no purpura Neuro General: patient oriented x3 and no focal motor deficits Extrem General: No clubbing and Yes edema Results Reviewed Results Reviewed: 03/23/25 Cr 1.27 Nephrology Results: No Data to Display Assessment & Plan Assessment & Plan (1) CKD (chronic kidney disease): Code(s): N18.9 - Chronic kidney disease, unspecified Category: Medical (2) LINETTE on CPAP: Code(s): G47.33 - Obstructive sleep apnea (adult) (pediatric); Z99.89 - Dependence on other enabling machines and devices Category: Medical (3) HTN (hypertension): Code(s): I10 - Essential (primary) hypertension Category: Medical (4) TIA (transient ischemic attack): Code(s): G45.9 - Transient cerebral ischemic attack, unspecified Category: Medical Plan 75-year-old woman with CKD in a setting of congestive heart failure. Renal function is stable at this time. Baseline creatinine is around 1.3 mg/dL Goal is to slow the progression of renal disease. Agree with SGLT2 inhibitors for renal protection Continue with current diuretic regimen. follow up with cardiology Last ECHO few weeks ago- Continue to stay on low-sodium diet. Avoid nephrotoxic agents including NSAIDs. All questions were answered. Orders: Orders Basic Metabolic Panel 4 Months N18.9 - Chronic kidney disease, unspecified Complete Blood Count no Diff 4 Months N18.9 - Chronic kidney disease, unspecified Coding Level of Care Code Est Pt Level 4 (16658) Diagnoses CKD (chronic kidney disease) N18.9 LINETTE on CPAP G47.33; Z99.89 HTN (hypertension) I10 TIA (transient ischemic attack) G45.9
[2025-03-27 11:32] VITALS: BP 108/68; PULSE 80; O2SAT 94; BMI 35.3
--- OUTSIDE RECORDS SUMMARY | 2025-03-27 13:05 | XMS_ITS | Patient Health Record ---
Author Organization [facility] Address [address] [place] [address] Care Team Providers Care Stna Name Role Phone Az Hickman Primary Care Provider [phone] Frank Chowdary Unavailable [phone] Ashlee Miller Unavailable [phone] Mercedez Casas Unavailable [phone] Allergies Allergen (clinical drug ingredient) Drug/Non Drug [...] Right carpal tunnel syndrome (G56.01) Referral Organization [facility] Referring Provider First Name Az Referring Provider Last Name Lai Referring Provider Speciality Orthopedic Surgery Referred Organization [facility] Referred Address [address] [place] [id number], Referred Provider Specialty Orthopedic S urgery Procedure 1 CARPAL TUNNEL SURGER Y (06270) General Notes Mercedez Smyth 05/31/2024 11:45:13 AM [...] Problem Localized, primary osteoarthritis of the hand (177299645) Primary osteoarthritis, 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 Problem [id number] Right carpal tunnel syndrome (G56.01) Active confirmed Problem 102233244 Hand arthritis (M19.049) Active confirmed Problem Localized, primary osteoarthritis of the hand (479264450) Arthritis of carpometacarpal (CMC) joint of left thumb (M18.12) Active confirmed Vital Signs Height-cm 152.40 cm 09/18/2024 0 Weight-kg 84.37 kg 09/18/2024 0 Height 60.00 in 09/18/2024 0 Weight 186 lbs 09/18/2024 0 BMI 36.32 kg/m2 09/18/2024 0 Procedures Procedure Date Ordered Date Performed Result Body Sit e Y1034-icyuz 06/05/2024 06/05/2024 N/A Encounters Encounter Location Date Provider Diagnosis [address] [place] [address] 04/27/2024 Frank Chowdary Right carpal tunnel syndrome G56.01 and Arthritis of carpometacarpal (CMC) joint of left thumb M18.[address] [place] [address] 06/05/2024 Mercedez Casas Right carpal tunnel syndrome G56.[address] [place] [address] 06/23/2024 Ashlee Miller Right carpal tunnel syndrome G56.[address] [place] [address] 07/24/2024 Az Hickman Right carpal tunnel syndrome G56.[address] [place] [address] 09/18/2024 Az Hickman Unilateral primary osteoarthritis of first carpometacarpal joint, left hand M18.12 and Tenosynovitis M65.[address] [place] [address] 05/23/2024 Az Hickman [address] [place] [address] 09/18/2024 Az Hickman Assessments Encounter Date Diagnosis (ICD Code) Assessment Notes Treatment Notes Treatment Clinical Notes Section Notes 04/27/2024 Right carpal tunnel syndrome (ICD-10 - [...] therapy with Mini Miller OT CHT in [facility] as that is where she lives [...] Date [place]- [place] ) [address] [place] [address] [phone] [id number] MILAGROS COLLINS Self - patient is the insured [place] t) [address] [place], [place] [phone] [id number] MILAGROS COLLINS Self - patient is the insured SWETA Childers [address] [place] [address] [id number] AARONCHARITOGEMINIMILAGROS Self - patient is the insured Medications Administered Medication Instructions Date of Administration Dosage Notes Sarbjitalog-40 01/24/2024 1 mL Medical (General) History Medical [...]
--- OUTSIDE RECORDS SUMMARY | 2025-03-27 13:05 | XMS_ITS | Encounter Summary ---
Author Organization [facility] Address [address] [place] [address] Phone Care Team Providers Care Superintendent General Name Role Phone Angela Ellington Primary Care Provider [phone] Encounter Details Date Type Department Care Team (Late st Contact Info) Description 09/24/2022 Telephone [facility] [address] [place] [address] Daniele Reddy MD Social History [...] for guidance. Please call her back at [phone] Thank you documented in this encounter Plan [...] 8:58 AM EST) Glucose 134(H) (70-99) MG/DL [facility] BUN 27(H) (8-23) MG/DL [facility] Creatinine 1.3(H) (0.5-1.0) MG/DL [facility] Sodium 141 (133-145) MMOL/L [facility] Potassium 4.7 (3.6-5.2) MMOL/L [facility] Chloride 105 (98-107) MMOL/L [facility] Bicarbonate (CO2) 30(H) (22-29) MMOL/L [facility] Anion Gap 6 (4-17) [facility] Calcium 10.7(H) (8.6-10.5) MG/DL [facility] Est GFR Non 43 ML/MIN/1.7 3 M2 [facility] Comment: Creatinine based estimated glomerular filtration (eGFR) in adults is calculated using the National Kidney Foundation recommended 2020 CKD-EPI equation. Estimates GFR from serum creatinine, age and sex. Testing performed or reported by [facility], a Service of [facility], [address] [place] [address] Noah Orta MD, Store Group Manager [facility]# [id number] 11/25/2022 8:58 AM EST 11/25/2022 8:59 AM EST us Daniele Reddy MD LAB BLOOD ORDERABLES Final Res ult [facility] * (ABNORMAL) CBC and Differential (11/25/2022 8:58 AM EST) White Blood Cells 10.0 (4.0-11.0) K/MM3 [facility] RBC 4.44 (4.20-5.40 ) M/MM3 [facility] Hgb 12.0 (11.7-15.5 ) GM/DL [facility] Hematocrit 40.0 (35.7-45.8 ) % [facility] MCV 90.1 (80.0-100. 0) FL [facility] MCH 27.0 (27.0-34.0 ) PG [facility] MCHC 30.0(L) (33.0-37.0 ) g/dL [facility] Platelets 328 (150-460) K/MM3 [facility] RDW-SD 49.2(H) (<47.0) FL [facility] MPV 9.3(L) (9.4-12.4) FL [facility] nRBC Count 0.0 #/100 WBC'S [facility] NRBC Absolute 0.0 K/MM3 [facility] Neutrophils Abs Auto 6.6 (1.3-7.0) K/MM3 [facility] Lymphocytes Relative 2.2 (0.8-3.1) K/MM3 [facility] Monocytes 0.8 (0.4-0.9) K/MM3 [facility] Eosinophils Relative 0.3 (0.0-0.4) K/MM3 [facility] Basophil ABS 0.1 (0.0-0.1) K/MM3 [facility] Granulocytes Absolute 0.1 K/MM3 [facility] Neutrophils % Auto 65.5 (44-76) % [facility] Lymphs 21.8 (15-43) % [facility] Monocytes Absolute 8.3 (4.5-10.5) % [facility] Eosinophils 3.3 (0-6) % [facility] Basophils Relative 0.6 (0-2) % [facility] Immature Granulocytes 0.5 % [facility] Comment: Testing performed or reported by [facility], a Service of [facility], [address] [place] [address] Noah Orta MD, Store Group Manager [facility]# [id number] 11/25/2022 8:58 AM EST 11/25/2022 8:59 AM EST us Daniele Reddy MD LAB BLOOD ORDERABLES Final Res ult [facility] * Protein, Total, Random Urine w/Creatinine (Protein/Creat Ratio) (11/25/2022 8:55 AM EST) Protein/Creatin e Ratio 0.16 (0-0.2) [facility] Protein, Urine 5 MG/DL [facility] Creatinine, Urine 32.2 MG/DL [facility] Comment: Testing performed or reported by [facility], a Service of [facility], [address] [place] [address] Noah Orta MD, Store Group Manager [facility]# [id number] 11/25/2022 8:55 AM EST 11/25/2022 8:58 AM EST Daniele Reddy MD LAB URINE ORDERABLES Final Res ult Performing Organization Address City/[facility] Co de Phone Number [facility] documented in this encounter Visit Diagnoses Not on filedocumented in this encounter Care Teams Superintendent General Relationship Specialty Start Date End Date Angela Ellington PA [address] PCP - General Physician Handkerchief Sample Clerk 12/02/22 documented as of this encounter
--- OUTSIDE RECORDS SUMMARY | 2025-03-27 13:05 | XMS_ITS ---
Author Organization [facility] Address [address] [place] [address] Care Team Providers Care Endoscopic Technician Name Role Phone Az Hickman Primary Care Provider [phone] Encounters Encounter Location Date Provider Diagnosis [place] [address] [place] [address] 09/18/2024 Az Hickman Plan Of Treatment No Information Progress Notes * МАРИЯ COLLINSOB:1950 (74 yo F)Acc No.[id number]:09/18/2024 Patient:?MILAGROS COLLINS :1950???Age:74 Y???Sex:Female Address:[address] [place], [address] * true * Date:? Generated for Printi ng/Faxing/eTransmitting on:?03/27/2025 01:05 PM EDT
--- OUTSIDE RECORDS SUMMARY | 2025-03-27 13:05 | XMS_ITS ---
Author Organization [facility] Address [address] [place] [address] Care Team Providers Care Edge Finisher Name Role Phone Az Hickman Primary Care Provider [phone] Allergies Allergen (clinical drug ingredient) Drug/Non Drug [...] 0 Encounters Encounter Location Date Provider Diagnosis [place] [address] [facility] [place] [address] 09/18/2024 Az Hickman Unilateral primary osteoarthritis of [...] Notes * JAY COLLINSEDOB:1950 (74 yo F)Acc No.[id number]:09/18/2024 Progress note Patient:?MILAGROS COLLINS Provider:?Az Hickman MD :1950???Age:74 Y???Sex:Female D ate:09/18/2024 Address:[address] [place] [address] , [facility] Subjective: * Chief Complaints: * ???1. F/u [...] Examination:? Left upper extremity ?pinch 7 lb ?director of programming 45 lb ?if I stress her CMC joint I could definitely feel some clicking and some irritation hitting her? 2nd?metacarpal region over the trapezoid.? She has some mild pain.? She also has some swelling dorsally over the EPL region and dorsal to the CMC joint.? The MP fusion site is stable without pain. ? Right upper extremity ?pinch 15 lb ?director of programming 40 lb. Assessment: * Assessment: 1.?Unilateral primary [...] (Performed Date - 09/18/2024) * * Procedure Codes:?65410 X-RAY EXAM OF HAND * Preventive Medicine:? ??Screenings:?Fall risk screening?Fall Risk Assessment:?No falls in the past year * Follow Up:?the patient will call for follow-up visit. * Billing Information: * Visit Code:? 44946 Office Visit- Est Pt.- Level 3. * Procedure Codes:? 20690 X-RAY EXAM OF HAND. * Sign off status: Completed true * Provider:?Az Hickman MD Date:?02/2024 Generated for Mary Jo quintanilla/Erum/eTransmitting on:?03/27/2025 01:05 PM EDT History and Physical Notes * HPI [...] s Left upper extremity pinch 7 lb director of programming 45 lb if I stress her CMC joint I could definitely feel some clicking and some irritation hitting her 2nd metacarpal region over the trapezoid. She has some mild pain. She also has some swelling dorsally over the EPL region and dorsal to the CMC joint. The MP fusion site is stable without pain. Right upper extremity pinch 15 lb director of programming 40 lb Examination Category Sub-Category Detail Notes [...]
--- OUTSIDE RECORDS SUMMARY | 2025-03-27 13:06 | XMS_ITS ---
Author Organization [facility] Address [facility] [place] [address] Care Team Providers Care Roll Icer Machine Name Role Phone Az Hickman Primary Care Provider [phone] Allergies Allergen (clinical drug ingredient) Drug/Non Drug [...] - right carpal tunnel release - 06/14 [facility] - Medications Medication SIG (Take, Route, [...] 07/24/2024 Encounters Encounter Location Date Provider Diagnosis [facility] [place] [address] 07/24/2024 Az Hickman Right carpal tunnel syndrome G56.01 Assessments Encounter Date Diagnosis (ICD Code) Assessment Notes Treatment Notes Treatment Clinical Notes Section Notes 07/24/2024 Right carpal tunnel syndrome (ICD-10 - G56.01) I am going to get her into some therapy with Mini Miller OT CHT in [facility] as that is where she lives she will call me if she is not getting better over the next month or so but otherwise no restrictions I told her should get better over time Plan Of Treatment Next Appt Details Follow Up: prn, Reason: Progress Notes * KARINA GEMINISUSYOB:1950 (74 yo F)Acc No.[id number]:07/24/2024 Patient:?AARONCHARITOGEMINIMILAGROS Provider:?Az Hickman MD :1950???Age:74 Y???Sex:Female D ate:07/24/2024 Address:[address] [place] [address] , [facility] Structured Data:Is today's v isit work related? : No Subjective: * Chief Complaints: * ???6w p/op - dcw - right car pal tunnel release - 06/14 [facility] * HPI: ???HPI:?74 y/o female [...] Taking Losartan Potassium 50 MG Tablet Oral Tad-GpadwnHPHUNpxwimd-Nedlrbzbideac 5-325 MG Tablet 1 tablet as needed [...] ? 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 ? Left upper extremity ?pinch 10 lb ?life science technician 40 lb. Assessment: * Assessment: 1.?Right carpal tunnel syndr ome - G56.01 (Primary)?I am going to get her into some therapy with Mini Miller , OT CHT? in [facility] as that is where she lives she will call me if she is not getting better over the next month or so but otherwise no restrictions I told her should get? better over time Plan: * Treatment: * Procedure Codes:? * Follow Up:?prn * Billing Information: * Visit Code:? 89707 Postop visit. * Procedure Codes:? 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 Left upper extremity pinch 10 lb life science technician 40 lb
--- OUTSIDE RECORDS SUMMARY | 2025-03-27 13:06 | XMS_ITS ---
Author Organization [facility] Address [address] [place] [address] Care Team Providers Care Char Puller Name Role Phone Roxanne Ellington PA-C Primary Care Provider Unav ailable Kwesi Cruz Unavailable [phone] REASON FOR VISIT rs from 01/18/25 Encounters Encounter Location Date Provider Diagnosis [facility] [address] [place] [address] 01/18/2025 Kwesi Cruz Plan Of Treatment Next Appt Details Provider Name:Kwesi Cruz , 03/29/2025 03:00:00 PM, [address] [facility], [place] [address], [place], [address], Progress Notes * Lorena ROMEROeDOB:1950 (74 yo F)Acc No.[id number]:01/18/2025 Patient:?Barbara ROMERO :1950???Age:74 Y???Sex:Female Address:[address] [place] [address], [address] * true * Date:? Generated for Printi socorro/Erum/eTransmitting on:?03/27/2025 01:06 PM EDT
--- OUTSIDE RECORDS SUMMARY | 2025-03-27 13:06 | XMS_ITS ---
Author Organization [facility] Address [address] [place] [address] Care Team Providers Care Setter Up Name Role Phone Chandana AVINA, Roxanne Primary Care Provider Unav ailable Kwesi Cruz Unavailable [phone] Encounters Encounter Location Date Provider Diagnosis [facility] [address] [place] [address] 01/18/2025 Kwesi Cruz Plan Of Treatment Next Appt Details Provider Name:Kwesi Cruz , 03/29/2025 03:00:00 PM, [address] [address], [place], [address], Progress Notes * Lorena ROMEROTinaOB:1950 (75 yo F)Acc No.[id number]:01/18/2025 Progress Note Patient:?Barbara ROMERO Provider:?Kwesi Cruz DPM :1950???Age:74 Y???Sex:Female D ate:01/18/2025 Address:[address] [place], [place] [address] Pcp:Roxanne Ellington PA-C Subjective: * Chief Complaints: [...] DPM Date:?2024 Generated for Mary Jo quintanilla/Erum/Haley on:?03/27/2025 01:05 PM EDT
--- OUTSIDE RECORDS SUMMARY | 2025-03-27 13:06 | XMS_ITS | Clinical Summary ---
Author Organization [facility] Address [address] [facility] [address] [place] [address] Phone Care Team Providers Care Aquarist Name Role Phone Angela Ellington Primary Care Provider Allergies Active Allergy Reactions Criticality Noted Date Comments Vkng Inhibitors Other (see comments) 11/15/2011 Honey Bee [...] Hypomagnesemia 06/16/2019 Hypertensive renal disease 06/28/2017 Immunizations Immunization Administration Dates Next Due Influenza (IM) Preservative [...] Diabetes: Visual Foot Exam 01/29/2021 Influenza Vaccine (Season Ended) 2025 09/14/2022, 09/03/2022, 08/07/2021, Additional history exists Pneumococcal Vaccine: 50+ Years Completed 10/15/2020, 06/17/2018, 02/19/2017, Additional history exists Pneumococcal Vaccine: Peds (0 to 5 Years) and At-Risk Patients (6 to 49 Years) Discontinued 10/15/2020, 06/17/2018, 02/19/2017, Additional history exists Hepatitis B Vaccine Aged Out No longe r eligible based on patient's age to complete this topic Insurance [facility] Medicare [facility] Medicare Care Teams Aquarist Relationship Specialty Start Date End Date Angela Ellington PA [address] [facility] [address] [place], [place] PCP - General Physician Merchandise Marker 12/02/22
--- OUTSIDE RECORDS SUMMARY | 2025-03-27 13:06 | XMS_ITS | Clinical Summary ---
Author Organization [facility] Address [address] [place] [address] Care Team Providers Care Athletic Instructor Name Role Phone Unavailable Primary Care Provider [...]
--- OUTSIDE RECORDS SUMMARY | 2025-03-27 13:06 | XMS_ITS | Patient Health Record ---
Author Organization [facility] Address [address] [place] [address] Care Team Providers Care Book Sewing Machine Operator Name Role Phone Roxanne Ellington PA-C Primary Care Provider Kwesi Crump Unavailable [phone] Allergies Allergen (clinical drug ingredient) Drug/Non Drug [...] Problem Acquired hammer toe of right foot (5000214924676086 ) Other hammer toe(s) (acquired), right foot (M20.41) Active confirmed Response to treatment, Improvemen t Problem Acquired hammer toe of left foot (5150489650796033 ) Other hammer toe(s) (acquired), left foot (M20.42) Active confirmed Response to treatment, Improvemen t Problem Polyneuropathy due to type 2 diabetes mellitus (287323791) Type 2 diabetes mellitus with diabetic polyneuropathy (E11.42) Active confirmed Vital Signs Blood pressure diastolic 84 mm Hg 10/19/2024 Height 5ft in 10/19/2024 Blood pressure systolic 120 mm Hg 10/19/2024 Weight 185 lbs 10/19/2024 BMI 36.13 kg/m2 10/19/2024 Procedures Procedure Date Ordered Date Performed Result Body Sit e 10110-PXBNNZB NAIL, 6 OR MORE 04/17/2024 N/A 29379-JTBP SKIN LESIONS, OVER 4 04/17/2024 N/A 01852-SXKKPRY NAIL, 6 OR MORE 07/19/2024 N/A 09203-XRAS SKIN LESIONS, OVER 4 07/19/2024 N/A 85282-MPOODJO NAIL, 6 OR MORE 10/19/2024 N/A 71259-HOLM SKIN LESIONS, OVER 4 10/19/2024 N/A Encounters Encounter Location Date Provider Diagnosis [address] [address] 04/17/2024 Kwesi Cruz Type 2 diabetes mellitus with diabetic polyneuropathy E11.42 ; Tinea unguium B35.1 ; Other hammer toe(s) (acquired), right foot M20.41 and Other hammer toe(s) (acquired), left foot M20.[address] [address] 07/19/2024 Kwesi Cruz Type 2 diabetes mellitus with diabetic polyneuropathy E11.42 ; Tinea unguium B35.1 and Xerosis of skin L85.[address] [address] 10/19/2024 Kwesi Cruz Type 2 diabetes mellitus with diabetic polyneuropathy E11.42 ; Tinea unguium B35.1 and Xerosis of skin L85.[address] [address] 07/24/2024 Kwesi Cruz Xerosis of skin L85. [address] [address] 01/18/2025 Kwesi Cruz [address] [address] 03/13/2025 Kwesi Cruz Assessments Encounter Date Diagnosis (ICD [...] Treatment Pending Test Test Name Order Date 00998-ICAWKEG NAIL, 6 OR MORE 10/17/2020 89789-POOMBNU NAIL, 6 OR MORE 02/10/2021 12002-QWHNRTI NAIL, 6 OR MORE 05/12/2021 53592-HITQDFZ NAIL, 6 OR MORE 08/11/2021 01233-JXXCJOL NAIL, 6 OR MORE 11/17/2021 32418-WNPEOHM NAIL, 6 OR MORE 02/16/2022 57911-JXZBDYH NAIL, 6 OR MORE 05/20/2022 59660-WRYQEPH NAIL, 6 OR MORE 08/19/2022 73427-DLDAFKD NAIL, 6 OR MORE 11/18/2022 77050-DLWRREL NAIL, 6 OR MORE 02/17/2023 18258-XQMOMQO NAIL, 6 OR MORE 01/17/2024 64297-GFZJOSF NAIL, 6 OR MORE 04/17/2024 93413-SRJEQYO NAIL, 6 OR MORE 07/19/2024 71565-DDYUHME NAIL, 6 OR MORE 10/19/2024 80354-Hfyoqjpl Plate 08/19/2022 93684-Ekvgtztb Plate 01/17/2024 55788-DVLR SKIN LESIONS, OVER 4 03/04/20 24 09234-FKEQ SKIN LESIONS, OVER 4 04/17/20 24 47788-CEVC SKIN LESIONS, OVER 4 02/18/20 23 29948-UITG SKIN LESIONS, OVER 4 11/18/19 23 48140-ABGD SKIN LESIONS, OVER 4 10/19/20 24 08951-HMJA SKIN LESIONS, OVER 4 07/19/20 24 48784-EYAB SKIN LESIONS, OVER 4 08/19/20 88507-BYZH SKIN LESIONS, OVER 4 05/20/20 22 24486-XOYO SKIN LESIONS, OVER 4 02/17/20 22 34499-TDJT SKIN LESIONS, OVER 4 11/17/19 40414-TVRN SKIN LESIONS, OVER 4 08/11/20 21 72658-PMFG SKIN LESIONS, OVER 4 05/12/20 21 89551-QABO SKIN LESIONS, OVER 4 02/11/20 21 12313-JCBE SKIN LESIONS, OVER 4 10/17/20 Next Appt Details Provider Name:Kwesi Cruz , 03/29/2025 03:00:00 PM, [facility], [facility] [address], [place], [address], Insurance Providers Payer Name Payer Address Payer Phone Subscriber Number Group Number Insured Name Patient Relationship to Insured Coverage Start Date Coverage End Date Medicare National [employer] [address] [place] [address] [id number] Barbara Romero Self - patient is the insured [employer] [address] [place] [address] [id number] Barbara Romero Self - patient is the [...]
--- OUTSIDE RECORDS SUMMARY | 2025-03-27 13:07 | XMS_ITS ---
Author Organization [facility] Address [address] [place] [address] Care Team Providers Care Size Stamper Name Role Phone Roxanne Ellington PA-C Primary Care Provider Unav ailKwesi Shah Unavailable [phone] REASON FOR VISIT r/s Encounters Encounter Location Date Provider Diagnosis [facility] [address] [place] [address] 03/13/2025 Kwesi Cruz Plan Of Treatment Next Appt Details Provider Name:Kwesi Cruz , 03/29/2025 03:00:00 PM, [address] [facility], [place] [address], [place], [address], Progress Notes * Lorena ROMEROeDOB:1950 (75 yo F)Acc No.[id number]:03/13/2025 Patient:?Barbara ROMERO :1950???Age:75 Y???Sex:Female Address:[address] [place] [address], [address] * true * Date:? Generated for Printi ng/Famellyg/eTransmitting on:?03/27/2025 01:06 PM EDT
--- OUTSIDE RECORDS SUMMARY | 2025-03-27 13:07 | XMS_ITS | Data Portability ---
Author Organization [facility], Main Office Address [address] [facility] [address] [place] [address] Care Team Providers Care Emergency Dept Tech Name Role Phone AZALIA RIVERA Manager Medical GLORY MELTON Orthopedic Surgeon [phone] JOHN HAYWARD Business Services Associate SUSI LAND Neurosurgeon STANLEY DE LA GARZA Innovation Analyst KEVIN DARDEN Primary Care Provider CHRISTIAN HOLT Orthopedic Surgeon [phone] Assessment Encounter Date Assessment Date Assessment LastModified by Organization Details LastModified Time 02/07/2024 02/07/2024 This service was provided using telemedicine. Patient consented to video & audio visit Patient was located in the [facility]. Provider was located in the office. No other persons participated in the telemedicine visit except for the patient unless otherwise indicated here. {{}} Total time of visit was 24 minutes. Not available 02/07/2024 09:11:25 02/15/2024 02/15/2024 This service was provided using telemedicine. Patient consented to video & audio visit Patient was located in the [facility]. Provider was located in the office. No other persons participated in the telemedicine visit except for the patient unless otherwise indicated here. {{}} Total time of visit was 7 minutes. [email or web address] Not available 02/15/2024 13:34:51 Plan of Treatment Reminders Order Date Submit Date Provider Last Modified By Organization Details Last Modified Time Details Appointments Follow Up DM 30 2024 10:00A M Kevin Darden PA-C Not available Not available Not available Lab hemoglobi n A1C, fingersti ck 2024 025 In-Office Order, Internal Use Only DO Not Attach Compendium DO Not Attach Compendium, Do Not Delete/merge, [id number] 01/24/2025 10:25:21 TSH, ultra-sen sitive, serum 2024 025 ANA [facility] (Centralized Electronic Ordering - All Locations), Patient Can Go To The Location Of Their Choice, [id number] 03/24/2025 08:11:52 hemoglobi n A1C, fingersti ck 2023 024 In-Office Order, Internal Use Only DO Not Attach Compendium DO Not Attach Compendium, Do Not Delete/merge, 10/18/2024 11:52:35 magnesium , serum or plasma 2023 024 ANA [facility] (Centralized Electronic Ordering - All Locations), Patient Can Go To The Location Of Their Choice, 08/17/2024 20:06:47 lipid panel, serum 2023 024 ANA [facility] (Centralized Electronic Ordering - All Locations), Patient Can Go To The Location Of Their Choice, 08/17/2024 20:06:45 HbA1c (hemoglob in A1c), blood 2023 024 ANA [facility] (Centralized Electronic Ordering - All Locations), Patient Can Go To The Location Of Their Choice, 08/17/2024 20:06:46 CMP, serum or plasma 2023 024 ANA [facility] (Centralized Electronic Ordering - All Locations), Patient Can Go To The Location Of Their Choice, 08/17/2024 20:06:44 albumin/c reatinine , mass ratio, urine 2023 024 ANA [facility] (Centralized Electronic Ordering - All Locations), Patient Can Go To The Location Of Their Choice, 08/17/2024 20:06:45 CBC w/ auto diff 2023 024 ANA [facility] (Centralized Electronic Ordering - All Locations), Patient Can Go To The Location Of Their Choice, [id number] 08/17/2024 20:06:42 Referral None recorded. Procedures None recorded. Surgeries None recorded. Imaging US, duplex, carotid artery - TIA. 2024 025 [email or web address] [facility] (Ultrasound), [address] [place], [address], 02/13/2025 13:41:34 MAMMO, screening , bilateral 2023 024 [email or web address] [facility] (Ultrasound), [address] [place], [address], 08/30/2024 09:16:28 Medication Orders clobetaso l 0.05 % topical cream 2024 025 [facility], [facility], [place], [address], 01/24/2025 10:25:42 doxycycli ne hyclate 100 mg tablet 2023 024 [facility][id number], [address] [facility], [place], [address], 08/15/2024 14:39:51 Patient TargetsNo targets recorded. Patient Instructions Encounter Date Encounter Id Patient Instructions Last Modified By Organization Details Last Modified Time 02/07/2024 [id number] depression treatment: care instructions Not available 02/07/2024 09:11:54 02/15/2024 [id number] Acute Sinusitis: Care Instructions pmadden Not available 02/15/2024 13:33:06 saline nasal washes: care instructions pmadden Not available 02/15/2024 13:33:07 eustachian tube problems: care instructions pmadden Not available 02/15/2024 13:33:06 Follow up if no improvement or if symptoms worsen. pmadden Not available 02/15/2024 13:25:44 08/15/2024 [id number] advance care planning: care instructions Not available [...] cancer screening Not available 08/15/2024 15:58:54 10/18/2024 [id number] Medications (OTC , herbal therapies, supplements) reviewed and reconciled with patient and or caregiver, including potential side effects, drug interactions, instructions, and the consequences of not taking medication. Reviewed potential barriers to medication adherence, such as side effects from medication or cost of medication. [email or web address] Not available 10/18/2024 09:00:47 01/24/2025 [id number] transient ischem ic attack: care instructions Not [...] .8 above high normal Not Available [facility] ([facility]) [address] [facility], [place], [address], 08/17/2024 20:06:42 08/16/20 24 08/16/2024 CBC WITH DIFFE RENTI AL/PL ATELE T RBC 4.73 x10e6 /uL 3.77-5 .28 normal Not Available [facility] ([facility]) [address] [place], [address], 08/17/2024 20:06:42 08/16/20 24 08/16/2024 CBC WITH DIFFE RENTI AL/PL ATELE T hemoglobin 13.0 g/dL 11.1-1 5.9 normal Not Available [facility] ([facility]) [address] [place], [address], 08/17/2024 20:06:42 08/16/20 24 08/16/2024 CBC WITH DIFFE RENTI AL/PL ATELE T hematocrit 41.3 % 34.0-4 6.6 normal Not Available [facility] ([facility]) [address] [place], [address], 08/17/2024 20:06:42 08/16/20 24 08/16/2024 CBC WITH DIFFE RENTI AL/PL ATELE T MCV 87 fL 79-97 normal Not Available [facility] ([facility]) [address] [place], [address], 08/17/2024 20:06:42 08/16/20 24 08/16/2024 CBC WITH DIFFE RENTI AL/PL ATELE T MCH 27.5 pg 26.6-3 3.0 normal Not Available [facility] ([facility]) [address] [place], [address], 08/17/2024 20:06:42 08/16/20 24 08/16/2024 CBC WITH DIFFE RENTI AL/PL ATELE T MCHC 31.5 g/dL 31.5-3 5.7 normal Not Available [facility] ([facility]) [address] [place], [address], 08/17/2024 20:06:42 08/16/20 24 08/16/2024 CBC WITH DIFFE RENTI AL/PL ATELE T RDW 14.4 % 11.7-1 5.4 Not Available [facility] ([facility]) [address] [facility], [place], [address], 08/17/2024 20:06:42 08/16/20 24 08/16/2024 CBC WITH DIFFE RENTI AL/PL ATELE T platelets 376 x10e3 /uL 150-45 0 normal Not Available [facility] ([facility]) [address] [facility], [place], [address], 08/17/2024 20:06:42 08/16/20 24 08/16/2024 CBC WITH DIFFE RENTI AL/PL ATELE T neutrophils 66 % not estab. normal Not Available [facility] ([facility]) [address] [facility], [place], [address], 08/17/2024 20:06:42 08/16/20 24 08/16/2024 CBC WITH DIFFE RENTI AL/PL ATELE T lymphs 19 % not estab. normal Not Available [facility] ([facility]) [address] [facility], [place], [address], 08/17/2024 20:06:42 08/16/20 24 08/16/2024 CBC WITH DIFFE RENTI AL/PL ATELE T monocytes 10 % not estab. normal Not Available [facility] ([facility]) [address] [facility], [place], [address], 08/17/2024 20:06:42 08/16/20 24 08/16/2024 CBC WITH DIFFE RENTI AL/PL ATELE T eos 3 % not estab. normal Not Available [facility] ([facility]) [address] [facility], [place], [address], 08/17/2024 20:06:42 08/16/20 24 08/16/2024 CBC WITH DIFFE RENTI AL/PL ATELE T basos 1 % not estab. normal Not Available [facility] ([facility]) [address] [facility], [place], [address], 08/17/2024 20:06:42 08/16/20 24 08/16/2024 CBC WITH DIFFE RENTI AL/PL ATELE T immature cells MACHINE TOOL TECHNOLOGY INSTRUCTOR Not Available [facility] ([facility]) [address] [facility], [place], [address], 08/17/2024 20:06:42 08/16/20 24 08/16/2024 CBC WITH DIFFE RENTI AL/PL ATELE T neutrophils (absolute) 8.1 x10e3 /uL 1.4-7. 0 above high normal Not Available [facility] ([facility]) [address] [facility], [place], [address], 08/17/2024 20:06:42 08/16/20 24 08/16/2024 CBC WITH DIFFE RENTI AL/PL ATELE T lymphs (absolute) 2.3 x10e3 /uL 0.7-3. 1 normal Not Available [facility] ([facility]) [address] [facility], [place], [address], 08/17/2024 20:06:42 08/16/20 24 08/16/2024 CBC WITH DIFFE RENTI AL/PL ATELE T monocytes(ab solute) 1.2 x10e3 /uL 0.1-0. 9 above high normal Not Available [facility] ([facility]) [address] [place], [address], 08/17/2024 20:06:42 08/16/20 24 08/16/2024 CBC WITH DIFFE RENTI AL/PL ATELE T eos (absolute) 0.3 x10e3 /uL 0.0-0. 4 normal Not Available [facility] ([facility]) [address] [place], [address], 08/17/2024 20:06:42 08/16/20 24 08/16/2024 CBC WITH DIFFE RENTI AL/PL ATELE T baso (absolute) 0.1 x10e3 /uL 0.0-0. 2 normal Not Available [facility] ([facility]) [address] [facility], [place], [address], 08/17/2024 20:06:42 08/16/20 24 08/16/2024 CBC WITH DIFFE RENTI AL/PL ATELE T immature granulocytes 1 % not estab. Not Available [facility] ([facility]) [address] [facility], [place], [address], 08/17/2024 20:06:42 08/16/20 24 08/16/2024 CBC WITH DIFFE RENTI AL/PL ATELE T immature grans (abs) 0.1 x10e3 /uL 0.0-0. 1 Not Available [facility] ([facility]) [address] [facility], [place], [address], 08/17/2024 20:06:42 08/16/20 24 08/16/2024 CBC WITH DIFFE RENTI AL/PL ATELE T NRBC MACHINE TOOL TECHNOLOGY INSTRUCTOR Not Available [facility] ([facility]) [address] [facility], [place], [address], 08/17/2024 20:06:42 08/16/20 24 08/16/2024 CBC WITH DIFFE RENTI AL/PL ATELE T hematology comments: MACHINE TOOL TECHNOLOGY INSTRUCTOR Not Available [facility] ([facility]) [address] [facility], [place], [address], 08/17/2024 20:06:42 08/16/20 24 08/16/2024 COMP. METAB OLIC PANEL (14) glucose 127 mg/dL 70-99 above high normal Not Available [facility] ([facility]) [address] [facility], [place], [address], 08/17/2024 20:06:44 08/16/20 24 08/16/2024 COMP. METAB OLIC PANEL (14) BUN 30 mg/dL 8-27 above high normal Not Available [facility] ([facility]) [address] [place], [address], 08/17/2024 20:06:44 08/16/20 24 08/16/2024 COMP. METAB OLIC PANEL (14) creatinine 1.50 mg/dL 0.57-1 .00 above high normal Not Available [facility] ([facility]) [address] [place], [address], 08/17/2024 20:06:44 08/16/20 24 08/16/2024 COMP. METAB OLIC PANEL (14) eGFR 37 mL/mi n/1.7 3 >59 below low normal Not Available [facility] ([facility]) [address] [place], [address], 08/17/2024 20:06:44 08/16/20 24 08/16/2024 COMP. METAB OLIC PANEL (14) BUN/creatini ne ratio 20 12-28 normal Not Available [facility] ([facility]) [address] [facility] [place], [address], 08/17/2024 20:06:44 08/16/20 24 08/16/2024 COMP. METAB OLIC PANEL (14) sodium 139 mmol/ L 134-14 4 normal Not Available [facility] ([facility]) [address] [facility] [place], [address], 08/17/2024 20:06:44 08/16/20 24 08/16/2024 COMP. METAB OLIC PANEL (14) potassium 4.5 mmol/ L 3.5-5. 2 normal Not Available [facility] ([facility]) [address] [facility] [place], [address], 08/17/2024 20:06:44 08/16/20 24 08/16/2024 COMP. METAB OLIC PANEL (14) chloride 102 mmol/ L 96-106 normal Not Available [facility] ([facility]) [address] [facility] [place], [address], 08/17/2024 20:06:44 08/16/20 24 08/16/2024 COMP. METAB OLIC PANEL (14) carbon dioxide, total 22 mmol/ L 20-29 normal Not Available [facility] ([facility]) [address] [facility] [place], [address], 08/17/2024 20:06:44 08/16/20 24 08/16/2024 COMP. METAB OLIC PANEL (14) calcium 10.1 mg/dL 8.7-10 .3 normal Not Available [facility] ([facility]) [address] [place], [address], 08/17/2024 20:06:44 08/16/20 24 08/16/2024 COMP. METAB OLIC PANEL (14) protein, total 6.6 g/dL 6.0-8. 5 normal Not Available [facility] ([facility]) [address] [facility] [place], [address], 08/17/2024 20:06:44 08/16/20 24 08/16/2024 COMP. METAB OLIC PANEL (14) albumin 4.1 g/dL 3.8-4. 8 normal Not Available [facility] ([facility]) [address] [facility] [place], [address], 08/17/2024 20:06:44 08/16/20 24 08/16/2024 COMP. METAB OLIC PANEL (14) globulin, total 2.5 g/dL 1.5-4. 5 Not Available [facility] ([facility]) [address] [facility] [place], [address], 08/17/2024 20:06:44 08/16/20 24 08/16/2024 COMP. METAB OLIC PANEL (14) bilirubin, total 0.3 mg/dL 0.0-1. 2 normal Not Available [facility] ([facility]) [address] [facility] [place], [address], 08/17/2024 20:06:44 08/16/20 24 08/16/2024 COMP. METAB OLIC PANEL (14) alkaline phosphatase 159 IU/L 44-121 above high normal Not Available [facility] ([facility]) [address] [place], [address], 08/17/2024 20:06:44 08/16/20 24 08/16/2024 COMP. METAB OLIC PANEL (14) AST (SGOT) 15 IU/L 0-40 normal Not Available [facility] ([facility]) [address] [place], [address], 08/17/2024 20:06:44 08/16/20 24 08/16/2024 COMP. METAB OLIC PANEL (14) ALT (SGPT) 13 IU/L 0-32 normal Not Available [facility] ([facility]) [address] [place], [address], 08/17/2024 20:06:44 08/16/20 24 08/16/2024 LIPID PANEL cholesterol, total 153 mg/dL 100-19 9 normal Not Available [facility] ([facility]) [address] [place], [address], 08/17/2024 20:06:45 08/16/20 24 08/16/2024 LIPID PANEL triglyceride s 76 mg/dL 0-149 normal Not Available [facility] ([facility]) [address] [place], [address], 08/17/2024 20:06:45 08/16/20 24 08/16/2024 LIPID PANEL HDL cholesterol 56 mg/dL >39 normal Not Available [facility] ([facility]) [address] [place], [address], 08/17/2024 20:06:45 08/16/20 24 08/16/2024 LIPID PANEL VLDL cholesterol alvarado 15 mg/dL 5-40 Not Available [facility] ([facility]) [address] [facility], [place], [address], 08/17/2024 20:06:45 08/16/20 24 08/16/2024 LIPID PANEL LDL chol calc ([facility]) 82 mg/dL 0-99 Not Available [facility] ([facility]) [address] [facility], [place], [address], 08/17/2024 20:06:45 08/16/20 24 08/16/2024 LIPID PANEL LDL calc comment: MACHINE TOOL TECHNOLOGY INSTRUCTOR Not Available [facility] ([facility]) [address] [facility], [place], [address], 08/17/2024 20:06:45 08/16/20 24 08/17/2024 ALBUM IN/CR EATIN INE RATIO ,URIN E creatinine, urine 56.9 mg/dL not estab. normal Not Available [facility] ([facility]) [address] [facility], [place], [address], 08/17/2024 20:06:45 08/16/20 24 08/17/2024 ALBUM IN/CR EATIN INE RATIO ,URIN E albumin, urine 13.1 ug/mL not estab. Not Available [facility] ([facility]) [address] [facility], [place], [address], 08/17/2024 20:06:45 08/16/20 24 08/17/2024 ALBUM IN/CR EATIN INE RATIO ,URIN E alb/creat ratio 23 mg/g_ creat 0-29 Kelly l: 0 - 29 Moder ately incre ased: 30 - 300 Sever marvel incre ased: >300 Not Available [facility] ([facility]) [address] [facility], [place], [address], 08/17/2024 20:06:45 08/16/20 24 08/17/2024 HEMOG LOBIN A1C hemoglobin A1C 7.0 % 4.8-5. 6 above high normal Predi abete s: 5.7 - 6.4 Diabe chantel: >6.4 Glyce ezra contr ol for adult s with diabe chantel: <7.0 Not Available [facility] ([facility]) [address] [facility], [place], [address], 08/17/2024 20:06:46 08/16/20 24 08/17/2024 MAGNE SIUM magnesium 2.2 mg/dL 1.6-2. 3 normal Not Available [facility] ([facility]) [address] [facility], [place], [address], 08/17/2024 20:06:46 10/16/20 24 10/16/2024 CBC WITH DIFFE RENTI AL/PL ATELE T WBC 10.8 x10e3 /uL 3.4-10 .8 normal Eff ectiv e Decem haris 2023 profi [place] [id number] 5 WBC will be made* * non-o rdera ble as a stand -javy e order code. Not Available [facility] ([facility]) [address] [facility], [place], [address], 10/17/2024 08:08:45 10/16/20 24 10/16/2024 CBC WITH DIFFE RENTI AL/PL ATELE T RBC 4.69 x10e6 /uL 3.77-5 .28 normal Not Available [facility] ([facility]) [address] [place], [address], 10/17/2024 08:08:45 10/16/20 24 10/16/2024 CBC WITH DIFFE RENTI AL/PL ATELE T hemoglobin 12.9 g/dL 11.1-1 5.9 normal Not Available [facility] ([facility]) [address] [place], [address], 10/17/2024 08:08:45 10/16/20 24 10/16/2024 CBC WITH DIFFE RENTI AL/PL ATELE T hematocrit 40.2 % 34.0-4 6.6 normal Not Available [facility] ([facility]) [address] [facility], [place], [address], 10/17/2024 08:08:45 10/16/20 24 10/16/2024 CBC WITH DIFFE RENTI AL/PL ATELE T MCV 86 fL 79-97 normal Not Available [facility] ([facility]) [address] [facility], [place], [address], 10/17/2024 08:08:45 10/16/20 24 10/16/2024 CBC WITH DIFFE RENTI AL/PL ATELE T MCH 27.5 pg 26.6-3 3.0 normal Not Available [facility] ([facility]) [address] [facility], [place], [address], 10/17/2024 08:08:45 10/16/20 24 10/16/2024 CBC WITH DIFFE RENTI AL/PL ATELE T MCHC 32.1 g/dL 31.5-3 5.7 normal Not Available [facility] ([facility]) [address] [facility], [place], [address], 10/17/2024 08:08:45 10/16/20 24 10/16/2024 CBC WITH DIFFE RENTI AL/PL ATELE T RDW 13.6 % 11.7-1 5.4 Not Available [facility] ([facility]) [address] [place], [address], 10/17/2024 08:08:45 10/16/20 24 10/16/2024 CBC WITH DIFFE RENTI AL/PL ATELE T platelets 412 x10e3 /uL 150-45 0 normal Not Available [facility] ([facility]) [address] [place], [address], 10/17/2024 08:08:45 10/16/20 24 10/16/2024 CBC WITH DIFFE RENTI AL/PL ATELE T neutrophils 64 % not estab. normal Not Available [facility] ([facility]) [address] [place], [address], 10/17/2024 08:08:45 10/16/20 24 10/16/2024 CBC WITH DIFFE RENTI AL/PL ATELE T lymphs 21 % not estab. normal Not Available [facility] ([facility]) [address] [facility], [place], [address], 10/17/2024 08:08:45 10/16/20 24 10/16/2024 CBC WITH DIFFE RENTI AL/PL ATELE T monocytes 9 % not estab. normal Not Available [facility] ([facility]) [address] [facility], [place], [address], 10/17/2024 08:08:45 10/16/20 24 10/16/2024 CBC WITH DIFFE RENTI AL/PL ATELE T eos 4 % not estab. normal Not Available [facility] ([facility]) [address] [facility], [place], [address], 10/17/2024 08:08:45 10/16/20 24 10/16/2024 CBC WITH DIFFE RENTI AL/PL ATELE T basos 1 % not estab. normal Not Available [facility] ([facility]) [address] [facility], [place], [address], 10/17/2024 08:08:45 10/16/20 24 10/16/2024 CBC WITH DIFFE RENTI AL/PL ATELE T immature cells MACHINE TOOL TECHNOLOGY INSTRUCTOR Not Available [facility] ([facility]) [address] [facility], [place], [address], 10/17/2024 08:08:45 10/16/20 24 10/16/2024 CBC WITH DIFFE RENTI AL/PL ATELE T neutrophils (absolute) 7.0 x10e3 /uL 1.4-7. 0 normal Not Available [facility] ([facility]) [address] [facility], [place], [address], 10/17/2024 08:08:45 10/16/20 24 10/16/2024 CBC WITH DIFFE RENTI AL/PL ATELE T lymphs (absolute) 2.2 x10e3 /uL 0.7-3. 1 normal Not Available [facility] ([facility]) [address] [facility], [place], [address], 10/17/2024 08:08:45 10/16/20 24 10/16/2024 CBC WITH DIFFE RENTI AL/PL ATELE T monocytes(ab solute) 0.9 x10e3 /uL 0.1-0. 9 normal Not Available [facility] ([facility]) [address] [place], [address], 10/17/2024 08:08:45 10/16/20 24 10/16/2024 CBC WITH DIFFE RENTI AL/PL ATELE T eos (absolute) 0.5 x10e3 /uL 0.0-0. 4 above high normal Not Available [facility] ([facility]) [address] [facility], [place], [address], 10/17/2024 08:08:45 10/16/20 24 10/16/2024 CBC WITH DIFFE RENTI AL/PL ATELE T baso (absolute) 0.1 x10e3 /uL 0.0-0. 2 normal Not Available [facility] ([facility]) [address] [place], [address], 10/17/2024 08:08:45 10/16/20 24 10/16/2024 CBC WITH DIFFE RENTI AL/PL ATELE T immature granulocytes 1 % not estab. Not Available [facility] ([facility]) [address] [place], [address], 10/17/2024 08:08:45 10/16/20 24 10/16/2024 CBC WITH DIFFE RENTI AL/PL ATELE T immature grans (abs) 0.1 x10e3 /uL 0.0-0. 1 Not Available [facility] ([facility]) [address] [facility], [place], [address], 10/17/2024 08:08:45 10/16/20 24 10/16/2024 CBC WITH DIFFE RENTI AL/PL ATELE T NRBC MACHINE TOOL TECHNOLOGY INSTRUCTOR Not Available [facility] ([facility]) [address] [facility], [place], [address], 10/17/2024 08:08:45 10/16/20 24 10/16/2024 CBC WITH DIFFE RENTI AL/PL ATELE T hematology comments: MACHINE TOOL TECHNOLOGY INSTRUCTOR Not Available [facility] ([facility]) [address] [facility], [place], [address], 10/17/2024 08:08:45 10/16/20 24 10/17/2024 IRON AND TIBC iron bind.cap.(TI BC) 367 ug/dL 250-45 0 normal Not Available [facility] ([facility]) [address] [place], [address], 10/17/2024 08:08:46 10/16/20 24 10/17/2024 IRON AND TIBC UIBC 316 ug/dL 118-36 9 normal Not Available [facility] ([facility]) [address] [facility], [place], [address], 10/17/2024 08:08:46 10/16/20 24 10/17/2024 IRON AND TIBC iron 51 ug/dL 27-139 normal Not Available [facility] ([facility]) [address] [facility], [place], [address], 10/17/2024 08:08:46 10/16/20 24 10/17/2024 IRON AND TIBC iron saturation 14 % 15-55 below low normal Not Available [facility] ([facility]) [address] [facility], [place], [address], 10/17/2024 08:08:46 10/18/20 24 10/18/2024 hemog lobin A1C, finge rstic k A1C 6.8 % 4-6 abnormal Not Available In-Office Order Internal Use Only DO Not Attach Compendium DO Not Attach Compendium, Do Not Delete/merge, [id number] 10/18/2024 09:01:42 01/25/20 25 01/24/2025 hemog lobin A1C, lukas obrien A1C 6.4 % 4-6 abnormal Not Available In-Office Order Internal Use Only DO Not Attach Compendium DO Not Attach Compendium, Do Not Delete/merge, [id number] 01/24/2025 09:43:20 12/07/19 25 12/07/2024 CT, head, w/o contr ast See Note [facility] , a member of [employer] [facility] Name: JAY COLLINS Date of : 1949 Reason for Exam: Neuro defici t, acute, stroke suspec eileen Exam Date: 2024 [id number] EST Report Status : Final Orderi ng [...] Edit Transc ribed Date: 2024 10:[address], [address], 12/13/2024 10:03:21 12/07/19 25 ECG 12-le ad No observ ation record ed. [address], [address], 12/08/2024 15:47:58 02/11/20 25 02/06/2025 vas US duple x carot id bilat eral See Note [facility] , a member of [employer] [facility] Name: JAY COLLINS Date of : 1949 Reason for Exam: TIA Exam Date: 2024 [id number] EST Report Status : Final Orderi ng [...] Electr onical ly Signed By: Earnestine Bradshaw nt Signed Date: 2024 11:08 ET Workst ation ID: [id number] Transc ribed By: Self Edit Transc ribed Date: 2024 11:07 ET ANA [address], [address], 02/13/2025 13:44:05 02/17/20 25 02/14/2025 trans thora cic echoc ardio gram (TTE) compl ete (cont rast/ bubbl e/3D PRN) No observ ation record ed. add[address], [address], 02/16/2025 15:58:10 02/20/20 25 02/14/2025 , echoc ardio gram No observ ation record ed. [address] (Human Resources) [place], [address], 02/19/2025 10:57:43 03/02/20 25 02/14/2025 , echoc ardio gram No observ ation record ed. [address] (Human Resources) [place], [address], 03/02/2025 15:45:27 Result Notes None recorded. Problems Name Problem SNOMED Code Status Onset Date Resolution Date Notes Provider Name and Address Organization Details Recorded Time Glucose level outside referenc e range 060369305 Completed 200906/21/2014 RECORDED 02/25/20 10 9:48AM BY JYOTI TRACY ON/ADDEN DUM [facility] 6 09:55:54 Acute bronchit is 95505570 Completed 200906/21/2014 IMPRESSI ON: THICK SPUTUM, PRODUCTI VE COUGH, TREAT WITH LEVAQUIN ; RECORDED 02/25/20 10 9:47AM BY OMERO NUÑEZ, ANNOTATI ON/ADDEN DUM Stanley Pearl ro null, [facility] 6 09:55:54 Congesti ve heart failure 41455347 Completed 201206/21/2014 RECORDED 12/27/19 13 1:36PM BY STANLEY DUNLAP MD, ANNOTATI ON/ADDEN DUM Kevin Darden PA-C [address], [place], [address] [facility] 8 15:41:50 Patient status finding [id number] Completed 201306/21/2014 RECORDED 11/21/19 14 10:37AM BY NIC BIRCH MA, ANNOTATI ON/ADDEN DUM Luly Henley MA null, [facility] 7 10:10:41 Intrinsi c asthma 647138306 Completed 200906/21/2014 RECORDED 02/25/20 10 9:48AM BY OMERO NUÑEZ, ANNOTATI ON/ADDEN DUM Stanley Villar'Anneliese ro null, [facility] 6 09:55:54 Screenin g for malignan t neoplasm of breast Completed 201206/21/2014 RECORDED 11/24/19 13 1:03PM BY NIC BIRCH MA, ANNOTATI ON/ADDEN DUM Stanley Villar'Alesssidra ro null, [facility] 6 09:55:55 Screenin g for malignan t neoplasm of cervix Completed 201106/21/2014 RECORDED 05/26/20 12 2:35PM BY MORELIA TERRY MA, ANNOTATI ON/ADDEN DUM Stanley Villar'Alesssidra ro null, [facility] 6 09:55:55 Depressi ve disorder 66702215 Completed 200906/21/2014 RECORDED 02/25/20 10 9:50AM BY OMERO NUÑEZ, ANNOTATI ON/ADDEN DUM Stanley Villar'Alessand ro null, [facility] 6 09:55:54 Type 2 diabetes mellitus without complica tion 882385791 Completed 05/23/2018 Kevin Darden PA-C [address], [place], [address] , [facility] 8 15:25:37 Respirat ory finding 309709440 Completed 201206/21/2014 IMPRESSI ON: HER DYSPNEA IS MULTIFAC TORIAL. LIKELY FROM ASTHMA, DIASTOLI C HEART FAILURE, AND DEPRESSI ON/ANXIE TY.; RECORDED 04/27/20 13 10:14AM BY MORELIA TERRY MA, JYOTI ON/ADDEN DUM Stanley taylor null, [facility] 6 09:55:55 Enthesop athy of [facility] 49173087 Completed 200906/21/2014 RECORDED 02/25/20 10 9:50AM BY JYOTI TRACY ON/ADDEN DUM Stanley Pearl ro null, [facility] 6 09:55:54 Follow-u p encounte r Completed 201206/21/2014 RECORDED 10/27/20 13 9:02AM BY MORELIA TERRY MA, JYOTI ON/ADDEN DUM Stanley Pearl ro null, [facility] 6 09:55:54 Influenz a vaccine needed [id number] 06 Completed 200906/21/2014 RECORDED 11/19/19 10 10:29AM BY GARTH HAGER I, HISTORIC AL SUMMARY Stanley Pearl ro null, [facility] 6 09:55:54 Adult health examinat ion Completed 201206/21/2014 RECORDED 10/27/20 13 9:02AM BY MORELIA TERRY MA, JYOTI ON/ADDEN DUM Stanley Pearl ro null, [facility] 6 09:55:54 General examinat ion of patient Completed 200906/21/2014 RECORDED 02/25/20 10 9:49AM BY MAGDY TRACYATI ON/ADDEN DUM Stanley D'Alessand ro null, [facility] 6 09:55:55 Spinal stenosis of lumbar region 49183199 Completed 201006/21/2014 DATE: 01/22/20 11; STORY: SPOKE [...] NIC BIRCH MA, MAGDYATI ON/ADDEN DUM Stanley D'Alessand ro null, [facility] 6 09:55:54 Knee pain Completed 201206/21/2014 RECORDED 10/27/20 13 9:02AM BY MORELIA TERRY MA, JYOTI ON/ADDEN DUM Stanley D'Alessand ro null, [facility] 6 09:55:54 Lateral epicondy litis 478457104 Completed 200906/21/2014 RECORDED 02/25/20 10 9:50AM BY MAGDY TRACYATI ON/ADDEN DUM Stanley D'Alessand ro null, [facility] 6 09:55:54 Joint pain in ankle and foot Completed 201106/21/2014 RECORDED 05/26/20 12 2:35PM BY MORELIA TERRY MA, MAGDYATI ON/ADDEN DUM Stanley D'Alessand ro null, [facility] 6 09:55:54 Disorder of sacrum 57656924 Completed 201106/21/2014 RECORDED 07/25/20 12 9:41AM BY JYOTI PLATT ON/ADDEN DUM Stanley D'Alessand ro null, [facility] 6 09:55:54 Dyspnea 280183892 Completed 201206/21/2014 STORY: ETIOLOGY UNCLEAR. CANNOT WORK AT THIS TIME.; RECORDED 04/27/20 13 10:14AM BY MORELIA TERRY MA, JYOTI ON/ADDEN DUM Stanley taylor null, [facility] 6 09:55:54 Chronic sinusiti s 77073555 Completed 201106/21/2014 RECORDED 05/26/20 12 2:34PM BY MORELIA TERRY MA, JYOTI ON/ADDEN DUM Stanley taylor null, [facility] 6 09:55:54 Acute sinusiti s 21446417 Completed 201106/21/2014 RECORDED 05/26/20 12 2:35PM BY MORELIA TERRY MA, MAGDYATI ON/ADDEN DUM Luly Henley MA null, [facility] 7 10:10:44 Screenin g for malignan t neoplasm of colon Completed 201106/21/2014 RECORDED 05/31/20 12 1:32PM BY RIYA GONZALES, LYNIC AL SUMMARY Stanley ugalde, [facility] 6 09:55:55 Disorder of trunk 821373634 Completed 200906/21/2014 RECORDED 02/25/20 10 9:50AM BY JY[facility]I TRACY ON/[facility], [facility] 6 09:55:55 Immuniza tion refused Completed 200906/21/2014 IMPRESSI ON: TDAP; RECORDED 02/25/20 10 9:49AM BY JYOTI TRACY ON/DARELL ugalde, [facility] 6 09:55:54 Function al visual loss 972610388 Active MALENA Nails, [facility] 3 14:27:29 Glucose level outside referenc e range 971052416 Completed 200906/22/2014 RECORDED 02/25/20 10 9:48AM BY JYOTI TRACY ON/ADDEN DUM Stanley Jian'Alessand ro null, [facility] 6 09:55:54 Acute bronchit is 52645615 Completed 200906/22/2014 IMPRESSI ON: THICK SPUTUM, PRODUCTI VE COUGH, TREAT WITH LEVAQUIN ; RECORDED 02/25/20 10 9:47AM BY JYOTI TRACY ON/ADDEN DUM Stanley Jian'Alessand ro null, [facility] 6 09:55:54 Intrinsi c asthma 685214595 Completed 200906/22/2014 RECORDED 02/25/20 10 9:48AM BY JYOTI TRACY ON/ADDEN DUM Stanley Jian'Alessand ro null, [facility] 6 09:55:54 Screenin g for malignan t neoplasm of breast Completed 201206/22/2014 RECORDED 11/24/19 13 1:03PM BY NIC BIRCH MA, ANNOTATI ON/ADDEN DUM Stanley Jian'Alessand ro null, [facility] 6 09:55:55 Screenin g for malignan t neoplasm of cervix Completed 201106/22/2014 RECORDED 05/26/20 12 2:35PM BY MORELIA TERRY MA, ANNOTATI ON/ADDEN DUM Stanley D'Alessand ro null, [facility] 6 09:55:55 Depressi ve disorder 42540931 Completed 200906/22/2014 RECORDED 02/25/20 10 9:50AM BY JYOTI TRACY ON/ADDEN DUM Stanley Jian'Alessand ro null, [facility] 6 09:55:54 Respirat ory finding 265809114 Completed 201206/22/2014 IMPRESSI ON: HER DYSPNEA IS MULTIFAC TORIAL. LIKELY FROM ASTHMA, DIASTOLI C HEART FAILURE, AND DEPRESSI ON/ANXIE TY.; RECORDED 04/27/20 13 10:14AM BY MORELIA TERRY MA, JYOTI ON/ADDEN DUM Stanley Villar'Alessand ro null, [facility] 6 09:55:55 Enthesop athy of hip region 66458977 Completed 200906/22/2014 RECORDED 02/25/20 10 9:50AM BY JYOTI TRACY ON/ADDEN DUM Stanley HugoAletimothyand ro null, [facility] 6 09:55:54 Follow-u p encounte r Completed 201206/22/2014 RECORDED 10/27/20 13 9:02AM BY MORELIA TERRY MA, JYOTI ON/ADDEN DUM Stanley Villar'Alessand ro null, [facility] 6 09:55:54 Influenz a vaccine needed [id number] 06 Completed 200906/22/2014 RECORDED 11/19/19 10 10:29AM BY GARTH HAGER I, HISTORIC AL SUMMARY Stanley Villar'Alessand ro null, [facility] 6 09:55:54 Adult health examinat ion Completed 201206/22/2014 RECORDED 10/27/20 13 9:02AM BY MORELIA TERRY MA, JYOTI ON/ADDEN DUM Stanley Villar'Alessand ro null, [facility] 6 09:55:54 General examinat ion of patient Completed 200906/22/2014 RECORDED 02/25/20 10 9:49AM BY JYOTI TRACY ON/ADDEN DUM Stanley Villar'Alessand ro null, [facility] 6 09:55:55 Spinal stenosis of lumbar region 93133637 Completed 201006/22/2014 DATE: 01/22/20 11; STORY: SPOKE [...] 13 8:52AM BY NIC BIRCH MA, ANNOTATI ON/ADDEN DUM Stanley D'Alessand ro null, [facility] 6 09:55:54 Knee pain Completed 201206/22/2014 RECORDED 10/27/20 13 9:02AM BY MORELIA TERRY MA, ANNOTATI ON/ADDEN DUM Stanley D'Alessand ro null, [facility] 6 09:55:54 Lateral epicondy litis 439953201 Completed 200906/22/2014 RECORDED 02/25/20 10 9:50AM BY MAGDY TRACYATI ON/ADDEN DUM Stanley D'Alessand ro null, [facility] 6 09:55:54 Joint pain in ankle and foot Completed 201106/22/2014 RECORDED 05/26/20 12 2:35PM BY MORELIA TERRY MA, MAGDYATI ON/ADDEN DUM Stanley D'Alessand ro null, [facility] 6 09:55:54 Disorder of sacrum 84893296 Completed 201106/22/2014 RECORDED 07/25/20 12 9:41AM BY MAGDY PLATTATI ON/ADDEN DUM Stanley D'Alessand ro null, [facility] 6 09:55:54 Dyspnea 091806907 Completed 201206/22/2014 STORY: ETIOLOGY UNCLEAR. CANNOT WORK AT THIS TIME.; RECORDED 04/27/20 13 10:14AM BY MORELIA TERRY MA, JYOTI ON/ADDEN DUM Stanley D'Alessand ro null, [facility] 6 09:55:54 Chronic sinusiti s 35292003 Completed 201106/22/2014 RECORDED 05/26/20 12 2:34PM BY MORELIA TERRY MA, JYOTI ON/ADDEN DUM Stanley D'Alessand ro null, [facility] 6 09:55:54 Acute sinusiti s 98761401 Completed 201106/22/2014 RECORDED 05/26/20 12 2:35PM BY MORELIA TERRY MA, ANNOTATI ON/ADDEN DUM Luly ugalde, [facility] 7 10:10:44 Screenin g for malignan t neoplasm of colon Completed 201106/22/2014 RECORDED 05/31/20 12 1:32PM BY RIYA GONZALES, HISTORIC AL SUMMARY Stanley ugalde, [facility] 6 09:55:55 Disorder of trunk 059043163 Completed 200906/22/2014 RECORDED 02/25/20 10 9:50AM BY JYOTI TRACY ON/ADDEN DUM Stanley ugalde, [facility] 6 09:55:55 Immuniza tion refused Completed 200906/22/2014 IMPRESSI ON: TDAP; RECORDED 02/25/20 10 9:49AM BY JYOTI TRACY ON/ADDEN DUM Stanley ugalde, [facility] 6 09:55:54 Hand pain 69450923 Completed 01/13/2017 Luly ugalde, [facility] 7 10:11:25 Diabetes mellitus 24891921 Completed 02/18/2017 Luly ugalde, [facility] 7 15:17:00 Acute sinusiti s 77572640 Completed 01/13/2017 Luly ugalde, [facility] 7 10:10:44 Allergic rhinitis 44473651 Completed 01/13/2017 Luly ugalde, [facility] 7 10:11:30 Glucose level outside referenc e range 011955588 Completed 200905/29/2014 RECORDED 02/25/20 10 9:48AM BY JYOTI TRACY ON/ADDMAGUI DUM Stanley taylor null, [facility] 6 09:55:54 Acute bronchit is 53791461 Completed 200905/29/2014 IMPRESSI ON: THICK SPUTUM, PRODUCTI VE COUGH, TREAT WITH LEVAQUIN ; RECORDED 02/25/20 10 9:47AM BY JYOTI TRACY ON/ADDEN DUM Stanley taylor null, [facility] 6 09:55:54 Congesti ve heart failure 08116708 Completed 201205/29/2014 RECORDED 12/27/19 13 1:36PM BY STANLEY DUNLAP MD, ANNOTATI ON/ADDEN DUM Kevin Darden PA-C [address], [place], [address] , [facility] 8 15:41:50 Anxiety state 149537841 Completed 05/23/2018 Kevin Darden PA-C [address], [place], [address] , [facility] 8 15:24:12 Coronary atherosc lerosis 558355349 Completed 05/23/2018 Kevin Darden PA-C [address], [place], [address] , [facility] 8 15:42:54 Patient status finding 433155634 Completed 201305/29/2014 RECORDED 11/21/19 14 10:37AM BY NIC BIRCH MA, ANNOTATI ON/ADDEN DUM Luly Henley MA null, [facility] 7 10:10:41 Asthma 741695602 Completed 05/23/2018 Kevin Darden PA-C [address], [place], [address] , [facility] 8 15:23:37 Intrinsi c asthma 105976515 Completed 200905/29/2014 RECORDED 02/25/20 10 9:48AM BY JYOTI TRACY ON/ADDEN DUM Stanley Wilsonand ro null, [facility] 6 09:55:54 Asthma 559173175 Completed 201105/29/2014 IMPRESSI ON: STABLE, NEEDS SCRIPT FOR MAIL ORDER; RECORDED 07/25/20 12 9:41AM BY JYOTI PLATT ON/ADDEN DUM Kevin Darden PA-C [address], [place], [address] , [facility] 8 15:23:37 Acute asthma 368216614 Completed 06/28/2017 Luci Mendoza MA null, [facility] 7 10:43:19 Screenin g for malignan t neoplasm of breast Completed 201205/29/2014 RECORDED 11/24/19 13 1:03PM BY NIC BIRCH MA, MAGDYATI ON/ADDEN [facility] Stanley Pearl ro null, [facility] 6 09:55:55 Screenin g for malignan t neoplasm of cervix Completed 201105/29/2014 RECORDED 05/26/20 12 2:35PM BY MORELIA TERRY MA, ANNOTATI ON/[facility] Stanley Pearl ro null, [facility] 6 09:55:55 Congesti ve heart failure 21776805 Completed 05/23/2018 Kevin Darden PA-C [address], [place], [address] , [facility] 8 15:41:50 Canceled operativ e procedur e 97565073 Completed 01/13/2017 Luly ugalde, [facility] 7 10:10:58 Cough 56283348 Completed 01/13/2017 Luly ugalde, [facility] 7 10:11:16 Cough 60515142 Completed 201205/29/2014 IMPRESSI ON: FINISH 10D COURSE OF LEVAQUIN ; RECORDED 12/13/19 13 9:34AM BY MAGDY THOMPSONATI ON/ADDEN DUM Luly ugalde, [facility] 7 10:11:16 Depressi ve disorder 98293255 Completed 200905/29/2014 RECORDED 02/25/20 10 9:50AM BY JYOTI TRACY ON/ADDEN DUM Stanley taylor null, [facility] 6 09:55:54 Respirat ory finding 870795178 Completed 201205/29/2014 IMPRESSI ON: HER DYSPNEA IS MULTIFAC TORIAL. LIKELY FROM ASTHMA, DIASTOLI C HEART FAILURE, AND DEPRESSI ON/ANXIE TY.; RECORDED 04/27/20 13 10:14AM BY MORELIA TERRY MA, JYOTI ON/ADDEN DUM Stanley ugalde, [facility] 6 09:55:55 Enthesop athy of [facility] 53210411 Completed 200905/29/2014 RECORDED 02/25/20 10 9:50AM BY JYOTI TRACY ON/ADDEN DUM Stanley ugalde, [facility] 6 09:55:54 Follow-u p encounte r Completed 201205/29/2014 RECORDED 10/27/20 13 9:02AM BY MORELIA TERRY MA, ANNOTATI ON/ADDEN DUM Stanley ugalde, [facility] 6 09:55:54 Essentia l hyperten dm 88453511 Completed 06/28/2017 Removal Reason: not specific Susi ugalde, [facility] 7 12:47:17 Essentia l hyperten dm 45419292 Completed 201205/29/2014 RECORDED 03/06/20 13 9:22AM BY JYOTI STAHL ON/ADDEN DUM Susi ugalde [facility] 7 12:47:17 Influenz a vaccine needed 21302843557 06 Completed 200905/29/2014 RECORDED 11/19/19 10 10:29AM BY GARTH HAGER I, HISTORIC AL SUMMARY Stanley ugalde, [facility] 6 09:55:54 Gastroes ophageal reflux disease 049454364 Active MALENA Nails, [facility] 3 14:27:29 Adult health examinat ion Completed 201205/29/2014 RECORDED 10/27/20 13 9:02AM BY MORELIA TERRY MA, ANNOTATI ON/ADDEN [facility] Stanley ugalde [facility] 6 09:55:54 General examinat ion of patient Completed 200905/29/2014 RECORDED 02/25/20 10 9:49AM BY JYOTI TRACY ON/[facility], [facility] 6 09:55:54 Chronic diastoli c heart failure 517775370 Active MALENA Nails, [facility] 3 14:27:29 Hyperlip idemia 59237813 Active MALENA Nails, [facility] 3 14:27:29 Impaired fasting glycemia 565980328 Completed 01/13/2017 Luly ugalde, [facility] 7 10:11:09 Spinal stenosis of lumbar region 35423789 Completed 201005/29/2014 DATE: 01/22/20 11; STORY: SPOKE [...] MAGDYATI ON/ADDEN DUM Stanley Pearl ro null, [facility] 6 09:55:54 Insomnia 938819759 Completed 05/23/2018 Kevin Darden PA-C [address], [facility] [place], [address] , [facility] 8 15:23:44 Osteoart hritis of knee 521808480 Active MALENA Nails, [facility] 3 14:27:29 Knee pain Completed 201205/29/2014 RECORDED 10/27/20 13 9:02AM BY MORELIA TERRY MA, JYOTI ON/ADDEN DUM Stanley taylor null, [facility] 6 09:55:54 Laborato ry procedur e performe d 556192709 Completed 01/13/2017 Luly ugalde, [facility] 7 10:10:49 Laborato ry procedur e performe d 013495944 Completed 201205/29/2014 RECORDED 04/27/20 13 10:14AM BY MORELIA TERRY MA, MAGDYATI ON/ADDEN DUM Luly ugalde, [facility] 7 10:10:49 Lateral epicondy litis 172198978 Completed 200905/29/2014 RECORDED 02/25/20 10 9:50AM BY JYOTI TRACY ON/ADDEN DUM Stanley taylor null, [facility] 6 09:55:54 Patient status finding 129445262 Completed 01/13/2017 Luly ugalde, [facility] 7 10:10:41 Joint pain in ankle and foot Completed 201105/29/2014 RECORDED 05/26/20 12 2:35PM BY MORELIA TERRY MA, MAGDYATI ON/ADDEN ANYA ugalde, [facility] 6 09:55:54 Disorder of sacrum 58544427 Completed 201105/29/2014 RECORDED 07/25/20 12 9:41AM BY JYOTI PLATT ON/ADDMAGUI taylor null, [facility] 6 09:55:54 Dyspnea 637312158 Completed 201205/29/2014 STORY: ETIOLOGY UNCLEAR. CANNOT WORK AT THIS TIME.; RECORDED 04/27/20 13 10:14AM BY MORELIA TERRY MA, JYOTI ON/DARELL taylor null, [facility] 6 09:55:54 Chronic sinusiti s 17049067 Completed 201105/29/2014 RECORDED 05/26/20 12 2:34PM BY MORELIA TERRY MA, JYOTI ON/ADDMAGUI taylor null, [facility] 6 09:55:54 Acute sinusiti s 36916663 Completed 201105/29/2014 RECORDED 05/26/20 12 2:35PM BY MROELIA TERRY MA, JYOTI ON/ADDMAGUI Henley MA null, [facility] 7 10:10:44 Screenin g for malignan t neoplasm of colon Completed 201105/29/2014 RECORDED 05/31/20 12 1:32PM BY RIYA GONZALES, HISTORIC AL SUMMARY Stanley ugalde, [facility] 6 09:55:55 Disorder of trunk 495329981 Completed 200905/29/2014 RECORDED 02/25/20 10 9:50AM BY JYOTI TRACY/DARELL ugalde, [facility] 6 09:55:55 Immuniza tion refused Completed 200905/29/2014 IMPRESSI ON: TDAP; RECORDED 02/25/20 10 9:49AM BY JYOTI TRACY/ADDEN DUM Stanley ugalde [facility] 6 09:55:54 Sinusiti s 08016329 Completed 01/13/2017 Luly ugalde [facility] 7 10:11:04 Vaginiti s 48274379 Completed 01/13/2017 Luly ugalde [facility] 7 10:11:00 Gastroen teritis 30481669 Completed 07/24/2019 Rolanda ugalde [facility] 9 16:18:05 Pain of joint 04689117 Completed 01/13/2017 Luly ugalde [facility] 7 10:11:22 Low back pain 679161335 Completed 01/13/2017 Luly ugalde [facility] 7 10:10:53 Chronic kidney disease stage 1 145680915 Completed 201605/23/2018 Kevin Darden PA-C [address], [place], [address] , [facility] 8 15:42:00 Renal disorder due to type 2 diabetes mellitus 032538496 Active 2016 MALENA Nails [facility] 3 14:27:29 Uncompli cated mild persiste nt asthma 576677548 Active 2017 MALENA Nails [facility] 3 14:27:29 Generali zed anxiety disorder 08573670 Active 2017 MALENA Nails [facility] 3 14:27:29 Uncontro lled type 2 diabetes mellitus 565586669 Completed 201705/23/2018 Kevin Darden PA-C [address], [place], [address] , [facility] 8 15:43:36 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 61768252809 1 Completed 201703/17/2019 Kevin Darden PA-C [address], [place], [address] , [facility] 9 10:30:39 Type 2 diabetes mellitus 20244015 Completed 201711/22/2019 Kevin Darden PA-C [address], [place], [address] , [facility] 0 10:22:32 Hypokale howard 26372489 Completed 201807/24/2019 Rolanda ugalde [facility] 9 16:17:43 Hyperten sive nephrosc lerosis 338475860 Active 2018 MALENA Nails [facility] 3 14:27:29 Left ventricu lar hypertro phy 44074570 Active 2018 Echo 2018 MALENA Nails [facility] 3 14:27:29 Hypomagn esemia 396670896 Active 2018 Mirandaakash ugalde [facility] 1 15:19:52 Bee sting-in duced anaphyla xis 056390431 Active 2018 MALENA Nails [facility] 3 14:27:29 Osteoart hritis of hip 057564033 Active 2019 MALENA Nails [facility] 3 14:27:29 Constipa tion 56279476 Active 2019 MALENA Nails [facility] 3 14:27:28 Diabetic peripher al neuropat hy 825670819 Active 2019 MALENA Nails [facility] 3 14:27:29 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 81431497 Active 2020 Cristina Sanchez MA null, [facility] 3 14:27:29 Chronic kidney disease stage 3B 258818494 Active 2020 Miranda Vaughnilla null, [facility] 1 15:19:52 Osteoart hritis of shoulder region 85444073 Active 2020 Luci Mendoza MA null, [facility] 2 09:10:44 Severe obesity 61094597818 104 Active 2020 Luci Mendoza MA null, [facility] 2 09:10:44 Hyperten sive heart disease without congesti ve heart failure 65243178 Completed 202001/29/2021 Cristina Sanchez MA null, [facility] 3 14:27:29 Syncope 169646470 Completed 202108/15/2024 Kevin Darden PA-C [address], [place], [address] , [facility] 4 11:30:29 Injury of head 54529554 Active 2021 Stanley Bennett MA null, [facility] 2 15:21:56 Microalb uminuria 322178461 Active 2021 Kevin Darden PA-C [address], [place], [address] , [facility] 2 10:49:53 Migraine 55406871 Active 2021 Kevin Darden PA-C [address], [place], [address] , [facility] 2 10:58:35 Localize d swelling of left lower leg 88418945518 190482 Completed 202108/15/2024 Kevin Darden PA-C [address], [place] [place], [address] , [facility] 4 11:30:37 Superfic ial thrombop hlebitis [id number] Completed 202108/15/2024 Kevin Darden PA-C [address], [place], [address] , [facility] 4 11:30:19 Hyperten sive renal disease 97012412 Active 2016 MALENA Nails, [facility] 3 14:27:29 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 Procedures Surgical History Date Name Laterality Status Provider Name and Address Organization Details Recorded Time 08/15/20 24 Advanced Care Planning completed Mee Ayers LPN [facility] 08/15/2024 14:32:37 07/11/20 24 diabetic retinopathy screening completed Puja Pedroza [facility] 07/12/2024 09:01:57 12/15/19 22 revision of shoulder arthroplasty completed Alicia Contreras [facility] 12/18/2021 09:37:16 09/10/20 21 Shoulder joint surgery completed Luci Mendoza MA [facility] 09/30/2021 09:38:12 09/10/20 21 Joint Replacement completed Roseanne Hernandez MA [facility] 05/12/2022 13:23:34 12/25/19 21 Most Recent Mammogram completed Miranda Gonzales [facility] 12/26/2020 13:17:43 12/25/19 21 Mammogram screening completed Miranda Gonzales [facility] 12/26/2020 13:17:19 08/23/20 20 Diabetic Foot Exam (Monofilament) completed Kevin Darden PA-C [address] [address], [place], [address], [facility] 08/23/2020 17:38:23 08/23/20 20 Six-Item Cognitive Test completed Monique Wheat MA [facility] 08/23/2020 14:52:07 07/24/20 19 Mini-Cog Test completed Eri Lal [facility] 07/24/2019 15:48:46 07/24/20 19 Diabetic Foot Exam (Monofilament) completed Eri Lal [facility] 07/24/2019 15:48:08 06/15/20 18 Most Recent Bone Density completed Nic daniel MA [facility] 06/17/2018 15:04:47 06/15/20 18 Dxa bone density edd vrt fx completed Nic daniel MA [facility] 06/17/2018 15:04:42 05/31/20 18 Echo transthoracic completed Eugene Hanson MD [address], [place], [address], [facility] 06/10/2018 08:16:49 05/23/20 18 Mini-Cog Test completed Pilar Burkett [facility] 05/23/2018 14:50:09 05/11/20 18 injection completed Migdalia Brantley [facility] 03/27/2019 12:45:26 07/14/20 17 injection completed Migdalia Brantley [facility] 03/27/2019 12:52:47 01/15/20 17 Corrgabbie arnett rigdus w/o implt completed Nic daniel MA [facility] 06/17/2018 15:06:50 11/15/19 10 Back Surgery completed Roseanne Hernandez MA [facility] 05/12/2022 13:23:34 Arthroscopic Surgery completed Farhana Zhong [facility] 03/25/2021 09:39:56 Cholecystectomy completed Leticia Leone [facility] 02/05/2015 10:22:39 Hernia Repair completed Leticia Vasu [facility] 02/05/2015 10:22:39 Tonsillectomy completed Leticianayely Leone [facility] 02/05/2015 10:22:39 Colonoscopy completed Nic daniel MA [facility] 06/17/2016 14:22:22 Eye Surgery completed Luci Mendoza MA [facility] 10/06/2022 10:01:24 Imaging Results Imaging Date Name Status LastModified by Organization Details LastModified Time 12/07/2024 CT, head, w/o contrast completed [address], [address], 12/13/2024 10:03:21 12/07/2024 ECG 12-lead completed [address], [address], 12/08/2024 15:47:58 02/06/2025 vas US duplex carotid bilateral completed [facility] [address], [address], 02/13/2025 13:44:05 02/14/2025 transthoracic echocardiogram (TTE) complete (contrast/bubble/3 D PRN) completed [facility] [address], [place], [address], 02/16/2025 15:58:10 02/14/2025 US, echocardiogram completed [facility] ([facility]) [address] [place], [address], 02/19/2025 10:57:43 02/14/2025 US, echocardiogram completed [facility] ([facility]) [address], [place], [address], 03/02/2025 15:45:27 Procedure Notes None recorded. Medical Equipment None Reported. Allergies Allergen ID Allergen Name Allergen Category Reaction Reaction Severity Criticality Documentation Date Start Date Code Code System Note Provider Name and Address Organization Details Recorded Time 1180 Product containin g angiotens in-conver ting enzyme inhibitor (product) medicatio n cough Not available Not available 05/29/2014 59393 009 [facility] 15:10:22 1181 Product containin g penicilli n (product) medicatio n Not available Not available Not available 05/29/2014 57303 8001 SNOMED CHRISTIANE Galeana [address], [place], [address], [facility] 5 10:10:32 43061 Substance with sulfonami de structure and antibacte rial mechanism of action (substanc e) medicatio n Not available Not available Not available 12/28/2014 50787 8003 SNOMED CHELA GaleanaUP [address], [place], [address], [facility] 5 10:10:32 89224 lisinopri l medicatio n cough Not available Not available 06/17/20182011 06992 RxNorm MALENA Eaton, [facility] 8 15:10:31 18363 honey bee venom medicatio n anaphylax is Not available Not available 07/10/2019 52990 7 RxNorm Kevin Chandana AVINA [address] [address], [facility] [place], [address], [facility] 9 11:55:34 Medications Name Sig Start Date [...] 03/26/20 08 11:40AM BY STANLEY DUNLAP MD, MAGDYATI ON/ADD DUM; Not Available Not Available Not [...] 05/31/20 08 10:38AM BY STANLEY DUNLAP MD, MAGDYATI ON/ADD DUM; Not Available Not Available Not [...] 02/24 completed RECORDED 02/25/20 10 9:54AM BY JYOTI TRACY ON/DARELL JOYNER;THIS ORDER DISCONTI NUED PER MEDI-SPA [...] Available Nasal Saline 0.65 % spray aerosol [id number] 09/19 completed RECORDED 12/02/19 08 7:17PM BY STANLEY DUNLAP MD, MEDICATI ON AUTO-CLAUDIA CTIVATIO N; Not Available Not Available Not Available furosemid e 20 mg tablet DAILY 03/18 completed RECORDED 03/19/20 14 1:46PM BY ADOLFO STAHL ON AUTO-CLAUDIA CTIVATIO N; Not Available Not Available Not Available gabapenti n 100 mg capsule 12/23 completed takes 400 mg daily as per pain manageme nt. Not Available Not Available Not Available irbesarta n 150 mg tablet DAILY 11/16 completed RECORDED 11/16/19 13 9:57AM BY JYOTI LEWIS ON/DARELL DUM; Not Available Not Available Not Available lorazepam 1 mg tablet AT BEDTIME 03/08 completed RECORDED 03/08/20 14 11:19AM BY LETICIA LEONE MA, OFFICE VISIT; Not Available Not Available Not Available epinephri ne 0.3 mg/0.3 mL injection , auto-inje ctor INJECT 0.3 MG INTRAMUS CULARLY ONCE NEEDED FOR SEVERE ALLERGIC REACTION DIRECTED active Not Available Not Available No t Available Nasonex 50 mcg/actua tion Isabel Isabel 1 spray every day by nasal route. [...] bromide 21 mcg (0.03 %) nasal spray Isabel 1 spray every day by nasal route. [...] 11 11:18AM BY STANLEY DUNLAP MD, JYOTI ON/DARELL DUM; Not Available Not Available Not Available [...] 01/12/20 11 11:17AM BY STANLEY DUNLAP MD, JYOTI ON/ADDEN DUM; Not Available Not Available Not [...] Not Available Not Available Not Available naproxen- irritant counter irritant combo no.2 500 mg kit 02/25 completed Not Available [...] Available Not Available Not Available Fluzone High-Dose (PF) 180 mcg/0.5 mL intramusc ular syringe 11/19 completed Not Available Not Available Not Available Trelegy Ellipta 100 mcg-62.5 mcg-25 mcg powder for inhalatio n Inhale 1 puff every day by inhalati on route for 30 days. 10/18 completed Not Available Not Available Not Available OneTouch Ultra Blue Test Strip USE TWICE A DAY active Not Available Not Available No t Available Fluad 65yr up(PF)45 mcg(15 mcgx3)/0. 5 mL intramusc ular syringe 11/16 completed Not Available Not Available Not Available Wixela Inhub 250 mcg-50 mcg/dose powder for inhalatio n USE 1 INHALATI ON ORALLY EVERY 12 HOURS active Not Available Not Available No t Available Fluzone High-Dose Quad (PF) 240 mcg/0.7 mL IM syringe PHARMACY ADMINIST ERED 08/23 completed Not Available Not Available Not Available Trulicity 3 mg/0.5 mL subcutane ous pen injector Inject 3 mg every week by subcutan eous route for 90 days. 03/31 completed Not Available Not Available Not Available Ozempic 1 mg/dose (4 mg/3 mL) subcutane ous pen injector INJECT 1MG SUBCUTAN EOUSLY EVERY WEEK active Not Available Not Available No t Available BinaxNOW COVID-19 Ag Self Test kit TEST DIRECTED TODAY 03/31 completed Not Available Not Available Not Available Paxlovid 150 mg-100 mg tablets in a dose pack (Moderate Renal Dose) TAKE 2 TABLETS BY MOUTH TWICE A DAY FOR 5 DAYS DIRECTED 12/29 completed Not Available Not Available Not Available Ozempic 0.25 mg or 0.5 mg (2 mg/3 mL) subcutane ous pen injector INJECT 0.5MG SUBCUTAN EOUSLYEV TANVIR WEEK 03/12 completed Not Available Not Available Not Available FreeStyle Kevan 3 [place] active Not Available Not Available Not Available Vitals Date Recorded Body height Provider Name an d Address Organization Details Last Updated DateTime 02/07/2024 152.4 cm Luci Mendoza MA [facility] 02/07/2024 08:27:59 Date Recorded Body height Provider Name an d Address Organization Details Last Updated DateTime 02/15/2024 152.4 cm Tamie James MA [facility] 02/15/2024 13:02:22 Date Recorded Body height Body mass index (BMI) Body weight Heart rate Oxygen saturation Oxygen saturation in Arterial blood by Pulse oximetry Body temperature Systolic blood pressure Diastolic blood pressure Provider Name and Address Organization Details Last Updated DateTime 4 152.4 cm 35.8 kg/m2 47170.1 g 83 /min 97 % 97 % 98.2 [degF] 143 mm[Hg] 72 mm[Hg] Mee Ayers LPN [facility] 4 14:38:00 Date Recorded Body height Body mass index (BMI) Body weight Heart rate Oxygen saturation Oxygen saturation in Arterial blood by Pulse oximetry Body temperature Systolic blood pressure Diastolic blood pressure Provider Name and Address Organization Details Last Updated DateTime 4 152.4 cm 36.5 kg/m2 83077.7 7 g 81 /min 99 % 99 % 97.8 [degF] 130 mm[Hg] 76 mm[Hg] Cristina Sanchez [facility] 4 11:20:25 Date Recorded Body height Body mass index (BMI) Body weight Heart rate Oxygen saturation Oxygen saturation in Arterial blood by Pulse oximetry Body temperature Systolic blood pressure Diastolic blood pressure Provider Name and Address Organization Details Last Updated DateTime 5 152.4 cm 35.9 kg/m2 25140 g 90 /min 96 % 96 % 97.4 [degF] 123 mm[Hg] 77 mm[Hg] Nic turcios [facility] 5 09:49:40 Social History Question Answer Notes LastModified by Organizat ion Details LastModified Time Tobacco Smoking Status Never Smoker Leticia ugalde [facility] 07/19/2014 09:23:58 Do You Have An Advance Directive? Yes HCP At Hospital [email or web address] Information not available 10/06/2022 Is Blood Transfusion Acceptable In An Emergency? Yes Information not available 07/16/2015 What Is Your Level Of Caffeine Consumption? Moderate Coffee And Diet Soda Information not available 07/16/2015 How Much Tobacco Do You Chew? None Information not available 07/16/2015 In The 14 Days Before Symptom Onset, Have You Had Close Contact With A Laboratory-confi rmed COVID-19 While That Case Was Ill? No Information not available 10/06/2022 In The 14 Days Before Symptom Onset, Have You Had Close Contact With A Person Who Is Under Investigation For COVID-19 While That Person Was Ill? No [email or web address] Information not available 10/06/2022 Have You Been To An Area Known To Be High Risk For COVID-19? No [email or web address] Information not available 10/06/2022 What Type Of Diet Are You Following? DIABETIC Information not available 07/16/2015 Which Illicit Or Recreational Drugs Have You Used? N/A Information not available 07/16/2015 Live Alone Or With Others? Alone [email or web address] Information not available 10/06/2022 Do You Take [...] OUD But Is Possibly At Risk. No [email or web address] Information not available 09/30/2021 Have You Recently Traveled To A COVID-19 High Risk Area Or Gathering In The Last 10 Days? No [email or web address] Information not available 12/24/2020 What Was The Date Of Your Most Recent Tobacco Screening? 10/06/2022 [email or web address] Information not available 10/06/2022 How Many Children Do You Have? 2 Augusto Information not available 06/17/2018 Do You Use Your Seat Belt Or Car Seat Routinely? Yes Information not available 05/12/2022 Seat Belts Used Routinely Yes [email or web address] Information not available 10/06/2022 Are You Sexually Active? No Information not available 07/16/2015 Smoke Alarm In Home Yes [email or web address] Information not available 10/06/2022 Do You Have Smoke And Carbon Monoxide Detectors In Your Home? Yes Information not available 05/12/2022 At What Age Did You Start Smoking Tobacco? 0 Information not available 06/25/2021 Are You Passively Exposed To Smoke? No Information not available 07/16/2015 How Much Tobacco Do You Smoke? No Information not available 07/16/2015 Do You Use Sunscreen Routinely? Yes Information not available 10/06/2022 How Many Years Have You Smoked Tobacco? 0 Information not available 06/25/2021 Sex: Unknown Functional Status Question Answer Note LastModified by Organizat ion Details LastModified Time Do you use any illicit or recreational drugs? No Information not available 10/06/2022 Do you or have you ever used any other forms of tobacco or nicotine? No [email or web address] Information not available 10/06/2022 What is your level of alcohol consumption? None Information not available 07/16/2015 Do you or have you ever used smokeless tobacco? Never used smokeless tobacco Information not available 06/05/2020 Are you currently employed? No retired Information not available 06/17/2018 Are you able to walk? YESWOREST [email or web address] Information not available 10/06/2022 Are you able to care for yourself? 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 Never used electronic cigarettes Information not available 10/06/2022 What is your exercise level? Occasional walking, [...] available 2021 09:59:28 Medical History Condition Response Diabetes Y Obesity Y Reflux/GERD Y Head Injury/Concussion Y High Cholesterol Y Congestive Heart Failure (CHF) Y Heart Disease Y Headaches/Migraines Y Hypertension Y Allergies Y Asthma Y Kidney Disease Y Gynecological History Statement/Question Response Date of Last Pap Smear Date of Last Colonoscopy Most Recent Mammogram 12/25/2020 Most Recent Bone Density 06/15/2018 Obstetrics History GPAL:G 0 P 0 0 0 0 Immunizations Vaccine Type Date Status Note Provider Nam e and Address Organization Details Recorded Time pneumococcal polysaccharide PPV23 3 completed MALENA Moseley [facility] 07/30/2023 09:43:09 Influenza, split virus, trivalent, PF 4 completed Miranda ugalde [facility] 09/04/2021 15:19:53 Influenza, split virus, quadrivalent, preservative 8 completed Not Available [facility] 12/29/2023 11:25:32 Influenza, adjuvanted, trivalent, PF 9 completed MALENA Moseley [facility] 07/30/2023 09:43:09 Tdap 9 completed MALENA Moseley [facility] 07/30/2023 09:43:09 Influenza, split virus, trivalent, preservative 8 completed Miranda ugalde [facility] 09/04/2021 15:19:53 Influenza, split virus, trivalent, preservative 0 completed Miranda ugalde [facility] 09/04/2021 15:19:53 Influenza, split virus, trivalent, preservative 2 completed Miranda ugalde [facility] 09/04/2021 15:19:53 Pneumococcal conjugate PCV 13 7 completed MALENA Moseley [facility] 07/30/2023 09:43:09 Influenza, split virus, quadrivalent, PF 5 completed MALENA Moseley [facility] 07/30/2023 09:43:09 Influenza, high-dose, trivalent, PF 6 [facility] 09:43:09 pneumococcal polysaccharide PPV23 8 [facility] 09:43:09 influenza, unspecified formulation 0 completed Not Available [facility] 12/29/2023 11:25:32 Tdap 9 [facility] 09:43:09 COVID-19, mRNA, LNP-S, PF, 100 mcg/0.5mL dose or 50 mcg/0.25mL dose 1 [facility] 09:43:09 COVID-19, mRNA, LNP-S, PF, 30 mcg/0.3 mL dose 1 [facility] 09:43:09 pneumococcal polysaccharide PPV23 0 [facility] 09:43:09 Influenza, adjuvanted, trivalent, PF 8 [facility] 09:43:09 Influenza, high-dose, quadrivalent, PF 0 completed MALENA Nails [facility] 03/31/2023 14:27:12 [facility] recombinant 2 [facility] 14:27:12 COVID-19, mRNA, LNP-S, PF, 100 mcg/0.5mL dose or 50 mcg/0.25mL dose 1 [facility] 09:43:09 COVID-19, mRNA, LNP-S, PF, 30 mcg/0.3 mL dose 1 completed MALENA Monk, [facility] 08/03/2022 15:22:29 Influenza, adjuvanted, quadrivalent, PF 2 completed MALENA Moseley, [facility] 07/30/2023 09:43:09 zoster recombinant 3 completed MALENA Moseley, [facility] 07/30/2023 09:43:09 Influenza, high-dose, quadrivalent, PF 1 completed MALENA Moseley, [facility] 07/30/2023 09:43:09 Influenza, high-dose, quadrivalent, PF 2 completed MALENA Moseley [facility] 07/30/2023 09:43:09 COVID-19, mRNA, LNP-S, PF, 100 mcg/0.5mL dose or 50 mcg/0.25mL dose 1 completed MALENA Moseley, [facility] 07/30/2023 09:43:09 COVID-19, mRNA, LNP-S, bivalent, PF, 50 mcg/0.5 mL or 25mcg/0.25 mL dose 2 completed MALENA Moseley, [facility] 07/30/2023 09:43:09 Influenza, split virus, trivalent, preservative 7 completed MALENA Moseley, [facility] 07/30/2023 09:43:09 Influenza, high-dose, trivalent, PF 4 completed Kevin Darden PA-C [address], [address], [facility] 08/15/2024 15:58:48 Past Encounters Encounter ID Performer Location Encounter Start Date Encounter Closed Date Diagnosis/Indication Diagnosis SNOMED-CT Code Diagnosis ICD10 Code Diagnosis Note [id number] autoEComm erce [address] [place] [address] 09/09/2007 00:00:00 [id number] autoEComm erce [address] [place] [address] 11/16/2006 00:00:00 [id number] autoEComm erce [address] [place] [address] 01/13/2008 00:00:00 [id number] autoEComm erce [address] [facility] [place] [address] 01/31/2008 00:00:00 [id number] autoEComm erce [address] [facility] [place] [address] 02/03/2008 00:00:00 [id number] autoEComm erce [address] [facility] [place] [address] 02/10/2008 00:00:00 [id number] autoEComm erce [address] [facility] [place] [address] 03/26/2008 00:00:00 [id number] autoEComm erce [address] [facility] [place] [address] 05/31/2008 00:00:00 [id number] autoEComm erce [address] [facility] [place] [address] 06/29/2008 00:00:00 [id number] autoEComm erce [address] [facility] [place] [address] 01/03/2009 00:00:00 [id number] autoEComm erce [address] [facility] [place] [address] 04/18/2009 00:00:00 [id number] autoEComm erce [address] [facility] [place] [address] 08/23/2009 00:00:00 [id number] autoEComm erce [address] [facility] [place] [address] 11/19/2009 00:00:00 [id number] autoEComm erce [address] [place] [address] 01/11/2010 00:00:00 [id number] autoEComm erce [address] [place] [address] 02/24/2010 00:00:00 [id number] autoEComm erce [address] [place] [address] 05/30/2010 00:00:00 [id number] autoEComm erce [address] [place] [address] 07/01/2010 00:00:00 [id number] autoEComm erce [address] [place] [address] 10/27/2010 00:00:00 [id number] autoEComm erce [address] [facility],[address] [place] [address] 01/12/2011 00:00:00 [id number] autoEComm erce [address] [facility],[address] [place] [address] 03/20/2011 00:00:00 [id number] autoEComm erce [address] [place] [address] 10/15/2011 00:00:00 [id number] autoEComm erce [address] [facility] [place] [address] 12/25/2011 00:00:00 [id number] autoEComm erce [address] [facility] [place] [address] 02/16/2012 00:00:00 [id number] autoEComm erce [address] [place] [address] 05/26/2012 00:00:00 [id number] autoEComm erce [address] [facility] [place] [address] 07/25/2012 00:00:00 [id number] autoEComm erce [address] [place] [address] 11/17/2012 00:00:00 [id number] autoEComm erce [address] [facility] [place] [address] 11/24/2012 00:00:00 [id number] autoEComm erce [address] [facility] [place] [address] 12/13/2012 00:00:00 [id number] autoEComm erce [address] [facility] [place] [address] 12/27/2012 00:00:00 [id number] autoEComm erce [address] [facility] [place] [address] 03/06/2013 00:00:00 [id number] autoEComm erce [address] [facility] [place] [address] 04/27/2013 00:00:00 [id number] autoEComm erce [address] [facility] [place] [address] 10/27/2013 00:00:00 [id number] autoEComm erce [address] [facility] [place] [address] 03/08/2014 00:00:00 [id number] autoEComm erce [address] [facility] [place] [address] 03/12/2014 00:00:00 [id number] autoEComm erce [address] [facility] [place] [address] 04/06/2014 00:00:00 [id number] CHRISTIANE Mann Main Office [address] [place] [address] 07/19/2014 09:05:39 07/19/2014 09:47:29 Hand pain 91563919 Diabetes mellitus 78343011 PT tolerating metformin and Hbg A1C down to 7.1 from 9.5. Continue current management . [id number] CHRISTIANE Garza Main Office [address] [place] [address] 08/29/2014 12:59:02 08/29/2014 13:54:06 Acute pharyngitis 343978522 Acute asthma 883887220 s he tends to need high doses prednisone per pt. she states that usually starts with 60-80 mg and tapers. we did discuss this will increase her sugars but that she is already on max dose advair Gastroesop hageal reflux disease 816554301 Acute otitis media 3031163 [id number] CHRISTIANE Mann Main Office [address] [address] [place] [address] 09/12/2014 08:06:18 09/12/2014 08:35:55 Acute sinusitis 01072525 Suspect she has under treated sinus infection, will tx with full course of levaquin Asthma 389983990 complet ed prednsone, lungs are clear today [id number] CHRISTIANE Mann Main Office [address] [address] [place] [address] 10/25/2014 10:10:19 10/25/2014 10:54:51 Type 2 diabetes mellitus without complication 191054185 Hgb A1C 7.4, will increase metformin to 1000mg daily, FU 3 months with labs beforehand [id number] Stanley taylor MD Main Office [address] [address] [address] [place] [address] 02/05/2015 10:50:31 02/05/2015 11:52:07 Type 2 diabetes mellitus without complication 994630739 Gastroesop hageal reflux disease 048109161 Hyperlipidemia 43442337 Asthma 091907316 Allergic rhinitis 39446233 [id number] CHRISTIANE Galeana Main Office [address] [address] [place] [address] 02/14/2015 13:04:31 02/14/2015 13:36:34 Acute sinusitis 87443679 HX asthma, CHF, DM, she is trying to avoid having to use prednisone as her sugars are not well controlled . Levaquin x 10 days, symptomati c treatment- continue nasonex, lots of fluids, rest, tea with honey, OTC cough drops/ cough med as needed, humidifier , nasal sinus rinses. Asthma 459840435 request s refill on advair. Congestive heart failure 25226774 Allergic rhinitis 91337190 Diabetes mellitus 25500686 Continue current meds, f/u with labs prior in 3 mos as scheduled. [id number] Matty Hewitt MD Main Office [address] [address] [place] [id number] 04/15/2015 10:53:46 04/15/2015 11:33:01 Acute asthma 853755145 there is no clear trigger to her current exacerbati on but is possibly related to a URI. No role for antibiotic s since only with symptoms for 2 days and probably viral. [id number] Stanley taylor MD Main Office [address] [place] [address] 07/16/2015 09:10:42 07/16/2015 10:06:01 Essential hypertension 56172941 Type 2 carmel betes mellitus without complication 477282901 Adult [facility] th examination 977529176 Congestive heart failure 72382369 Sinusitis 44543631 Insomnia 960926094 Single amaya or depressive episode 325448831 pt on meds/ stable w/ plan/ I spoke w/ Ina Odell her therapist who feels pt is doing well volodymyr off of etoh [id number] Alexander Conteh MD Main Office [address] [place] [address] 08/20/2015 11:09:24 08/20/2015 12:12:48 Asthma 021761813 J45.41 Needs infl uenza immunization 610107739 Z23 [id number] Stanley taylor MD Main Office [address] [place] [address] 02/13/2016 09:22:24 02/13/2016 10:28:36 Type 2 diabetes mellitus without complication 004490063 E11.9 Chronic di astolic heart failure 292643284 I50.32 Single amaya or depressive episode 504085050 F33.41 pt on meds/ stable w/ plan/ I spoke w/ Ina Odell her therapist who feels pt is doing well volodymyr off of etoh Gastroesop hageal reflux disease 525960188 K21.9 Asthma 376793902 J45.90 9 Allergic rhinitis 092887 04 J30.9 Vaginitis 57207590 N76.0 [id number] Morgan Darden PA-C Main Office [address] [place] [address] 03/12/2016 13:54:55 03/12/2016 15:11:25 Gastroenteritis 09452276 K52.9 better, but pt concerned about pinworm/le ech that possibly came out of her Pain of joint 60073920 M 25.50 [id number] Morgan Darden PA-C Main Office [address] [address] [place] [address] 03/31/2016 12:55:34 03/31/2016 14:44:33 Low back pain 687810949 M54.5 25 minute office visit with greater than 50% of the visit face-to-fa ce with the patient and/or family providing counseling and/or coordinati on of care. [id number] Morgan Darden PA-C Main Office [address] [address] [place] [address] 06/10/2016 14:43:34 06/10/2016 16:11:15 Pre-surgery evaluation 017594589 Z01.818 Chronic di astolic heart failure 448991421 I50.32 Asthma 388262195 J45.90 9 Degenerati on of intervertebral disc 36828468 M51.9 Essential hypertension 75122409 I10 Type 2 carmel betes mellitus without complication 752235412 E11.9 [id number] Stanley taylor MD Main Office [address] [address] [place] [address] 08/20/2016 13:40:21 08/20/2016 14:41:33 Pre-surgery evaluation 846114387 Z01.818 Bunion 040835927 M20.10 Essential hypertension 16850623 I10 Administra tion of pneumococcal vaccine 69859976 Z23 Renal diso rder due to type 2 diabetes mellitus 605555386 E11.22 Influenza vaccine needed 9725950409 106 Z23 [id number] Mogran Darden PA-C Main Office [address] [address] [place] [address] 11/24/2016 13:38:23 11/24/2016 14:19:27 Cough 06094253 R05 prob d/t postnasal drip but check cxr to r/o pna - lungs sound okay but recently used nebs Asthma 911354214 J45.31 was on advair up until a few weeks ago - couldn't afford refill - pt stated wasn't covered - looked it up - tier 2 - hopefully be less $ c [facility] since [facility] merged c - pt cannot go to as per ins. co. Obstructiv e sleep apnea syndrome 24489189 G47.33 see above re: pulm eval Sinusitis 63239726 J32.9 [id number] Morgan Darden PA-C Main Office [address] [facility] [address] [place] [address] 01/13/2017 10:06:31 01/13/2017 10:58:52 Pre-surgery evaluation 255578740 Z01.818 no problems c anesthesia for prior procedure 08/30 EKG similar to 08.30 - no sig. change Chronic di astolic heart failure 792743718 I50.32 last seen by card last yr - stable Asthma 956507294 J45.30 pending see pulm. uses proair a few times daily. since cannot afford advair - will give trial of ICS and hopefully not need her proair as often Degenerati on of intervertebral disc 71590143 M51.9 Essential hypertension 94544456 I10 stable, cont meds as dir Type 2 carmel betes mellitus without complication 568047561 E11.9 cont meds as dir Body mass index 30+ - obesity 065138992 Z68.36 [id number] Stanley taylor MD Main Office [address] [facility] [address] [place] [address] 02/19/2017 09:43:24 02/19/2017 10:29:53 Adult health examination 737711027 Z00.00 Asthma 053264267 J45.90 9 Renal diso rder due to type 2 diabetes mellitus 862728203 E11.22 Diastolic heart failure 830669392 I50.30 pt will continue meds Essential hypertension 31009872 I10 Body mass index 30+ - obesity 829750819 E66.9 Z68.35 Administra tion of pneumococcal vaccine 11596046 Z23 [id number] Stanley taylor MD Main Office [address] [facility] [address] [place] [address] 06/28/2017 10:39:15 06/28/2017 11:32:02 Congestive heart failure 81753657 I50.9 Hyperlipidemia 16122601 E78.5 Renal diso rder due to type 2 diabetes mellitus 203378299 E11.22 Single amaya or depressive episode 851011265 F33.41 pt on meds/ stable w/ plan/ I spoke w/ Ina Odell her therapist who feels pt is doing well volodymyr off of etoh Chronic ki dney disease stage 1 782232238 N18.1 Hypertensi ve renal disease 57166862 I12.9 [id number] Stanley taylor MD Main Office [address] [facility] [address] [place] [address] 11/19/2017 11:17:09 11/19/2017 12:02:55 Type 2 diabetes mellitus without complication 749249079 E11.9 Hyperlipidemia 52871208 E78.5 Hypertensi ve renal disease 79087692 I12.9 Obstructiv e sleep apnea syndrome 98234681 G47.33 Acute vaginitis 83391116 N76.0 Chronic ki dney disease stage 1 029684618 N18.1 [id number] Kevin Darden PA-C Main Office [address] [facility] [address] [place] [address] 05/23/2018 14:35:56 05/23/2018 15:58:41 Adult health examination 102127695 Z00.00 Uncomplica eileen mild persistent asthma 158882364 J45.30 Continue current meds and see Dr. Mcguire as scheduled once per year. Pt. will have pulmonary meds prescribed by him. Single amaya or depressive episode 765386970 F32.9 Continue current meds and counseling . Generalize d anxiety disorder 57525601 F41.1 Diastolic heart failure 923911011 I50.[address] as scheduled every 6 m. She will take over cardiology meds( Toprol XL, Bumetanide and Potassium supplement s). Uncontroll ed type 2 diabetes mellitus 855278056 E11.49 E11.65 Continue current meds. Start monitoring glucose daily and return for diabetic review in 4-6 weeks. Hypertensi ve renal disease 36910835 I12.9 repeat testing in 3 m. Consider renal referral. Decrease in height 98646 005 R29.890 Patient en counter status 916431924 Z12.31 Screening for malignant neoplasm of colon 483611491 Z12.11 Z12.12 refuses colonoscop y procedure. Never had one done. Agreed to have stool testing done. Cancer cer vix screening status 498237793 Z12.4 Varicella vaccination 68 328086 Z23 Chronic ki dney disease stage 2 due to type 2 diabetes mellitus 2692600832 01 E11.22 N18.2 Repeat testing in 3 m. Hyperlipidemia 53187958 E78.01 Labs reviewed and stable. Continue current meds. Body mass index 30+ - obesity 547209649 E66.9 Z68.35 Z68.38 Fatigue 29929814 R53.83 Postmenopausal state 764 42495 Z78.0 [id number] Kevin Darden PA-C Main Office [address] 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 Will add Januvia at 100 mg daily . Continue testing daily 1-2 times . Increase exercise activity and lower total calories and carbs. Pt. will be referred to the nutritioni . F/u 3 m. Administra tion of pneumococcal vaccine 25963215 Z23 Screening for malignant neoplasm of breast 560373533 Z12.39 Body mass index 30+ - obesity 138984298 E66.9 Z68.37 [id number] Kevin Darden PA-C Main Office [address] [facility] [address] [place] [address] 09/19/2018 09:49:02 09/19/2018 11:29:23 Type 2 diabetes mellitus without complication 866105570 E11.9 stable; cont. management regimen and testing. F/u 3 m. Body mass index 30+ - obesity 977347479 E66.9 Z68.35 pt lost weight sine the last visit w/ better diet and new DM regimen, cont. weight loss plan [id number] Kevin Darden PA-C Main Office [address] [facility] [address] [place] [address] 11/16/2018 11:07:18 11/16/2018 12:13:38 Uncomplicated mild persistent asthma 068914617 J45.30 Continue Advair daily, rescue inhaler and nebulizer as needed. Pneumonitis 638190380 J9 5.867 Patient presents with asthma exacerbati on caused [...] 5-6 days. Exacerbati on of intermittent asthma 210842211 J45.21 Patient advised to continue taking Advair, and discontinu e flovent. Nebulizer solution replaced with ipratropiu m-albutero l solution, patient advised to use as directed below. Chronic ki dney disease stage 2 due to type 2 diabetes mellitus 9728263242 01 E11.22 N18.2 Pt. was advised to continue glucose monitoring . Take Janumet on full stomack only. If nausea, hold for few days and continue testing glucose. [id number] Kevin Darden PA-C Main Office [address] [facility] [address] [facility] [address] 11/23/2018 11:26:53 11/23/2018 12:10:12 Uncomplicated mild persistent asthma 955661123 J45.30 Continue Advair daily, rescue inhaler and nebulizer as needed. Prednisone was extended by pulmonary by few more days. [id number] Natalie santana MD Main Office [address] 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 Continue current meds, diabetic diet . Increase exercise activity. Test glucose daily. F/u 3-4 m Repeat labs and microalbum in. Diastolic heart failure 827561144 I50.30 See cardiologi as scheduled Rx will be taken over by cardiology in the future as discussed. [id number] Alexander Conteh MD Main Office [address] [place] [address] 03/24/2019 14:22:55 03/24/2019 16:05:09 Acute pharyngitis 802240918 J02.9 Continue with plenty of fluids and eat soft foods. Return if symptoms do not improve in 2 - 4 days or symptoms worsen. Impacted cerumen 0154645 6 H61.20 left ear canal was impacted with wax. It was cleared and fluid was visible behind your tympanic membrane. There was no sign of infection at this time. Please return if your symptoms worsen or do not improve in 2 - 4 days.Albino nue Mucinex for decongesti on. Acute conjunctivitis 937 83256 H10.32 Continue with warm compresses to help with drainage. If symptoms do not improve in 2 days you can start prescripti on eye drops. [id number] Matty Hewitt MD Main Office [address] [address] [place] [address] 05/04/2019 11:08:50 05/04/2019 12:04:59 Acute asthma 096123014 J45.901 Probably set off by allergies. No role for antibiotic s at this point but will call next week if her sinus symptoms worsen. [id number] Alexander Conteh MD Main Office [address] [place] [address] 06/19/2019 08:31:00 06/19/2019 09:47:55 Hearing loss 90236585 H91.92 unilateral hearing loss and dizziness. Refer to ENT for the evaluation and r/o acoustic neuroma. Hypomagnesemia 544169033 E83.42 Renal diso rder due to type 2 diabetes mellitus 867473485 E11.22 Hyperlipidemia 89285373 E78.01 Labs reviewed and stable. Continue current meds. Chronic ki dney disease stage 3 752286664 N18.3 [id number] Alexander Conteh MD Main Office [address] [facility] [address] [place] [address] 07/24/2019 15:31:28 07/24/2019 16:45:17 Adult health examination 955761079 Z00.00 update Td Hypomagnesemia 404513618 E83.42 Mildly low as of 08/03 - 1.6. On 100mg daily of magnesium -will increase to 200 mg and repeat in 1 month. Hypercalcemia 18587561 E 83.52 Mildly elevated as of 08/03 - 10.8. Repeat labs. Generalize d anxiety disorder 67032991 F41.1 Stable. No recent episodes. Gastroesop hageal reflux disease 375888090 K21.9 Stable. Continue current regimen. Osteoarthr itis of knee 193151844 M17.9 Uses CBD oil BID. Stable. Chronic ki dney disease stage 3 041273925 N18.3 f/u with nephrology as scheduled Renal diso rder due to type 2 diabetes mellitus 553793128 E11.22 Stable diabetes , continue with current medic. followed by nephrology , last seen 06/20/19 - stopped Losartan, now taking Bumex daily. Cr 1.51, GFR 34 as of 07/20/19. f/u with nephrology as scheduled - next appt is in Sep. continue on janumet Hyperlipidemia 91866257 E78.01 Stable as of 08/03. Continue current meds. Diastolic heart failure 831766307 I50.30 Followed by cardiology - next appt is tomorrow 07/25/19. Hearing loss 22336106 H9 1.92 followed by aimee villar ENT, seen 06/19/19. Unilateral (L) hearing loss. ENT rec MRI, patient is going to consider it. Requires a tetanus booster 060417321 Z28.3 last had Tdap 12/24 Uncomplica eileen mild persistent asthma 895572304 J45.30 Stable. Continue Advair daily, rescue inhaler and nebulizer as needed. Followed by pulmonolog y, f/u as needed. Left ventr icular hypertrophy 93335445 I51.7 Followed by cardiology . Hypertensi ve renal disease 72381729 I12.9 Followed by nephrology . Degenerati on of intervertebral disc 63975856 M51.9 Stable. Occasional flair ups. Taking no medication . Body mass index 30+ - obesity 160113170 E66.9 Z68.35 discussed diet and exercise goals [id number] Alexander Conteh MD Main Office [address] [facility] [address] [place] [place] [address] 11/22/2019 10:04:09 11/22/2019 10:49:29 Renal disorder due to type 2 diabetes mellitus 633749722 E11.22 WEll controlled diabetes . At this point creatinine is 1.5 . WE will lower renally cleared medication s Janumet to 1 tablet daily. Continue testing. See renal as scheduled. Chronic ki dney disease stage 3 559480302 N18.3 f/u with nephrology as scheduled Hypertensi ve renal disease 20768506 I12.9 Followed by nephrology . Hypercalcemia 34791220 E 83.52 Reer to endo. [id number] Alexander Conteh MD [facility] [address] [address] [place] [address] 04/05/2020 09:09:03 04/05/2020 12:41:44 Trochanteric bursitis of right hip 5353872217 53519 M70.61 start meloxicam 15 mg daily for 2-3 weeks . Pt. was advised to take Tylenol ES at HS as well and use heating pad at least once daily 15 minutes. If still in pain in 2 weeks, will be referred for cortisone injection. Renal diso rder due to type 2 diabetes mellitus 580440915 E11.22 continue current meds. Repeat labs in 1-2 weeks. Chronic ki dney disease stage 3 128235494 N18.3 f/u with nephrology as scheduled Pure hypercholesterolemia 771892770 E78.00 repeat fasting labs [id number] Alexander Conteh MD [facility] [address] [facility] [address] [place] [place] [address] 06/05/2020 11:59:06 06/06/2020 15:07:19 Pain of hip region 15420629 M25.551 M25.552 Bilateral hip pain. R side is worse. ? arthropath y vs bursitis. We will destiny xray first and decide for referral based on that. If xray is normal, we will need cortisone likely for the bursitis. If mild to moderate arthropath y, will refer to rheumatolo gist. [id number] Matty Hewitt MD [facility] [address] [facility] [address] [place] [address] 07/29/2020 08:27:40 07/29/2020 14:52:51 Chronic low back pain 675675908 M54.5 Osteoarthritis of hip 23 2943546 M16.9 consider trial of meloxicam after she is done with Naprosyn. Degenerati on of lumbar intervertebral disc 36698824 M51.36 ? postsurgic al facet arthropath y affecting also R. SI area. Pt. is on NSAIDs and muscle relaxant at this time. WE will obtain LS spine films and refer to physiatry/ PT. [id number] Alexander Conteh MD Main Office [address] [facility] [address] [place] [address] 08/23/2020 14:34:17 08/23/2020 16:03:02 Adult health examination 796903126 Z00.00 Recom to receive shingrix vaccine. Other vaccines are up to date. Hyperlipidemia 68871873 E78.01 Stable control on current meds. Renal diso rder due to type 2 diabetes mellitus 060451991 E11.22 continue current meds.SChed ule f/u with renal. Chronic ki dney disease stage 4 063718846 N18.4 worsened renal function. ? due to NSAIDs taken for low back pain. Pt. is due for renal f/u. PPt. is advised not to take NSAIDs.Inc rease hydration. Screening for malignant neoplasm of breast 462780019 Z12.39 Screening for malignant neoplasm of cervix 459664839 Z12.4 Uncomplica eileen mild persistent asthma 789626537 J45.30 Stable. Continue Advair daily, rescue inhaler and nebulizer as needed. Followed by pulmonolog y, f/u as needed. Diabetic p eripheral neuropathy 014300211 E11.40 refer to the podiatry. Screening for malignant neoplasm of colon 859023458 Z12.11 Z12.12 refuses colonoscop y procedure. Never had one done. Agreed to have stool testing done. Constipation 64787483 K5 9.00 continue Miralax powder and add colace at 100 mg daily. Increase dietary fiber and fluids consider GI work up. WE will try to do cologuard first. Osteoarthr itis of knee 883811634 M17.9 Uses CBD oil BID. Stable. Osteoarthritis of hip 23 0063746 M16.9 consider trial of meloxicam after she is done with Naprosyn. Left ventr icular hypertrophy 12482559 I51.7 Followed by cardiology . Bumetanide is being decreased to 2 mg in the am. Echo is scheduled for next week. Body mass index 30+ - obesity 513943613 E66.9 Z68.36 discussed diet and exercise goals [id number] Kevin Darden PA-C Main Office [address] [facility] [address] [place] [address] 12/24/2020 09:03:54 12/24/2020 10:25:55 Renal disorder due to type 2 diabetes mellitus 136801128 E11.22 Complete Janumet and d/c . Start metformin 1000 mg daily and add Trulicity 0.75 mg weekly. Possible side effects discussed. Retest A1c in 3 m. Hypertensi ve renal disease 86750854 I12.9 Followed by nephrology . Chronic ki dney disease stage 3 005326545 N18.30 F/u with renal as scheduled. Diabetic p eripheral neuropathy 538973455 E11.40 Rx for diabetic foot wear will be forwarded to Dr. Conteh for sig. Uncomplica eileen mild persistent asthma 349712370 J45.30 Stable. Continue Advair daily, rescue inhaler and nebulizer as needed. Followed by pulmonolog y, f/u as needed. 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 Start tramadol 50 mg PRN use at HS only ( pt. has h/o opioid addiction) . [id number] Kevin Darden PA-C Main Office [address] [facility] [address] [facility] [place] [address] 03/25/2021 09:39:09 03/25/2021 11:19:53 Renal disorder due to type 2 diabetes mellitus 092274434 E11.22 A1C has increased due to patient's poor diet and stress levels hypoglycem ia was very occasional Pt understand s how to manage hypoglycem ia episodes adequately Will continue current regimen as directed. F/u 3 m. Degenerati on of intervertebral disc 40159020 M51.9 Constant back pain 6/10 at night, during the day 5/10 Takes tylenol with minimal relief, we will try tramadol at 50-100 mg at least at HS and call [facility] for f/u. Pt. is due for another steroid injection series in April. Takes marijuana gummies more regularly at night. Diabetic p eripheral neuropathy 940211209 E11.40 F/u with the regional construction manager . Chronic ki dney disease stage 3B 596215189 N18.32 F/u with renal Hyperlipidemia 30273232 E78.01 Continue current meds. repeat fasting lipids. Hypertensi ve renal disease 27482729 I12.9 Followed by nephrology . [id number] Kevin Darden PA-C Main Office [address] [facility] [address] [place] [address] 06/25/2021 09:22:27 06/25/2021 10:22:23 Renal disorder due to type 2 diabetes mellitus 856063506 E11.22 Stable type II DM with renal and neurologic manifestat ions. Plan to increase Trulicity to 1.5 mg weekly and discontinu e metformin by next visit. F/u 3 m. Chronic ki dney disease stage 3B 078240050 N18.32 F/u with renal Hypomagnesemia 303585872 E83.42 repeat magnesium level Pure hypercholesterolemia 550648523 E78.00 repeat fasting labs Diabetic p eripheral neuropathy 504056928 E11.40 F/u with the regional construction manager as scheduled. Hypertensi ve renal disease 35487336 I12.9 Followed by nephrology . Hyperlipidemia 24729581 E78.01 Continue current meds. repeat fasting lipids. [id number] Lauren Diego MD Main Office [address] [place] [address] 08/27/2021 10:33:15 08/27/2021 13:49:07 Diastolic heart failure 314583866 I50.[address] [facility].To see [facility] cardiology Ralph Archer for cardiac clearance. Chronic ki dney disease stage 3B 163410321 N18.[address] Daniele Reddy Renal diso rder due to type 2 diabetes mellitus 317893731 E11.22 Continue quarterly follow-up of serum creatinine , blood pressure, glycemic control. Referral to renal as indicated. Pre-surger y evaluation 403756025 Z01.818 1. Pre-Surgic al Evaluation /Surgical Clearance [...] health condition. Exposure t o viral disease 2039440080 38326 Z03.818 Hypertensi ve renal disease 16667657 I12.9 BP elevated likely 2/2 to URI sx, notes bp at home within range. [employer] HELPER to f/u home BP readings is elevated would consider increasein g losartan.A symptomati c regarding htn stand point.Adde ndum: 09/04/2021 , recently saw renal 08/27/21 after she saw me, bp was within JNC range (127/72) and she is due to see cardiology 09/05/21.B P can be followed at next office visit given acceptable bp range and nephrology visit. Upper resp iratory infection 15959988 J06.9 Advised symptomati c tx hydration enforced, [...] with the risk and parameters discussed above. [id number] Natalie santana MD Main Office [address] [facility] [address] [facility] [place] [address] 09/15/2021 11:59:12 10/13/2021 09:52:46 [id number] Natalie santana MD Main Office [address] [facility] [address] [facility] [address] 09/30/2021 09:23:00 09/30/2021 10:21:19 Adult health examination 723205778 Z00.00 Recom to receive shingrix vaccine. Other vaccines are up to date. Diabetic p eripheral neuropathy 759856789 E11.40 F/u with the regional construction manager every 3 m. Renal diso rder due to type 2 diabetes mellitus 668234410 E11.22 stable type II DM with CKD stg 3b followed by renal. Continue all current treatments and f/u with renal as recommende d. Chronic ki dney disease stage 3B 277088920 N18.32 F/u with renal Varicella vaccination 68 196082 Z23 Chronic di astolic heart failure 688976574 I50.32 Stable on bumex and diltiazem. f/u with cardiologi st as scheduled. Degenerati on of intervertebral disc 36740392 M51.9 Pt just had shoulder replacemen t, but will return to pain management for steroid injection. Takes otc pain meds. Gastroesop hageal reflux disease 590180444 K21.9 Stable. Continue current regimen. Generalize d anxiety disorder 18130086 F41.1 Stable. No recent episodes.C ontinue duloxetine . Hyperlipidemia 43611474 E78.01 Continue current meds. repeat fasting lipids. Hypomagnesemia 900956018 E83.42 continue mag oxide. Repeat levels at next visit. Bee sting- induced anaphylaxis 498213978 T63.441A EpiPen. [id number] Natalie santana MD Main Office [address] [place], [place] [address] 12/08/2021 09:06:23 12/08/2021 09:59:15 Pre-surgery evaluation [id number] Z01.818 Patient is at low to moderate [...] separately Chronic ki dney disease stage 3B 832394590 N18.32 check renal function and lytes today, pt followed by renal and had preop eval in Fall 2020 Chronic di astolic heart failure 439113284 I50.[address] [facility], Dr Hayward is cardiologi , had preop clearance recently, no problems with surgery last Fall. Renal diso rder due to type 2 diabetes mellitus 768735144 E11.22 Pt has diabetes, uses trulicity only, please monitor BS perioperat ively. Uncomplica eileen mild persistent asthma 482550758 J45.30 controlled on meds, some SOB with exertion, take baseline inhalers am of surgery [id number] Matty Hewitt MD Main Office [address] [place], [place] [address] 12/18/2021 09:05:09 12/19/2021 12:38:57 [id number] Lauren Diego MD Main Office [address] [place] [address] [place], [place] [address] 05/12/2022 13:09:07 05/12/2022 14:06:59 Renal disorder due to type 2 diabetes mellitus 255519995 E11.22 stable type II DM with CKD stg 3b followed by renal. Continue all current treatments and f/u with renal as recommende d. Chronic ki dney disease stage 3B 536888476 N18.32 F/u with renal Syncope 715519198 R55 unclear if related to CHF , does not look like seizure, labs stable. Injury of head 74229310 S09.90XA daily headache after injuring head 2-[address] is recommende d due to syncope and head injury. postconcus dm is possible [id number] Lauren Diego MD Main Office [address] [facility] [address] [place] [address] 07/28/2022 07:48:33 07/28/2022 11:57:27 Postconcussion syndrome 92174695 F07.81 Pt. will see neurology for her postconcus dm headaches in 1 week. Continue Tylenol ES for now. Headache 53238444 R51.9 Uncomplica eileen mild persistent asthma 862474010 J45.30 Stable. Continue Advair daily, rescue inhaler and nebulizer as needed. Followed by pulmonolog y, f/u as needed. Bee sting- induced anaphylaxis 692565779 T63.441A EpiPen. [id number] Lauren Diego MD Main Office [address] [facility] [address] [place] [address] 10/06/2022 09:59:02 10/06/2022 11:16:22 Adult health examination 082779044 Z00.00 Vaccines are up to date. Recommend new COVID booster. Chronic di astolic heart failure 257554671 I50.32 Pt. is still symptomati c of CHF. Seeing pulmonary in October and cardiologi st in November for f/u. Continue all prescribed meds/diure tics. Chronic ki dney disease stage 3B 954891946 N18.32 F/u with renal . I recommend pt to be started on SGLT-2 Jardiance 10 mg for renal protection , CHF and diabetes. She will run it by Alex Reddy and get back to me. Renal diso rder due to type 2 diabetes mellitus 344661262 E11.22 A1c is above target . Recommend to increase Trulicity to 3 mg dose and add SGLT-2. F/u 3 m or sooner. Goal A1c is under 7%. Hyperlipidemia 69225123 E78.01 Continue current meds. repeat fasting lipids. Diabetic p eripheral neuropathy 702420129 E11.40 F/u with the regional construction manager every 3 m. Gastroesop hageal reflux disease 801445523 K21.9 Stable. Continue current regimen.Co ntinue PPI. Generalize d anxiety disorder 70369798 F41.1 Stable. No recent episodes.C ontinue duloxetine . Screening for malignant neoplasm of cervix 334149777 Z12.4 Screening for malignant neoplasm of breast 526601432 Z12.39 Vitamin D deficiency 347 34897 E55.9 bone density scan normal in 2018. Screening for malignant neoplasm of colon 681425876 Z12.11 Z12.12 refuses colonoscop y procedure. Never had one done. Agreed to have stool testing done. Has constipati on. 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 Bumetanide is being decreased to 2 mg in the am. Echo is scheduled for next week. Uncomplica eileen mild persistent asthma 895815323 J45.30 Stable. Continue Advair daily, rescue inhaler and nebulizer as needed. Followed by pulmonolog y, f/u as needed. Migraine 24087932 G43.90 9 F/u with neurology. PT. was started on Topiramate and given Fioricet as well by Dr. Medellin. Body mass index 30+ - obesity 971799795 E66.9 Z68.35 discussed diet and exercise goals Bee sting- induced anaphylaxis 688151195 T63.441A EpiPen. Diastolic heart failure 351594606 I50.30 Followed by cardiology , f/u in November. Continue current meds. PT. was recommende d to see nutritioni st due to complicate d combined diets , Dash, diabetic diet, GERD and low fat. Referral was provided. Osteoarthritis of hip 23 6416536 M16.9 F/u with ortho Osteoarthr itis of knee 333610176 M17.9 Uses CBD oil BID. Stable. [id number] Lauren Diego MD Main Office [address] [place] [address] [place] [address] 03/31/2023 13:51:51 03/31/2023 14:49:42 Renal disorder due to type 2 diabetes mellitus 426869970 E11.22 Diabetes well controlled . Lower Trulicity to 1.5 mg weekly. Add Jardiance at 10 mg daily for CHF and CKD stg 3B. Continue seeing nutritioni st and continue diet and activity. F/u 3 m. Chronic ki dney disease stage 3B 498246194 N18.32 F/u with renal . Begin Jardiance at 10 mg daily and repeat bmp in 4 weeks. Hypertensi ve renal disease 00728548 I12.9 Followed by nephrology .repeat magnesium. Candidiasis of vagina 72 884176 B37.31 [id number] Kevin Darden PA-C Main Office [address] [facility] [address] [facility] [place] [address] 07/30/2023 09:33:33 07/30/2023 10:06:30 Renal disorder due to type 2 diabetes mellitus 919435484 E11.22 Diabetes well controlled . Repeat A1c and BMP in 4 weeks after start of jardiance 10 mg. Continue trulicity 1.5 mg weekly. Pt. was encouraged to restart her low alvarado diet and exercise. F/u 3 m. Chronic ki dney disease stage 3B 197509517 N18.32 F/u with renal . Begin Jardiance at 10 mg daily and repeat bmp in 4 weeks. Hypertensi ve nephrosclerosis 300737567 N18.32 f/u with renal. Microalbuminuria 8129602 06 R80.9 microalbum in normal in June. [id number] Lauren Diego MD Main Office [address] [facility] [address] [facility] [place] [address] 10/20/2023 15:33:23 10/20/2023 16:36:12 COVID-19 144680758 U07.1 Begin renally adjusted dose of Paxlovid. [...] rder due to type 2 diabetes mellitus 742314172 E11.22 Diabetes well controlled . recommend to test glucose several time per day during this illness to make sure medication s do not need to be temporaril y increased. Chronic ki dney disease stage 3B 413014553 N18.32 use renal dose Paxlovid and hydrate. Uncomplica eileen mild persistent asthma 503496955 J45.30 recommend to check in with Dr. Nagel on need to use oral steroids during COVID infection. PT. will place call in to him. [id number] Lauren Diego MD Main Office [address] [facility] [address] [place] [phone] 12/29/2023 11:23:10 12/29/2023 12:14:40 Generalized anxiety disorder 86908870 F41.1 see above. Moderate m ajor depression, single episode 30596314 F32.1 Personal stress worsening depression and anxiety. Recommend weekly therapy for now. Increase duloxetine to 90 mg daily . f/u in 4 weeks. Consider adding bupropion addition as an adjunct therapy. [id number] ZANDER PARNELL MD [facility] [address] [facility] [address] [place] [address] 02/07/2024 08:18:34 02/07/2024 09:17:43 Moderate major depression, single episode 43747157 F32.1 Personal stress worsening depression and anxiety. Recommend weekly therapy for now. Continue duloxetine at 90 mg daily . f/u in 8 weeks. [id number] Eugene Hanson MD [facility] [address] [facility] [address] [facility] [place] [address] 02/15/2024 12:44:39 02/15/2024 13:42:31 Acute sinusitis 79070754 J01.90 recommend probiotics while on abx [id number] Eugene Hanson MD Main Office [address] [facility] [address] [place] [address] 08/15/2024 14:25:26 08/15/2024 15:39:16 Adult health examination 852415096 Z00.00 Vaccines are up to date. Recommend new COVID booster. Renal diso rder due to type 2 diabetes mellitus 589262710 E11.22 repeat A1c and all other overdue labs. Pt. is having ? false hypoglycem ia but reports symptoms which is uncommon with Jardiance and Ozempic. For now we will hol ozempic and continue jardiance ? electrolyt e imbalance. Pt. is on bumex. F/u for DM in 6 weeks. Consider CGM use. Chronic ki dney disease stage 3B 057309159 N18.32 use renal dose Paxlovid and hydrate. Chronic di astolic heart failure 191728966 I50.32 Overdue for cardiology . Will set up f/u. Diabetic p eripheral neuropathy 570225524 E11.40 F/u with the regional construction manager every 3 m. Generalize d anxiety disorder 56475206 F41.1 stable. Hyperlipidemia 18405846 E78.01 Continue current meds. repeat fasting lipids. Hypertensi ve renal disease 49952651 I12.9 Followed by nephrology . repeat magnesium. Microalbuminuria 3637204 06 R80.9 repeat microalbum in. Migraine 74570775 G43.90 9 headaches secondary to concussion resolved. Moderate m ajor depression, single episode 61676461 F32.1 stable on duloxetine . Uncomplica eileen mild persistent asthma 974840193 J45.30 F/u with pulmonary. Pt. is currently stable. Gastroesop hageal reflux disease 676042985 K21.9 Stable. Continue PPI. Advance di rective discussed with patient 145614419 Z71.89 discussed. PT. will fill out at home and mail. Influenza vaccine needed 2992801894 106 Z23 65 YEARS AND OLDER Administra tion of pneumococcal vaccine 39782945 Z23 At [facility] ed risk for falls 522528154 Z91.81 Fall risk assessment scale is positive for increased risk for fall PT. has OA and obesity. Not interested in PT referral. Screening for malignant neoplasm of breast 084562563 Z12.39 [id number] Eugene Hanson MD Main Office [address] [place] [address] 10/18/2024 10:58:58 10/18/2024 11:37:40 Renal disorder due to type 2 diabetes mellitus 691306277 E11.22 Stable A1c on Ozempic and jardiance. Continue low calorie diet . F/u in 3 m. Chronic ki dney disease stage 3B 749306568 N18.32 F/u with Dr. Reddy. continue jardiance 10 mg. [id number] Matty Hewitt MD Main Office [address] [facility] [address] [facility] [place] [address] 01/24/2025 09:31:11 01/24/2025 10:32:07 Hypertensive renal disease 05869952 I12.9 Followed by nephrology every 4 months. Will recheck labs before next annual visit. Renal diso rder due to type 2 diabetes mellitus 701828061 E11.22 Stable A1c at 6.4% on Ozempic and jardiance. Continue low calorie diet. Repeat TSH. F/u in 3 months. Chronic ki dney disease stage 3B 245962103 N18.32 F/u with Dr. Reddy. Continue jardiance 10 mg. Transient cerebral ischemia 739506366 G45.9 Episode back in November. CT head performed without any acute findings. Pt was started on ASA by nephrology . Following up with neurology 05.09. We will plan to do ultrasound of carotids. Eczema 63515504 L30.9 Health Concerns Section Related Observation LastModified by Organization Detai ls LastModified Time None Recorded Concern Status LastModified by Organization Details LastModified Time None Recorded Advance Directives Directive Y: HCP at hospital Payers Encounter Date Sequence Insurance Name Policy Number Policy Paige Covered Member ID Paige Member ID Guarantor Name 02/07/2024 1 [place] [employer] Barbara M Nick [id number] Barbara Collins 02/07/2024 2 [place] [id number] Barbara Chilel Nick [id number] Barbara Chilel Nick 02/15/2024 1 [place] [place] Barbara M Nick [id number] Barbara Collins 02/15/2024 2 [place] [id number] Barbara Chilel Nick [id number] Barbara Chilel Nick 08/15/2024 1 [place] [employer] Barbara M Nick [id number] Barbara Collins 08/15/2024 2 [place] [id number] Barbara Collins [id number] Barbara Collins 10/18/2024 1 [place] [employer] Barbara Collins [id number] Barbara Collins 10/18/2024 2 [place] [id number] Barbara Collins [id number] Barbara Collins 01/24/2025 1 [place] Barbara Collins [id number] Barbara Collins 01/24/2025 2 [place] [id number] Barbara Collins [id number] Barbara Collins Notes Date Note Type [...] better. Tolerates medication well. Kevin Darden PA-C [address], [address], [facility] 02/07/2024 09:12:55 02/15/2024 text/html Phone visit-PT i s having daily headaches and facial pain under my eyes. possible sinus infection *see PT case* as per recent portal message:Kevin,? I have been having daily headaches and facial pain under my eyes. I believe I have another sinus infection. Would you please send a script to [facility]. ?Thank youBarbara + facial, jaw, tooth painno pur nasal dc - 'is stuck'+ rare coughno sob, f/c, wheezingno sig help c otc meds Morgan Darden PA-C [address] [address], [place], [address], [facility] 02/15/2024 13:35:21 08/15/2024 text/html Diabetes F/UReported bypatient.Context:n [...] overdue.Last bone density test was normal in 2017.DM. HGA1c last in September at 6.9%.BMI is [...] see neuro any longer. Kevin Darden PA-C [address], [address], [facility] 08/15/2024 16:06:28 10/18/2024 text/html Diabetes F/UReported bypatient.Context:n [...] followed by renal.Neuropathy is stable. PT. sees regional construction manager regularly.Hypertens ion F/UReported bypatient.Associate d Symptoms:no dizziness; [...] Jardiance 10 mg. 7 Kevin Darden PA-C [address] [address], [place], [address], [facility] [place] 10/18/2024 11:57:10 01/24/2025 text/html Diabetes F/UReported bypatient.Review [...] 4 months. Neuropathy is stable. Pt sees regional construction manager regularly. No evidence of diabetic retinopathy. Labs [...] the ER and was seen by her nc manager. Has pushpa with the neurologist , but not until April. Started on ASA by nc manager. NO prior carotid duplex ordered. Pt. has echo scheduled. Kevin Darden PA-C [address] [facility] [address] [facility], [place], [address], [facility] 01/24/2025 10:56:57 OBGyn Episode No OBEpisode recorded.
== END 2025-03-27 11:42 | disposition home or self-care (01) ==
LOC: HO.HKA 11:34
PROVIDERS: PCP Physician Assistant Medical; Visit Provider Internal Medicine Hypertension Specialist
DX: I12.9 Hypertensive chronic kidney disease with stage 1 through stage 4 chronic kidney disease, or unspecified chronic kidney disease (principal); N18.9 Chronic kidney disease, unspecified; G47.33 Obstructive sleep apnea (adult) (pediatric); Z99.89 Dependence on other enabling machines and devices; G45.9 Transient cerebral ischemic attack, unspecified
CPT/HCPCS: 99214

== ENCOUNTER → 2025-03-27 11:34 | Outpatient (BNVA) | payer MEDICARE, SELFPAY | PROVIDERS: PCP Physician Assistant Medical; Visit Provider Internal Medicine Hypertension Specialist | DX: I12.9 Hypertensive chronic kidney disease with stage 1 through stage 4 chronic kidney disease, or unspecified chronic kidney disease (principal); N18.9 Chronic kidney disease, unspecified; G47.33 Obstructive sleep apnea (adult) (pediatric); G45.9 Transient cerebral ischemic attack, unspecified; Z99.89 Dependence on other enabling machines and devices | CPT/HCPCS: 99212 ==

== ENCOUNTER 2025-05-10 09:16 | Outpatient (AMB) | payer MEDICARE, SELFPAY ==
[2025-05-10 09:20] VITALS: BP 118/80; PULSE 76; O2SAT 98; BMI 35.5
--- NOTE | 2025-05-10 09:20 | A.OFFVIS_ITS ---
Vital Signs 05/10/25 09:20 Height 5 ft Weight 182 lb BMI 35.5 BP 118/80 Blood Pressure Location Rt brachial Position Sitting Pulse 76 Pulse Source Pulse Oximeter Pulse Oximetry (%) 98 Oxygen Delivery Method Room Air Intake Visit Reasons: INP-TIA Intake Note: Patient referred in-house by Daniele Reddy for TIA Allergies bee pollen Allergy (Severe, Verified 05/10/25 09:23) Hives/Rash lisinopril Adverse Reaction (Severe, Verified 05/10/25 09:23) Cough Kvng Inibitors Allergy (Severe, Uncoded 05/10/25 09:23) Cough Penicillins Allergy (Severe, Uncoded 05/10/25 09:23) Rash Sulfa Drugs Allergy (Severe, Uncoded 05/10/25 09:23) Rash Medication List - Last Reconciled 05/10/25 by Rose Reddy MD ascorbic acid (vitamin C) 500 mg PO DAILY aspirin 81 mg PO DAILY atorvastatin 20 mg PO DAILY bumetanide 1 mg PO DAILY carvedilol 6.25 mg PO BID duloxetine 60 mg PO DAILY empagliflozin (Jardiance) 10 mg PO DAILY epinephrine IM fluticasone propion-salmeterol 250-50 mcg/dose (Wixela Inhub) 1 inh inhalation Q12H 90 days gtxqjlfystb-icsqeizha-qvbbabtg 100-62.5-25 mcg (Trelegy Ellipta) 1 ea inhalation DAILY levalbuterol tartrate 45 mcg/actuation 2 puffs inhalation Q6H PRN 90 days losartan 50 mg PO DAILY magnesium 200 mg PO DAILY mometasone 50 mcg/actuation (Nasonex) 2 sprays intranasal DAILY 90 days montelukast 10 mg PO DAILY 90 days omeprazole 40 mg PO DAILY semaglutide (Ozempic) mg subcut spironolactone 12.5 mg (1/2 x 25 mg) PO DAILY HPI Comments Details: 75y/o female comes for neurological evaluation . ABout 6 mths ago ( Nov 28 2024) she had an episode of slurred speech, word finding difficulty, felt off balance, weak for about 20minutes. she called her personal counselor -was followed up the week after. After the episodes she still had lingering effects - felt foggy , tired for 2 weeks after that . she denies any severe headaches.she was under a lot of stress at that time as she was trying to move her fathe [place]to [place] [facility]. 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 But she had to give that up to take care of her dad. she is on cymbalta 60mg qd and has therapist that she talks to 2 times month she lives along, does not socialize, plays [employer] weekly and goes to [employer] weekly. she had CT brain , carotid ultrasound and was started on aspirin 81mg qd by her [employer] technical lead senior developer. She denies nay new episodes since then Blood pressure is well controlled, diabetes is fairly controlled, Hg A1 C 6.5 she has LINETTE and is on CPAP. [facility] Medical History (Updated 05/10/25 @ 10:01 by Rose Reddy MD) Transient neurologic deficit Diabetes Chronic allergic rhinitis Murmur LINETTE on CPAP Asthma Family History Mother Heart disease Father Heart disease Other Asthma Social History Alcohol intake: never Patient Tobacco Use Status: Never used Tobacco Physical Exam Vital Signs: Last Vital Signs Pulse 76 05/10/25 09:20 BP 118/80 05/10/25 09:20 Pulse Ox 98 05/10/25 09:20 Oxygen Delivery Method Room Air 05/10/25 09:20 BMI result Body Mass Index 35.5 Const General: cooperative, healthy appearing, comfortable and anxious Nutritional Appearance: obese Orientation/consciousness: patient oriented x3 Eyes Pupils: Equal, round and reactive pupils present Neuro General: patient oriented x3, gait normal, tone normal and moves all extremities Cranial nerves: Yes Facial sensation intact/muscles of mastication intact, Yes Equal, round and reactive pupils present, Yes Bilaterally intact EOM present, Yes Nystagmus not present, Yes Normal facial strength present, Yes Midline tongue present, Yes Symmetric palate elevation present and Yes Ability to bilaterally elevate shoulders present Cognition (Neuro): normal cognition Gait exam (Neuro): Normal gait present Deep tendon reflexes (DTR's): Right triceps reflex intensity grade: 2+, Left triceps reflex intensity grade: 2+, Rt Biceps (C5, C6): 2+, Left biceps reflex intensity grade: 2+, Right brachioradialis reflex intensity grade: 2+, Left brachioradialis reflex intensity grade: 2+, Right patellar reflex intensity grade: 2+ and Left patellar reflex intensity grade: 2+ Coordination: [id number] test normal Assessment & Plan Assessment & Plan (1) Transient neurologic deficit: Comment: TIA - poorly controlled mood likely excarcerbated Code(s): R29.818 - Other symptoms and signs involving the nervous system Category: Medical (2) LINETTE on CPAP: Code(s): G47.33 - Obstructive sleep apnea (adult) (pediatric); Z99.89 - Dependence on other enabling machines and devices Category: Medical Plan Continue aspirin 81mg qd MRI CT Carotid doppler results for review CALL 911 for any new neurological symptoms Continue CPAP Counseled on talking to her therapist more frequently and consider additional treatment for mood . Coding Level of Care Code New Pt Level 4 (91895) Complex EM visit Add On G2211 Diagnoses Transient neurologic deficit R29.818 LINETTE on CPAP G47.33; Z99.89
--- OUTSIDE RECORDS SUMMARY | 2025-05-10 10:10 | XMS_ITS | Encounter Summary ---
Author Organization [facility] Address [address] [place] [address] Phone Care Team Providers Care Ophthalmic Technician Apprentice Name Role Phone Angela Ellington Primary Care Provider + [phone] Encounter Details Date Type Department Care Team (Late st Contact Info) Description 09/24/2022 Telephone [facility] [address] [place] [address] Daniele Reddy MD Social History [...] for guidance. Please call her back at [phone] Thank you documented in this encounter Plan [...] 8:58 AM EST) Glucose 134(H) (70-99) MG/DL [facility] BUN 27(H) (8-23) MG/DL [facility] Creatinine 1.3(H) (0.5-1.0) MG/DL [facility] Sodium 141 (133-145) MMOL/L [facility] Potassium 4.7 (3.6-5.2) MMOL/L [facility] Chloride 105 (98-107) MMOL/L [facility] Bicarbonate (CO2) 30(H) (22-29) MMOL/L [facility] Anion Gap 6 (4-17) [facility] Calcium 10.7(H) (8.6-10.5) MG/DL [facility] Est GFR Non 43 ML/MIN/1.7 3 M2 [facility] Comment: Creatinine based estimated glomerular filtration (eGFR) in adults is calculated using the National Kid[employer] recommended 2020 CKD-EPI equation. Estimates GFR from serum creatinine, age and sex. Testing performed or reported by [facility], a Service of [facility], [address] [place] [id number] Noah Orta MD, Ell Teacher [facility]# [id number] 11/25/2022 8:58 AM EST 11/25/2022 8:59 AM EST us Daniele Reddy MD LAB BLOOD ORDERABLES Final Res ult [facility] * (ABNORMAL) CBC and Differential (11/25/2022 8:58 AM EST) White Blood Cells 10.0 (4.0-11.0) K/MM3 [facility] RBC 4.44 (4.20-5.40 ) M/MM3 [facility] Hgb 12.0 (11.7-15.5 ) GM/DL [facility] Hematocrit 40.0 (35.7-45.8 ) % [facility] MCV 90.1 (80.0-100. 0) FL [facility] MCH 27.0 (27.0-34.0 ) PG [facility] MCHC 30.0(L) (33.0-37.0 ) g/dL [facility] Platelets 328 (150-460) K/MM3 [facility] RDW-SD 49.2(H) (<47.0) FL [facility] MPV 9.3(L) (9.4-12.4) FL [facility] nRBC Count 0.0 #/100 WBC'S [facility] NRBC Absolute 0.0 K/MM3 [facility] Neutrophils Abs Auto 6.6 (1.3-7.0) K/MM3 [facility] Lymphocytes Relative 2.2 (0.8-3.1) K/MM3 [facility] Monocytes 0.8 (0.4-0.9) K/MM3 [facility] Eosinophils Relative 0.3 (0.0-0.4) K/MM3 [facility] Basophil ABS 0.1 (0.0-0.1) K/MM3 [facility] Granulocytes Absolute 0.1 K/MM3 [facility] Neutrophils % Auto 65.5 (44-76) % [facility] Lymphs 21.8 (15-43) % [facility] Monocytes Absolute 8.3 (4.5-10.5) % [facility] Eosinophils 3.3 (0-6) % [facility] Basophils Relative 0.6 (0-2) % [facility] Immature Granulocytes 0.5 % [facility] Comment: Testing performed or reported by [facility], a Service of [facility], [address] [place] [id number] Noah Orta MD, Ell Teacher CLIA# [id number] 11/25/2022 8:58 AM EST 11/25/2022 8:59 AM EST us Daniele Reddy MD LAB BLOOD ORDERABLES Final Res ult [facility] * Protein, Total, Random Urine w/Creatinine (Protein/Creat Ratio) (11/25/2022 8:55 AM EST) Protein/Creatin e Ratio 0.16 (0-0.2) [facility] Protein, Urine 5 MG/DL [facility] Creatinine, Urine 32.2 MG/DL [facility] Comment: Testing performed or reported by [facility], a Service of [facility], [address] [place] [address] Noah Orta MD, Ell Teacher [facility]# [id number] 11/25/2022 8:55 AM EST 11/25/2022 8:58 AM EST Daniele Reddy MD LAB URINE ORDERABLES Final Res ult Performing Organization Address City/[facility] Co de Phone Number [facility] documented in this encounter Visit Diagnoses Not on filedocumented in this encounter Care Teams Ophthalmic Technician Apprentice Relationship Specialty Start Date End Date Agnela Ellington PA [address] PCP - General Physician Lead Presser 12/02/22 documented as of this encounter
== END 2025-05-10 09:58 | disposition home or self-care (01) ==
LOC: HO.HSMS 09:17
PROVIDERS: PCP Physician Assistant Medical; Visit Provider Psychiatry & Neurology Neurology
DX: R29.818 Other symptoms and signs involving the nervous system (principal); G47.33 Obstructive sleep apnea (adult) (pediatric); Z99.89 Dependence on other enabling machines and devices
CPT/HCPCS: 99204; G2211

== ENCOUNTER → 2025-05-10 09:16 | Outpatient (BNVA) | payer MEDICARE, SELFPAY | PROVIDERS: PCP Physician Assistant Medical; Visit Provider Psychiatry & Neurology Neurology | DX: R29.818 Other symptoms and signs involving the nervous system (principal); G47.33 Obstructive sleep apnea (adult) (pediatric); Z99.89 Dependence on other enabling machines and devices | CPT/HCPCS: 99202 ==

== ENCOUNTER 2025-07-26 11:23 | Outpatient (AMB) | payer MEDICARE, SELFPAY ==
--- OUTSIDE RECORDS SUMMARY | 2025-01-18 07:30 | XMS_ITS ---
Author Organization [facility] Address [address] [place] [address] Care Team Providers Care Region Manager Name Role Phone Roxanne Ellington PA-C Primary Care Provider Unav Kwesi Rosa Unavailable [phone] Encounters Encounter Location Date Provider Diagnosis [facility] [address] [place] [phone] 01/18/2025 Kwesi Cruz Plan Of Treatment Next Appt Details Provider Name:Kwesi Cruz , 10/15/2025 11:30:00 AM, [address] [address], [place], [phone], Progress Notes * Lorena ROMEROTinaOB:1950 (75 yo F)Acc No.[id number]:01/18/2025 Progress Note Patient: Barbara WATTS Provider: Ulices Cruz DPM :1950 A ge:74 Y S ex:Female Date:01/18/2025 Address:[address] [place], [place] [phone] Pcp:Roxanne Ellington PA-C Subjective: * Chief Complaints: * * Medical History: Objective: * Vitals: Assessment: Plan: * Treatment: * Images: * The named appointment provid er may or may not be the originator of this progress note, and it is not deemed complete until electronically signed by the appointment provider. Sign off status: Pending * Provider: Ulices Cruz DPM Date: 0 01/18/2025 Generated for Mary Jo quintanilla/Erum/Haley on: 0 07/26/2025 03:44 PM EDT
--- OUTSIDE RECORDS SUMMARY | 2025-04-16 11:45 | XMS_ITS ---
Author Organization [facility] Address [address] [place] [address] Care Team Providers Care Search Engine Optimization Analyst Name Role Phone Roxanne Ellington PA-C Primary Care Provider Unav Kwesi Rosa Unavailable [phone] Encounters Encounter Location Date Provider Diagnosis [facility] [address] [place] [address] 04/16/2025 Kwesi Cruz Plan Of Treatment Next Appt Details Provider Name:Kwesi Cruz , 10/15/2025 11:30:00 AM, [address] [address], [place], [address], Progress Notes * Lorena ROMEROTinaOB:1950 (75 yo F)Acc No.[id number]:04/16/2025 Progress Note Patient: Barbara WATTS Provider: U[place] Cruz DPM :1950 A ge:75 Y S ex:Female Date:04/16/2025 Address:[address] [place], [place] [id number] Pcp:Roxanne Ellington PA-C Subjective: * Chief Complaints: * * Medical History: Objective: * Vitals: Assessment: Plan: * Treatment: * Images: * The named appointment provid er may or may not be the originator of this progress note, and it is not deemed complete until electronically signed by the appointment provider. Sign off status: Pending * Provider: [place] Cruz DPM Date: 04/16/2025 Generated for Mary Jo quintanilla/Erum/Haley on: 0 07/26/2025 03:44 PM EDT
--- OUTSIDE RECORDS SUMMARY | 2025-07-25 09:40 | XMS_ITS | Encounter Summary ---
Author Organization [facility] Address [address] [place] [address] Care Team Providers Care Leadership Program Internship Name Role Phone Roxanne Ellington Primary Care Provider [phone] Reason for Visit * Reason Comments Consult Diarrhea Encounter Details Date Type Department Care Team ([facility] st Contact Info) Description 07/25/2025 9:40 AM EDT Consult Gastroenterology - [address] [place] [id number] Nicole Giron PA [address] [place] [phone] Irritable bowel syndrome with both constipation and diarrhea (Primary Dx); Colon cancer screening Social History Tobacco Use Types Packs/Day Years [...] Sign Reading Time Taken Comments Blood Pressure - - Pulse - - Temperature - - Respiratory Rate - - Oxygen Saturation - - Inhaled Oxygen Concentration - - Weight 84.4 kg (186 lb) 07/25/2025 9:32 AM EDT Height 149.9 cm (4' 11 ) 07/25/2025 9:32 AM EDT Body Mass Index 37.57 07/25/2025 9:32 AM EDT documented in this encounter Progress Notes * STANISLAW Candelario - 07/25/2025 9:40 AM EDT CHIEF COMPLAINT: Consult and Diarrhea HPI: Barbara Romero is a 75 y.o. old adult who was originally referred to us by STANISLAW Ramirez now presents to the gastroenterology department today for consultation of diarrhea. Reports in Spring 2024, frequent bouts of diarrhea every 3-4 days. Stool was loose watery with urgency about 3-4x/day. She was using Imodium as needed but with limited improvement. She saw primary care who completed stool samples, which she reports were unremarkable, although no results to review. She started a pre/probiotic about 8 weeks ago, she states with time her symptoms have mostly resolved. Today, BM every 3 days. Stool is formed. This is her baseline. Denies abdominal pain, hematochezia, melena, or significant weight loss. Patient denies colonoscopy favoring Cologuard testing instead. Last Cologuard 2021, negative. ROS: GENERAL: No malaise, significant weight loss or fever HEENT: No changes in hearing or vision, nose bleeds or swallowing problems NECK: No lumps, goiter, pain or significant neck swelling RESPIRATORY: No cough, wheezing or shortness of breath CARDIOVASCULAR: No chest pain, leg swelling or palpitations GI: see above MUSCULOSKELETAL: No joint pain or swelling, back pain, or muscle pain. SKIN: No lesions, rash or itching The remainder of the review of systems is reviewed and negative. PROBLEM LIST: Patient Active Problem List Diagnosis Allergic rhinitis Anxiety Asthma CHF (congestive heart failure) ([facility] V24, [facility] V28) Depression Diabetes mellitus type 2, uncomplicated ([facility] V24, [facility] V28) DJD (degenerative joint disease) of knee GERD (gastroesophageal reflux disease) HTN (hypertension) Hyperlipidemia Obstructive sleep apnea syndrome Palpitations Syncope Abnormal glucose level Arthralgia Bee sting-induced anaphylaxis Chronic diastolic heart failure ([facility] V24, [facility] V28) Constipation Cough Deep vein thrombosis (DVT) of lower extremity ([facility] V24, [facility] V28) Diabetic peripheral neuropathy ([facility] V24, [facility] V28) Disorder of sacrum Dyspnea Enthesopathy of hip region Functional visual loss Gastroenteritis Generalized anxiety disorder Hand pain Hypertensive heart disease without congestive heart failure Hypertensive nephrosclerosis Hypokalemia Impaired fasting glucose Insomnia Intervertebral disc disorder of lumbar region with myelopathy Lateral epicondylitis Left ventricular hypertrophy Leukocytosis Low back pain Mild persistent asthma without complication Moderate major depression, single episode ([facility], [facility] V[facility]) Spinal stenosis of lumbar region Stage 1 chronic kidney disease 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) Depression DX:Depression Diabetes mellitus type 2, uncomplicated ([facility], [facility] V[facility]) 12/10/2017 DX:Diabetes mellitus type 2, uncomplicated ([facility]) DJD (degenerative joint disease) of knee 12/10/2017 DX:DJD (degenerative joint disease) of knee GERD (gastroesophageal reflux disease) DX:GERD (gastroesophageal reflux disease) HTN (hypertension) DX:HTN (hypertension) Hyperlipidemia 12/10/2017 DX:Hyperlipidemia Obstructive sleep apnea syndrome 03/15/2017 DX:Obstructive sleep apnea syndrome PAST SURGICAL HISTORY: Past Surgical History: Procedure Laterality Date CHOLECYSTECTOMY PROCEDURE: HISTORICAL CHOLECYSTECTOMY FOOT SURGERY PROCEDURE: HISTORICAL FOOT SURGERY OOPHORECTOMY PROCEDURE: HISTORICAL OOPHORECTOMY SOCIAL HISTORY: Social History Tobacco Use Smoking status: Never Smokeless tobacco: Never Substance Use Topics Alcohol use: Not Currently FAMILY HISTORY: Family History Problem Relation Name Age of Onset Coronary artery disease Mother Heart attack Father Coronary artery disease Father ACTIVE MEDICATIONS: Current Outpatient Medications Medication Sig Dispense Refill aspirin 81 mg EC tablet Take 1 tablet (81 mg total) by mouth 1 (one) time each day. atorvastatin (LIPITOR) 20 mg tablet Take 20 mg by mouth daily bumetanide (BUMEX) 1 mg tablet Take 2 Tablets by mouth daily. Ad Operations Specialist decreased to 1 qd. carvediloL (COREG) 6.25 mg tablet TAKE 1 TABLET BY MOUTH TWICE A DAY WITH MEALS 60 tablet 5 DULoxetine (CYMBALTA) [address] capsule Take 60 mg by mouth daily. empagliflozin (Jardiance) 10 mg tablet Take 1 tablet (10 mg total) by mouth 1 (one) time each day in the morning. EPINEPHrine (EPIPEN) 0.3 mg/0.3 mL injection INJECT 1 AUTO-INJECTOR DAILY NEEDED levalbuterol (XOPENEX HFA) 45 mcg/actuation inhaler Inhale 1-2 Puffs into the lungs every 4 hours as needed for Wheezing or Shortness of Breath losartan (COZAAR) 50 mg tablet Take 1 tablet (50 mg total) by mouth 1 (one) time each day. 90 tablet 3 magnesium oxide (MAG-OX) 400 mg magnesium tablet Take 1 tablet by mouth 2 times daily. montelukast (SINGULAIR) 10 mg tablet Take 10 mg by mouth at bedtime. Mounjaro 2.5 mg/0.5 mL injection INJECT 2.5 MG SUBCUTANEOUSLY WEEKLY omeprazole (PriLOSEC) [address] capsule Take 40 mg by mouth daily. spironolactone (ALDACTONE) 25 mg tablet Take 1 Tablet by mouth daily. VITAMIN C, ASCORBATE CALCIUM, ORAL Take by mouth fluticasone-salmeterol (ADVAIR DISKUS) 250-50 mcg/dose diskus inhaler Inhale 1 puff by mouth 2 (two) times a day. Rinse mouth with water after use to reduce aftertaste and incidence of candidiasis. Do not swallow. (Patient not taking: Reported on 07/25/2025) mometasone (NASONEX) 50 mcg/actuation nasal spray 2 Sprays by Each Nare route daily. (Patient not taking: Reported on 07/25/2025) semaglutide (Ozempic) 0.25 mg or 0.5 mg(2 mg/1.5 mL) injection pen Inject under the skin every 7 (seven) days. (Patient not taking: Reported on 07/25/2025) traMADoL (ULTRAM) 50 mg tablet TAKE 1 TABLET BY MOUTH EVERY 6 HOURS FOR 7 DAYS PRN (Patient not taking: Reported on 07/25/2025) No current facility-administered medications for this visit. ALLERGIES: Allergies Allergen Reactions Bee Venom Protein (Honey Bee) Anaphylaxis Kvng Inhibitors Cough Penicillins Sulfa (Sulfonamide Antibiotics) Sulfa Drugs PHYSICAL EXAM: Visit Vitals Ht 1.499 m (59 ) Wt 84.4 kg (186 lb) BMI 37.57 kg/m?? Smoking Status Never BSA 1.79 m?? APPEARANCE: Alert and in no acute distress EYES: PERRLA, conjunctiva and sclera normal. EXTREMITIES: Extremities warm and well perfused SKIN: Skin color, texture, turgor normal. NEURO: Awake, alert and oriented, normal ROM Assessment/Plan Assessment & Plan Irritable bowel syndrome with both constipation and diarrhea Suspect symptoms secondary to constipation, with overflow, rather than true diarrhea. Patient's bowel movements are back to baseline-every 3 days, formed stool. This also slightly supports constipation. Recommend patient continue fiber supplement daily. Discussed etiology for constipation and diarrhea in depth today. Okay to transition to normal diet as tolerated. Colon cancer screening Patient declines colonoscopy. Recommend repeating Cologuard as it has been 3 years since her last testing. Patient states she is seeing primary care next month and will request the Cologuard test at that visit. Follow up if symptoms worsen or fail to improve. Gastroenterology and Hepatology Practice [facility] [email or web address] [phone] [place] [address] [address] [place] [address] STANISLAW Candelario documented in this encounter Plan of Treatment Not on file documented as of this encounter Visit Diagnoses Diagnosis Irritable bowel syndrome with both constipation and diarrhea- Primary Colon cancer screening Special screening for malignant neoplasms, colon documented in this encounter Historical Medications * This list may reflect changes made after this encounter. EPINEPHrine (EPIPEN) 0.3 mg/0.3 mL injection INJECT 1 AUTO-INJECTOR DAILY NEEDED 05/21/2025 traMADoL (ULTRAM) 50 mg tablet TAKE 1 TABLET BY MOUTH EVERY 6 HOURS FOR 7 DAYS PRN Mounjaro 2.5 mg/0.5 mL injection INJECT 2.5 MG SUBCUTANEOUSLY WEEKLY added in this encounter Care Teams Leadership Program Internship Relationship Specialty Start Date End Date Roxanne Ellington PA [address] [facility] [address] [place], [place] PCP - General 12/18/22 documented as of this encounter
[2025-07-26 11:27] VITALS: BP 134/80; PULSE 70; O2SAT 96; BMI 36.3
--- NOTE | 2025-07-26 11:27 | HO.NEPHOV ---
Vital Signs 07/26/25 11:27 Height 5 ft Weight 186 lb BMI 36.3 BP 134/80 Blood Pressure Location Rt brachial Position Sitting Pulse 70 Pulse Source Pulse Oximeter Pulse Oximetry (%) 96 Oxygen Delivery Method Room Air Intake Visit Reasons: 4 MO FU Blueprint Clerk Required: No Accompanied by: Self / Same As Patient Allergies bee pollen Allergy (Severe, Verified 07/26/25 11:29) Hives/Rash lisinopril Adverse Reaction (Severe, Verified 07/26/25 11:29) Cough Kvng Inibitors Allergy (Severe, Uncoded 05/10/25 09:23) Cough Penicillins Allergy (Severe, Uncoded 05/10/25 09:23) Rash Sulfa Drugs Allergy (Severe, Uncoded 05/10/25 09:23) Rash Medication List - Last Reconciled 07/26/25 by Daniele Reddy MD ascorbic acid (vitamin C) 500 mg PO DAILY aspirin 81 mg PO DAILY atorvastatin 20 mg PO DAILY azithromycin 250 mg PO DAILY bumetanide 1 mg PO DAILY carvedilol 6.25 mg PO BID duloxetine 60 mg PO DAILY empagliflozin (Jardiance) 10 mg PO DAILY epinephrine IM fluticasone propion-salmeterol 250-50 mcg/dose (Wixela Inhub) 1 inh inhalation Q12H 90 days okadaqqbjhn-abwsjdamh-ejyzujnz 100-62.5-25 mcg (Trelegy Ellipta) 1 ea inhalation DAILY levalbuterol tartrate 45 mcg/actuation 2 puffs inhalation Q6H PRN 90 days losartan 50 mg PO DAILY magnesium 200 mg PO DAILY mometasone 50 mcg/actuation (Nasonex) 2 sprays intranasal DAILY 90 days montelukast 10 mg PO DAILY 90 days omeprazole 40 mg PO DAILY spironolactone 12.5 mg (1/2 x 25 mg) PO DAILY tirzepatide (Mounjaro) 2.5 mg subcut QWEEK HPI Comments Details: 73 yr old woman with CKD and CHF and HTN Overall she is doing well. She has been monitoring her weight at home and takes additional dose of Bumex if needed. She is compliant with her medications. She has no specific issues today 09/11/24 Feels bloated; Weight fluctuates 12/11/24 Recently had dizzy spell. Seen by cardiology Had CT scan and reportedly had a TIA? Still finding difficulty to find words Denies focal weakness Currently on Bumex 1 mg daily and occasional 2 mg as needed 03/27/25 75-year-old female presenting with chronic kidney disease management. Her renal function demonstrates improvement with a creatinine level of 1.27 mg/dL. Her diabetes mellitus is well-managed, with a stable HbA1c level previously recorded at 6. The patient is on a regimen that includes Bumetanide, Losartan, and Empagliflozin, with no recent adjustments. She reports persistent exertional dyspnea related to her history of congestive heart failure but denies any acute exacerbations. Weight management appears stable, supported by a low-sodium diet. Follow-up evaluations with her manager cath lab and continued medication adherence are part of her ongoing management plan. 07/26/25 The patient is a 75-year-old female presenting for a follow-up for chronic disease management. Hypertension is stable with a blood pressure of 134/80 mmHg. Peripheral edema remains unchanged. Diabetes mellitus is controlled with a blood sugar of 89 mg/dL and an A1c of 6.7%. Chronic kidney disease is stable with creatinine at 1.22 mg/dL. Medications: - Bumetanide 1 mg for edema - Jardiance for diabetes mellitus - Losartan for hypertension - Spironolactone 12.5 mg for hypertension - Carvedilol 6.25 mg twice daily for hypertension Diagnostic Results: - Creatinine: 1.22 mg/dL, stable from previous 1.23 mg/dL [facility] Medical History (Updated 05/10/25 @ 10:01 by Rose Reddy MD) Transient neurologic deficit Diabetes Chronic allergic rhinitis Murmur LINETTE on CPAP Asthma Family History Mother Heart disease Father Heart disease Other Asthma Social History Alcohol intake: never Patient Tobacco Use Status: Never used Tobacco Physical Exam Vital Signs: Last Vital Signs Pulse 70 07/26/25 11:27 BP 134/80 07/26/25 11:27 Pulse Ox 96 07/26/25 11:27 Oxygen Delivery Method Room Air 07/26/25 11:27 BMI result Body Mass Index 36.3 Const General: comfortable; No acute distress Orientation/consciousness: patient oriented x3 Eyes General: appearance normal, both eyes and all related structures Visual Stringer: normal visual stringer by confrontation Neck Neck: Yes supple and Yes no JVD Resp Effort & Inspection: normal respiratory effort and respiratory effort not decreased Auscultation: rhonchi Cardio Palpation: no palpable S3 and no palpable S4 Heart sounds: no rubs GI Inspection: Yes normal to inspection Palpation (GI): Soft to palpation Percussion: Yes normal to percussion Auscultation: normal bowel sounds General: Yes no CVA tenderness Back/Spine/Pelvis Back: no CVA tenderness Skin General skin exam: no petechiae and no purpura Neuro General: patient oriented x3 and no focal motor deficits Extrem General: No clubbing and Yes edema Assessment & Plan Assessment & Plan (1) CKD (chronic kidney disease): Code(s): N18.9 - Chronic kidney disease, unspecified Category: Medical (2) LINETTE on CPAP: Code(s): G47.33 - Obstructive sleep apnea (adult) (pediatric); Z99.89 - Dependence on other enabling machines and devices Category: Medical (3) HTN (hypertension): Code(s): I10 - Essential (primary) hypertension Category: Medical (4) TIA (transient ischemic attack): Code(s): G45.9 - Transient cerebral ischemic attack, unspecified Category: Medical Plan 75-year-old woman with CKD in a setting of congestive heart failure. Renal function is stable at this time. Baseline creatinine is around 1.2 mg/dL Goal is to slow the progression of renal disease. Agree with SGLT2 inhibitors for renal protection Continue with current diuretic regimen. follow up with cardiology Continue to stay on low-sodium diet. Avoid nephrotoxic agents including NSAIDs. BP well controlled No changes were made Orders: Orders Basic Metabolic Panel 6 Months N18.9 - Chronic kidney disease, unspecified Complete Blood Count no Diff 6 Months N18.9 - Chronic kidney disease, unspecified Coding Level of Care Code Est Pt Level 4 (61239) Diagnoses CKD (chronic kidney disease) N18.9 LINETTE on CPAP G47.33; Z99.89 HTN (hypertension) I10 TIA (transient ischemic attack) G45.9
--- OUTSIDE RECORDS SUMMARY | 2025-07-26 15:44 | XMS_ITS | Clinical Summary ---
Author Organization [address] [place] [address] [place] [address] [place] [address] Phone Care Team Providers Care Skin Care Therapist Name Role Phone Roxanne Darden Primary Care Provider [phone] Allergies Active Allergy Reactions Criticality Noted Date Comments Kvng Inhibitors Cough 12/10/2017 Bee Venom Protein (Honey Bee) Anaphylaxis High 01/29 Penicillins 07/30/2009 Sulfa (Sulfonamide Antibiotics) 07/16 Sulfa Drugs Medications atorvastatin (LIPITOR) 20 mg tablet Take 20 mg by mouth daily Active bumetanide (BUMEX) 1 mg tablet Take 2 Tablets by mouth daily. Civil Structural Engineer decreased to 1 qd. Active DULoxetine (CYMBALTA) [...] CALCIUM, ORAL Take by mouth Ac tive carvediloL (COREG) 6.25 mg tablet TAKE 1 TABLET BY MOUTH TWICE A DAY WITH MEALS 60 tablet 5 5 Active losartan (COZAAR) 50 mg tablet Take 1 tablet (50 mg total) by mouth 1 (one) time each day. 90 tablet 3 5 Active semaglutide (Ozempic) 0.25 mg or 0.5 mg(2 mg/1.5 mL) injection pen Inject under the skin every 7 (seven) days. Active empagliflozin (Jardiance) 10 mg tablet Take 1 tablet (10 mg total) by mouth 1 (one) time each day in the morning. Active aspirin 81 mg EC tablet Take 1 tablet (81 mg total) by mouth 1 (one) time each day. Active fluticasone-sa lmeterol (ADVAIR DISKUS) 250-50 mcg/dose diskus inhaler Inhale 1 puff by mouth 2 (two) times a day. Rinse mouth with water after use to reduce aftertaste and incidence of candidiasis. Do not swallow. Active Mounjaro 2.5 mg/0.5 mL injection INJECT 2.5 MG SUBCUTANEOUSLY WEEKLY Active traMADoL (ULTRAM) 50 mg tablet TAKE 1 TABLET BY MOUTH EVERY 6 HOURS FOR 7 DAYS PRN Active EPINEPHrine (EPIPEN) 0.3 mg/0.3 mL injection INJECT 1 AUTO-INJECTOR DAILY NEEDED Active Active Problems Problem Noted Date Diagnosed Date Arthralgia 07/23/2025 Chronic diastolic heart failure ([facility] V24, CM S/HCC V28) 07/23/2025 Functional visual loss 07/23/2025 Gastroenteritis 07/23/2025 Hand pain 07/23/2025 Impaired fasting glucose 07/23/2025 Insomnia 07/23/2025 Low back pain 07/23/2025 Vaginitis 07/23/2025 Transient cerebral ischemia 01/24/2025 GERD (gastroesophageal reflux disease) Leukocytosis 08/17/2024 Moderate major depression, s rodger episode ([facility] V24, [facility] V28) 12/29/2023 HTN (hypertension) 12/18/2022 Assessment & Plan (04/27/2025 9:36 AM EDT): Blood pressure well-controlled on current beta-donald, diuretic, SGLT2, ARB and MRA. Continue Assessment & Plan (12/10/2024 4:03 PM EST): Patient's blood pressure is well-controlled in the office today, but reportedly elevated last week. Her sand mixer operator that just adjusted her diuretic therapy. As above, will begin the transition from calcium channel donald to beta-donald in hopes of controlling both her blood pressure and minimizing her lower extremity edema. She may continue her Bumex as directed by her sand mixer operator that she does not appear to be centrally volume overloaded. Continue her losartan and Aldactone at current doses. Syncope 12/18/2022 Deep vein thrombosis (DVT) o f lower extremity ([facility] V24, [facility] V28) 11/04/2022 Palpitations 05/28/2021 Assessment & Plan (12/10/2024 4:04 PM EST): The patient has brief and sporadic episodes of palpitations. She does not have sustained palpitations. We will transition her diltiazem to Coreg and see if that improves any perception of her palpitations. Hypertensive heart disease without congestive he art failure 01/29/2021 Intervertebral disc disorder of lumbar region with myelopathy 12/24/2020 Diabetic peripheral neuropathy ([facility] V24, [facility] V28) 10/18/2020 Constipation 08/23/2020 Bee sting-induced anaphylaxis 07/10/2019 Left ventricular hypertrophy 05/19/2019 Overview (07/23/2025): Echo 2019 Hypertensive nephrosclerosis 03/17/2019 Hypokalemia 12/07/2018 Generalized anxiety disorder 05/23/2018 Mild persistent asthma without complication 07/2018 Allergic rhinitis 12/10/2017 Anxiety 12/10/2017 CHF (congestive heart failure) ([facility] V24, [facility] V28) 12/10/2017 Overview (04/27/2025): -Clean coronary arteries in 2012 - Updated echocardiogram 02/14/2025 showed normal LV cavity size, LVEF 65 to 70%, no wall motion abnormalities, RV not well-visualized though appears normal with normal function, no hemodynamically significant valve disease. Carotid ultrasound 02/06/2025 showed no hemodynamically significant stenosis Assessment & Plan (04/27/2025 9:36 AM EDT): The patient overall feels better on carvedilol rather than diltiazem. Her medication list is updated to reflect this. she appears euvolemic, and does not have any lower extremity edema! Continue her beta-donald, diuretic, SGLT2, ARB and MRA. I did suggest that she increase her exercise through walking or climbing flights of stairs. She can also march in place while she is watching her core TV. This seems to be a feasible option for her. Assessment & Plan (12/10/2024 4:02 PM EST): [...] last. Depression 12/10/2017 Diabetes mellitus type 2, un complicated ([facility] V24, [facility] V28) 12/10/2017 DJD (degenerative joint disease) of knee 018 Hyperlipidemia 12/10/2017 Assessment & Plan (04/27/2025 9:36 AM EDT): The patient's LDL is somewhat above target of at least less than 100, closer to 70 if possible given her diabetes. The most recent lipid profile that we have access to was from 2022. If a more recent lipid profile could be sent from her PCPs office, we would appreciate it. Continue statin at current dose in the meantime. Assessment & Plan (12/10/2024 4:05 PM EST): [...] Asthma 03/15/2017 Obstructive sleep apnea syndrome 03/15/2017 Stage 1 chronic kidney disease 02/19/2017 Stage 2 chronic kidney disea se due to type 2 diabetes mellitus ([facility] V24, [facility] V28) 02/19/2017 Dyspnea 04/27/2013 Overview (07/23/2025): STORY: ETIOLOGY UNCLEAR. CANNOT WORK AT THIS TIME.; RECORDED 04/27/2013 10:14AM BY MORELIA MCGINNIS MA, ANNOTATION/ADDENDUM Cough 12/13/2012 Overview (07/23/2025): IMPRESSION: FINISH 10D COURSE OF LEVAQUIN; RECORDED 12/13/2012 9:34AM BY GARTH HUGHES, ANNOTATION/ADDENDUM Disorder of sacrum 07/25/2012 Overview (07/23/2025): RECORDED 07/25/2012 9:41AM BY MALENA ANDREWS, ANNOTATION/ADDENDUM Spinal stenosis of lumbar region 01/21/2011 Overview (07/23/2025): DATE: 01/21/2011; STORY: SPOKE TO PT SHE IS DOING WELL AT HOME, PER PT SHE WAS INSTRUCTED BY SURGEON TO HOLD HER LASIX AND COZAAR DUE TO HER BLOOD PRESSURE BEING TOO LOW WHILE ON PAIN MEDS. I INSTRUCTED PT TO MAKE SURE SHE INFORM THIS OFFICE OF ANY FURTHER CHANGES. PT HAS FOLLOW UP WITH SURGEON SCHEDULED; RECORDED 11/17/2012 8:52AM BY NIC DUBON MA, ANNOTATION/ADDENDUM Abnormal glucose level 02/24/2010 Overview (07/23/2025): RECORDED 02/24/2010 9:48AM BY OMERO NUÑEZ, ANNOTATION/ADDENDUM Enthesopathy of hip region 02/24/2010 Overview (07/23/2025): RECORDED 02/24/2010 9:50AM BY OMERO NUÑEZ, ANNOTATION/ADDENDUM Lateral epicondylitis 02/24/2010 Overview (07/23/2025): RECORDED 02/24/2010 9:50AM BY OMERO NUÑEZ, ANNOTATION/ADDENDUM Resolved Problems Problem Noted Date Diagnosed Date Resolved Date CAD (coronary artery disease) 12/10/2017 04/27/2025 Encounters Date Type Department Care Team Description 07/25/2025 9:40 AM EDT Consult Gastroenterology - [address] [facility] [place] [phone] Nicole Giron PA Irritable bowel syndrome with both constipation and diarrhea (Primary Dx); Colon cancer screening 05/25/2025 Telephone Gastroenterology - [address] [facility] [place] [phone] Nicole Giron PA 04/27/2025 9:10 AM EDT Office Visit [facility] - [address] [place] [phone] Jeanine Oates NP Chronic diastolic congestive heart failure ([facility] V24, [facility] V28) (Primary Dx); Primary hypertension; Pure hypercholesterolemia from Last 3 Months Immunizations Name Administration [...] (hyper tension) Diabetes mellitus type 2, uncomplicated ([facility]24, [facility] V28) 12/10/2017 DX:Diabetes mellitus type 2, uncomplicated ([facility]) Anxiety 12/10/2017 DX:Anxiety Allergic rhinitis 12/10/2017 DX:Allergic rh initis CAD (coronary artery disease) 12/10/2017 DX :CAD (coronary artery disease) CHF (congestive heart failur e) ([facility] V24, [facility] V28) 12/10/2017 DX:CHF (congestive heart fa ilure) ([facility]) DJD (degenerative joint dise ase) of knee [...] Sign Reading Time Taken Comments Blood Pressure 122/65 04/27/2025 9:10 AM EDT Pulse 89 04/27/2025 9:10 AM EDT Temperature - - Respiratory Rate - - Oxygen Saturation 95% 04/27/2025 9:10 AM EDT Inhaled Oxygen Concentration - - Weight 84.4 kg (186 lb) 07/25/2025 9:32 AM EDT Height 149.9 cm (4' 11 ) 07/25/2025 9:32 AM EDT Body Mass Index 37.57 07/25/2025 9:32 AM EDT Plan of Treatment Health Maintenance Due Date Last Done Comments Diabetes: Annual Foot Exam 1961 Diabetes: Annual Retina Eye Exam 1961 Diabetes: Annual GFR (Glomerular Filtration Rate) 05/22/2006 05/22/2005 RSV Immunization Adult Patients (1 - Risk 60-74 years 1-dose series) 2011 Cholesterol Screening (Lipid Panel) 10/24/2022 Falls Risk Assessment 10/24/2022 Hepatitis C Screening 10/24/2022 Social Influencers of Health Screening 10/24/2022 Medicare Annual Wellness Visit 10/06/2023 10/06/2022 Diabetes: Annual Urine Albumin-Creatinine Ratio (uACR) 10/11/2024 05/22/2005 Diabetes: Blood Sugar Control Test (HGBA1C) 10/11/2024 Hypertension/CHF/CAD Annual BMP Blood Test 10/11/2024 05/22/2005 Depression Screening 11/15/2024 COVID-19 Vaccine ( season) 2025 11/05/2022, 10/15/2021, 01/09/2021, Additional history exists Influenza Vaccine (#1) 2025 , 09/14/2022, 09/03/2022, Additional history exists Colorectal Cancer Screening: FIT-DNA (Cologuard) 10/15/2025 10/15/2022, 10/15/2022, 06/22/2018 Osteoporosis Screening (Bone Density Screening) 06/15/2028 06/15/2018 DTaP,Tdap,and Td Vaccines (3 - Td or Tdap) 07/24/2029 07/24/2019, 01/03/2009 Pneumococcal Vaccine: 50+ Years Completed 10/15/2020, 06/17/2018, 02/19/2017, Additional history exists Breast Cancer Screening Discontinued 12/25/19, 12/25/2020, 06/27/2018 Zoster Vaccines Completed 03/22/2023, 06/16/2022 HIB Vaccines Aged Out No longer eligi [...] age to complete this topic Meningococcal B Vaccine Aged Out No l onger eligible based on patient's age to complete this topic RSV Immunization Patients Under 20 months Aged Out No longer eligible based on patient's age to complete this topic Varicella Vaccines Aged Out No longer eligible based on patient's age to complete this topic Procedures Procedure Name Priority Date/Time Associated Diagnosis Comments WILLIAM SCREENING DIGITAL Routine 12/25/2020 5:12 PM EST Encounter for screening mammogram for malignant neoplasm of breast URINE ALBUMIN CREATININE RATIO Routine 05/22/2005 ANNUAL BMP BLOOD TEST Routine 05/22/2005 from Last 3 Months or Most Recently Relevant to Health Maintenance Results * WILLIAM SCREENING DIGITAL (12/25/2020 5:12 PM EST) Anatomical Region Laterality Modality Mammography 12/25/2020 2:51 PM EST Narrative 12/25/2020 5:12 PM EST [facility] Diagnostic Imaging Department [address] [place] [address] Patient: BARBARA ROMERO D.O.B./Age/Sex: 1950 - 70 - F Unit#: [id number] Location/Status: SPDIMAM/REG CLI Mnemonic/Ordering Site: [facility] Ordering Physician: ROXANNE DARDEN William Screening Digital - 12/25/20 [id number] History: Bilateral breast cancer screening. Technique: Bilateral digital mammography. Conventional CC and MLO projections with tomosynthesis MLO views and computer aided detection. Findings: Comparison: [facility] digital mammography 06/27/2018 through 04/11/2004. Breast tissue is mostly fatty replaced (category a density) bilaterally (as calculated by [employer] software). There are benign calcifications bilaterally. There is no suspicious group of microcalcification, no suspicious mass, architectural distortion or suspicious asymmetry. Impression: No evidence of malignancy. BIRADS category 2, benign findings, 3342F [id number], 23057 Note: Patient information entered into a reminder system with a target due date for the next mammogram; PQRI II [id number] Dictating Physician: TAN COLON MD Electronically Signed by: TAN COLON MD Dic Date/Time: 12/25/201711 Sign date/Time: 12/25/201711 Procedure Note Tan Colon MD - 11/03/2022 [facility] Diagnostic Imaging Department [address] [place] [address] Patient: KARINABARBARA Chilel D.O.B./Age/Sex: 1950 - 70 - F Unit#: [id number] [facility] Mnemonic/Ordering Site: [facility] Ordering Physician: ROXANNE DARDEN William Screening Digital - 12/25/201536 History: Bilateral breast cancer screening. Technique: Bilateral digital mammography. Conventional CC and MLOprojections with tomosynthesis MLO views and computer aided detection. Findings: Comparison: [facility] digital mammography 06/27/2018 through 04/11/2004. Breast tissue is mostly fatty replaced (category a density) bilaterally(as calculated by [employer] software). There are benigncalcifications bilaterally. There is no suspicious group of microcalcification, nosuspicious mass, architectural distortion or suspicious asymmetry. Impression: No evidence of malignancy. BIRADS category 2, benign findings, 3342F [id number], [id number] Note: Patient information entered into a reminder system with a targetdue date for the next mammogram; PQRI II [id number] Dictating Physician: TAN COLON MD Electronically Signed by: TAN COLON MD Dic Date/Time: 12/25/201711 Sign date/Time: 12/25/201711 Roxanne DOVER IMG BI PROCEDURES Final Resul t * Urine Albumin Creatinine Ratio (05/22/2005) Urine Albumin Creatinine Ratio abstracted Historical Provider HEALTH MAINTENANCE Final Result * Annual BMP Blood Test (05/22/2005) Annual BMP Blood Test abstracted Historical Provider HEALTH MAINTENANCE Final Result from Last 3 Months or Most Recently Relevant to Health [place] [address] MEDICARE [facility] Care Teams Skin Care Therapist Relationship Specialty Start Date End Date Roxanne Darden PA [address] [facility] [address] [place], [place] PCP - General 12/18/22
--- OUTSIDE RECORDS SUMMARY | 2025-07-26 15:44 | XMS_ITS | Patient Health Record ---
Author Organization [facility] Address [address] [place] [address] Care Team Providers Care Special Warfare Operator Name Role Phone Roxanne Ellington PA-C Primary Care Provider Unav Kwesi Rosa Unavailable [phone] Allergies Allergen (clinical drug ingredient) Drug/Non Drug Allergy documented on EMR Reaction Allergy Type Onset Date Status Bee Sting Unknown Allergy Active lisinopril Lisinopril cough Drug Allergy Activ e Penicillin rash Drug Allergy Active Substance with sulfonamide structure and antibacterial mechanism of action (substance) Sulfa Antibiotics rash Drug Allergy Active Results Component Value Reference Range Notes HEMOGLOBIN A1C (GLYCOHEMOGLO BIN) Reviewed date:03/29/2025 03:06:15 PM Interpretation: Performing Lab: Notes/Report: HEMOGLOBIN A1C % (HH) 6.8 HEMOGLOBIN A1C (GLYCOHEMOGLO BIN) Reviewed date:10/19/2024 11:24:35 AM Interpretation: Performing Lab: Notes/Report: TOTAL HEMOGLOBIN (HGBA1C) 6.8 HEMOGLOBIN A1C (GLYCOHEMOGLO BIN) Reviewed date:07/02/2025 11:15:40 AM Interpretation: Performing Lab: Notes/Report: HEMOGLOBIN A1C % (HH) 5.7 Reason For Referral No Information Medications Medication SIG (Take, Route, Frequency, Duration) Notes Start Date End Date Status Aspir-81 Active Extra Depth Orthopedic Shoes (1 Pair) with Customized Heat Molded Multidensity Innersoles (3 Pair) as directed Dx: NIDDM/Polyneuropathy (E11.42), Hammertoe Foot Deformity (M20.41,M20.42), Preulcerative Skin Lesion(s) (L85.1 Active Advair Diskus 250-50 MCG/DOSE 1 puff Inhalation Twice a day Active Spironolactone 25 MG 1 tablet Orally; Duration: 30 day(s) Active Xopenex Active Vitamin D Active Ozempic Not-Taking Ammonium Lactate 12 % 1 application Externally to feet except for between the toes Twice a day; Duration: 30 days Active Potassium 1 tab Oral; Duration : 14 days Not-Taking Trulicity 3 MG/0.5ML as directed Subcutaneous Not-Taking Probiotic Active Janumet 50-1000 MG 1 tablet with meals Orally Twice a day; Duration: 30 day(s) Not-Taking Azithromycin 250 MG 2 tablets on the , then 1 tablet daily for 4 days Orally Once a day; Duration: 5 day(s) 07/18/2025 Active Mounjaro Active metFORMIN HCl Not-Ta janine Omeprazole 40 MG 1 capsule 30 minutes before morning meal Orally Once a day; Duration: 30 day(s) Active Nasonex Active Vitamin C Active Atorvastatin Calcium 20 MG 1 tablet Orally Once a day; Duration: 30 day(s) Active dilTIAZem HCl ER Beads 360 MG 1 capsule Orally Once a day; Duration: 30 day(s) Active Bumetanide 1 MG as directed Orally Active Losartan Potassium 25 MG 1 tablet Orally Once a day; Duration: 30 day(s) Active DULoxetine HCl 60 MG 1 capsule Orally On ce a day; Duration: 30 day(s) Active Montelukast Sodium 10 MG 1 tablet Orally Once a day; Duration: 30 day(s) Active Magnesium 400 MG as directed Orally Active Immunizations Vaccine Route Administration Date Status Comme nts Influenza Unknown 08/23/2020 Administered Influenza Unknown 07/17/2024 Administered COVID-19 Moderna Vaccine Unknown 12/12/2020 Administere d #2 01/09/21 Social History Tobacco Use: Social History Observation Description Date Details (start date - stop date) Never Smoker NA - NA Alcohol Screen Question Answer Notes Did you have a drink containing alcohol in the p ast year? No Points 0 Interpretation Negative Tobacco use other than smoking: Question Answer Notes Are you an other tobacco user? No Tobacco Control (Standard) Question Answer Notes Tobacco use: Nonsmoker Additional Findings: Tobacco non-user Current no nsmoker AUDIT-C (Standard) Question Answer Notes Did you have a drink containing alcohol in the p ast year? No Points 0 Interpretation Negative Problems Problem Type SNOMED Code ICD Code Onset Dates Problem Status W/U Status Risk Notes Problem Acquired hammer toe of right foot (3582759135209027 ) Other hammer toe(s) (acquired), right foot (M20.41) Active confirmed Response to treatment, Improvemen t Problem Acquired hammer toe of left foot (0868942156339030 ) Other hammer toe(s) (acquired), left foot (M20.42) Active confirmed Response to treatment, Improvemen t Problem Polyneuropathy due to type 2 diabetes mellitus (517623662) Type 2 diabetes mellitus with diabetic polyneuropathy (E11.42) Active confirmed Vital Signs Blood pressure diastolic 65 mm Hg 07/18/2025 Height 5ft in 07/18/2025 Blood pressure systolic 126 mm Hg 07/18/2025 Weight 178 lbs 07/18/2025 BMI 34.76 kg/m2 07/18/2025 Procedures Procedure Date Ordered Date Performed Result Body Sit e 26042-RXSGHQP NAIL, 6 OR MORE 10/19/2024 N/A 95721-DUES SKIN LESIONS, OVER 4 10/19/2024 N/A 41274-WMIPTTK NAIL, 6 OR MORE 03/29/2025 N/A 28570-TTFV SKIN LESIONS, OVER 4 03/29/2025 N/A 64828-EBTBCVZ NAIL, 6 OR MORE 07/02/2025 N/A 30735-RTGE SKIN LESIONS, OVER 4 07/02/2025 N/A 87010-Urncmrta Plate 07/18/2025 N/A Encounters Encounter Location Date Provider Diagnosis [address] [address] 10/19/2024 Kwesi Cruz Type 2 diabetes mellitus with diabetic polyneuropathy E11.42 ; Tinea unguium B35.1 and Xerosis of skin L85.[address] [address] 03/29/2025 Kwesi Cruz Type 2 diabetes mellitus with diabetic polyneuropathy E11.42 ; Tinea unguium B35.1 ; Other hammer toe(s) (acquired), right foot M20.41 and Other hammer toe(s) (acquired), left foot M20.[address] [address] 07/02/2025 Kwesi Cruz Type 2 diabetes mellitus with diabetic polyneuropathy E11.42 and Tinea unguium B35.1 [facility] [place] [address] [facility] [address] [place] [address] 07/18/2025 Kwesi Cruz Pain in right toe(s) M79.674 ; Ingrown nail L60.0 and Cellulitis of right toe L03.031 [facility] [place] [address] [place] [address] 01/18/2025 Kwesi Anthony [facility] [place] [address] [place] [address] 03/13/2025 Kwesisamson OrtizAnthony Assessments Encounter Date Diagnosis (ICD Code) Assessment Notes Treatment Notes Treatment Clinical Notes Section Notes 10/19/2024 Type 2 diabetes mellitus with diabetic polyneuropathy (ICD-10 - E11.42) 10/19/2024 Tinea unguium (ICD-10 - B35.1) 03/29/2025 Type 2 diabetes mellitus with diabetic polyneuropathy (ICD-10 - E11.42) 03/29/2025 Tinea unguium (ICD-10 - B35.1) 07/02/2025 Type 2 diabetes mellitus with diabetic polyneuropathy (ICD-10 - E11.42) 07/02/2025 Tinea unguium (ICD-10 - B35.1) 07/18/2025 Pain in right toe(s) (ICD-10 - M79.674) 07/18/2025 Ingrown nail (ICD-10 - L60.0) Patient Educated with: WOUND CARE INSTRUCTIONS. pdf (WOUND CARE INSTRUCTIONS. pdf) 07/18/2025 Cellulitis of right toe (ICD-10 - L03.031) 10/19/2024 Xerosis of skin (ICD-10 - L85.3) 03/29/2025 Other hammer toe(s) (acquired), right foot (ICD-10 - M20.41) Patient Educated with: DIABETIC FOOT CARE INSTRUCTIONS. pdf (DIABETIC FOOT CARE INSTRUCTIONS. pdf) 03/29/2025 Other hammer toe(s) (acquired), left foot (ICD-10 - M20.42) Plan Of Treatment Pending Test Test Name Order Date 27357-ZXMVRKL NAIL, 6 OR MORE 10/17/2020 34283-MFYXGZW NAIL, 6 OR MORE 02/10/2021 59207-ZVBKQOF NAIL, 6 OR MORE 05/12/2021 74048-TQPYNZK NAIL, 6 OR MORE 08/11/2021 94251-GRUVXVU NAIL, 6 OR MORE 11/17/2021 89985-EWNQPVN NAIL, 6 OR MORE 02/16/2022 24727-TEWTUVK NAIL, 6 OR MORE 05/20/2022 58023-PPWJDUM NAIL, 6 OR MORE 08/19/2022 91518-ZWQYFTE NAIL, 6 OR MORE 11/18/2022 45583-TNLGKJV NAIL, 6 OR MORE 02/17/2023 48607-YSLUKZH NAIL, 6 OR MORE 01/17/2024 29899-JHVNLEN NAIL, 6 OR MORE 04/17/2024 83672-DHKUXGT NAIL, 6 OR MORE 07/19/2024 41252-HMXOSTZ NAIL, 6 OR MORE 10/19/2024 66706-WCCRHOK NAIL, 6 OR MORE 03/29/2025 09567-LNSCOXF NAIL, 6 OR MORE 07/02/2025 69745-Uaptekfr Plate 01/17/2024 11025-Lqpyfwkn Plate 08/19/2022 42550-Csicqxta Plate 07/18/2025 88512-ATNN SKIN LESIONS, OVER 4 01/17/20 24 95283-DYGG SKIN LESIONS, OVER 4 04/17/20 24 13093-TVRI SKIN LESIONS, OVER 4 02/18/20 23 23989-JUPL SKIN LESIONS, OVER 4 11/18/19 23 71780-TWCD SKIN LESIONS, OVER 4 07/02/20 25 03667-WJAP SKIN LESIONS, OVER 4 03/29/20 25 91677-VUOS SKIN LESIONS, OVER 4 10/19/20 24 18042-JJLM SKIN LESIONS, OVER 4 07/19/20 24 26067-CDAM SKIN LESIONS, OVER 4 08/19/20 22 27644-GODW SKIN LESIONS, OVER 4 05/20/20 22 97849-NZDN SKIN LESIONS, OVER 4 02/17/20 22 27052-XJNU SKIN LESIONS, OVER 4 11/17/19 22 40777-OREV SKIN LESIONS, OVER 4 08/11/20 21 64234-MGYF SKIN LESIONS, OVER 4 05/12/20 21 72834-BKRT SKIN LESIONS, OVER 4 02/11/20 21 84659-VQKF SKIN LESIONS, OVER 4 10/17/20 Next Appt Details Provider Name:Kwesi Cruz , 10/15/2025 11:30:00 AM, [address] [facility], [address], [place], [address], Insurance Providers Payer Name Payer Address Payer Phone Subscriber Number Group Number Insured Name Patient Relationship to Insured Coverage Start Date Coverage End Date Medicare National Govt [facility] [address] [place] [address] [id number] Barbara Romero Self - patient is the insured [employer] [address] [place] [address] [id number] Barbara Romero Self - patient is the insured Medical (General) History Medical History History ICD Code asthma Back,Hip,and Knee pain Diabetic High blood pressure Kidney disease Numbness Joint implants/screws Measles Mumps Chicken pox Reflux CAD Stroke Surgical History Surgery Date(Month/Year) bunion lower back thumb surgery 01/01/23 thumb surgery 09/2023 carpal tunnel 2023 Hospitalization History Reason Date(Month/Year) pt had a small stroke, didn't go to hosp [facility] 11/2024 [facility]- shoulder replacement left 12/14/21 [facility]- shoulder replacement left 08/2021
--- OUTSIDE RECORDS SUMMARY | 2025-07-26 15:44 | XMS_ITS | Patient Health Record ---
Author Organization [facility] Address [address] [place] [address] Care Team Providers Care Lodging Facilities Manager Name Role Phone Az Hickman Primary Care Provider [phone] Allergies Allergen (clinical drug ingredient) Drug/Non Drug [...] date:09/18/2024 02:35:42 PM Interpretation: Performing Lab: Notes/Report: Reason For Referral No Information Medications Medication SIG (Take, Route, Frequency, Duration) Notes Start Date End Date Status Ozempic (0.25 or 0.5 MG/DOSE) 2 MG/3ML Solution Pen-injector Subcutaneous; Duration: 84 Days Active Spironolactone 25 MG Tablet Oral; Duration: 60 Days Active Atorvastatin Calcium 20 MG Tablet Oral; Duration: 90 Days Active Levalbuterol Tartrate 45 MCG/ACT Aerosol Inhalation; Duration: 90 Days Active Jardiance 10 MG Tablet Oral; Duration: 9 0 Days Active HYDROcodone-Acetaminop hen 5-325 MG Tablet 1 tablet as needed Orally every 4-6 hrs Partial Fill upon Patient Request 06/05/2024 Not-Taking Losartan Potassium 50 MG Tablet Oral; Duration: 90 Days Active Bumetanide 1 MG Tablet Oral; Duration: 9 0 Days Active DULoxetine HCl 30 MG Capsule Delayed Release Particles Oral; Duration: 90 Days Active Social History Tobacco Use: Social History Observation Description Date Details (start date - stop date) Never Smoker NA - NA Social History Drug/Alcohol: Social Info Question Answer Notes Alcohol Screen (Audit-C) Did you have a drink containing alcohol in the past year? No Points 0 Interpretation Negative Tobacco Use: Social Info Question Answer Notes Tobacco Use/Smoking Tobacco use: nonsmoker Additional Details Category Social Info Options Details Migrated Social History Migrated Social History Tobacco Years: Never smoker 03/29/2023, Problems Problem Type SNOMED Code ICD Code Onset Dates Problem Status W/U Status Risk Notes Problem Localized, primary osteoarthritis of the hand () Unilateral primary osteoarthritis of first carpometacarpal joint, left hand (M18.12) Active confirmed Problem Localized, primary osteoarthritis of the hand () Primary osteoarthritis, 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 Problem Carpal tunnel syndrome (84160832) Right carpal tunnel syndrome (G56.01) Active confirmed Problem Localized, primary osteoarthritis of the hand () Hand arthritis (M19.049) Active confirmed Problem Localized, primary osteoarthritis of the hand () Arthritis of carpometacarpal (CMC) joint of left thumb (M18.12) Active confirmed Vital Signs Height-cm 152.40 cm 09/18/2024 0 Weight-kg 84.37 kg 09/18/2024 0 Height 60.00 in 09/18/2024 0 Weight 186 lbs 09/18/2024 0 BMI 36.32 kg/m2 09/18/2024 0 Encounters Encounter Location Date Provider Diagnosis [place] [address] [place] [address] 09/18/2024 Az Hickman Unilateral primary osteoarthritis of first carpometacarpal joint, left hand M18.12 and Tenosynovitis M65.90 [address] [place] [address] [place] [address] 09/18/2024 Az Hickman Assessments Encounter Date Diagnosis [...] Date [place] ) [address] [place] [phone] [id number] MILAGROS COLLINS Self - patient is the insured [place] t) [address] [place], [place] [id number] MILAGROS COLLINS Self - patient is the insured [employer] A [address] [place] [address] [id number] MILAGROS COLLINS Self - patient is the insured Medications Administered Medication Instructions Date of Administration Dosage Notes Stacey-40 01/24/2024 1 mL Medical (General) History Medical [...]
--- OUTSIDE RECORDS SUMMARY | 2025-07-26 15:44 | XMS_ITS | Clinical Summary ---
Author Organization [facility] Address [address] [place] [address] Care Team Providers Care Handkerchief Presser Name Role Phone Unavailable Primary Care Provider [...] 66 07/09/2008 9:58 AM EDT Temperature 37.2 C (98.9 F) 07/09/2008 9:58 AM EDT Respiratory Rate 14 07/09/2008 9:58 AM EDT [...] COVID-19 Vaccine ( - 2023-2 5 season) 2025 Influenza (#1) 2025 RSV (1 - 1-dose 75+ series) 2026 HPV Vaccine (No Doses Required) Completed Hep A Aged Out No longer eligi [...]
== END 2025-07-26 11:39 | disposition home or self-care (01) ==
LOC: HO.HKA 11:24
PROVIDERS: PCP Physician Assistant Medical; Visit Provider Internal Medicine Hypertension Specialist
DX: I12.9 Hypertensive chronic kidney disease with stage 1 through stage 4 chronic kidney disease, or unspecified chronic kidney disease (principal); N18.9 Chronic kidney disease, unspecified; Z99.89 Dependence on other enabling machines and devices; G47.33 Obstructive sleep apnea (adult) (pediatric); G45.9 Transient cerebral ischemic attack, unspecified
CPT/HCPCS: 99214

== ENCOUNTER → 2025-07-26 11:23 | Outpatient (BNVA) | payer MEDICARE, SELFPAY | PROVIDERS: PCP Physician Assistant Medical; Visit Provider Internal Medicine Hypertension Specialist | DX: I10 Essential (primary) hypertension (principal); N18.9 Chronic kidney disease, unspecified; G45.9 Transient cerebral ischemic attack, unspecified; G47.33 Obstructive sleep apnea (adult) (pediatric); Z99.89 Dependence on other enabling machines and devices | CPT/HCPCS: 99212 ==

== ENCOUNTER 2025-10-29 10:29 | Outpatient (AMB) | payer MEDICARE, SELFPAY ==
[2025-10-29 10:31] VITALS: BP 138/84; PULSE 87; O2SAT 98; BMI 35.8
--- NOTE | 2025-10-29 10:31 | A.OFFVIS_ITS ---
Vital Signs 10/29/25 10:31 Height 5 ft Weight 183 lb 6 oz BMI 35.8 BP 138/84 Blood Pressure Location Rt brachial Position Sitting Pulse 87 Pulse Source Pulse Oximeter Pulse Oximetry (%) 98 Oxygen Delivery Method Room Air Intake Visit Reasons: 6m follow up Intake Note: Follow up Transient neurologic deficit, LINETTE on CPAP Library Science Professor Required: No Accompanied by: Self / Same As Patient Allergies bee pollen Allergy (Severe, Verified 10/29/25 10:31) Hives/Rash lisinopril Adverse Reaction (Severe, Verified 10/29/25 10:31) Cough Kvng Inibitors Allergy (Severe, Uncoded 05/10/25 09:23) Cough Penicillins Allergy (Severe, Uncoded 05/10/25 09:23) Rash Sulfa Drugs Allergy (Severe, Uncoded 05/10/25 09:23) Rash HPI Comments Details: 75y/o female comes for follow up. No new neurological symptoms.Diabetes is better controlled Hg A1 C- 6.9 she tripped and fell last week . she is doing Ok No prior falls No weakness or numbness. 90 day CPAP compliance- 98% usage 7 hrs AHI 0.6 c History form her initial visit 05/09-ABout 6 mths ago ( Nov 28 2024) she had an episode of slurred speech, word finding difficulty, felt off balance, weak for about 20minutes. she called her geosciences associate professor -was followed up the week after. After the episodes she still had lingering effects - felt foggy , tired for 2 weeks after that . she denies any severe headaches.she was under a lot of stress at that time as she was trying to move her [place] home. 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 But she had to give that up to take care of her dad. she is on cymbalta 60mg qd and has therapist that she talks to 2 times month she lives along, does not socialize, plays bingo weekly and goes to christian[facility] weekly. she had CT brain , carotid ultrasound and was started on aspirin 81mg qd by her vegetable cook. She denies nay new episodes since then Blood pressure is well controlled, diabetes is fairly controlled, Hg A1 C 6.5 she has LINETTE and is on CPAP. [facility] Medical History Transient neurologic deficit Diabetes Chronic allergic rhinitis Murmur LINETTE on CPAP Asthma Family History Mother Heart disease Father Heart disease Other Asthma Social History Alcohol intake: never Patient Tobacco Use Status: Never used Tobacco Physical Exam Vital Signs: Last Vital Signs Pulse 87 10/29/25 10:31 BP 138/84 10/29/25 10:31 Pulse Ox 98 10/29/25 10:31 Oxygen Delivery Method Room Air 10/29/25 10:31 BMI result Body Mass Index 35.8 Const General: cooperative, healthy appearing, comfortable and anxious Nutritional Appearance: obese Orientation/consciousness: patient oriented x3 Eyes Pupils: Equal, round and reactive pupils present Neuro Other: mild off balance General: patient oriented x3, gait normal, tone normal and moves all extremities Cranial nerves: Yes Facial sensation intact/muscles of mastication intact, Yes Equal, round and reactive pupils present, Yes Bilaterally intact EOM present, Yes Nystagmus not present, Yes Normal facial strength present, Yes Midline tongue present, Yes Symmetric palate elevation present and Yes Ability to bilaterally elevate shoulders present Cognition (Neuro): normal cognition Coordination: [id number] test normal Assessment & Plan Assessment & Plan (1) Transient neurologic deficit: Comment: TIA - poorly controlled mood likely excarcerbated Code(s): R29.818 - Other symptoms and signs involving the nervous system Category: Medical (2) LINETTE on CPAP: Code(s): G47.33 - Obstructive sleep apnea (adult) (pediatric); Z99.89 - Dependence on other enabling machines and devices Category: Medical Plan Continue aspirin 81mg qd Continue exercises as rec by PT Continue CPAP. compliance stressed Counseled on talking to her therapist more frequently and consider additional treatment for mood . Coding Level of Care Code Est Pt Level 4 (10102) Add On Problem Visit Only Diagnoses Transient neurologic deficit R29.818 LINETTE on CPAP G47.33; Z99.89
== END 2025-10-29 10:52 | disposition home or self-care (01) ==
LOC: HO.HSMS 10:29
PROVIDERS: PCP Physician Assistant Medical; Visit Provider Psychiatry & Neurology Neurology
DX: R29.818 Other symptoms and signs involving the nervous system (principal); G47.33 Obstructive sleep apnea (adult) (pediatric); Z99.89 Dependence on other enabling machines and devices
CPT/HCPCS: 99214; G2211

== ENCOUNTER → 2025-10-29 10:29 | Outpatient (BNVA) | payer MEDICARE, SELFPAY | PROVIDERS: PCP Physician Assistant Medical; Visit Provider Psychiatry & Neurology Neurology | DX: G47.33 Obstructive sleep apnea (adult) (pediatric) (principal); R29.818 Other symptoms and signs involving the nervous system; Z99.89 Dependence on other enabling machines and devices | CPT/HCPCS: 99212 ==